=== PATIENT | female | born 1960 | race Hispanic/Latino ===

== ENCOUNTER 2018-09-20 12:25 | Observation (INO) | payer MEDICAID ==
[~2018-09-20] VITALS: Ht 157.5 cm; Wt 66.5 kg
[2018-09-20] MEDS: PANTOPRAZOLE 40MG INJ (PROTONIX) (C9113) IV SCH (09:00)
[2018-09-20] MEDS ORDERED: methylPREDNISolone INJ 125 MG/2 ML VIAL (J2930) IV ONE ×2 (12:45→13:45)
[2018-09-20] MEDS: IPRATROPIUM 0.5MG/ALBUTEROL 2.5MG INH SOL UD 3ML (DUONEB)(J7620) NEB PRN ×3 (12:59→13:24)
[2018-09-20 13:02] LABS: ABG BASE EXCESS -2.4 (-2.0-2.0); ABG HCO3 22.2 MEQ/L (22.0-26.0); ABG O2 SATURATION 98.9 % (95.0-99.0); ABG PARTIAL PRESSURE CO2 38.2 mmHg (35.0-45.0); ABG STANDARD HCO3 22.5 MEQ/L (22.0-26.0); ABG TOTAL CO2 23.4 MEQ/L (22.0-29.0); ABG pH (ARTERIAL) 7.383 UNITS (7.350-7.450)
[2018-09-20 13:18] LABS: BASO # 0.1 10^3/uL (0.0-0.2); EOS # 0.2 10^3/uL (0.0-0.50); HEMATOCRIT 41.4 % (36.0-47.0); HEMOGLOBIN 13.5 g/dl (12.0-15.5); LYMPH # 2.7 10^3/uL (1.5-4.5); LYMPH % 40.2 % (24.0-44.0); MEAN CORPUSCULAR HEMOGLOBIN 31.9 pg (27.0-33.0); MEAN CORPUSCULAR HGB CONC 32.6 g/dl (32.0-36.5); MEAN CORPUSCULAR VOLUME 97.9 fl (80.0-96.0); MONO # 0.5 10^3/uL (0.0-0.8); MONO % 7.7 % (0.0-5.0); NEUTROPHILS # 3.2 10^3/uL (1.8-7.7); NEUTROPHILS % 47.8 % (36.0-66.0); PLATELET COUNT, AUTOMATED 155 10^3/uL (150-450); RED BLOOD COUNT 4.23 10^6/uL (4.00-5.40); WHITE BLOOD COUNT 6.7 10^3/uL (4.0-10.0)
[2018-09-20] MEDS ORDERED: dexameTHASONE 20 MG/5 ML VIAL (J1100) IM ONE (13:30)
--- NOTE | 2018-09-20 13:54 | REP ---
Clinical: Cough and dyspnea . Comparison: None . Findings: The mediastinum and cardiac silhouette are stable and within normal limits for portable technique. The lung cagle demonstrate chronic-appearing interstitial changes without acute consolidation, effusion, or pneumothorax. Skeletal structures are intact. Impression: Chronic-appearing changes. No acute cardiopulmonary process appreciated. Electronically Signed by Artem Santos MD 09/20/2018 01:46 P
[2018-09-20 14:00] LABS: BLOOD UREA NITROGEN 5 MG/DL (7-18); CARBON DIOXIDE LEVEL 23 MEQ/L (21-32); CHLORIDE LEVEL 109 MEQ/L (98-107); CPK CREATINE PHOSPHOKINASE 291 U/L (26-192); CREATININE FOR GFR 0.56 MG/DL (0.55-1.30); GLOMERULAR FILTRATION RATE > 60.0 (>51); GLUCOSE, FASTING 87 MG/DL (70-100); MB/CK RELATIVE INDEX 0.72 (< OR =4); NT-PRO BNP 256 PG/ML (<125); POTASSIUM SERUM 5.1 MEQ/L (3.5-5.1); SODIUM LEVEL 139 MEQ/L (136-145); THYROID STIMULATING HORMONE 0.649 uIU/ML (0.358-3.740); TROPONIN I < 0.02 NG/ML (< 0.10)
[2018-09-20] MEDS: IPRATROPIUM 0.5MG/ALBUTEROL 2.5MG INH SOL UD 3ML (DUONEB)(J7620) NEB SCH ×4 (14:28→20:21)
[2018-09-20] MEDS ORDERED: ACETAMINOPHEN TAB 650MG DOSE (2X325MG) PO ONE (14:30)
[2018-09-20 15:30] LABS: LITHIUM LEVEL < 0.20 MEQ/L (0.60-1.20); VALPROIC ACID (DEPAKOTE) 8.8 UG/ML (50.0-100.0)
[2018-09-20] MEDS ORDERED: ALBUTEROL 90 MCG/ACT 8GM HFA INHALER INH PRN (15:45)
[2018-09-20] MEDS ORDERED: LITH300T2 PO (15:48)
[2018-09-20] MEDS ORDERED: ALB2.5NEB INH (15:48)
[2018-09-20] MEDS ORDERED: TRAZ-163 PO (15:48)
[2018-09-20] MEDS ORDERED: ZOFR4TAB16 PO (15:48)
[2018-09-20] MEDS ORDERED: DIVA500T9 PO (15:48)
[2018-09-20] MEDS ORDERED: FLUO1TAB3 PO (15:48)
[2018-09-20] MEDS ORDERED: PROAAER10 INH (15:48)
[2018-09-20] MEDS ORDERED: BUSP10TA PO (15:48)
[2018-09-20] MEDS ORDERED: ADV100INH INH (15:53)
[2018-09-20] MEDS ORDERED: FOSA70TA PO (15:53)
[2018-09-20] MEDS ORDERED: LORA0.5T11 PO (15:53)
[2018-09-20] MEDS ORDERED: PROZ20CA11 PO (15:53)
[2018-09-20] MEDS ORDERED: PREG50CA PO (15:53)
[2018-09-20] MEDS ORDERED: TRAM50TA2 PO (15:56)
[2018-09-20] MEDS ORDERED: AMBI10TA PO (15:56)
[2018-09-20] MEDS ORDERED: SERO50TA PO (15:56)
[2018-09-20 16:00] VITALS: BP 129/65
[2018-09-20] MEDS: NS 1,000 ML IV SCH (16:00)
--- NOTE | 2018-09-20 16:23 | HPEPDOC ---
[facility] Medical History & Physical Date of Admission Sep 20, 2018 Attending Physician: TAVIA VILLANUEVA MD History and Physical CHIEF COMPLAINT: Shortness of breath, without medication for the last month HISTORY OF PRESENT ILLNESS: Patient is a 58-year-old -[place] female with a past medical history of CHF, COPD, seizure ,emphysema, chronic pain, asthma, osteoporosis, neuropathy of the feet and shoulders, bipolar, anxiety, oxygen dependent at 2 L 24 hours a day. Patient presents with several days of shortness of breath, and difficulty breathing. According to patient she was originally living in [place], and she moved to [place] approximately a month ago to be with her daughter. When she discovered that her daughter was unable to take care of her. Patient moved up from [place] to [place] on August 04, leaving all of her medication and oxygen behind. She has been in [place] since August 04 without any medication. She admits to shortness of breath, cough, and chest pain chest pain. She has been using ibuprofen to manage her chronic pain. She presented to ED this afternoon because she felt like she could no longer tolerate her symptoms at home. In the ED, chest x-ray showed, chronic appearing changes, no acute cardiopulmonary process. She received a total of 5 nebulizer treatment as well as Solu-Medrol IV 125 mg, however patient continued to have shortness of breath and difficulty breathing. Hospitalist team was called for admission. PAST MEDICAL HISTORY: CHF. COPD Emphysema. Asthma. Osteoporosis. Neuropathy of the feet shoulder. Oxygen dependent. Bipolar Anxiety Seizure PAST SURGICAL HISTORY: , carpal tunnel, tonsils removed SOCIAL HISTORY: Lives with son, smokes a third for pack cigarette a day, denies alcohol. Denies illicit drugs FAMILY HISTORY: Noncontributory ALLERGIES: Please see below. Home Medication. (Patient Reports) Prednisone taper Albuterol 2 puffs Proventil 2 puffs Advair 50/100 Depakote 500 mg, twice daily Prozac 20 mg, twice daily Azusa 300 mg twice daily Albuterol nebulizer 2.5 every 4 hours as needed Alendronate every Tuesday Lyrica 50 mg 3 times a day Tramadol 50 mg as needed for pain Zofran 4 mg for nausea Seroquel at bedtime for anxiety Lorazepam 0.5 mg as needed for anxiety Ambien 20 mg bedtime ROS CONSTITUTIONAL: No fevers, denies chills, denies weight loss, denies lethargy HEENT: No rhinorrhea, no itchy eyes, no congesion, No tonsilor exudates CARDIOVASCULAR: No murmurs no palpitations and arrhythmias RESPIRATORY: Positive for cough, Positive for shortness of breath, and difficulty breathing GASTROINTESTINAL: No nausea, no vomiting, no difficulty swallowing, no pain with eating, no diarrhea HEMATOLOGICAL: No bleeding GENITOURINARY:No Issues HEMATOLOGIC/LYMPHATIC: No swelling PE GENERAL APPEARANCE: A thin appearing female, in moderate distress, she is currently on two litters on nasal canula SKIN: Warm, well perfused. ENT: Palate intact, ryder tympanic membrane no bulging, no erythema, Neck supple, no thyromegaly THORAX: Symmetrical. LUNGS: Wheezing audible without stethoscope, using accessory muscles to breath, noticeable abdominal breathing HEART: Normal S1, S2. No murmurs, no rubs, no gallops ABDOMEN: Soft. No masses. Bowel sounds are present. TRUNK/SPINE:Straight. EXTREMITIES: Moves all extremities equally. No gross deformities. PULSES: 2+ upper and lower extremity . LABORATORY DATA: See below. IMAGING: Chest xray: 09/20/18: Chronic-appearing changes. No acute cardiopulmonary pr ocess appreciated MICROBIOLOGY: Please see below. ASSESSMENT: A 58-year-old -[place] female with past medical history detailed above. Patient presents to the ED for shortness of breath, difficulty breathing due to been out of medication for the last month. Patient will be admitted and have her medication restarted. . PLAN: Shortness of breath, secondary to medication noncompliance, secondary to underlying COPD, secondary underlying asthma. --Patient received 5 nebulizer treatment in the ED, along with IV steroids, --IV Solu-Medrol 80 mg every 8 hours --Albuterol 4 puffs every 2 hours for shortness of breath, albuterol nebulizer every hour for shortness of breath. DuoNeb's every 6 hours for shortness of breath --Supplemental oxygen with O2 nasal cannula --Incentive spirometry --Echocardiogram to rule out cardiac cause of dyspnea Seizure --No report of seizure activity. Recent months. Current Depakote level is 8.8 --Seizure precautions Bipolar --Restart home meds --Azusa level is less than 0.20, this is subtherapeutic Neuropathy --Restart home med Anxiety --Will hold lorazepam, and Ambien, restart Seroquel at bedtime for sleep. Pain --Tramadol on board as needed, every 6 hours DVT --Lovenox Disposition, patient will need pulmonary support, as well as continue PCP in the area upon discharge. Vital Signs Vital Signs Date Time Temp Pulse Resp B/P (MAP) Pulse Ox O2 Delivery O2 Flow Rate FiO2 09/20/18 15:30 97.8 73 28 99/55 (70) 100 Nasal Cannula 2.0 Laboratory Data Labs 24H Laboratory Tests 2 09/20/18 12:51: Blood Gas Bicarbonate Standard 22.5, Arterial Blood pH 7.383, Arterial Blood Partial Pressure CO2 38.2, Arterial Blood Partial Pressure O2 139.0H, Arterial Blood Total CO2 23.4, Arterial Blood HCO3 22.2, Arterial Blood Base Excess - 2.4L, Arterial Blood Oxygen Saturation 98.9 09/20/18 13:01: Immature Granulocyte % (Auto) 0.3, White Blood Count 6.7, Red Blood Count 4.23, Hemoglobin 13.5, Hematocrit 41.4, Mean Corpuscular Volume 97.9H, Mean Corpuscular Hemoglobin 31.9, Mean Corpuscular Hemoglobin Concent 32.6, Red Cell Distribution Width 12.9, Platelet Count 155, Neutrophils (%) (Auto) 47.8, Lymphocytes (%) (Auto) 40.2, Monocytes (%) (Auto) 7.7H, Eosinophils (%) (Auto) 3.0, Basophils (%) (Auto) 1.0, Neutrophils # (Auto) 3.2, Lymphocytes # (Auto) 2.7, Monocytes # (Auto) 0.5, Eosinophils # (Auto) 0.2, Basophils # (Auto) 0.1, Nucleated Red Blood Cells % (auto) 0.0, Anion Gap 7L, Glomerular Filtration Rate > 60.0, Lactic Acid Level 1.8, Blood Urea Nitrogen 5L, Creatinine 0.56, Sodium Level 139, Potassium Level 5.1, Chloride Level 109H, Carbon Dioxide Level 23, Calcium Level 9.0, Total Creatine Kinase 291H, Creatine Kinase MB 2.0, Creatine Kinase MB Relative Index 0.72, Troponin I < 0.02, DF-Lwp-[id number]-Type Natriuretic Peptide 256H, Thyroid Stimulating Hormone (TSH) 0.649, Valproic Acid (Depakene) Level 8.8L, Azusa Level < 0.20L CBC/BMP Laboratory Tests 09/20/18 13:01 Red Blood Count 4.23, Mean Corpuscular Volume 97.9 H, Mean Corpuscular Hemoglobin 31.9, Mean Corpuscular Hemoglobin Concent 32.6, Red Cell Distribution Width 12.9, Neutrophils (%) (Auto) 47.8, Lymphocytes (%) (Auto) 40.2, Monocytes (%) (Auto) 7.7 H, Eosinophils (%) (Auto) 3.0, Basophils (%) (Auto) 1.0, Neutrophils # (Auto) 3.2, Lymphocytes # (Auto) 2.7, Monocytes # (Auto) 0.5, Eosinophils # (Auto) 0.2, Basophils # (Auto) 0.1, Calcium Level 9.0, Total Creatine Kinase 291 H Microbiology Microbiology 09/20/18 Blood Culture, Received Pending 09/20/18 Blood Culture, Received Pending Home Medications Scheduled Alendronate Sodium (Fosamax) 70 Mg Tab, 70 MG PO QWEEK TUESDAY Buspirone HCl (Buspirone HCl) 10 Mg Tab, 10 MG PO BID Divalproex Sodium (Divalproex Sodium ER) 500 Mg Tab, 500 MG PO BID Fluoxetine HCl (Prozac) 20 Mg Cap, 20 MG PO BID Azusa Carbonate (Azusa Carbonate) 300 Mg Tab, 300 MG PO BID Pregabalin (Lyrica) 50 Mg Cap, 50 MG PO TID Quetiapine Fumerate (Seroquel) 50 Mg Tab, 50 MG PO QHS Salmeterol/Fluticasone (Advair Diskus 100-50 Mcg/Dose) 28 Puff/Inhaler Aerp, 1 PUFF INH BID Trazodone HCl (Trazodone HCl) 100 Mg Tab, 100 MG PO QPM Scheduled PRN Albuterol Sulfate (Proair Hfa) 108 Mcg/Act Aer, 2 PUFF INH Q4H PRN for SHORTNESS OF BREATH Albuterol Sulfate (Albuterol Sulfate) 2.5 Mg/0.5 Ml Neb, 2.5 MG INH Q6H PRN for SHORTNESS OF BREATH Lorazepam (Lorazepam) 0.5 Mg Tab, 0.5 MG PO Q4H PRN for ANXIETY Ondansetron HCl (Zofran) 4 Mg Tab, 4 MG PO Q6H PRN for NAUSEA Tramadol HCl (Tramadol HCl) 50 Mg Tab, 50 MG PO Q6H PRN for PAIN Zolpidem Tartrate (Ambien) 10 Mg Tab, 20 MG PO QHS PRN for SLEEP Allergies Coded Allergies: Penicillins (Verified Allergy, Unknown, 09/20/18) GME ATTESTATION GME ATTESTATION My faculty preceptor for this patient encounter was physically present during the encounter and was fully available. All aspects of the patient interview, examination, medical decision making process, and medical care plan development were reviewed and approved by the faculty preceptor. The faculty preceptor is aware and concurs with the plan as stated in the body of this note and will attest to such by his/her cosignature. ANALI CHRISTIANSON DO Sep 20, 2018 16:23
[2018-09-20] MEDS ORDERED: ONDANSETRON 4 MG TAB (S0181) PO PRN (16:30)
[2018-09-20] MEDS: traMADol 50 MG TAB PO PRN (16:39)
[2018-09-20] MEDS: ALBUTEROL SULFATE 2.5 MG/0.5 ML INH NEB SOLN NEB PRN (17:20)
[2018-09-20] MEDS: QUEtiapine FUMARATE 12.5 MG HALF-TAB PO SCH (21:35)
[2018-09-20] MEDS: PREGABALIN 50 MG CAP (LYRICA) PO SCH (21:35)
[2018-09-20] MEDS: DIVALPROEX 500MG *ER* TAB PO SCH (21:35)
[2018-09-20] MEDS: methylPREDNISolone INJ 125 MG/2 ML VIAL (J2930) IV SCH (21:36)
[2018-09-20] MEDS: LITHIUM CARBONATE 300 MG CAP PO SCH (21:36)
[2018-09-20] MEDS: FLUoxetine 20 MG CAP PO SCH (21:36)
[2018-09-20] MEDS: zolPIDEM TARTRATE 10MG TAB PO SCH (21:36)
[2018-09-20] MEDS: NAPROXEN 250 MG TAB PO SCH (21:38)
[2018-09-20 22:00] VITALS: BP 107/51
[2018-09-21] MEDS: NS 1,000 ML IV SCH
[2018-09-21] MEDS: traMADol 50 MG TAB PO PRN ×3 (00:10→21:19)
[2018-09-21] MEDS: IPRATROPIUM 0.5MG/ALBUTEROL 2.5MG INH SOL UD 3ML (DUONEB)(J7620) NEB SCH ×4 (01:13→21:27)
[2018-09-21] MEDS: ALBUTEROL SULFATE 2.5 MG/0.5 ML INH NEB SOLN NEB PRN (04:36)
--- NOTE | 2018-09-21 04:46 | ECGEPIP ---
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
[2018-09-21 06:00] VITALS: BP 117/57
[2018-09-21 06:24] LABS: MEAN CORPUSCULAR HEMOGLOBIN 31.5 pg (27.0-33.0); MEAN CORPUSCULAR HGB CONC 32.6 g/dl (32.0-36.5); MEAN CORPUSCULAR VOLUME 96.7 fl (80.0-96.0); RED BLOOD COUNT 3.62 10^6/uL (4.00-5.40); WHITE BLOOD COUNT 12.2 10^3/uL (4.0-10.0)
[2018-09-21 06:36] LABS: HEMOGLOBIN 11.4 g/dl (12.0-15.5); PLATELET COUNT, AUTOMATED 274 10^3/uL (150-450)
[2018-09-21] MEDS: methylPREDNISolone INJ 125 MG/2 ML VIAL (J2930) IV SCH (06:41)
[2018-09-21 06:54] LABS: BLOOD UREA NITROGEN 5 MG/DL (7-18); CALCIUM LEVEL 9.2 MG/DL (8.5-10.1); CARBON DIOXIDE LEVEL 22 MEQ/L (21-32); CHLORIDE LEVEL 111 MEQ/L (98-107); CREATININE FOR GFR 0.59 MG/DL (0.55-1.30); GLOMERULAR FILTRATION RATE > 60.0 (>51); GLUCOSE, FASTING 139 MG/DL (70-100); POTASSIUM SERUM 4.3 MEQ/L (3.5-5.1); SODIUM LEVEL 141 MEQ/L (136-145)
[2018-09-21] MEDS: DIVALPROEX 500MG *ER* TAB PO SCH ×2 (08:09→21:19)
[2018-09-21] MEDS: LITHIUM CARBONATE 300 MG CAP PO SCH ×2 (08:09→21:19)
[2018-09-21] MEDS: PANTOPRAZOLE 40MG INJ (PROTONIX) (C9113) IV SCH (08:09)
[2018-09-21] MEDS: NAPROXEN 250 MG TAB PO SCH ×2 (08:09→21:19)
[2018-09-21] MEDS: PREGABALIN 50 MG CAP (LYRICA) PO SCH ×3 (08:09→21:18)
[2018-09-21] MEDS: FLUoxetine 20 MG CAP PO SCH ×2 (08:09→21:18)
[2018-09-21] MEDS: ENOXAPARIN 30 MG/0.3 ML SYR (J1650) SC SCH (08:10)
--- NOTE | 2018-09-21 11:59 | IPN ---
DATE: 09/21/2018 Judy is seen on [facility]. She is newly arrived in the [facility], was in [place], moved in with relatives in [place], then came to stay with her son who apparently is at [place]. She has been here for six weeks without any medications for her chronic obstructive pulmonary disease (COPD), congestive heart failure (CHF), bipolar disorder, chronic anxiety, seizure disorder, and history of neuropathy. Today she says she is breathing better, but having a lot of anxiety and wants her home anxiety medicines restarted. PHYSICAL EXAMINATION: Afebrile. Vital signs stable. Oxygen saturation 98% on 2 liters. General appearance: She is resting in bed, she looks very anxious. HEENT unremarkable. No jugular venous distention (JVD). Lungs expiratory wheezes all field. Heart regular rhythm. Abdomen soft, nontender. No peripheral edema. LABS: White count is 12.2 on steroids, hemoglobin 11.4, platelets 274. Sodium 141, potassium 4.3, BUN 5, creatinine 0.5, glucose 139. Valproic acid and lithium levels were undetectable as expected. IMPRESSION: 1. Exacerbation of COPD secondary to presumed bronchitis. I am going to reduce her steroid dose. She is very anxious and probably will do better on less steroid. I will reduce this to 40 mg IV daily of Solu-Medrol. Continue nebulized bronchodilators and supplemental oxygen. 2. Reports history of CHF. Echocardiogram has been ordered. It would be good to get a baseline on her as I get the feeling that she will require subsequent hospitalizations and it would be nice to quantify her ejection fraction. History of CHF noted so we will stop her IV fluids. She is currently on no diuretics. Her medications are directed towards systolic heart failure. Again, echocardiogram ordered. 3. Various psychiatric conditions. She is on her fluoxetine, lithium, Lyrica, Seroquel, Ultram, Ambien, and Depakote. Will restart her BuSpar 10 mg twice a day and Ativan 0.5 mg every 6 hours as needed. She is very insistent on restarting her anxiety medications. 4. Osteoporosis. She should restart alendronate 70 mg weekly after discharge.
[2018-09-21] MEDS: busPIRone 10 MG TAB PO SCH ×2 (13:12→21:18)
[2018-09-21] MEDS: QUEtiapine FUMARATE 12.5 MG HALF-TAB PO SCH (21:19)
[2018-09-21 22:00] VITALS: BP 117/55
[2018-09-21] MEDS: zolPIDEM TARTRATE 10MG TAB PO SCH (22:16)
[2018-09-21] MEDS: LORazepam 0.5 MG TAB PO PRN (23:54)
[2018-09-22] MEDS: IPRATROPIUM 0.5MG/ALBUTEROL 2.5MG INH SOL UD 3ML (DUONEB)(J7620) NEB SCH ×5 (02:13→23:26)
[2018-09-22 06:00] VITALS: BP 127/61
[2018-09-22 06:11] LABS: HEMATOCRIT 34.4 % (36.0-47.0); HEMOGLOBIN 11.2 g/dl (12.0-15.5); MEAN CORPUSCULAR HEMOGLOBIN 31.8 pg (27.0-33.0); MEAN CORPUSCULAR HGB CONC 32.6 g/dl (32.0-36.5); MEAN CORPUSCULAR VOLUME 97.7 fl (80.0-96.0); PLATELET COUNT, AUTOMATED 276 10^3/uL (150-450); RED BLOOD COUNT 3.52 10^6/uL (4.00-5.40); WHITE BLOOD COUNT 17.4 10^3/uL (4.0-10.0)
[2018-09-22 06:43] LABS: BLOOD UREA NITROGEN 9 MG/DL (7-18); CALCIUM LEVEL 8.9 MG/DL (8.5-10.1); CARBON DIOXIDE LEVEL 24 MEQ/L (21-32); CHLORIDE LEVEL 109 MEQ/L (98-107); CREATININE FOR GFR 0.68 MG/DL (0.55-1.30); GLOMERULAR FILTRATION RATE > 60.0 (>51); GLUCOSE, FASTING 94 MG/DL (70-100); SODIUM LEVEL 141 MEQ/L (136-145)
[2018-09-22] MEDS: LORazepam 0.5 MG TAB PO PRN ×2 (09:42→17:38)
[2018-09-22] MEDS: PREGABALIN 50 MG CAP (LYRICA) PO SCH ×3 (09:45→22:34)
[2018-09-22] MEDS: traMADol 50 MG TAB PO PRN ×2 (09:45→17:39)
[2018-09-22] MEDS: NAPROXEN 250 MG TAB PO SCH ×2 (09:46→22:34)
[2018-09-22] MEDS: busPIRone 10 MG TAB PO SCH ×2 (09:46→22:35)
[2018-09-22] MEDS: DIVALPROEX 500MG *ER* TAB PO SCH ×2 (09:47→22:35)
[2018-09-22] MEDS: FLUoxetine 20 MG CAP PO SCH ×2 (09:47→22:35)
[2018-09-22] MEDS: ENOXAPARIN 30 MG/0.3 ML SYR (J1650) SC SCH (09:48)
[2018-09-22] MEDS: LITHIUM CARBONATE 300 MG CAP PO SCH ×2 (09:48→22:35)
[2018-09-22] MEDS: PANTOPRAZOLE 40MG INJ (PROTONIX) (C9113) IV SCH (09:49)
[2018-09-22] MEDS: ALBUTEROL SULFATE 2.5 MG/0.5 ML INH NEB SOLN NEB PRN (10:51)
[2018-09-22] MEDS: methylPREDNISolone INJ 40 MG/1 ML VIAL (J2920) IV SCH ×2 (11:39→22:35)
[2018-09-22 14:00] VITALS: BP 137/64
--- NOTE | 2018-09-22 14:10 | IPN ---
DATE: 09/22/2018 Judy is doing better. She is still wheezy, but is improved. Her anxiety seems to be fairly stable at this point also. Respiratory has asked an increase in the frequency of her DuoNeb treatments, which might help. PHYSICAL EXAMINATION: Vital signs stable. She is alert, conversant. When I come in the room, she is calmly playing a computer game. When I ask how she is feeling, she tells me she feels very anxious, but does not seem to display this with observation. Lungs: Expiratory wheezes all cagle. Heart: Regular rate and rhythm. Abdomen: Soft. Nontender. No peripheral edema. LABS: White count 17.4 on steroids. Hemoglobin 11.2. Electrolytes unremarkable. IMPRESSION: 1. Exacerbation of asthma. PLAN: Continue with intravenous steroids, Solu-Medrol 40 mg every 12 hours. Nebulized bronchodilator. I will increase her DuoNeb to every 4 hours. No signs of infection so she is not on antibiotic. 2. Chronic anxiety. Continue her multiple drug regimen, including BuSpar, Prozac, lithium, Seroquel. 3. History of chronic pain syndrome, treated with Lyrica, naproxen and Ultram. 4. Seizure disorder. She is on Depakote with good control of her seizures. I expect her to be in the hospital through the weekend at this point.
[2018-09-22 22:00] VITALS: BP 118/58
[2018-09-22] MEDS: QUEtiapine FUMARATE 12.5 MG HALF-TAB PO SCH (22:34)
[2018-09-22] MEDS: zolPIDEM TARTRATE 10MG TAB PO SCH (22:34)
--- NOTE | 2018-09-22 22:45 | ECHO ---
DATE OF PROCEDURE: 09/21/2018 DATE OF : 1960 AGE: 58 REFERRING PROVIDER: Dr. Pritchard PATIENT LOCATION: Room 4222. REASON FOR THE ECHOCARDIOGRAM: Shortness of breath. 2D MEASUREMENTS: IVS: 1.0 cm LV: 3.3 cm LVPW: 1.0 cm LA: 3.3 cm Aorta: 2.8 cm IVC: 2.2 cm DOPPLER MEASUREMENTS: Peak velocity across the aortic valve: 2.0 m/s Peak velocity across the LVOT: 1.4 m/s Mitral E: 0.87, Mitral A: 0.72 with a ratio of 1.2. Maximum tricuspid valve velocity: 2.6 m/s 2D COMMENTS: 1. Normal left ventricular size, wall thickness, and normal global left ventricular systolic function. The estimated left ventricular systolic ejection fraction is 65-70%. 2. Normal left atrium. Normal right atrium and right ventricle. 3. The atrial septum appeared to be normal without evidence of defect or shunt. 4. Normal aortic root. 5. Trace pericardial effusion noted, no evidence of cardiac tamponade. 6. Mildly calcified aortic valve with minimally restricted leaflet motion. Normal mitral valve and tricuspid valve. The pulmonic valve and proximal pulmonary artery branches were not well visualized. 7. The inferior vena cava was mildly enlarged, central venous pressure might be elevated. DOPPLER: It detects trace mitral regurgitation and mild tricuspid regurgitation. The calculated pulmonary artery systolic pressure varies between 30-40 mmHg. Assessment of the left ventricular diastolic function appeared to be normal. IMPRESSION: 1. Normal global left ventricular systolic and diastolic function. 2. Aortic valve sclerosis with trivial to mild aortic stenosis but no aortic regurgitation. 3. Trace mitral regurgitation. 4. Mild tricuspid regurgitation with mild pulmonary hypertension. 5. Trace pericardial effusion noted, no evidence of cardiac tamponade. 6. The inferior vena cava was mildly enlarged, central venous pressure might be elevated.
[2018-09-23] MEDS: IPRATROPIUM 0.5MG/ALBUTEROL 2.5MG INH SOL UD 3ML (DUONEB)(J7620) NEB SCH ×5 (04:00→20:09)
[2018-09-23 06:00] VITALS: BP 124/60
[2018-09-23 06:11] LABS: HEMATOCRIT 35.3 % (36.0-47.0); HEMOGLOBIN 11.4 g/dl (12.0-15.5); MEAN CORPUSCULAR HEMOGLOBIN 32.1 pg (27.0-33.0); MEAN CORPUSCULAR HGB CONC 32.3 g/dl (32.0-36.5); MEAN CORPUSCULAR VOLUME 99.4 fl (80.0-96.0); PLATELET COUNT, AUTOMATED 299 10^3/uL (150-450); RED BLOOD COUNT 3.55 10^6/uL (4.00-5.40); WHITE BLOOD COUNT 11.9 10^3/uL (4.0-10.0)
[2018-09-23 06:35] LABS: BLOOD UREA NITROGEN 12 MG/DL (7-18); CALCIUM LEVEL 8.8 MG/DL (8.5-10.1); CARBON DIOXIDE LEVEL 28 MEQ/L (21-32); CHLORIDE LEVEL 106 MEQ/L (98-107); CREATININE FOR GFR 0.69 MG/DL (0.55-1.30); GLOMERULAR FILTRATION RATE > 60.0 (>51); GLUCOSE, FASTING 139 MG/DL (70-100); POTASSIUM SERUM 4.7 MEQ/L (3.5-5.1); SODIUM LEVEL 140 MEQ/L (136-145)
[2018-09-23] MEDS: NAPROXEN 250 MG TAB PO SCH ×2 (09:37→21:22)
[2018-09-23] MEDS: LITHIUM CARBONATE 300 MG CAP PO SCH ×2 (09:37→21:23)
[2018-09-23] MEDS: methylPREDNISolone INJ 40 MG/1 ML VIAL (J2920) IV SCH ×2 (09:38→21:22)
[2018-09-23] MEDS: busPIRone 10 MG TAB PO SCH ×2 (09:38→21:23)
[2018-09-23] MEDS: DIVALPROEX 500MG *ER* TAB PO SCH ×2 (09:38→21:23)
[2018-09-23] MEDS: FLUoxetine 20 MG CAP PO SCH ×2 (09:38→21:23)
[2018-09-23] MEDS: PREGABALIN 50 MG CAP (LYRICA) PO SCH ×3 (09:38→21:23)
[2018-09-23] MEDS: PANTOPRAZOLE 40MG TAB (PROTONIX) PO SCH (09:38)
[2018-09-23] MEDS: ENOXAPARIN 30 MG/0.3 ML SYR (J1650) SC SCH (09:39)
[2018-09-23] MEDS: traMADol 50 MG TAB PO PRN (09:47)
--- NOTE | 2018-09-23 13:52 | IPN ---
DATE: 09/23/2018 Judy is walking the halls. She is feeling better. She is still wheezy but is it is getting better on a daily basis. Anxiety and pain seem to better controlled as well. PHYSICAL EXAM: Vital signs are stable. LUNGS: Expiratory wheezes in all cagle but improved air movement. HEART: Regular rhythm. ABDOMEN: Soft, nontender. No peripheral edema. LABS: White count 11.9 on steroids, hemoglobin stable. Electrolytes are unremarkable. IMPRESSION: COPD exacerbation secondary to presumed viral infection. PLAN: 1. Continue her current regimen, utilize bronchodilator and intravenous steroid. I expect she will be in the hospital for a few more days, maybe discharge on Tuesday. 2. Chronic anxiety, stable on her psychotropic medicine. 3. Chronic pain syndrome. She is walking the halls without any difficulty. 4. Seizure disorder, stable on current dose of Depakote. Expected discharge date is 09/25/2018.
[2018-09-23 14:00] VITALS: BP 119/58
[2018-09-23] MEDS: QUEtiapine FUMARATE 12.5 MG HALF-TAB PO SCH (21:22)
[2018-09-23] MEDS: zolPIDEM TARTRATE 10MG TAB PO SCH (21:22)
[2018-09-23 22:00] VITALS: BP 121/58
[2018-09-24] MEDS: IPRATROPIUM 0.5MG/ALBUTEROL 2.5MG INH SOL UD 3ML (DUONEB)(J7620) NEB SCH ×7 (02:15→23:54)
[2018-09-24 05:55] LABS: BLOOD UREA NITROGEN 11 MG/DL (7-18); CALCIUM LEVEL 7.2 MG/DL (8.5-10.1); CARBON DIOXIDE LEVEL 24 MEQ/L (21-32); CHLORIDE LEVEL 107 MEQ/L (98-107); CREATININE FOR GFR 0.65 MG/DL (0.55-1.30); GLOMERULAR FILTRATION RATE > 60.0 (>51); GLUCOSE, FASTING 130 MG/DL (70-100); POTASSIUM SERUM 4.9 MEQ/L (3.5-5.1); SODIUM LEVEL 137 MEQ/L (136-145)
[2018-09-24 05:59] LABS: HEMATOCRIT 37.7 % (36.0-47.0); HEMOGLOBIN 11.6 g/dl (12.0-15.5); MEAN CORPUSCULAR HEMOGLOBIN 31.5 pg (27.0-33.0); MEAN CORPUSCULAR HGB CONC 30.8 g/dl (32.0-36.5); MEAN CORPUSCULAR VOLUME 102.4 fl (80.0-96.0); PLATELET COUNT, AUTOMATED 259 10^3/uL (150-450); RED BLOOD COUNT 3.68 10^6/uL (4.00-5.40); WHITE BLOOD COUNT 14.6 10^3/uL (4.0-10.0)
[2018-09-24 06:00] VITALS: BP 122/58
[2018-09-24] MEDS: DIVALPROEX 500MG *ER* TAB PO SCH ×2 (10:14→22:15)
[2018-09-24] MEDS: NAPROXEN 250 MG TAB PO SCH ×2 (10:14→22:14)
[2018-09-24] MEDS: FLUoxetine 20 MG CAP PO SCH ×2 (10:14→22:15)
[2018-09-24] MEDS: busPIRone 10 MG TAB PO SCH ×2 (10:14→22:15)
[2018-09-24] MEDS: PREGABALIN 50 MG CAP (LYRICA) PO SCH ×3 (10:15→21:00)
[2018-09-24] MEDS: LITHIUM CARBONATE 300 MG CAP PO SCH ×2 (10:15→22:16)
[2018-09-24] MEDS: methylPREDNISolone INJ 40 MG/1 ML VIAL (J2920) IV SCH (10:15)
[2018-09-24] MEDS: PANTOPRAZOLE 40MG TAB (PROTONIX) PO SCH (10:15)
[2018-09-24] MEDS: traMADol 50 MG TAB PO PRN ×2 (10:15→22:16)
[2018-09-24] MEDS: ENOXAPARIN 30 MG/0.3 ML SYR (J1650) SC SCH (10:16)
[2018-09-24 14:00] VITALS: BP 125/60
--- NOTE | 2018-09-24 16:41 | IPNPDOC ---
Date Seen The patient was seen on 09/24/18. Progress Note SUBJECTIVE: pt seen and examined at bedside, audibly wheezing, continues to complain of cough, oxygen titrated up as she becomes short of breath with exertion OBJECTIVE PHYSICAL EXAMINATION: VITAL SIGNS: Please see below. GENERAL: well nourished, no acute distress HEENT: normocephalic, atraumatic, EOMI CARDIOVASCULAR: regular, rate and rhythm, normal s1 and s2, no Murmurs, gallops or rubs RESPIRATORY: diffuse wheezing, no crackles ABDOMINAL: soft, non tender, non distended, + BS EXTREMITIES: no edema, no calf tenderness NEUROLOGICAL: alert and oriented X 3. no focal deficits noted PSYCHOLOGICAL: normal mood and affect LABORATORY DATA, IMAGING STUDIES, MICROBIOLOGY: Please see below. Echocardiogram: normal EF, mild pul HTN, normal diastolic function DVT prophylaxis ordered?: heparin subcutaneous ASSESSMENT AND PLAN: 58 yr old female with past medical hx of asthma/ COPD presents with shortness of breath, cough PROBLEMS: 1. Acute asthma/ COPD ex 2/2 URI: increase solumedrol 40 q12h, doxycycline 100mg PO BID ( avoiding azithromycin as pt has many QT prolonging drugs). Duoneb standing, advair , oxygen as needed 2. hx of CHF: echo: normal systolic and diastolic function, mild pul htn 3. Mood disorder NOS: continue buspar, prozac, ativan prn, lithium, seroquel DISPOSITION: pt needs home oxygen to be set up as she recently moved from [place]. need new PCP. will address issues once medically stable. Dispo: home VS, I&O, 24H, Fishbone Vital Signs/I&O Vital Signs Date Time Temp Pulse Resp B/P (MAP) Pulse Ox O2 Delivery O2 Flow Rate FiO2 09/24/18 14:00 99.0 104 22 125/60 (81) 96 Nasal Cannula 3.0 I&O- Last 24 Hours up to 6 AM 09/24/18 06:00 Intake Total 1648 ml Output Total 0 ml Balance 1648 ml Laboratory Data 24H LABS Laboratory Tests 2 09/24/18 05:29: Nucleated Red Blood Cells % (auto) 0.0, Anion Gap 6L, Glomerular Filtration Rate > 60.0, Blood Urea Nitrogen 11, Creatinine 0.65, Sodium Level 137, Potassium Level 4.9, Chloride Level 107, Carbon Dioxide Level 24, Calcium Level 7.2#L CBC/BMP Laboratory Tests 09/24/18 05:29 Red Blood Count 3.68 L, Mean Corpuscular Volume 102.4 H, Mean Corpuscular Hemoglobin 31.5, Mean Corpuscular Hemoglobin Concent 30.8 L, Red Cell Di stribution Width 13.0, Calcium Level 7.2 #L Microbiology Microbiology 09/20/18 Blood Culture - Preliminary, Resulted No Growth after 72 hours. All specime... 09/20/18 Blood Culture - Preliminary, Resulted No Growth after 72 hours. All specime... TUESDAY,ALPA TREVIÑO Sep 24, 2018 16:41
[2018-09-24] MEDS: ADVAIR HFA 115/21MCG INHALER INH SCH (20:06)
[2018-09-24] MEDS ORDERED: zolPIDEM TARTRATE 5 MG TAB PO SCH (21:00)
[2018-09-24] MEDS: methylPREDNISolone INJ 125 MG/2 ML VIAL (J2930) IV SCH (21:53)
[2018-09-24 22:00] VITALS: BP 129/58
[2018-09-24] MEDS: guaiFENesin ER 600 MG TAB PO SCH (22:15)
[2018-09-24] MEDS: ALBUTEROL SULFATE 2.5 MG/0.5 ML INH NEB SOLN NEB PRN (22:15)
[2018-09-24] MEDS: DOXYCYCLINE HYCLATE 100 MG TAB PO SCH (22:15)
[2018-09-24] MEDS: QUEtiapine FUMARATE 12.5 MG HALF-TAB PO SCH (22:16)
[2018-09-25 04:00] VITALS: BP 137/63
[2018-09-25] MEDS: IPRATROPIUM 0.5MG/ALBUTEROL 2.5MG INH SOL UD 3ML (DUONEB)(J7620) NEB SCH ×5 (05:28→15:08)
[2018-09-25 06:14] LABS: HEMATOCRIT 34.1 % (36.0-47.0); HEMOGLOBIN 10.7 g/dl (12.0-15.5); MEAN CORPUSCULAR HEMOGLOBIN 31.9 pg (27.0-33.0); MEAN CORPUSCULAR HGB CONC 31.4 g/dl (32.0-36.5); MEAN CORPUSCULAR VOLUME 101.8 fl (80.0-96.0); PLATELET COUNT, AUTOMATED 282 10^3/uL (150-450); RED BLOOD COUNT 3.35 10^6/uL (4.00-5.40); WHITE BLOOD COUNT 16.3 10^3/uL (4.0-10.0)
[2018-09-25 06:52] LABS: BLOOD UREA NITROGEN 16 MG/DL (7-18); CALCIUM LEVEL 8.4 MG/DL (8.5-10.1); CARBON DIOXIDE LEVEL 28 MEQ/L (21-32); CHLORIDE LEVEL 105 MEQ/L (98-107); CREATININE FOR GFR 0.66 MG/DL (0.55-1.30); GLOMERULAR FILTRATION RATE > 60.0 (>51); GLUCOSE, FASTING 116 MG/DL (70-100); SODIUM LEVEL 139 MEQ/L (136-145)
[2018-09-25] MEDS: ADVAIR HFA 115/21MCG INHALER INH SCH (07:55)
[2018-09-25 08:10] VITALS: BP 138/64
[2018-09-25] MEDS: LITHIUM CARBONATE 300 MG CAP PO SCH (08:45)
[2018-09-25] MEDS: NAPROXEN 250 MG TAB PO SCH (08:46)
[2018-09-25] MEDS: busPIRone 10 MG TAB PO SCH (08:47)
[2018-09-25] MEDS: PANTOPRAZOLE 40MG TAB (PROTONIX) PO SCH (08:47)
[2018-09-25] MEDS: DOXYCYCLINE HYCLATE 100 MG TAB PO SCH (08:47)
[2018-09-25] MEDS: FLUoxetine 20 MG CAP PO SCH (08:47)
[2018-09-25] MEDS: DIVALPROEX 500MG *ER* TAB PO SCH (08:47)
[2018-09-25] MEDS: PREGABALIN 50 MG CAP (LYRICA) PO SCH ×2 (08:47→15:29)
[2018-09-25] MEDS: ENOXAPARIN 30 MG/0.3 ML SYR (J1650) SC SCH (08:48)
[2018-09-25] MEDS ORDERED: predniSONE 20 MG TAB PO SCH (09:00)
[2018-09-25] MEDS: methylPREDNISolone INJ 125 MG/2 ML VIAL (J2930) IV SCH (09:03)
[2018-09-25] MEDS: traMADol 50 MG TAB PO PRN (09:04)
[2018-09-25] MEDS: guaiFENesin ER 600 MG TAB PO SCH (09:42)
[2018-09-25] MEDS ORDERED: TRAM50TA2 PO (13:18)
[2018-09-25] MEDS ORDERED: PROAAER10 INH (13:20)
[2018-09-25] MEDS ORDERED: BUSP10TA PO (13:21)
[2018-09-25] MEDS ORDERED: AZIT500T2 PO (13:22)
[2018-09-25] MEDS ORDERED: DEPA500T2 PO (13:22)
[2018-09-25] MEDS ORDERED: PROZ20CA11 PO (13:23)
[2018-09-25] MEDS ORDERED: OMEP10CASR PO (13:24)
[2018-09-25] MEDS ORDERED: LITH300C PO (13:24)
[2018-09-25] MEDS ORDERED: PRED10TA2 PO (13:26)
[2018-09-25] MEDS ORDERED: PREG50CA PO (13:27)
[2018-09-25] MEDS ORDERED: SERO1TAB3 PO (13:29)
[2018-09-25] MEDS ORDERED: TRAZ-163 PO (13:29)
--- NOTE | 2018-09-25 14:04 | DS.PDOC ---
Discharge Summary General Date of Admission Sep 20, 2018 at 15:18 Date of Discharge 09/25/18 Attending Physician: TUESDAY,ALPA TREVIÑO Discharge Summary ADMITTING DIAGNOSES: 1. shortness of breath, cough DISCHARGE DIAGNOSES: 1. Acute asthma/COPD ex 2/2 URI COMPLICATIONS/CHIEF COMPLAINT: Copd With Acute Exacerbation. HISTORY OF PRESENT ILLNESS: 58 year old w hx of asthma/COPD, mood disorder presents with cough and shortness of breath and wheezing. She recently moved here for [place] and ran out of her medications HOSPITAL COURSE: pt admitted, started on steroids, Duonebs. XR chest: no acute disease. Pt was on oxygen before admission. wheezing improved, shortness of breath improved. pt started on azithromycin. walking desats performed. Pt remains above 90% walking several flights of steps.saturation on RA at rest 96 - 98%. pt stable for d/c. medications provided DISCHARGE MEDICATIONS: Please see below. ALLERGIES: Please see below. PHYSICAL EXAMINATION ON DISCHARGE: VITAL SIGNS: Please see below. GENERAL: NAD, well nourished HEENT: normocephalic, atraumatic, EOMI NECK: supple, no JVP CARDIOVASCULAR EXAMINATION: RRR, normal s1 and s2, no MGR RESPIRATORY EXAMINATION: minimal wheezing, no crackles ABDOMINAL EXAMINATION: soft, non tender, non distended, + BS EXTREMITIES: no edema, no calf tenderness SKIN: no rashes or lesions noted NEUROLOGICAL EXAMINATION: PSYCHIATRIC EXAMINATION: LABORATORY DATA: Please see below. IMAGING: XR chest: no effusions or PNA PROGNOSIS: good ACTIVITY: [As tolerated]. DIET: regular DISCHARGE PLAN: continue steroids, antibiotics and inhalers as prescribed. counseled for smoking cessation DISPOSITION: . DISCHARGE INSTRUCTIONS: 1. appointment with primary care doctor 09/29/17 2. continue medications as directed ITEMS TO FOLLOWUP ON ON OUTPATIENT: 1. 1. appointment with primary care doctor 09/29/17 DISCHARGE CONDITION: [Stable]. TIME SPENT ON DISCHARGE: Greater than [45] minutes. Vital Signs/I&Os Vital Signs Date Time Temp Pulse Resp B/P (MAP) Pulse Ox O2 Delivery O2 Flow Rate FiO2 09/25/18 09:43 20 09/25/18 09:00 2.0 09/25/18 08:10 97.6 75 138/64 (88) 100 Nasal Cannula I&O- Last 24 Hours up to 6 AM 09/25/18 06:00 Intake Total 1110 ml Output Total 100 ml Balance 1010 ml Laboratory Data Labs 24H Laboratory Tests 2 09/25/18 06:00: Nucleated Red Blood Cells % (auto) 0.0, Anion Gap 6L, Glomerular Filtration Rate > 60.0, Blood Urea Nitrogen 16, Creatinine 0.66, Sodium Level 139, Potassium Level 5.0, Chloride Level 105, Carbon Dioxide Level 28, Calcium Level 8.4#L CBC/BMP Laboratory Tests 09/25/18 06:00 Red Blood Count 3.35 L, Mean Corpuscular Volume 101.8 H, Mean Corpuscular Hemoglobin 31.9, Mean Corpuscular Hemoglobin Concent 31.4 L, Red Cell Distribution Width 12.7, Calcium Level 8.4 #L Microbiology Microbiology 09/20/18 Blood Culture - Final, Complete NO GROWTH AFTER 5 DAYS 09/20/18 Blood Culture - Final, Complete NO GROWTH AFTER 5 DAYS Discharge Medications Scheduled Alendronate Sodium (Fosamax) 70 Mg Tab, 70 MG PO QWEEK, (Reported) TUESDAY Azithromycin (Azithromycin) 500 Mg Tab, 1 TAB PO DAILY Buspirone HCl (Buspirone HCl) 10 Mg Tab, 10 MG PO BID, (Reported) Buspirone HCl (Buspirone HCl) 10 Mg Tab, 10 MG PO BID Divalproex Sodium (Divalproex Sodium ER) 500 Mg Tab, 500 MG PO BID, (Reported) Divalproex Sodium (Depakote ER) 500 Mg Tab, 1 TAB PO BID Fluoxetine HCl (Prozac) 20 Mg Cap, 20 MG PO BID, (Reported) Fluoxetine HCl (Prozac) 20 Mg Cap, 20 MG PO DAILY Kemp Carbonate (Kemp Carbonate) 300 Mg Tab, 300 MG PO BID, (Reported) Kemp Carbonate (Kemp Carbonate) 300 Mg Cap, 300 MG PO BID Omeprazole (PriLOSEC) 10 Mg Capcr, 1 CAP PO DAILY Prednisone (Prednisone) 10 Mg Tab, 10 MG PO TAPER Take 4 tabs daily x 3 days, then 3 tabs daily x 3 days, then 2 tabs daily x 3 days, then 1 tab daily x 3 days and stop Pregabalin (Lyrica) 50 Mg Cap, 50 MG PO TID, (Reported) Pregabalin (Lyrica) 50 Mg Cap, 50 MG PO TID Quetiapine Fumerate (Seroquel) 50 Mg Tab, 50 MG PO QHS, (Reported) Quetiapine Fumerate (Seroquel) 25 Mg Tab, 0.5 TAB PO QPM Salmeterol/Fluticasone (Advair Diskus 100-50 Mcg/Dose) 28 Puff/Inhaler Aerp, 1 PUFF INH BID, (Reported) Trazodone HCl (Trazodone HCl) 100 Mg Tab, 100 MG PO QPM, (Reported) Trazodone HCl (Trazodone HCl) 100 Mg Tab, 100 MG PO QPM Scheduled PRN Albuterol Sulfate (Proair Hfa) 108 Mcg/Act Aer, 2 PUFF INH Q4H PRN for SHORTNESS OF BREATH, (Reported) Albuterol Sulfate (Albuterol Sulfate) 2.5 Mg/0.5 Ml Neb, 2.5 MG INH Q6H PRN for SHORTNESS OF BREATH, (Reported) Albuterol Sulfate (Proair Hfa) 108 Mcg/Act Aer, 2 PUFF INH Q4-6HP PRN for wheezing Tramadol HCl (Tramadol HCl) 50 Mg Tab, 50 MG PO Q6H PRN for PAIN, (Reported) Tramadol HCl (Tramadol HCl) 50 Mg Tab, 50 MG PO BID PRN for pain Allergies Coded Allergies: Penicillins (Verified Allergy, Unknown, 09/20/18) TUESDAYALPA MD Sep 25, 2018 14:04
== END 2018-09-25 17:10 | disposition home or self-care (01) ==
LOC: M ED 12:25 → M ED INP 15:18 → M MSPAV 16:31 → M PED 09-24 21:42
PROVIDERS: ADMIT Internal Medicine; ATTEND Hospitalist
DX: J44.1 Chronic obstructive pulmonary disease with (acute) exacerbation (principal); J06.9 Acute upper respiratory infection, unspecified; G89.29 Other chronic pain; Z79.51 Long term (current) use of inhaled steroids; Z79.52 Long term (current) use of systemic steroids; F39 Unspecified mood [affective] disorder; Z79.899 Other long term (current) drug therapy; Z88.0 Allergy status to penicillin; Z99.81 Dependence on supplemental oxygen; F41.9 Anxiety disorder, unspecified; R56.9 Unspecified convulsions; F17.210 Nicotine dependence, cigarettes, uncomplicated
CPT/HCPCS: 36415; 36600; 71045; 80048; 80164; 80178; 82550; 82553; 82803; 83605; 83880; 84443; 85025; 85027; 87040; 93005; 93041; 93306; 94640; 96361; 96372; 96374; 96375; 96376; 97116; 97161; 97530; 99285; C9113; J1650; J2920; J2930

== ENCOUNTER → 2018-10-23 | Outpatient (REF) | payer OTHER ==
[~2018-10-23] MED LIST: ADV100INH INH; ALB2.5NEB INH; AMBI10TA PO; AZIT500T2 PO; BUSP10TA PO; DEPA500T2 PO; DIVA500T9 PO; FLUO1TAB3 PO; FOSA70TA PO; LITH300C PO; LITH300T2 PO; LORA0.5T11 PO; OMEP10CASR PO; PRED10TA2 PO; PREG50CA PO; PROAAER10 INH; PROZ20CA11 PO; SERO1TAB3 PO; SERO50TA PO; TRAM50TA2 PO; TRAZ-163 PO; ZOFR4TAB16 PO
[2018-10-23 13:55] LABS: BASO % 0.1 % (0.0-1.0); EOS % 0.1 % (0.0-3.0); HEMATOCRIT 43.4 % (36.0-47.0); HEMOGLOBIN 13.7 g/dl (12.0-15.5); LYMPH % 22.9 % (24.0-44.0); MEAN CORPUSCULAR HEMOGLOBIN 32.1 pg (27.0-33.0); MEAN CORPUSCULAR HGB CONC 31.6 g/dl (32.0-36.5); MEAN CORPUSCULAR VOLUME 101.6 fl (80.0-96.0); MONO # 1.4 10^3/uL (0.0-0.8); MONO % 10.5 % (0.0-5.0); NEUTROPHILS # 8.7 10^3/uL (1.8-7.7); PLATELET COUNT, AUTOMATED 266 10^3/uL (150-450); RED BLOOD COUNT 4.27 10^6/uL (4.00-5.40); WHITE BLOOD COUNT 13.2 10^3/uL (4.0-10.0)
[2018-10-23 13:59] LABS: ALT/SGPT 19 U/L (12-78); BILIRUBIN,TOTAL 0.3 MG/DL (0.2-1.0); BLOOD UREA NITROGEN 9 MG/DL (7-18); C REACTIVE PROTEIN QUANTITATIV 0.63 MG/DL (0.00-0.30); CALCIUM LEVEL 9.6 MG/DL (8.5-10.1); CARBON DIOXIDE LEVEL 24 MEQ/L (21-32); CHLORIDE LEVEL 107 MEQ/L (98-107); CREATININE FOR GFR 0.61 MG/DL (0.55-1.30); GLOMERULAR FILTRATION RATE > 60.0 (>51); GLUCOSE, FASTING 97 MG/DL (70-100); POTASSIUM SERUM 3.9 MEQ/L (3.5-5.1); RHEUMATOID FACTOR QUANT < 10.0 IU/ML (<15.0); SODIUM LEVEL 140 MEQ/L (136-145); TOTAL PROTEIN 6.8 GM/DL (6.4-8.2)
[2018-10-23 15:04] LABS: ERYTHROCYTE SEDIMENTATION RATE 13 mm/hr (0-30)
== END ==
LOC: M LABDRAW1 12:57
PROVIDERS: ATTEND Physician Assistant Medical
DX: M25.562 Pain in left knee (principal); M17.0 Bilateral primary osteoarthritis of knee

== ENCOUNTER 2018-10-28 14:04 | Inpatient (IN) | payer OTHER ==
[~2018-10-28] VITALS: Ht 157.5 cm; Wt 64.0 kg
[2018-10-28] MEDS ORDERED: IPRATROPIUM 0.5MG/ALBUTEROL 2.5MG INH SOL UD 3ML (DUONEB)(J7620) NEB ONE (14:30)
[2018-10-28] MEDS ORDERED: ALBUTEROL SULFATE 2.5 MG/0.5 ML INH NEB SOLN INH ONE (14:30)
[2018-10-28] MEDS ORDERED: dexameTHASONE 20 MG/5 ML VIAL (J1100) IV ONE (14:30)
--- NOTE | 2018-10-28 14:50 | REP ---
Clinical: Cough and dyspnea. Comparison: 09/20/2018. Findings: Coarsened interstitial changes may reflect bronchitis with subtle right basilar atelectasis. No focal consolidation, effusion, or pneumothorax. Mediastinum and cardiac silhouette normal. Skeletal structures intact. Impression: Cannot exclude bronchitis with trace right basilar atelectasis. Electronically Signed by Artem Santos MD 10/28/2018 02:41 P
[2018-10-28 15:33] LABS: VENOUS O2 SATURATION 89.5 % (60.0-80.0); VENOUS PARTIAL PRESSURE CO2 42.3 mmHg (38.0-50.0); VENOUS PARTIAL PRESSURE O2 58.9 mmHg (30.0-50.0); VENOUS STANDARD HCO3 24.3 MEQ/L; VENOUS TOTAL CO2 26.3 MEQ/L (24.0-28.0)
[2018-10-28 15:40] LABS: BASO % 0.3 % (0.0-1.0); EOS # 0.1 10^3/uL (0.0-0.50); EOS % 0.9 % (0.0-3.0); HEMATOCRIT 37.4 % (36.0-47.0); HEMOGLOBIN 12.3 g/dl (12.0-15.5); LYMPH # 1.1 10^3/uL (1.5-4.5); LYMPH % 9.4 % (24.0-44.0); MEAN CORPUSCULAR HEMOGLOBIN 32.1 pg (27.0-33.0); MEAN CORPUSCULAR HGB CONC 32.9 g/dl (32.0-36.5); MEAN CORPUSCULAR VOLUME 97.7 fl (80.0-96.0); MONO # 0.8 10^3/uL (0.0-0.8); MONO % 6.6 % (0.0-5.0); NEUTROPHILS % 82.3 % (36.0-66.0); PLATELET COUNT, AUTOMATED 255 10^3/uL (150-450); RED BLOOD COUNT 3.83 10^6/uL (4.00-5.40); WHITE BLOOD COUNT 12.1 10^3/uL (4.0-10.0)
[2018-10-28 15:53] LABS: INR 0.9; PROTHROMBIN TIME 12.2 SECONDS (12.1-14.4)
[2018-10-28 15:55] LABS: D-DIMER QUANT 556.9 ng/ml (<500)
[2018-10-28 16:08] LABS: ALBUMIN 3.5 GM/DL (3.2-5.2); ALT/SGPT 16 U/L (12-78); BILIRUBIN,DIRECT < 0.1 MG/DL (0.0-0.2); BILIRUBIN,TOTAL 0.3 MG/DL (0.2-1.0); BLOOD UREA NITROGEN 10 MG/DL (7-18); CALCIUM LEVEL 8.5 MG/DL (8.5-10.1); CARBON DIOXIDE LEVEL 26 MEQ/L (21-32); CHLORIDE LEVEL 101 MEQ/L (98-107); CK-MB VALUE MASS < 1.0 NG/ML (<3.6); CPK CREATINE PHOSPHOKINASE 210 U/L (26-192); GLOMERULAR FILTRATION RATE > 60.0 (>51); GLUCOSE, FASTING 90 MG/DL (70-100); LITHIUM LEVEL < 0.20 MEQ/L (0.60-1.20); MB/CK RELATIVE INDEX 0.48 (< OR =4); NT-PRO BNP 123 PG/ML (<125); POTASSIUM SERUM 5.6 MEQ/L (3.5-5.1); SODIUM LEVEL 133 MEQ/L (136-145); TOTAL PROTEIN 6.4 GM/DL (6.4-8.2); TROPONIN I < 0.02 NG/ML (< 0.10); VALPROIC ACID (DEPAKOTE) 4.6 UG/ML (50.0-100.0)
[2018-10-28] MEDS ORDERED: ACETAMINOPHEN TAB 650MG DOSE (2X325MG) PO ONE (16:15)
[2018-10-28] MEDS ORDERED: OMEP10CASR PO (18:24)
[2018-10-28] MEDS ORDERED: PRED20TA PO (18:24)
[2018-10-28] MEDS ORDERED: APAP325T4 PO (18:24)
[2018-10-28] MEDS ORDERED: MUCI1TAB16 PO (18:24)
[2018-10-28] MEDS ORDERED: QUET1TAB7 PO (18:24)
[2018-10-28] MEDS: IPRATROPIUM 0.5MG/ALBUTEROL 2.5MG INH SOL UD 3ML (DUONEB)(J7620) NEB PRN (19:56)
[2018-10-28] MEDS ORDERED: ALPRAZolam 0.25 MG TAB PO ONE (20:00)
[2018-10-28] MEDS: FLUoxetine 20 MG CAP PO SCH (20:24)
[2018-10-28] MEDS: QUEtiapine FUMARATE 25 MG TAB PO SCH (20:25)
[2018-10-28] MEDS: DIVALPROEX 500MG *ER* TAB PO SCH (20:25)
[2018-10-28] MEDS: traMADol 50 MG TAB PO PRN (20:26)
[2018-10-28] MEDS: PREGABALIN 50 MG CAP (LYRICA) PO SCH (20:26)
[2018-10-28 20:42] VITALS: BP 116/58
[2018-10-28] MEDS: busPIRone 10 MG TAB PO SCH (20:57)
[2018-10-28] MEDS: LITHIUM CARBONATE 300 MG CAP PO SCH (20:57)
[2018-10-28] MEDS: methylPREDNISolone INJ 40 MG/1 ML VIAL (J2920) IV SCH (21:00)
--- NOTE | 2018-10-28 21:42 | HPE ---
DATE OF ADMISSION: 10/28/2018 58-year-old female with a past medical history of congestive heart failure (CHF), chronic obstructive pulmonary disease (COPD), oxygen dependent and requiring 2 liters nasal cannula, asthma, seizure disorder, who presents to the emergency room with shortness of breath for approximately 48 hours. She has cough but it is nonproductive. No subjective feeling of fever, aches or chills. When she came to the emergency room, she was given Solu-Medrol and DuoNeb. Respiratory panel came back positive for respiratory syncytial virus (RSV). The patient never was hypoxic and is saturating well at 2 liters nasal cannula, and chest x-ray was negative. She will be admitted for further management. PAST MEDICAL HISTORY: 1. Congestive heart failure (CHF). 2. Oxygen dependent chronic obstructive pulmonary disease (COPD) requiring 2 liters nasal cannula. 3. History of asthma. 4. Osteoporosis. 5. Bilateral knee osteoarthritis. 6. History of bipolar disorder. 7. Anxiety. 8. Seizure disorder. DRUG ALLERGIES: PENICILLIN. FAMILY HISTORY: Noncontributory. SOCIAL HISTORY: The patient still smokes one-third pack of cigarettes a day and has smoked for many years now. Denies alcohol or illicit drugs. MEDICATIONS: Medications she takes at home: - Tylenol 650 mg by mouth every 4 hours as needed - albuterol as needed - alendronate 70 mg by mouth weekly - buspirone 10 mg orally twice a day - Depakote 500 mg orally twice a day - fluoxetine 20 mg orally twice a day - guaifenesin as needed at 1200 mg dosage - lithium carbonate 200 mg orally twice a day - omeprazole 10 mg orally daily - prednisone 60 mg orally daily with taper - pregabalin 50 mg orally twice a day - Seroquel 25 mg orally twice a day - Advair 100/50 one puff inhaled twice a day - tramadol 50 mg orally every 6 hours as needed - trazodone 100 mg orally in the evening REVIEW OF SYSTEMS: Negative for all ten major systems except what is mentioned in the history of present illness. VITAL SIGNS: Blood pressure 114/57, heart rate is 80 and regular. Respiratory rate is 28, temperature 101.6 orally, oxygen saturation is 97% on 2 liters nasal cannula. Head is atraumatic, normocephalic. Neck is supple with no jugular venous distention (JVD). Lungs have bilateral late expiratory wheezes. S1, S2 audible. No murmurs appreciated. Abdomen is soft. Positive bowel sounds. No pedal edema. Skin is intact. Neurologic examination, the patient is awake, alert and oriented times three. LABORATORIES: WBC 12.1, hemoglobin 12.3, hematocrit 37.4, platelets 255,000. Sodium 133, potassium is 5.6, hemolyzed, chloride 101, CO2 of 26, BUN 10, creatinine 0.7, glucose is 90, troponin less than 0.02, TSH 0.460. Chest x-ray shows no consolidation but cannot rule out bronchitis. IMPRESSION: 1. Chronic obstructive pulmonary disease (COPD) exacerbation. 2. Respiratory syncytial virus (RSV). PLAN: The patient is to be admitted to the progressive care unit (PCU). We will continue the patient on IV Solu-Medrol 40 mg every 8 hours and DuoNeb every 4 hours as needed. Continue all preadmission medications. Likely the cause of the exacerbation is respiratory syncytial virus (RSV). We will continue following care on the medical/surgical floor.
[2018-10-28] MEDS ORDERED: DEXTROSE 50% 50 ML SYRINGE IV STA (23:56)
[2018-10-29] VITALS (7 sets, daily range): BP systolic 110–144; BP diastolic 60–70
[2018-10-29] MEDS ORDERED: HumaLOG INSULIN (NovoLOG) PER UNIT SC ONE
[2018-10-29] MEDS ORDERED: CALCIUM GLUCONATE 1,000 MG in D5W MINI-BAG PLUS 100 ML IV ONE ×2
[2018-10-29 00:44] LABS: BLOOD UREA NITROGEN 14 MG/DL (7-18); CALCIUM LEVEL 8.5 MG/DL (8.5-10.1); CARBON DIOXIDE LEVEL 24 MEQ/L (21-32); CHLORIDE LEVEL 104 MEQ/L (98-107); CREATININE FOR GFR 0.91 MG/DL (0.55-1.30); GLOMERULAR FILTRATION RATE > 60.0 (>51); GLUCOSE, FASTING 207 MG/DL (70-100); POTASSIUM SERUM 4.2 MEQ/L (3.5-5.1); SODIUM LEVEL 137 MEQ/L (136-145)
[2018-10-29] MEDS ORDERED: ALPRAZolam 0.25 MG TAB PO ONE (00:45)
[2018-10-29] MEDS: IPRATROPIUM 0.5MG/ALBUTEROL 2.5MG INH SOL UD 3ML (DUONEB)(J7620) NEB PRN ×5 (01:07→16:52)
[2018-10-29] MEDS: methylPREDNISolone INJ 40 MG/1 ML VIAL (J2920) IV SCH ×3 (05:24→20:40)
[2018-10-29] MEDS: traMADol 50 MG TAB PO PRN ×2 (05:26→16:27)
[2018-10-29 05:37] LABS: BASO % 0.1 % (0.0-1.0); HEMATOCRIT 37.5 % (36.0-47.0); HEMOGLOBIN 12.2 g/dl (12.0-15.5); LYMPH # 0.6 10^3/uL (1.5-4.5); LYMPH % 6.6 % (24.0-44.0); MEAN CORPUSCULAR HEMOGLOBIN 31.9 pg (27.0-33.0); MEAN CORPUSCULAR HGB CONC 32.5 g/dl (32.0-36.5); MEAN CORPUSCULAR VOLUME 98.2 fl (80.0-96.0); MONO # 0.4 10^3/uL (0.0-0.8); MONO % 4.6 % (0.0-5.0); NEUTROPHILS # 8.4 10^3/uL (1.8-7.7); PLATELET COUNT, AUTOMATED 237 10^3/uL (150-450); RED BLOOD COUNT 3.82 10^6/uL (4.00-5.40); WHITE BLOOD COUNT 9.5 10^3/uL (4.0-10.0)
[2018-10-29 05:54] LABS: BLOOD UREA NITROGEN 9 MG/DL (7-18); CALCIUM LEVEL 8.6 MG/DL (8.5-10.1); CARBON DIOXIDE LEVEL 24 MEQ/L (21-32); CHLORIDE LEVEL 108 MEQ/L (98-107); CREATININE FOR GFR 0.62 MG/DL (0.55-1.30); GLOMERULAR FILTRATION RATE > 60.0 (>51); GLUCOSE, FASTING 128 MG/DL (70-100); POTASSIUM SERUM 4.5 MEQ/L (3.5-5.1); SODIUM LEVEL 137 MEQ/L (136-145)
--- NOTE | 2018-10-29 07:24 | ECGEPIP ---
Stationary ECG Study [facility] - ED Test Date: 2018-10-28 Pat Name: SARAH MORALES Department: Room: - Gender: F Cvicu Nurse: : 1960 Requested By: NOBLE Gallegos Order Number: [id number] Reading MD: Mulu Barton Measurements Intervals [place] Rate: 111 P: 70 IA: 129 QRS: 71 QRSD: 68 T: 58 QT: 306 QTc: 417 Interpretive Statements SINUS TACHYCARDIA ABNORMAL RHYTHM ECG INCREASED RATE 09/20/18 Electronically Signed On 10-29-2018 7:23:57 EST by Mulu Barton
[2018-10-29] MEDS ORDERED: FLUBLOK(EGG FREE)(QUAD)INFLUENZA VACC 0.5ML SYRINGE (90682)18YRS&OLDER IM ONE (09:00)
[2018-10-29] MEDS: busPIRone 10 MG TAB PO SCH ×2 (09:32→20:39)
[2018-10-29] MEDS: PREGABALIN 50 MG CAP (LYRICA) PO SCH ×2 (09:32→20:39)
[2018-10-29] MEDS: OMEPRAZOLE 20 MG CAP PO SCH (09:33)
[2018-10-29] MEDS: traZODone 100 MG TAB PO SCH (09:33)
[2018-10-29] MEDS: DIVALPROEX 500MG *ER* TAB PO SCH ×2 (09:33→20:39)
[2018-10-29] MEDS: LITHIUM CARBONATE 300 MG CAP PO SCH ×2 (09:33→20:39)
[2018-10-29] MEDS: QUEtiapine FUMARATE 25 MG TAB PO SCH ×2 (09:33→20:39)
[2018-10-29] MEDS: FLUoxetine 20 MG CAP PO SCH ×2 (09:33→20:39)
[2018-10-29] MEDS: guaiFENesin ER 600 MG TAB PO PRN (16:27)
--- NOTE | 2018-10-29 20:34 | IPN ---
DATE: 10/29/2018 Lorelie is admitted with exacerbation of chronic obstructive pulmonary disease (COPD). She feels a little better than she did when she was admitted. Respiratory panel showed respiratory syncytial virus (RSV). No hemoptysis. No orthopnea. No lower extremity edema. PHYSICAL EXAMINATION: 126/60, pulse 100, respiratory rate 18, 97% oxygen saturation on 2 liters. She is audibly wheezing. No respiratory distress. No jugular venous distention (JVD). LUNGS: Expiratory wheezes in all cagle. HEART: Regular rate and rhythm. ABDOMEN: Soft, nontender. EXTREMITIES: Trace peripheral edema. LABORATORY DATA: White count 9.5, hemoglobin 12, platelets 237. Sodium 137, potassium 4.5, BUN 9, creatinine 0.9, glucose 128. BNP was normal. IMPRESSION: 1. Exacerbation of chronic obstructive pulmonary disease (COPD) secondary to respiratory syncytial virus (RSV). She is oxygen requiring at 2 liters at home. She is on IV steroids, nebulized bronchodilator. No indication for antibiotics at this point. 2. History of diastolic congestive heart failure (CHF). Seems compensated on examination. Not currently on any diuretics. 3. Bipolar disorder. Stable on her current regimen. Watch for exacerbation of this on the steroids. 4. Seizure disorder. Continue her anticonvulsants. She will be at increased risk of breakthrough seizure with the acute illness.
[2018-10-29] MEDS ORDERED: hydrOXYzine 50 MG TAB PO ONE (23:30)
--- NOTE | 2018-10-30 00:24 | ECGEPIP ---
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
[2018-10-30 04:00] VITALS: BP 112/56
[2018-10-30] MEDS: ACETAMINOPHEN TAB 650MG DOSE (2X325MG) PO PRN (04:04)
[2018-10-30 05:53] LABS: HEMATOCRIT 35.5 % (36.0-47.0); HEMOGLOBIN 11.5 g/dl (12.0-15.5); MEAN CORPUSCULAR HEMOGLOBIN 32.5 pg (27.0-33.0); MEAN CORPUSCULAR HGB CONC 32.4 g/dl (32.0-36.5); MEAN CORPUSCULAR VOLUME 100.3 fl (80.0-96.0); PLATELET COUNT, AUTOMATED 242 10^3/uL (150-450); RED BLOOD COUNT 3.54 10^6/uL (4.00-5.40)
[2018-10-30] MEDS: methylPREDNISolone INJ 40 MG/1 ML VIAL (J2920) IV SCH ×3 (06:00→21:08)
[2018-10-30 06:03] LABS: BLOOD UREA NITROGEN 8 MG/DL (7-18); CALCIUM LEVEL 8.3 MG/DL (8.5-10.1); CARBON DIOXIDE LEVEL 24 MEQ/L (21-32); CHLORIDE LEVEL 107 MEQ/L (98-107); CREATININE FOR GFR 0.64 MG/DL (0.55-1.30); GLOMERULAR FILTRATION RATE > 60.0 (>51); GLUCOSE, FASTING 131 MG/DL (70-100); POTASSIUM SERUM 4.4 MEQ/L (3.5-5.1); SODIUM LEVEL 138 MEQ/L (136-145)
[2018-10-30] MEDS: IPRATROPIUM 0.5MG/ALBUTEROL 2.5MG INH SOL UD 3ML (DUONEB)(J7620) NEB PRN ×4 (07:35→19:56)
[2018-10-30 08:00] VITALS: BP 115/58
[2018-10-30] MEDS: QUEtiapine FUMARATE 25 MG TAB PO SCH ×2 (08:31→21:08)
[2018-10-30] MEDS: OMEPRAZOLE 20 MG CAP PO SCH (08:31)
[2018-10-30] MEDS: FLUoxetine 20 MG CAP PO SCH ×2 (08:31→21:08)
[2018-10-30] MEDS: busPIRone 10 MG TAB PO SCH ×2 (08:31→21:08)
[2018-10-30] MEDS: traZODone 100 MG TAB PO SCH (08:31)
[2018-10-30] MEDS: PREGABALIN 50 MG CAP (LYRICA) PO SCH ×2 (08:32→21:08)
[2018-10-30] MEDS: LITHIUM CARBONATE 300 MG CAP PO SCH ×2 (08:32→21:09)
[2018-10-30] MEDS: DIVALPROEX 500MG *ER* TAB PO SCH ×2 (08:32→21:09)
--- NOTE | 2018-10-30 10:21 | IPN ---
DATE OF SERVICE: 10/30/2017 Lorelei is here for chronic obstructive pulmonary disease (COPD) exacerbation. She is less wheezy today. Resting more comfortably. Yesterday she had quite a bit of audible wheezing but does not seem to be exhibiting that today. PHYSICAL EXAMINATION: 115/58, pulse 94, respiratory rate 22, 99% oxygen saturation, 98.5 degrees. General appearance: Resting comfortably, doing adult coloring books. Lungs: Expiratory wheezes all cagle but better air movement than yesterday. Frequent cough when she tries to speak. Heart: Rhythm is not tachycardic. Abdomen: Soft, nontender, no masses. No peripheral edema. LABS: Sodium 138, potassium 4.4, BUN 8, creatinine 0.6, glucose 130, white count 19,000 on steroids, hemoglobin 11.5, platelets 241. IMPRESSION: 1. Exacerbation of chronic obstructive pulmonary disease (COPD) secondary to respiratory syncytial virus (RSV). Continue nebulized bronchodilator, IV steroids. No indication for antibiotics at this point as this seems to be viral in origin. 2. History of diastolic congestive heart failure (CHF). She is compensated. Not currently receiving diuretics. 3. Bipolar disorder. Stable on her current regimen. Risk of exacerbation while on steroids but not exhibiting this currently. 4. Seizure disorder. She is stable and having no recurrence of this. Dr. Liset Hernandez will assume her care tomorrow.
[2018-10-30 12:00] VITALS: BP 158/77
[2018-10-30] MEDS: traMADol 50 MG TAB PO PRN ×2 (12:22→19:57)
[2018-10-30] MEDS: guaiFENesin ER 600 MG TAB PO PRN (12:22)
[2018-10-30] MEDS: guaiFENesin SYRUP 200 MG/10 ML UDC PO PRN ×2 (14:04→19:55)
[2018-10-30] MEDS: hydrOXYzine 50 MG TAB PO PRN ×2 (14:54→21:09)
[2018-10-30 16:00] VITALS: BP 115/58
[2018-10-30 20:00] VITALS: BP 127/62
[2018-10-31] VITALS: BP 123/58
[2018-10-31] MEDS: guaiFENesin SYRUP 200 MG/10 ML UDC PO PRN ×2 (03:53→20:48)
[2018-10-31] MEDS: IPRATROPIUM 0.5MG/ALBUTEROL 2.5MG INH SOL UD 3ML (DUONEB)(J7620) NEB PRN ×6 (03:53→22:18)
[2018-10-31] MEDS: traMADol 50 MG TAB PO PRN ×2 (03:54→23:09)
[2018-10-31] MEDS: hydrOXYzine 50 MG TAB PO PRN ×3 (03:54→18:34)
[2018-10-31 04:00] VITALS: BP 153/67
[2018-10-31] MEDS: methylPREDNISolone INJ 40 MG/1 ML VIAL (J2920) IV SCH ×3 (05:18→21:45)
[2018-10-31 05:54] LABS: HEMOGLOBIN 11.7 g/dl (12.0-15.5); MEAN CORPUSCULAR HEMOGLOBIN 32.6 pg (27.0-33.0); MEAN CORPUSCULAR HGB CONC 31.6 g/dl (32.0-36.5); MEAN CORPUSCULAR VOLUME 103.1 fl (80.0-96.0); PLATELET COUNT, AUTOMATED 254 10^3/uL (150-450); RED BLOOD COUNT 3.59 10^6/uL (4.00-5.40); WHITE BLOOD COUNT 16.8 10^3/uL (4.0-10.0)
[2018-10-31 06:13] LABS: BLOOD UREA NITROGEN 10 MG/DL (7-18); CALCIUM LEVEL 8.7 MG/DL (8.5-10.1); CARBON DIOXIDE LEVEL 30 MEQ/L (21-32); CHLORIDE LEVEL 105 MEQ/L (98-107); CREATININE FOR GFR 0.58 MG/DL (0.55-1.30); GLOMERULAR FILTRATION RATE > 60.0 (>51); GLUCOSE, FASTING 132 MG/DL (70-100); POTASSIUM SERUM 4.5 MEQ/L (3.5-5.1); SODIUM LEVEL 140 MEQ/L (136-145)
[2018-10-31 08:00] VITALS: BP 120/63
[2018-10-31] MEDS: QUEtiapine FUMARATE 25 MG TAB PO SCH ×2 (08:17→20:16)
[2018-10-31] MEDS: DIVALPROEX 500MG *ER* TAB PO SCH ×2 (08:17→20:16)
[2018-10-31] MEDS: OMEPRAZOLE 20 MG CAP PO SCH (08:17)
[2018-10-31] MEDS: busPIRone 10 MG TAB PO SCH ×2 (08:17→20:14)
[2018-10-31] MEDS: LITHIUM CARBONATE 300 MG CAP PO SCH ×2 (08:17→20:17)
[2018-10-31] MEDS: FLUoxetine 20 MG CAP PO SCH ×2 (08:17→20:15)
[2018-10-31] MEDS: PREGABALIN 50 MG CAP (LYRICA) PO SCH ×2 (08:17→20:15)
[2018-10-31] MEDS: traZODone 100 MG TAB PO SCH (08:18)
[2018-10-31 12:00] VITALS: BP 135/61
[2018-10-31] MEDS: NICOTINE 14 MG/24 HR TRANSDERMAL TD SCH (12:27)
[2018-10-31] MEDS: IBUPROFEN 400 MG TAB PO SCH ×3 (13:31→21:45)
--- NOTE | 2018-10-31 14:25 | IPN ---
DATE: 10/31/2018 SUBJECTIVE: The patient tells me that she still has shortness of breath. She feels lightheaded and dizzy when standing and when ambulating, but otherwise she has no other specific complaints. She tells me that she still has some pain when she coughs. OBJECTIVE: VITAL SIGNS: Temperature 97.9, pulse 75, respiratory rate 20, blood pressure 120/63, oxygen saturation 96% on 2 liters. I did take her off and put her to room air and she maintained sats of greater than 93%. I did ambulate her around her room, approximately 10 feet and maintained sats greater than 93%. GENERAL: She is a very pleasant female who sits up in bed to greet me as I enter the room. She is speaking in complete sentences. Awake, alert and oriented times three without any accessory muscle use. HEENT: Cranial nerves II through XII grossly intact. She has moist mucous membranes. No elevation of central venous pressure (CVP). CARDIOVASCULAR EXAM: S1 and S2 regular. RESPIRATORY EXAM: She has some transmitted upper airway sounds. There is diffuse end expiratory wheezes. ABDOMINAL EXAM: Benign. EXTREMITIES: No clubbing, cyanosis, or edema. LABORATORY STUDIES: WBC 6.8 down from 19.0, hemoglobin 11.7, platelet count 254. Chemistry panel - sodium 140, potassium 4.5, chloride 105, bicarb 30, BUN 10, creatinine 0.5. Microbiology: Blood cultures continue to be negative. Sputum culture is pending. Respiratory PCR panel is positive for respiratory syncytial virus. ASSESSMENT/PLAN: This is a 58-year-old female with likely decompensated chronic obstructive pulmonary disease (COPD) secondary to respiratory syncytial virus. 1. Respiratory syncytial virus. Continue with supportive measures. She is being provided with Robitussin, Solu-Medrol, DuoNebs, Tylenol. In addition to this, I will provide her with ibuprofen for costochondritis which she appears to be having related to her cough. She does appear to be improving. She does not require oxygen at the present time on exam. I will have her work with physical therapy and have her ambulating oxygen saturation evaluated. If she continues to improve, I suspect she will be discharged home as early as tomorrow. She tells me she has a baseline oxygen requirement of 2 liters continuously and occasionally turns it up to 3. I am not able to demonstrate this today. She recently moved from [place], which is why she does not have any of her medications and she has recently established with Zuleika Jones. 2. History of diastolic congestive heart failure. She appears well compensated today. She is not receiving any diuretics. He blood pressure is adequately controlled. 3. Bipolar disorder. She is continued on Atarax, trazodone, buspirone, lithium. 4. Seizure disorder. She is continued on Lyrica, Seroquel. 5. Deep vein thrombosis (DVT) prophylaxis. Early ambulation. DISPOSITION: Pending physical therapy evaluation and oxygen requirements. I will downgrade her to medical/surgical floor and suspect she may be able to be discharged home as early as tomorrow.
[2018-10-31 16:00] VITALS: BP 146/61
[2018-10-31] MEDS: guaiFENesin ER 600 MG TAB PO PRN (20:14)
[2018-10-31] MEDS: ACETAMINOPHEN TAB 650MG DOSE (2X325MG) PO PRN (20:16)
[2018-10-31 23:00] VITALS: O2SAT 97
[2018-10-31] MEDS: MAGIC MOUTHWASH SUSPENSION BTL SS PRN (23:06)
[2018-10-31] MEDS: BENZONATATE 100 MG CAP PO SCH (23:08)
--- NOTE | 2018-10-31 23:20 | IPNPDOC ---
Text Note Date of Service The patient was seen on 10/31/18. NOTE I was called urgently by the nursing staff and respiratory therapy to evaluate for hemoptysis. S: Patient states that she has been having coughing fits, and has spit up some bright red blood as a result. She is having sternal chest pain that is worse after coughing, denies her pain feeling like burning in her throat. Denies sputum production, fevers, chills, nausea or vomiting. She states that she feels very dry. O: VS HR 117, 97% on 4L O2 General: Mild distress, position of comfort is alternating between sitting up and laying back on the bed HEENT: Otoscopic examination of the nostrils shows dried blood, posterior pharynx is free of exudate or erythema, no blood in the posterior pharynx, mucous membranes are slightly dry Heart: Tachycardic, regular rhythm, no murmurs/gallops/rubs Lungs: Diffuse rhonchi in all lung cagle. No wheezes or rales STAT Portable CXR: Airway is straight, bony structures are intact, cardiac silhouette not enlarged, diaphragms are clear, no pleural effusions of consolidations are noted in the lungs. STAT EKG: compared to 10/29/18, no abnormal waveforms. Sinus tachycardia at 104 bpm, normal axis, good R wave progression. A: 58 year old female hospitalized for COPD exacerbation, having one episode of hemoptysis after a substantial coughing fit. P: 1. Hemoptysis: Most likely related to dry mucous membranes and nasopharyngeal irritation. EKG showed no abnormalities, CXR showed no acute disease. I have given her magic mouthwash for the dryness and pain in her mouth. 2. Cough: related to COPD as well as dry mucous membranes. I have given her tessalon perles and added pulmicort, as she should probably be on an inhaled steroid. VS,Fishbone, I+O VS, Fishbone, I+O Laboratory Tests 10/31/18 05:31 Red Blood Count 3.59 L, Mean Corpuscular Volume 103.1 H, Mean Corpuscular Hemoglobin 32.6, Mean Corpuscular Hemoglobin Concent 31.6 L, Red Cell Distribution Width 13.7, Calcium Level 8.7 Vital Signs Date Time Temp Pulse Resp B/P (MAP) Pulse Ox O2 Delivery O2 Flow Rate FiO2 2/5/19 20:00 2.0 10/31/18 16:00 99.2 104 19 146/61 (89) 97 10/28/18 19:50 Nasal Cannula I&O- Last 24 Hours up to 6 AM 10/31/18 06:00 Intake Total 1050 ml Output Total 1150 ml Balance -100 ml GME ATTESTATION GME ATTESTATION My faculty preceptor for this patient encounter was physically present during the encounter and was fully available. All aspects of the patient interview, examination, medical decision making process, and medical care plan development were reviewed and approved by the faculty preceptor. The faculty preceptor is aware and concurs with the plan as stated in the body of this note and will attest to such by his/her cosignature. ATTENDING NOTE Attestation: I have supervised the medical apparatus model maker and discussed patients evaluation and medical management. I agree with the outlined management plan as documented in the residents note. ALEJANDRO KEE DO Oct 31, 2018 23:20 COOKIE VILLARREAL MD Nov 01, 2018 06:40
[2018-11-01] VITALS (17 sets, daily range): BP systolic 121–152; BP diastolic 61–78; O2SAT 96–99
--- NOTE | 2018-11-01 00:16 | REP ---
Clinical: Shortness of breath . Comparison: 10/28/2018 . Findings: The mediastinum and cardiac silhouette are stable and within normal limits for portable technique. The lung cagle are clear without acute consolidation, effusion, or pneumothorax. Improved aeration noted in comparison to prior examination with resolution of the previously suggested right basilar atelectasis. Skeletal structures are intact. Impression: No acute cardiopulmonary process appreciated. Electronically Signed by Artem Santos MD 11/01/2018 12:07 A
[2018-11-01] MEDS: hydrOXYzine 50 MG TAB PO PRN ×3 (02:31→20:33)
[2018-11-01] MEDS: IPRATROPIUM 0.5MG/ALBUTEROL 2.5MG INH SOL UD 3ML (DUONEB)(J7620) NEB PRN ×5 (02:31→17:43)
[2018-11-01] MEDS: methylPREDNISolone INJ 40 MG/1 ML VIAL (J2920) IV SCH ×3 (05:51→20:25)
[2018-11-01] MEDS: IBUPROFEN 400 MG TAB PO SCH ×2 (05:52→13:41)
[2018-11-01 06:08] LABS: HEMATOCRIT 36.4 % (36.0-47.0); HEMOGLOBIN 11.6 g/dl (12.0-15.5); MEAN CORPUSCULAR HEMOGLOBIN 32.1 pg (27.0-33.0); MEAN CORPUSCULAR HGB CONC 31.9 g/dl (32.0-36.5); MEAN CORPUSCULAR VOLUME 100.8 fl (80.0-96.0); PLATELET COUNT, AUTOMATED 273 10^3/uL (150-450); RED BLOOD COUNT 3.61 10^6/uL (4.00-5.40); WHITE BLOOD COUNT 23.5 10^3/uL (4.0-10.0)
[2018-11-01 06:31] LABS: BLOOD UREA NITROGEN 12 MG/DL (7-18); CALCIUM LEVEL 8.8 MG/DL (8.5-10.1); CARBON DIOXIDE LEVEL 29 MEQ/L (21-32); CHLORIDE LEVEL 104 MEQ/L (98-107); CREATININE FOR GFR 0.65 MG/DL (0.55-1.30); GLOMERULAR FILTRATION RATE > 60.0 (>51); GLUCOSE, FASTING 126 MG/DL (70-100); POTASSIUM SERUM 4.1 MEQ/L (3.5-5.1); SODIUM LEVEL 139 MEQ/L (136-145)
[2018-11-01] MEDS: BUDESONIDE 0.5 MG/2 ML INHALATION SUSPENSION INH SCH ×2 (07:44→19:30)
[2018-11-01] MEDS: QUEtiapine FUMARATE 25 MG TAB PO SCH ×2 (08:12→20:26)
[2018-11-01] MEDS: PREGABALIN 50 MG CAP (LYRICA) PO SCH ×2 (08:12→20:26)
[2018-11-01] MEDS: FLUoxetine 20 MG CAP PO SCH ×2 (08:12→20:25)
[2018-11-01] MEDS: DIVALPROEX 500MG *ER* TAB PO SCH ×2 (08:12→20:25)
[2018-11-01] MEDS: BENZONATATE 100 MG CAP PO SCH ×3 (08:13→20:26)
[2018-11-01] MEDS: NICOTINE 14 MG/24 HR TRANSDERMAL TD SCH (08:13)
[2018-11-01] MEDS: busPIRone 10 MG TAB PO SCH ×2 (08:13→20:26)
[2018-11-01] MEDS: LITHIUM CARBONATE 300 MG CAP PO SCH ×2 (08:13→20:25)
[2018-11-01] MEDS: OMEPRAZOLE 20 MG CAP PO SCH (08:13)
[2018-11-01] MEDS: traZODone 100 MG TAB PO SCH (08:13)
--- NOTE | 2018-11-01 08:43 | ECGEPIP ---
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
[2018-11-01] MEDS: SENOKOT S TAB PO SCH ×2 (09:00→20:26)
[2018-11-01] MEDS: cefTRIAXone SOD 1 GM in D5W MINI-BAG PLUS 50 ML IV SCH (09:17)
[2018-11-01] MEDS: traMADol 50 MG TAB PO PRN ×2 (13:41→20:35)
[2018-11-02] MEDS: guaiFENesin SYRUP 200 MG/10 ML UDC PO PRN (00:08)
[2018-11-02] MEDS: IPRATROPIUM 0.5MG/ALBUTEROL 2.5MG INH SOL UD 3ML (DUONEB)(J7620) NEB PRN ×5 (00:13→19:57)
[2018-11-02] MEDS: methylPREDNISolone INJ 40 MG/1 ML VIAL (J2920) IV SCH ×3 (05:22→21:14)
[2018-11-02 06:00] VITALS: BP 151/68
[2018-11-02] MEDS: traMADol 50 MG TAB PO PRN ×3 (06:01→23:47)
[2018-11-02 06:36] LABS: HEMOGLOBIN 11.6 g/dl (12.0-15.5); MEAN CORPUSCULAR HGB CONC 31.4 g/dl (32.0-36.5); MEAN CORPUSCULAR VOLUME 101.9 fl (80.0-96.0); PLATELET COUNT, AUTOMATED 208 10^3/uL (150-450); RED BLOOD COUNT 3.63 10^6/uL (4.00-5.40); WHITE BLOOD COUNT 26.1 10^3/uL (4.0-10.0)
[2018-11-02 07:04] LABS: BLOOD UREA NITROGEN 10 MG/DL (7-18); CALCIUM LEVEL 8.4 MG/DL (8.5-10.1); CARBON DIOXIDE LEVEL 29 MEQ/L (21-32); CHLORIDE LEVEL 105 MEQ/L (98-107); CREATININE FOR GFR 0.57 MG/DL (0.55-1.30); GLOMERULAR FILTRATION RATE > 60.0 (>51); GLUCOSE, FASTING 112 MG/DL (70-100); POTASSIUM SERUM 4.6 MEQ/L (3.5-5.1); SODIUM LEVEL 140 MEQ/L (136-145)
[2018-11-02] MEDS: BUDESONIDE 0.5 MG/2 ML INHALATION SUSPENSION INH SCH ×2 (07:53→19:57)
[2018-11-02 09:38] LABS: BASO % 0.3 % (0.0-1.0); NEUTROPHILS % 85.7 % (36.0-66.0)
[2018-11-02 09:39] LABS: BASO # 0.1 10^3/uL (0.0-0.2); LYMPH # 2.3 10^3/uL (1.5-4.5); NEUTROPHILS # 21.8 10^3/uL (1.8-7.7)
[2018-11-02] MEDS: cefTRIAXone SOD 1 GM in D5W MINI-BAG PLUS 50 ML IV SCH (09:48)
[2018-11-02] MEDS: PREGABALIN 50 MG CAP (LYRICA) PO SCH ×2 (09:48→20:05)
[2018-11-02] MEDS: traZODone 100 MG TAB PO SCH (09:49)
[2018-11-02] MEDS: FLUoxetine 20 MG CAP PO SCH ×2 (09:49→20:05)
[2018-11-02] MEDS: BENZONATATE 100 MG CAP PO SCH ×3 (09:49→20:05)
[2018-11-02] MEDS: busPIRone 10 MG TAB PO SCH ×2 (09:49→20:05)
[2018-11-02] MEDS: SENOKOT S TAB PO SCH ×2 (09:49→20:05)
[2018-11-02] MEDS: QUEtiapine FUMARATE 25 MG TAB PO SCH ×2 (09:49→20:05)
[2018-11-02] MEDS: DIVALPROEX 500MG *ER* TAB PO SCH ×2 (09:49→20:05)
[2018-11-02] MEDS: OMEPRAZOLE 20 MG CAP PO SCH (09:49)
[2018-11-02] MEDS: LITHIUM CARBONATE 300 MG CAP PO SCH ×2 (09:49→20:05)
[2018-11-02] MEDS: hydrOXYzine 50 MG TAB PO PRN (09:50)
[2018-11-02] MEDS: NICOTINE 14 MG/24 HR TRANSDERMAL TD SCH (09:50)
--- NOTE | 2018-11-02 12:49 | PFTRPT ---
Site: [facility], [address] [place], [address] ID: [id number] Name: SARAH MORALES Visit Date: 11/02/2018 Second ID: [id number] Referring Doctor: January Hebert MD Reviewing Doctor: Maximilian Walker MD Decator Operator: Stephany GOLDMAN RRT Age: 58 : 1960 Sex: Female Race: Height: 62.00 Inches Weight: 141.00 Lbs BSA: 1.65 Order IDs: [id number] Requested Test(s): <RESP-PFT.PFTINPT> Diagnosis: SOB test appear to be valid, although the ATS standard for "end of test" was not met. Review Status: Not Reviewed Pre-Bronch Post-Bronch Pred Actual %Pred Actual %Chng SPIROMETRY FVC (L) 3.05 1.35 44 FEV1 (L) 2.42 1.08 44 FEV1/FVC (%) 79 80 101 FEF 25% (L/sec) 4.84 3.88 80 FEF 50% (L/sec) 3.71 1.27 34 FEF 75% (L/sec) 1.27 0.37 29 FEF 25-75% (L/sec) 2.49 0.96 38 FEF Max (L/sec) 5.93 4.59 77 FIVC (L) 1.40 FIF 50% (L/sec) 3.40 2.22 65 FIF Max (L/sec) 2.55 Expiratory Time (sec) 6.84 Back Extrap Vol (L) 0.07 Time To FEFmax (sec) 0.083
[2018-11-02 14:00] VITALS: BP 121/59
[2018-11-02 22:00] VITALS: BP 131/63
[2018-11-02] MEDS: guaiFENesin ER 600 MG TAB PO PRN (23:46)
[2018-11-03] MEDS: IPRATROPIUM 0.5MG/ALBUTEROL 2.5MG INH SOL UD 3ML (DUONEB)(J7620) NEB PRN ×3 (02:50→19:41)
[2018-11-03] MEDS: methylPREDNISolone INJ 40 MG/1 ML VIAL (J2920) IV SCH ×3 (05:15→20:27)
[2018-11-03 06:00] VITALS: BP 141/70
[2018-11-03 06:51] LABS: HEMOGLOBIN 11.7 g/dl (12.0-15.5); MEAN CORPUSCULAR HEMOGLOBIN 32.2 pg (27.0-33.0); MEAN CORPUSCULAR HGB CONC 31.6 g/dl (32.0-36.5); MEAN CORPUSCULAR VOLUME 101.9 fl (80.0-96.0); PLATELET COUNT, AUTOMATED 241 10^3/uL (150-450); RED BLOOD COUNT 3.63 10^6/uL (4.00-5.40); WHITE BLOOD COUNT 23.8 10^3/uL (4.0-10.0)
--- NOTE | 2018-11-03 06:54 | IPN ---
DATE: 11/02/2018 SUBJECTIVE: The patient came in with shortness of breath. She tells me that she does have significant anxiety associated, but she denies fevers, chills, chest pain, or shortness of breath. OBJECTIVE: VITAL SIGNS: Temperature 97.6, pulse 89, respiratory rate 22, blood pressure (BP) 151/68, oxygen saturation 96% on 3 liters. GENERAL: She is a female, speaking in complete sentences but frequently gets short of breath and becomes wheezy when I enter the room but is resting comfortably using a phone and does not appear to be dyspneic at all, not using any accessory muscle use when I stand at the doorway and observe her. HEENT: Cranial nerves II-XII are grossly intact. She has moist mucous membranes. No elevation in central venous pressure (CVP). CARDIOVASCULAR EXAM: S1, S2, regular. RESPIRATORY EXAM: She has significantly transmitted upper airway sounds, and it is difficult to assess if there is any lower expiratory wheeze. ABDOMINAL EXAM: Benign. EXTREMITIES: No clubbing, cyanosis, or edema. LABORATORY STUDIES: WBC 26.1, hemoglobin 11.6, platelet count 208. Chemistry panel: Sodium 140, potassium 4.6, chloride 105, bicarbonate 29, BUN 10, creatinine 0.5. No new microbiology. ASSESSMENT AND PLAN: This is a 58-year-old female with shortness of breath. PROBLEMS: 1. Shortness of breath. The patient denies any significant improvement in her symptoms. She tells me it normally takes her several weeks to improve. She has a history of tobacco for 20 years, but it is very intermittent. She is an active smoker. Cessation counseling provided. I suspect that her symptoms have worsened secondary to her active respiratory syncytial virus (RSV) infection. She is Currently being treated with Robitussin, prednisone. Her progress is slow but It appears to be somewhat improved daily. She is also on Pulmicort, Tessalon Perles, DuoNebs, as well as Mucinex. The patient's sputum did return positive, and she was started on antibiotics yesterday. We will continue to monitor her progress closely as well as her leukocytosis, which is quite elevated. It may be reactive; however, it is still climbing. We will monitor this closely. 2. Significant anxiety. She is on Seroquel, lithium, Prozac, BuSpar, as well as trazodone and Atarax. I am concerned that given her significant anxiety, there may be an element of laryngeal spam. I will check pulmonary function tests (PFTs). 3. History of diastolic congestive heart failure reported. She is not on any diuretics. She appears to be well compensated with blood pressure adequately controlled. 4. Seizure disorder. She is continued on Lyrica and Depakote. 5. Deep venous thrombosis (DVT) prophylaxis. Early ambulation. DISPOSITION: Pending improvement in her respiratory status. Will have her ambulate without any oxygen and see how she is able to perform. [facility]ITAL[facility]
[2018-11-03 07:17] LABS: BLOOD UREA NITROGEN 13 MG/DL (7-18); CALCIUM LEVEL 8.3 MG/DL (8.5-10.1); CARBON DIOXIDE LEVEL 31 MEQ/L (21-32); CHLORIDE LEVEL 103 MEQ/L (98-107); CREATININE FOR GFR 0.56 MG/DL (0.55-1.30); GLOMERULAR FILTRATION RATE > 60.0 (>51); GLUCOSE, FASTING 104 MG/DL (70-100); POTASSIUM SERUM 4.4 MEQ/L (3.5-5.1); SODIUM LEVEL 139 MEQ/L (136-145)
[2018-11-03] MEDS: BUDESONIDE 0.5 MG/2 ML INHALATION SUSPENSION INH SCH ×2 (07:22→19:41)
[2018-11-03] MEDS: QUEtiapine FUMARATE 25 MG TAB PO SCH ×2 (08:26→20:26)
[2018-11-03] MEDS: FLUoxetine 20 MG CAP PO SCH ×2 (08:27→20:26)
[2018-11-03] MEDS: LITHIUM CARBONATE 300 MG CAP PO SCH ×2 (08:27→20:26)
[2018-11-03] MEDS: BENZONATATE 100 MG CAP PO SCH ×3 (08:27→20:25)
[2018-11-03] MEDS: OMEPRAZOLE 20 MG CAP PO SCH (08:27)
[2018-11-03] MEDS: DIVALPROEX 500MG *ER* TAB PO SCH ×2 (08:27→20:26)
[2018-11-03] MEDS: SENOKOT S TAB PO SCH ×2 (08:27→20:26)
[2018-11-03] MEDS: PREGABALIN 50 MG CAP (LYRICA) PO SCH ×2 (08:27→20:26)
[2018-11-03] MEDS: traZODone 100 MG TAB PO SCH (08:27)
[2018-11-03] MEDS: busPIRone 10 MG TAB PO SCH ×2 (08:27→20:27)
[2018-11-03] MEDS: NICOTINE 14 MG/24 HR TRANSDERMAL TD SCH (08:28)
[2018-11-03] MEDS: traMADol 50 MG TAB PO PRN ×3 (08:38→22:06)
[2018-11-03] MEDS: hydrOXYzine 50 MG TAB PO PRN ×2 (08:38→20:26)
[2018-11-03] MEDS ORDERED: ISOVUE-370 76% 100ML VIAL (Q9967) As Ordered ONE (11:14)
--- NOTE | 2018-11-03 12:55 | CR ---
DATE OF CONSULTATION: 11/03/2018 Patient is a 58-year-old female with past medical history of asthma, chronic obstructive pulmonary disease (COPD), chronically on 2 liters of oxygen, and emphysema with a 48 hour history of shortness of breath. She recently moved to [place] on August 03 from [place] to live with her son. She states she has an extensive history of asthma exacerbations with multiple intubations, her most recent being in May or June for about a week. The exacerbations typically occur 2-3 times a year. She states many things exacerbate her asthma including dusts, cleaning solutions, hot weather. Of note, she lives in her sons basement. She presented to the emergency department with shortness of breath for two days and a nonproductive cough. She had recently been taking care of a sick granddaughter who had respiratory syncytial virus (RSV). She was subsequently found to also have RSV and a sputum culture that revealed enterobacter. She states during that 48 hours she was using inhalers everyday and with her nebulizers and they were no helping. Typically she only needs the nebulizers once a week. She was using multiple times a day without any improvement. She is a chronic steroid user with frequent tapers throughout the year. PAST MEDICAL HISTORY: Congestive heart failure (CHF). Oxygen dependent COPD. Asthma. Osteoporosis. Emphysema. Type 2 diabetes. Fibromyalgia. Carpal tunnel syndrome. Diabetic neuropathy. Bipolar disorder. Patient claims she may have osteonecrosis of bilateral knees. ALLERGIES: 1. PENICILLIN. PAST SURGICAL HISTORY: Carpal tunnel in 2016. section times three. FAMILY HISTORY: Her mother does have a history of asthma and COPD. SOCIAL HISTORY: She is a smoker on and off for 20 years, smokes one pack every 2-3 days. Denies any drug use including marijuana, heroin, cocaine, PCP. Denies any alcohol use. 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 She previously was taking care of her 17-year-old daughter in [place] and then the daughter moved to college, so her son invited her to stay with them in the basement. There is a dog in the house that is hypoallergenic. She has never owned any birds. MEDICATIONS: - Rocephin - Senokot - Pulmicort - tramadol - magic mouthwash - Tessalon Perles - nicotine patch - hydroxyzine hydrochloride - Robitussin - omeprazole - trazodone - Solu-Medrol - buspirone - Depakote - Prozac - lithium - pregabalin - Seroquel - DuoNeb - Tylenol - Mucinex REVIEW OF SYSTEMS: Review of systems is positive for chest and abdominal pain with coughing. Review of systems is negative except as stated above in the HPI. PHYSICAL EXAMINATION: Temperature 97.7, pulse 70, respiratory rate 22, blood pressure 141/70. She is off nasal cannula currently, breathing comfortably. GENERAL: Walking by the room, the patient is resting comfortably on her left side, breathing without any difficulty. On entering the room and sitting up, the patient goes into frequent coughing exacerbations and exhibits audible wheezing. HEENT: Head is normocephalic, atraumatic. Mucous membranes are moist. EOMI. Sclera is nonicteric. NECK: Shows no obvious signs of jugular venous distention (JVD). CARDIOVASCULAR: Regular rate and rhythm, normal S1 and S2. No murmurs appreciated on auscultation. LUNGS: Bilateral inspiratory and expiratory wheezing with accompanying rhonchi. There is a component of transmitted upper airway sounds, however there are also audible wheezes in the lower airways as well. ABDOMEN: Soft, nontender, mild distention. Positive bowel sounds. EXTREMITIES: Bilateral knee braces are in place with thromboembolic deterrent stockings (TEDS). No lower extremity edema on palpation. SKIN: Intact, warm and dry. NEUROLOGIC EXAM: No focal deficits. Patient is awake, alert and oriented. LABORATORY DATA: White blood cell count of 23.8, hemoglobin of 11.7, hematocrit of 37, platelets of 241. D-Dimer of 556. Sodium of 139, potassium 4.4, chloride of 103, carbon dioxide of 31, BUN of 13, creatinine of 0.56, glucose of 104, calcium 8.3. Depakote and lithium levels are 4.6 and less than 0.2 respectively. Microbiology: Gram stain shows enterobacter aerogenes and yeastlike organisms. Respiratory virus panel is positive for RSV. The enterobacter species is sensitive to all organisms except cefazolin. IMAGING: Chest x-ray on 11/01/2018 demonstrates no acute cardiopulmonary process. There are possible areas of increased interstitial markings. ASSESSMENT/PLAN: This is a 58-year-old female with an extensive past medical history of asthma requiring intubation, COPD and emphysema admitted for RSV bronchiolitis, asthma exacerbation and enterobacter infection. We are being consulted to help with management as she is not improving. The patient states she typically takes up to 2-3 weeks to improve when she does have an actual exacerbation. Our recommendation is to continue with nebulizer treatments and taper her steroids as tolerated. She will likely only need one week of antibiotics for her enterobacter infection. We are ordering a CTA to rule out a pulmonary embolism (PE) given her positive D-Dimer, although this is low on our differential. For her severe coughing fits, can consider Hycodan as needed and also consider checking a BNP for possible fluid overload. Other possible difficulties contributing to this problem are vocal cord dysfunction. Currently her spirometry does not suggest any evidence of this, but a possible ENT evaluation outpatient may be necessary if this fails to improve. Finally, she will likely need a pulmonary follow-up outpatient for uncontrolled severe persistent asthma and possible treatment with anti-IgE and IL5 therapy assistant terminal manager. My faculty preceptor for this patient encounter was physically present during the encounter and was fully available. All aspects of the patient interview, examination, medical decision making process, and medical care plan development were reviewed and approved by the faculty preceptor. The faculty preceptor is aware and concurs with the plan as stated in the body of this note and will attest to such by his/her co-signature. I, Mady Santillan, have conducted an independent examination and history of the patient and agree with the above plan as discussed during rounds. CORDELIA
[2018-11-03] MEDS ORDERED: LIDOCAINE 1% MDV 20ML VIAL As Ordered ONE (13:52)
[2018-11-03 14:00] VITALS: BP 137/61
--- NOTE | 2018-11-03 15:40 | IPN ---
DATE: 11/03/2018 SUBJECTIVE: The patient tells me that she feels she is not improving over several days. OBJECTIVE: VITAL SIGNS: Temperature 97.9, pulse 70, respiratory rate 22, blood pressure 141/70, oxygen saturation 98% on two liters. GENERAL: She is a pleasant, female sitting up in bed ambulating around her room. She does not appear to be in acute distress. As soon as I enter the room, she begins huffing and puffing quite labored. HEENT: Cranial nerves II through XII are grossly intact CARDIOVASCULAR EXAM: S1, S2, regular. RESPIRATORY EXAM: Diffuse end expiratory wheeze throughout. Transmitted upper airway sounds. ABDOMINAL EXAM: Benign. EXTREMITIES: No clubbing, cyanosis, or edema. LABORATORY STUDIES: WBC 23.8, hemoglobin 11.7, platelet count 241. Chemistry panel: Sodium 139, potassium 4.4, chloride 103, bicarbonate 31, BUN 13, creatinine 0.5. No new microbiology or imaging. ASSESSMENT AND PLAN: This is a 58-year-old female with shortness of breath. 1. Shortness of breath. I feel this probably is likely multifactorial in nature. She likely has some underlying emphysema, asthma, and an active respiratory syncytial virus (RSV) infection, however I would expect her to have some improvement at this time given she has been on steroids, Robitussin, Pulmicort, nebulizers. At this time, I will add an Acapella. I have already added antibiotics for possible superimposed pneumonia. I did check pulmonary function tests with concern for vocal cord dysfunction. It does not appear to be suggestive of this. Given her failure to improve, I will consult pulmonary to see if there is anything else that we could be doing. 2. Significant anxiety. She is continued on Seroquel, [place], Prozac, BuSpar, as well as trazodone and Atarax. I do feel that there is an element of anxiety related to this, however her pulmonary function tests are suggestive of some significant underlying obstructive disease. 3. History of diastolic congestive heart failure reported. She is not on a diuretic. She appears to be well compensated at this time. Her blood pressure is adequately controlled. 4. Seizure disorder. She is continued on Lyrica and Depakote. 5. Deep venous thrombosis (DVT) prophylaxis. Early ambulation. DISPOSITION: Pending improvement and pulmonary evaluation. [facility]
[2018-11-03] MEDS ORDERED: SODIUM CHLORIDE 0.9% INJ 10 ML SYR IV PRN (15:45)
--- NOTE | 2018-11-03 15:58 | REP ---
CT ANGIO CHEST: 11/03/2018. Comparison: AP portable chest 10/31/2018. Clinical history: Dyspnea, evaluate for pulmonary embolism or other. Technique: Bolus of 75 ml Isovue 370, scanning through the chest with coronal and sagittal MIP and standard reformats reviewed. Findings: There are bilateral scattered hazy ground-glass opacities in the lung cagle in a nonspecific pattern. Some are peripheral, some central and others intermediate in depth from the stefan. There is no dense consolidation with air bronchogram, parenchymal lung mass, pleural based mass, pulmonary nodule or apical scarring. No pneumothorax or pneumomediastinum. Heart is not enlarged. There is no pericardial thickening or effusion. The aorta is without aneurysm. The main, right and left pulmonary arteries are without filling defects in the mediastinum. The lobar, segmental and subsegmental pulmonary arteries are without filling defects. There is some minimal cylindrical bronchiectatic change. There is no pathologic sized mediastinal or hilar adenopathy. The axillary and supraclavicular regions are unremarkable. Tracheal airway is intact. Bone windows show the sternum, manubrium, medial clavicles, visualized portions of humeral head, scapulae, ribs and spine all intact without fracture, acute compression deformity or destructive bone lesion. The upper abdomen shows the liver in part with slightly prominent left hepatic lobe, but no gross hepatomegaly. Visualized portion intact. There are some calcified gallstones in the dependent gallbladder. The gallbladder is not abnormally distended. Remnants of a recent meal in the stomach. Colon and small bowel loops in the upper abdomen are unremarkable. There is a splenule inferior to the posterior aspect of the spleen. A couple of other small ones anterior to the inferior spleen. Adrenal glands and upper poles kidneys intact. Impression: 1. No CT evidence of pulmonary thromboembolism. 2. Bilateral patchy and scattered ground-glass opacities peripheral, perihilar and centrally in the lung zones in a nonspecific pattern. No effusion, dense consolidation with air bronchograms or other acute finding. This may be interstitial infiltrates as this is not a typical pattern for edema. 3. No pathologic sized mediastinal or hilar adenopathy. There were a few small calcified gallstones in the dependent gallbladder and the left lobe of the liver is mildly prominent. No other significant finding in upper abdomen. Electronically Signed by Satinder Amaya MD 11/03/2018 05:54 P
[2018-11-03] MEDS: cefTRIAXone SOD 1 GM in D5W MINI-BAG PLUS 50 ML IV SCH (16:02)
[2018-11-03] MEDS: SODIUM CHLORIDE 0.9% INJ 10 ML SYR IV SCH (17:06)
--- NOTE | 2018-11-03 17:59 | REP ---
Procedure: Mid line insertion with Site-Rite The procedure was performed under the direct supervision of Dr. Valentine. The risks and benefits of the procedure were explained to the patient and informed consent was obtained. The right basilic vein was localized using ultrasound guidance. The skin was prepped and draped in a sterile fashion. 2% lidocaine was used as a local anesthetic. Using ultrasound guidance the basilic vein was cannulated and a 0.018 guidewire was inserted. The needle was removed and a 4.5 Maltese dilator and peel-away sheath was inserted over the guide wire. A 4.5 Maltese single lumen catheter was cut to length of 14 cm. The dilator was removed and the catheter was inserted over the guide wire. The peel-away sheath was removed and the catheter was flushed with heparinized saline as per Hospital protocol. The catheter was affixed to the skin and a sterile dressing was applied. The patient tolerated the procedure well and there were no immediate complications. Reviewed by MORENA Watts 11/03/2018 03:54 P Electronically Signed by Isaias Valentine MD 11/03/2018 05:49 P
[2018-11-03] MEDS: guaiFENesin SYRUP 200 MG/10 ML UDC PO PRN (20:25)
[2018-11-03 22:00] VITALS: BP 143/70
--- NOTE | 2018-11-03 23:47 | BSSPIR ---
DATE OF PROCEDURE: 11/02/2018 ORDERED BY: Dr. Hebert. Excellent technical quality. Forced vital capacity reduced. FEV1 in proportion. Obstructive index is, therefore, normal. Expiratory limb of the flow volume loop does suggest predominantly an obstructive impairment. IMPRESSION: Suspect obstructive impairment with air trapping. Please correlate clinically.
[2018-11-04] MEDS: IPRATROPIUM 0.5MG/ALBUTEROL 2.5MG INH SOL UD 3ML (DUONEB)(J7620) NEB PRN ×2 (00:24→19:30)
[2018-11-04] MEDS: SODIUM CHLORIDE 0.9% INJ 10 ML SYR IV SCH ×2 (05:39→16:33)
[2018-11-04] MEDS: methylPREDNISolone INJ 40 MG/1 ML VIAL (J2920) IV SCH ×3 (05:39→20:59)
[2018-11-04] MEDS: traMADol 50 MG TAB PO PRN ×2 (05:40→21:00)
[2018-11-04 06:00] VITALS: BP 116/60
[2018-11-04 06:30] LABS: HEMATOCRIT 39.6 % (36.0-47.0); HEMOGLOBIN 12.1 g/dl (12.0-15.5); MEAN CORPUSCULAR HEMOGLOBIN 31.4 pg (27.0-33.0); MEAN CORPUSCULAR HGB CONC 30.6 g/dl (32.0-36.5); MEAN CORPUSCULAR VOLUME 102.9 fl (80.0-96.0); PLATELET COUNT, AUTOMATED 288 10^3/uL (150-450); RED BLOOD COUNT 3.85 10^6/uL (4.00-5.40); WHITE BLOOD COUNT 19.6 10^3/uL (4.0-10.0)
[2018-11-04 06:52] LABS: BLOOD UREA NITROGEN 14 MG/DL (7-18); CALCIUM LEVEL 8.4 MG/DL (8.5-10.1); CARBON DIOXIDE LEVEL 31 MEQ/L (21-32); CHLORIDE LEVEL 101 MEQ/L (98-107); CREATININE FOR GFR 0.66 MG/DL (0.55-1.30); GLOMERULAR FILTRATION RATE > 60.0 (>51); GLUCOSE, FASTING 117 MG/DL (70-100); POTASSIUM SERUM 4.5 MEQ/L (3.5-5.1); SODIUM LEVEL 139 MEQ/L (136-145)
[2018-11-04] MEDS: BUDESONIDE 0.5 MG/2 ML INHALATION SUSPENSION INH SCH ×2 (07:22→19:30)
[2018-11-04] MEDS: NICOTINE 14 MG/24 HR TRANSDERMAL TD SCH (09:27)
[2018-11-04] MEDS: PREGABALIN 50 MG CAP (LYRICA) PO SCH ×2 (09:28→21:00)
[2018-11-04] MEDS: FLUoxetine 20 MG CAP PO SCH ×2 (09:28→20:59)
[2018-11-04] MEDS: SENOKOT S TAB PO SCH ×2 (09:28→20:59)
[2018-11-04] MEDS: DIVALPROEX 500MG *ER* TAB PO SCH ×2 (09:28→20:59)
[2018-11-04] MEDS: busPIRone 10 MG TAB PO SCH ×2 (09:28→20:59)
[2018-11-04] MEDS: BENZONATATE 100 MG CAP PO SCH ×3 (09:28→21:00)
[2018-11-04] MEDS: OMEPRAZOLE 20 MG CAP PO SCH (09:28)
[2018-11-04] MEDS: LITHIUM CARBONATE 300 MG CAP PO SCH ×2 (09:28→21:00)
[2018-11-04] MEDS: QUEtiapine FUMARATE 25 MG TAB PO SCH ×2 (09:29→21:00)
[2018-11-04] MEDS: traZODone 100 MG TAB PO SCH (09:29)
[2018-11-04] MEDS ORDERED: AZITHROMYCIN INJ 500 MG, VIAL MATE ADAPTER 1 EACH in D5W 250 ML IV SCH (12:00)
--- NOTE | 2018-11-04 12:24 | IPNPDOC ---
Text Note Date of Service The patient was seen on 11/04/18. NOTE Subjective: Patient seen and examined at bedside. No acute overnight events reported. Patient states she is still feeling short of breath. No other medical complaints. Objective: General: NAD, sitting comfortably in bed, #tattoos HEENT: NC/AT, EOMI, edentulous Lungs: coarse breath sounds throughout Heart: +S1S2, RRR Abd: soft, NT, +BS Ext: no edema A/P: This is a 58-year-old female with shortness of breath. #SOB - likely multifactorial - underlying emphysema, asthma, active RSV infection - SCx +yeast, enterobacter - likely complicated with anxiety - azithromycin has been added, likely d/c ceftriaxone given typical resistance by entero species - consider levaquin - continue IV steroid therapy - respiratory treatments, IS/acapella - follow as per pulmonary - assistance appreciated - PFT's previously obtained - negative for vocal cord dysfunction # anxiety - continue Seroquel, [place], Prozac, BuSpar, trazodone and Atarax - lithium levels sub-therapeutic on admission #CHFpEF - appears to be compensated #Seizure disorder - continue Lyrica and Depakote. - valproic acid levels sub-therapeutic on admission #DVT prophylaxis - encourage ambulation/mechanical prophylaxis VS,Fishbone, I+O VS, Fishbone, I+O Laboratory Tests 11/04/18 05:39 Red Blood Count 3.85 L, Mean Corpuscular Volume 102.9 H, Mean Corpuscular Hem oglobin 31.4, Mean Corpuscular Hemoglobin Concent 30.6 L, Red Cell Distribution Width 13.2, Calcium Level 8.4 L Vital Signs Date Time Temp Pulse Resp B/P (MAP) Pulse Ox O2 Delivery O2 Flow Rate FiO2 11/04/18 06:10 18 11/04/18 06:00 97.9 68 116/60 (78) 95 11/03/18 21:00 2.0 11/03/18 02:40 Nasal Cannula I&O- Last 24 Hours up to 6 AM 11/04/18 06:00 Intake Total 950 ml Output Total 1150 ml Balance -200 ml JUAN RAMON LO MD Nov 04, 2018 12:24
[2018-11-04 14:00] VITALS: BP 107/59
[2018-11-04] MEDS: hydrOXYzine 50 MG TAB PO PRN ×2 (15:37→21:00)
[2018-11-04] MEDS: cefTRIAXone SOD 1 GM in D5W MINI-BAG PLUS 50 ML IV SCH (15:37)
--- NOTE | 2018-11-04 15:51 | IPN ---
DATE: 11/04/2018 Patient was seen and examined this morning. She was initially resting comfortably in the bed, was not noted to be coughing. Upon questioning and examination, patient started having some increasing coughing with some coarse wheezing noted. She states that her breathing and cough has not improved and she continues to have significant pain in her abdomen and chest with coughing. Patient was afebrile overnight. PHYSICAL EXAMINATION: Temperature afebrile, pulse 68, respirations 18, blood pressure 116/60, oxygen saturation 95% on room air. GENERAL: Patient is sitting in bed, does not appear to be in acute distress, is able to speak in complete sentences. Does have periodic episodes of coughing with audible wheezing. HEENT: Normocephalic, atraumatic. Mucous membranes are moist. Sclerae is nonicteric. NECK: There is no palpable adenopathy or jugular venous distention (JVD). CARDIOVASCULAR: Regular rate and rhythm, normal S1, S2, no clear murmurs appreciated. LUNGS: Patient has coarse inspiratory and expiratory wheezing with rhonchi bilaterally. There is some component of upper airway breath sounds, however there are also some coarse rhonchorous breath sounds with some associated coarse wheezing. ABDOMEN: Soft, nontender, mildly distended. EXTREMITIES: Patient has bilateral knee braces in place and thromboembolism deterrents (TEDs). There is no lower extremity edema noted. LABORATORY DATA: WBC 19.6, hemoglobin 12.1, platelets 288. Chemistry: Sodium 139, potassium 4.5, chloride 101, bicarbonate 31, BUN 14, creatinine 0.66, glucose 117. IMAGING: CT angiogram showed no evidence of pulmonary embolus (PE). There were some patchy ground glass opacities scattered in the lungs. There was no dense consolidation or air bronchograms. There was no significant mediastinal or hilar adenopathy. There were some calcified gallstones noted in the gallbladder. There is no pleural effusion. ASSESSMENT AND PLAN: Patient is a 58-year-old female with a history of asthma, possible chronic obstructive pulmonary disease (COPD) as per the patient, significant psychiatric history, who presented with worsening shortness of breath and cough with associated wheezing. Patient was admitted for an asthma exacerbation likely in the setting of respiratory syncytial virus (RSV) as well as a possible Enterobacter pneumonia given her positive sputum. Patient continues to have significant coughing fits with coarse rhonchi and wheezing. Patient states that it does usually take her a few weeks before she has improvements with her exacerbations. She did have a spirometry done which showed some nonspecific airflow limitation with a normal FEV1 and FVC ratio but a reduced FVC and FEV1 suggestive of possible obstructive lung disease with some hyperinflation and air trapping. There is no evidence of any flattening of the loop on inspiration. However, given her history of multiple intubations as well as with her psychiatric history, patient may definitely have a component of vocal cord dysfunction contributing to some of her symptoms. She would need workup as an outpatient with ear, nose, and throat (ENT) for more evaluation. CT chest showed no evidence of PE but scattered GGO bilaterally. Given the findings on CT, this could be secondary to her respiratory syncytial virus (RSV) bronchiolitis versus regular bacterial pneumonia. Would also check for atypical organisms such as Mycoplasma, Legionella, and chlamydia which would requite a longer course of antibiotics. She is on ceftriaxone for antibiotics, but would also add azithromycin for atypical coverage given the CT findings. - Would continue with nebulizers and with her steroids. Would wean her to PO steroids as soon as possible but suspect she will likely need a prolonged tapering course of PO steroids given her severe asthma history and hx of recurrent exacerbations and prolonged steroid use. Patient would need outpatient followup for her uncontrolled severe persistent asthma and evaluation for treatment for anti-IgE and anti-IL5 therapy. Continue with cough suppressants with tessalo pearlesand guaifenesin. Can consider Hycodan as needed for severe cough DVT ppx FULL CODE Please do not hesitate to call if any further questions or concerns MTDD
[2018-11-04] MEDS: guaiFENesin SYRUP 200 MG/10 ML UDC PO PRN (20:59)
[2018-11-04 22:00] VITALS: BP 105/56
[2018-11-05] MEDS: SODIUM CHLORIDE 0.9% INJ 10 ML SYR IV SCH ×2 (05:04→18:11)
[2018-11-05] MEDS: methylPREDNISolone INJ 40 MG/1 ML VIAL (J2920) IV SCH (05:05)
[2018-11-05 05:43] LABS: HEMATOCRIT 39.2 % (36.0-47.0); HEMOGLOBIN 12.4 g/dl (12.0-15.5); MEAN CORPUSCULAR HEMOGLOBIN 32.3 pg (27.0-33.0); MEAN CORPUSCULAR HGB CONC 31.6 g/dl (32.0-36.5); MEAN CORPUSCULAR VOLUME 102.1 fl (80.0-96.0); PLATELET COUNT, AUTOMATED 284 10^3/uL (150-450); RED BLOOD COUNT 3.84 10^6/uL (4.00-5.40); WHITE BLOOD COUNT 20.5 10^3/uL (4.0-10.0)
[2018-11-05 06:00] VITALS: BP 130/60
[2018-11-05 06:11] LABS: BLOOD UREA NITROGEN 13 MG/DL (7-18); CALCIUM LEVEL 8.2 MG/DL (8.5-10.1); CARBON DIOXIDE LEVEL 30 MEQ/L (21-32); CHLORIDE LEVEL 102 MEQ/L (98-107); CREATININE FOR GFR 0.62 MG/DL (0.55-1.30); GLOMERULAR FILTRATION RATE > 60.0 (>51); GLUCOSE, FASTING 131 MG/DL (70-100); POTASSIUM SERUM 4.5 MEQ/L (3.5-5.1); SODIUM LEVEL 137 MEQ/L (136-145)
[2018-11-05] MEDS: BUDESONIDE 0.5 MG/2 ML INHALATION SUSPENSION INH SCH ×2 (07:12→20:10)
[2018-11-05] MEDS: QUEtiapine FUMARATE 25 MG TAB PO SCH ×2 (09:00→21:25)
[2018-11-05] MEDS: PREGABALIN 50 MG CAP (LYRICA) PO SCH ×2 (09:01→21:25)
[2018-11-05] MEDS: busPIRone 10 MG TAB PO SCH ×2 (09:01→21:24)
[2018-11-05] MEDS: LITHIUM CARBONATE 300 MG CAP PO SCH ×2 (09:01→21:25)
[2018-11-05] MEDS: SENOKOT S TAB PO SCH ×2 (09:01→21:25)
[2018-11-05] MEDS: OMEPRAZOLE 20 MG CAP PO SCH (09:01)
[2018-11-05] MEDS: DIVALPROEX 500MG *ER* TAB PO SCH ×2 (09:01→21:25)
[2018-11-05] MEDS: FLUoxetine 20 MG CAP PO SCH ×2 (09:01→21:25)
[2018-11-05] MEDS: traZODone 100 MG TAB PO SCH (09:01)
[2018-11-05] MEDS: NICOTINE 14 MG/24 HR TRANSDERMAL TD SCH (09:02)
[2018-11-05] MEDS: BENZONATATE 100 MG CAP PO SCH ×3 (09:02→21:24)
--- NOTE | 2018-11-05 10:34 | IPNPDOC ---
Text Note Date of Service The patient was seen on 11/05/18. NOTE Subjective: Patient seen and examined at bedside. No acute overnight events reported. Patient states she is still feeling short of breath. No other medical complaints. Objective: General: NAD, sitting comfortably in bed, #tattoos HEENT: NC/AT, EOMI, edentulous Lungs: coarse breath sounds throughout Heart: +S1S2, RRR Abd: soft, NT, +BS Ext: no edema A/P: This is a 58-year-old female with shortness of breath. #SOB - likely multifactorial - underlying emphysema, asthma, active RSV infection - SCx +yeast, enterobacter - azithromycin has been added, likely d/c ceftriaxone given typical resistance by entero species - consider levaquin - continue IV steroid therapy - titrate today/tomorrow - respiratory treatments, IS/acapella - follow as per pulmonary - assistance appreciated - PFT's previously obtained - negative for vocal cord dysfunction # anxiety - further complicating factor for shortness of breath - continue Seroquel, [place], Prozac, BuSpar, trazodone and Atarax - lithium levels sub-therapeutic on admission #HFpEF - appears to be compensated #Seizure disorder - continue Lyrica and Depakote. - valproic acid levels sub-therapeutic on admission #DVT prophylaxis - encourage ambulation/mechanical prophylaxis VS,Fishbone, I+O VS, Fishbone, I+O Laboratory Tests 11/05/18 05:22 Red Blood Count 3.84 L, Mean Corpuscular Volume 102.1 H, Mean Corpuscular Hemoglobin 32.3, Mean Corpuscular Hemoglobin Concent 31.6 L, Red Cell Distribution Width 13.3, Calcium Level 8.2 L Vital Signs Date Time Temp Pulse Resp B/P (MAP) Pulse Ox O2 Delivery O2 Flow Rate FiO2 11/05/18 06:00 97.3 64 17 130/60 (83) 98 11/03/18 21:00 2.0 11/03/18 02:40 Nasal Cannula I&O- Last 24 Hours up to 6 AM 11/05/18 06:00 Intake Total 1940 ml Output Total 600 ml Balance 1340 ml JUAN RAMON LO MD Nov 05, 2018 10:34
[2018-11-05] MEDS ORDERED: LevoFLOXacin IV 750 MG in APPROPRIATE DILUENT 1 EA IV SCH (12:00)
[2018-11-05 14:00] VITALS: BP 133/73
[2018-11-05] MEDS: traMADol 50 MG TAB PO PRN ×2 (15:15→21:26)
[2018-11-05] MEDS: IPRATROPIUM 0.5MG/ALBUTEROL 2.5MG INH SOL UD 3ML (DUONEB)(J7620) NEB PRN (20:10)
[2018-11-05] MEDS: hydrOXYzine 50 MG TAB PO PRN (21:25)
[2018-11-05] MEDS: guaiFENesin SYRUP 200 MG/10 ML UDC PO PRN (21:25)
[2018-11-05 22:00] VITALS: BP 133/59
[2018-11-06] MEDS: SODIUM CHLORIDE 0.9% INJ 10 ML SYR IV SCH ×2 (04:17→18:00)
[2018-11-06] MEDS: hydrOXYzine 50 MG TAB PO PRN ×2 (04:17→20:20)
[2018-11-06 06:00] VITALS: BP 95/55
[2018-11-06 06:13] LABS: HEMATOCRIT 42.5 % (36.0-47.0); HEMOGLOBIN 13.1 g/dl (12.0-15.5); MEAN CORPUSCULAR HGB CONC 30.8 g/dl (32.0-36.5); MEAN CORPUSCULAR VOLUME 103.7 fl (80.0-96.0); PLATELET COUNT, AUTOMATED 288 10^3/uL (150-450); WHITE BLOOD COUNT 20.4 10^3/uL (4.0-10.0)
[2018-11-06 06:36] LABS: ALBUMIN 2.9 GM/DL (3.2-5.2); ALT/SGPT 16 U/L (12-78); BILIRUBIN,TOTAL 0.3 MG/DL (0.2-1.0); BLOOD UREA NITROGEN 15 MG/DL (7-18); CALCIUM LEVEL 8.5 MG/DL (8.5-10.1); CARBON DIOXIDE LEVEL 35 MEQ/L (21-32); CHLORIDE LEVEL 100 MEQ/L (98-107); CREATININE FOR GFR 0.79 MG/DL (0.55-1.30); GLOMERULAR FILTRATION RATE > 60.0 (>51); GLUCOSE, FASTING 90 MG/DL (70-100); POTASSIUM SERUM 4.5 MEQ/L (3.5-5.1); SODIUM LEVEL 136 MEQ/L (136-145)
[2018-11-06] MEDS: BUDESONIDE 0.5 MG/2 ML INHALATION SUSPENSION INH SCH ×2 (07:32→20:03)
[2018-11-06] MEDS: IPRATROPIUM 0.5MG/ALBUTEROL 2.5MG INH SOL UD 3ML (DUONEB)(J7620) NEB PRN ×2 (07:32→15:23)
[2018-11-06] MEDS: traZODone 100 MG TAB PO SCH (08:39)
[2018-11-06] MEDS: MULTIVITAMINS/MINERALS THERAP 1 TAB PO SCH (08:40)
[2018-11-06] MEDS: SENOKOT S TAB PO SCH ×2 (08:40→20:20)
[2018-11-06] MEDS: PREGABALIN 50 MG CAP (LYRICA) PO SCH ×2 (08:40→20:20)
[2018-11-06] MEDS: FLUoxetine 20 MG CAP PO SCH ×2 (08:40→20:20)
[2018-11-06] MEDS: QUEtiapine FUMARATE 25 MG TAB PO SCH ×2 (08:40→20:20)
[2018-11-06] MEDS: OMEPRAZOLE 20 MG CAP PO SCH (08:40)
[2018-11-06] MEDS: LITHIUM CARBONATE 300 MG CAP PO SCH ×2 (08:40→20:20)
[2018-11-06] MEDS: busPIRone 10 MG TAB PO SCH ×2 (08:40→20:20)
[2018-11-06] MEDS: BENZONATATE 100 MG CAP PO SCH ×3 (08:40→20:20)
[2018-11-06] MEDS: DIVALPROEX 500MG *ER* TAB PO SCH ×2 (08:40→20:20)
[2018-11-06] MEDS: NICOTINE 14 MG/24 HR TRANSDERMAL TD SCH (08:41)
--- NOTE | 2018-11-06 10:53 | IPNPDOC ---
Text Note Date of Service The patient was seen on 11/06/18. NOTE Subjective: Patient seen and examined at bedside. No acute overnight events reported. Patient continue to feel short of breath. Complains of left sided abdominal pain. No clear modifying factors, no radiation. Objective: General: NAD, lying comfortably in bed, #tattoos HEENT: NC/AT, EOMI, edentulous Lungs: coarse breath sounds throughout Heart: +S1S2, RRR Abd: soft, NT, +BS Ext: no edema A/P: This is a 58-year-old female with shortness of breath. #SOB - likely multifactorial - underlying emphysema, asthma, active RSV infection - SCx +yeast, enterobacter - transition to PO levaquin - continue IV steroid therapy - titrate - respiratory treatments, IS/acapella - follow as per pulmonary - assistance appreciated - PFT's previously obtained - negative for vocal cord dysfunction #abd pain - possibly musculoskeletal secondary to coughing - CT A/P pending # anxiety - further complicating factor for shortness of breath - continue Seroquel, [place], Prozac, BuSpar, trazodone and Atarax - lithium levels sub-therapeutic on admission #HFpEF - appears to be compensated #Seizure disorder - continue Lyrica and Depakote. - valproic acid levels sub-therapeutic on admission #DVT prophylaxis - encourage ambulation/mechanical prophylaxis VS,Fishbone, I+O VS, Fishbone, I+O Laboratory Tests 11/06/18 05:20 Red Blood Count 4.10, Mean Corpuscular Volume 103.7 H, Mean Corpuscular Hemoglobin 32.0, Mean Corpuscular Hemoglobin Concent 30.8 L, Red Cell Distribution Width 13.2, Calcium Level 8.5, Aspartate Amino Transf (AST/SGOT) 11, Alanine Aminotransferase (ALT/SGPT) 16, Alkaline Phosphatase 61, Total Bilirubin 0.3, Total Protein 6.0 L, Albumin 2.9 L Vital Signs Date Time Temp Pulse Resp B/P (MAP) Pulse Ox O2 Delivery O2 Flow Rate FiO2 11/06/18 06:00 97.5 77 19 95/55 (68) 93 11/03/18 21:00 2.0 11/03/18 02:40 Nasal Cannula I&O- Last 24 Hours up to 6 AM 11/06/18 06:00 Intake Total 1620 ml Output Total 300 ml Balance 1320 ml JUAN RAMON LO MD Nov 06, 2018 10:53
[2018-11-06] MEDS: LevoFLOXacin 750 MG TABLET PO SCH (11:56)
[2018-11-06] MEDS: predniSONE 20 MG TAB PO SCH ×2 (13:41→20:21)
--- NOTE | 2018-11-06 13:41 | REP ---
CT of the abdomen and pelvis without IV and oral contrast for general abdominal pain: There are no comparisons. The visualized lung cagle are unremarkable. The hepatic parenchyma is homogeneous and otherwise unremarkable. There are two small gallbladder calculi measuring up to 5 mm in diameter. The gallbladder is otherwise are well. There is no biliary duct dilatation. The pancreas and spleen are normal size and otherwise unremarkable. The adrenals are unremarkable. The unenhanced kidneys are unremarkable. The abdominal aorta is unremarkable except for occasional calcified atheroma. There is no retroperitoneal adenopathy. No mesenteric adenopathy. There is no bowel distension or obstruction. There is no diverticulosis or diverticulitis. Pelvis: The appendix is unremarkable. The uterus, adnexa and bladder are unremarkable. There is no pelvic adenopathy or ascites. There is a 7 mm focal dense lesion in the supra-acetabular area of the left iliac wing likely a bone island, however, a blastic metastasis cannot be entirely discounted. In the absence of prior studies to document stability. There is mild osteoarthritis of the hips, slightly more advanced on the right. Impression: Essentially negative CT study of the abdomen and pelvis except for: 1. Focal blastic lesion in the left iliac wing as described, bone island versus blastic metastasis, as described. 2. Bilateral mild hip osteoarthritis, slightly more advanced on the right. Electronically Signed by Tera Chu MD 11/06/2018 01:33 P
[2018-11-06] MEDS: traMADol 50 MG TAB PO PRN ×2 (13:56→20:21)
[2018-11-06 14:00] VITALS: BP 98/54
[2018-11-06] MEDS: guaiFENesin SYRUP 200 MG/10 ML UDC PO PRN (20:20)
[2018-11-06 22:00] VITALS: BP 112/63
[2018-11-07] MEDS: LevoFLOXacin 750 MG TABLET PO SCH (05:08)
[2018-11-07] MEDS: traMADol 50 MG TAB PO PRN ×3 (05:09→20:50)
[2018-11-07] MEDS: IPRATROPIUM 0.5MG/ALBUTEROL 2.5MG INH SOL UD 3ML (DUONEB)(J7620) NEB PRN ×2 (05:29→19:50)
[2018-11-07 06:00] VITALS: BP 117/65
[2018-11-07] MEDS: BUDESONIDE 0.5 MG/2 ML INHALATION SUSPENSION INH SCH ×2 (07:43→19:50)
[2018-11-07] MEDS: SODIUM CHLORIDE 0.9% INJ 10 ML SYR IV SCH ×2 (08:11→16:41)
[2018-11-07] MEDS: guaiFENesin SYRUP 200 MG/10 ML UDC PO PRN ×2 (08:11→20:48)
[2018-11-07] MEDS: LITHIUM CARBONATE 300 MG CAP PO SCH ×2 (08:12→20:49)
[2018-11-07] MEDS: MULTIVITAMINS/MINERALS THERAP 1 TAB PO SCH (08:12)
[2018-11-07] MEDS: NICOTINE 14 MG/24 HR TRANSDERMAL TD SCH (08:12)
[2018-11-07] MEDS: guaiFENesin ER 600 MG TAB PO PRN (08:12)
[2018-11-07] MEDS: SENOKOT S TAB PO SCH ×2 (08:13→20:50)
[2018-11-07] MEDS: predniSONE 20 MG TAB PO SCH (08:14)
[2018-11-07] MEDS: BENZONATATE 100 MG CAP PO SCH ×3 (08:14→20:49)
[2018-11-07] MEDS: PREGABALIN 50 MG CAP (LYRICA) PO SCH ×2 (08:14→20:49)
[2018-11-07] MEDS: busPIRone 10 MG TAB PO SCH ×2 (08:14→20:49)
[2018-11-07] MEDS: QUEtiapine FUMARATE 25 MG TAB PO SCH ×2 (08:15→20:49)
[2018-11-07] MEDS: FLUoxetine 20 MG CAP PO SCH ×2 (08:15→20:49)
[2018-11-07] MEDS: traZODone 100 MG TAB PO SCH (08:15)
[2018-11-07] MEDS: hydrOXYzine 50 MG TAB PO PRN ×3 (08:15→22:06)
[2018-11-07] MEDS: OMEPRAZOLE 20 MG CAP PO SCH (08:15)
[2018-11-07] MEDS: DIVALPROEX 500MG *ER* TAB PO SCH ×2 (08:15→20:49)
[2018-11-07] MEDS: MAGIC MOUTHWASH SUSPENSION BTL SS PRN (12:24)
[2018-11-07 14:00] VITALS: BP 102/59
--- NOTE | 2018-11-07 20:12 | IPN ---
DATE: 11/07/2018 SUBJECTIVE: The patient is seen and examined in the room today. During the morning encounter, the patient continued to demonstrate intermittent cough when I was in the room. Denies any fevers, but the patient thinks that she had chills at night. OBJECTIVE: VITAL SIGNS: Temperature 97.7, pulse 73, respirations 20, blood pressure 117/65, 100% on room air. GENERAL: No sign of acute distress. Alert and awake. HEENT: Normocephalic, atraumatic. Extraocular motors are grossly intact. CARDIOVASCULAR: Positive S1, S2. Regular rate. LUNGS: Coarse lung sounds. Decreased breath sounds. ABDOMEN: Soft, nontender, nondistended. EXTREMITIES: No edema. LABORATORY DATA: Most recent demonstrates WBC 20.4, hemoglobin 13.1, hematocrit 42.5, platelet count is 288. Sodium is 136, potassium 4.5, chloride 100, carbon dioxide 35, BUN 15, creatinine 0.76, GFR greater than 60, fasting glucose is 90, calcium is 8.5, total bilirubin 0.3, AST 11, ALT 16, alkaline phosphatase 61, total protein 6. ASSESSMENT AND PLAN: 1. Acute on chronic respiratory distress, multifactorial. Currently, the patient has had respiratory syncytial virus (RSV) infection. Sputum culture is also positive for Enterobacter and on Levaquin. The patient also has asthma/emphysematous disease and on steroid taper. Continue Acapella. 2. Anxiety. On buspirone and Prozac and hydralazine. Continue Seroquel and lithium. 3. Heart failure with preserved ejection fraction. No sign of fluid overload at this moment. 4. Seizure disorder. On Depakote. 5. Nicotine usage. Nicotine patch. 6. Deep vein thrombosis (DVT) prophylaxis. On SCDs.
[2018-11-07 22:00] VITALS: BP 131/73
[2018-11-07] MEDS ORDERED: IPRATROPIUM 0.5MG/ALBUTEROL 2.5MG INH SOL UD 3ML (DUONEB)(J7620) NEB ONE (22:00)
[2018-11-08] MEDS: LevoFLOXacin 750 MG TABLET PO SCH (05:06)
[2018-11-08] MEDS: hydrOXYzine 50 MG TAB PO PRN (05:06)
[2018-11-08] MEDS: guaiFENesin SYRUP 200 MG/10 ML UDC PO PRN (05:06)
[2018-11-08 06:00] VITALS: BP 122/64
[2018-11-08] MEDS: BUDESONIDE 0.5 MG/2 ML INHALATION SUSPENSION INH SCH (06:00)
[2018-11-08] MEDS: IPRATROPIUM 0.5MG/ALBUTEROL 2.5MG INH SOL UD 3ML (DUONEB)(J7620) NEB PRN (06:00)
[2018-11-08] MEDS: SODIUM CHLORIDE 0.9% INJ 10 ML SYR IV SCH (06:47)
[2018-11-08] MEDS: QUEtiapine FUMARATE 25 MG TAB PO SCH (08:14)
[2018-11-08] MEDS: MULTIVITAMINS/MINERALS THERAP 1 TAB PO SCH (08:14)
[2018-11-08] MEDS: NICOTINE 14 MG/24 HR TRANSDERMAL TD SCH (08:14)
[2018-11-08] MEDS: SENOKOT S TAB PO SCH (08:14)
[2018-11-08] MEDS: busPIRone 10 MG TAB PO SCH (08:15)
[2018-11-08] MEDS: OMEPRAZOLE 20 MG CAP PO SCH (08:15)
[2018-11-08] MEDS: LITHIUM CARBONATE 300 MG CAP PO SCH (08:15)
[2018-11-08] MEDS: traZODone 100 MG TAB PO SCH (08:15)
[2018-11-08] MEDS: DIVALPROEX 500MG *ER* TAB PO SCH (08:15)
[2018-11-08] MEDS: BENZONATATE 100 MG CAP PO SCH (08:15)
[2018-11-08] MEDS: FLUoxetine 20 MG CAP PO SCH (08:15)
[2018-11-08] MEDS: PREGABALIN 50 MG CAP (LYRICA) PO SCH (08:15)
[2018-11-08] MEDS: predniSONE 20 MG TAB PO SCH (08:15)
[2018-11-08] MEDS ORDERED: BENZ-18 PO (10:23)
[2018-11-08] MEDS ORDERED: PRED10TA2 PO (10:23)
[2018-11-08] MEDS ORDERED: LEVA750T7 PO (10:24)
[2018-11-09] MEDS ORDERED: TESS100C PO (14:06)
[2018-11-11 00:07] LABS: CHLAMYDIA PNEUMONIAE IgM <1:10 (Neg:<1:10)
--- NOTE | 2018-11-13 20:50 | DSES ---
DATE OF ADMISSION: 10/28/2018 DATE OF DISCHARGE: 11/08/2018 CONSULTANTS: Pulmonology. PROCEDURES: None. DISCHARGE DIAGNOSES: 1. Acute on chronic respiratory distress. 2. RSV infection. 3. Bacterial lung infection. 4. Emphysematous lung diseases. 5. Anxiety. 6. Heart failure with a preserved EF. 7. Seizures. 8. Nicotine usage. 9. Pulmonary hypertension. 10. History of CVA. 11. Macrocytic anemia. HOSPITALIZATION COURSE: Patient is a 58-year-old female who presented to [facility] on 10/28/2018 with a complaint of worsening cough. Patient is admitted under hospitalist service initially for COPD exacerbation secondary to RSV infection. IV steroid, started on the breathing treatment's. Later the sputum culture came back positive. Continue on the antibiotics. Lateral due to very slow improvement her pulmonary status pulmonology was consulted. Later the patients steroid was being adjusted based on the patient's clinical picture. Patient started to notice improvement of her respiratory status. On 11/08/2018 patient respiratory status is approaching her baseline. Patient determined stable for discharge with the recommendation to follow with her primary care provider in one week. VITAL SIGNS ON DAY OF DISCHARGE: Temperature 96.9, pulse 67, respirations 20, blood pressure 132/64, pulse ox 98% on room air. LABORATORY DATA: WBC 20.4, hemoglobin 13.1, hematocrit 42.5, platelet count 288, sodium 136, potassium 4.5, chloride 100, carbon dioxide 35, BUN 15, creatinine 0.79, GFR greater than 60, fasting glucose 90, calcium 8.5, total bilirubin 0.3, AST 11, ALT 16, alkaline phos 61, total protein 6, albumin 2.9. MICROBIOLOGY: Blood culture from 10/28/2018 is negative after 5 days on two sets. Respiratory panel from 10/28/2018 is positive for RSV. Sputum culture from 10/29/2018 is positive for enterobacter. IMAGING STUDIES: Chest x-ray on 10/28/2018 showed bronchitis with trace right basilar atelectasis. Chest x-ray on 10/31/2018 demonstrated no acute cardiopulmonary process. CT angiogram of the chest on 11/03/[address] evidence of pulmonary thromboembolism. Bilateral patchy and scattered ground-glass opacity peripherally. Perihilar and centrally in the lung zones in nonspecific patterns. No effusion. Dense consolidation with air bronchogram or other acute findings. No pathological size mediastinal or hilar adenopathy. CT abdomen and pelvis without contrast shows essentially negative CT study of the abdomen and pelvis except for focal lesion in the left iliac wing bone island versus metastasis. Bilateral mild hip osteoarthritis. DISCHARGE MEDICATIONS: Tylenol 650 mg by mouth every 4 hours as needed, ProAir 2 puff inhalation every 4 hours as needed for shortness of breath, Fosamax 70 mg by mouth weekly, Buspirone 10 mg by mouth twice a day, divalproex 500 mg by mouth twice a day, Prozac 20 mg by mouth twice a day, Mucinex 1200 mg by mouth daily as needed for cough, Prilosec 10 mg by mouth daily, Lyrica 15 mg by mouth twice a day. Advair discus 1 puff inhalation twice a day. DISCHARGE INSTRUCTION: Discontinue line, discharge home. Activity as tolerated. Diet as tolerated. Patient should followup with primary care provider in one week. Patient stay on the 1.8 liter daily fluid restriction. Patient should followup with her primary care provider with the possible bone lesion noted on the CT of the abdomen and pelvis. DISCHARGE TIME: Greater than 30 minutes. DISCHARGE CONDITION: Fair.
[2018-11-14 11:06] LABS: MYCOPLASMA PNEUMONIAE IgG <100 U/mL (0-99); MYCOPLASMA PNEUMONIAE IgM <770 U/mL (0-769)
== END 2018-11-08 12:29 | disposition home or self-care (01) | DRG 144 ==
LOC: M ED 14:04 → M ED INP 18:42 → M PCU 20:09 → M MS5PR 11-01 14:07 → M MSPAV 11-01 14:20
PROVIDERS: ADMIT Internal Medicine; ATTEND Internal Medicine
PROC: 05HB33Z Insertion of Infusion Device into Right Basilic Vein, Percutaneous Approach (ICD-10-PCS; principal; 2018-11-03)
DX: J20.5 Acute bronchitis due to respiratory syncytial virus (principal); I50.32 Chronic diastolic (congestive) heart failure; I27.20 Pulmonary hypertension, unspecified; J44.0 Chronic obstructive pulmonary disease with (acute) lower respiratory infection; J45.51 Severe persistent asthma with (acute) exacerbation; Z99.81 Dependence on supplemental oxygen; J44.1 Chronic obstructive pulmonary disease with (acute) exacerbation; B97.4 Respiratory syncytial virus as the cause of diseases classified elsewhere; M81.0 Age-related osteoporosis without current pathological fracture; M94.0 Chondrocostal junction syndrome [Tietze]; M17.0 Bilateral primary osteoarthritis of knee; F31.9 Bipolar disorder, unspecified; D53.9 Nutritional anemia, unspecified; F41.9 Anxiety disorder, unspecified; G40.909 Epilepsy, unspecified, not intractable, without status epilepticus; Z79.52 Long term (current) use of systemic steroids; Z79.891 Long term (current) use of opiate analgesic; Z79.899 Other long term (current) drug therapy; F17.200 Nicotine dependence, unspecified, uncomplicated; Z88.0 Allergy status to penicillin; Z86.73 Personal history of transient ischemic attack (TIA), and cerebral infarction without residual deficits

== ENCOUNTER 2018-11-09 12:11 | Observation (INO) | payer MEDICAID, OTHER ==
[~2018-11-09] VITALS: Ht 157.5 cm; Wt 64.0 kg
[~2018-11-09 12:11] MED LIST changes: +APAP325T4 PO; +BENZ-18 PO; +LEVA750T7 PO; +MUCI1TAB16 PO; +PRED20TA PO; +QUET1TAB7 PO
[2018-11-09] MEDS ORDERED: IPRATROPIUM 0.5MG/ALBUTEROL 2.5MG INH SOL UD 3ML (DUONEB)(J7620) NEB ONE (12:30)
[2018-11-09] MEDS ORDERED: MAG SULF 1GM/100ML (MAG RUN) 1 GM in APPROPRIATE DILUENT 1 EA IV ONE (12:30)
[2018-11-09] MEDS ORDERED: ALBUTEROL SULFATE 2.5 MG/0.5 ML INH NEB SOLN INH ONE (12:30)
[2018-11-09 12:41] LABS: ABG BASE EXCESS 1.8 (-2.0-2.0); ABG HCO3 25.8 MEQ/L (22.0-26.0); ABG PARTIAL PRESSURE CO2 38.2 mmHg (35.0-45.0); ABG PARTIAL PRESSURE O2 73.8 mmHg (75.0-100.0); ABG TOTAL CO2 26.9 MEQ/L (22.0-29.0); ABG pH (ARTERIAL) 7.447 UNITS (7.350-7.450)
--- NOTE | 2018-11-09 13:05 | REP ---
Portable chest, 12:47 p.m., single AP view, patient sitting: Comparison is 10/31/2018. The lung cagle are clear. The cardiac size is normal. The stefan, mediastinum, and skeletal structures are unremarkable. Impression: Negative portable chest. There is no interval change. Electronically Signed by Tera Chu MD 11/09/2018 12:56 P
[2018-11-09 13:37] LABS: BASO # 0.2 10^3/uL (0.0-0.2); BASO % 0.6 % (0.0-1.0); EOS # 0.1 10^3/uL (0.0-0.50); EOS % 0.2 % (0.0-3.0); HEMATOCRIT 39.3 % (36.0-47.0); HEMOGLOBIN 12.4 g/dl (12.0-15.5); LYMPH # 4.5 10^3/uL (1.5-4.5); LYMPH % 14.6 % (24.0-44.0); MEAN CORPUSCULAR HEMOGLOBIN 32.1 pg (27.0-33.0); MEAN CORPUSCULAR HGB CONC 31.6 g/dl (32.0-36.5); MEAN CORPUSCULAR VOLUME 101.8 fl (80.0-96.0); MONO # 1.6 10^3/uL (0.0-0.8); MONO % 5.2 % (0.0-5.0); NEUTROPHILS # 23.1 10^3/uL (1.8-7.7); NEUTROPHILS % 75.4 % (36.0-66.0); PLATELET COUNT, AUTOMATED 206 10^3/uL (150-450); RED BLOOD COUNT 3.86 10^6/uL (4.00-5.40)
[2018-11-09 13:44] LABS: WHITE BLOOD COUNT 30.7 10^3/uL (4.0-10.0)
[2018-11-09 13:48] LABS: INR 0.91; PROTHROMBIN TIME 12.3 SECONDS (12.1-14.4)
[2018-11-09 13:51] LABS: D-DIMER QUANT 503.99 ng/ml (<500)
[2018-11-09] MEDS ORDERED: TESS100C PO (14:06)
[2018-11-09 14:19] LABS: ALBUMIN 3.1 GM/DL (3.2-5.2); ALT/SGPT 15 U/L (12-78); BILIRUBIN,DIRECT < 0.1 MG/DL (0.0-0.2); BILIRUBIN,TOTAL 0.3 MG/DL (0.2-1.0); BLOOD UREA NITROGEN 17 MG/DL (7-18); CALCIUM LEVEL 8.4 MG/DL (8.5-10.1); CARBON DIOXIDE LEVEL 25 MEQ/L (21-32); CHLORIDE LEVEL 106 MEQ/L (98-107); CK-MB VALUE MASS < 1.0 NG/ML (<3.6); CPK CREATINE PHOSPHOKINASE 36 U/L (26-192); CREATININE FOR GFR 0.59 MG/DL (0.55-1.30); GLOMERULAR FILTRATION RATE > 60.0 (>51); GLUCOSE, FASTING 88 MG/DL (70-100); MB/CK RELATIVE INDEX 2.78 (< OR =4); NT-PRO BNP 316 PG/ML (<125); POTASSIUM SERUM 3.7 MEQ/L (3.5-5.1); SODIUM LEVEL 139 MEQ/L (136-145); THYROXINE (T4) 8.3 UG/DL (4.5-12.0); TOTAL PROTEIN 5.9 GM/DL (6.4-8.2); TROPONIN I < 0.02 NG/ML (< 0.10)
[2018-11-09] MEDS ORDERED: NS 500 ML IV ONE (14:30)
[2018-11-09] MEDS ORDERED: ACETAMINOPHEN TAB 650MG DOSE (2X325MG) PO PRN (15:30)
[2018-11-09] MEDS ORDERED: guaiFENesin ER 600 MG TAB PO PRN (15:30)
[2018-11-09] MEDS ORDERED: BENZONATATE 100 MG CAP PO PRN (15:30)
--- NOTE | 2018-11-09 15:35 | REP ---
CT Head without contrast HISTORY: Syncope COMPARISON: None There is no intraparenchymal hemorrhage, acute infarct, mass or midline shift. The ventricular system and cortical sulci are dilated consistent with minimal volume loss. There is no extra cerebral collection. There is no fracture. The visualized sinuses are clear. IMPRESSION: Minimal volume loss. Electronically Signed by Aamir Kern MD 11/09/2018 03:26 P
--- NOTE | 2018-11-09 17:39 | HPE ---
DATE OF ADMISSION: 11/09/2018 58-year-old female with past medical history of congestive heart failure, oxygen dependency chronic obstructive pulmonary disease (COPD) requiring 2 liters nasal cannula, history of asthma, osteoporosis, seizure disorder, presents to the emergency room after having a syncopal event at [facility] this morning. Her son was there to witness it and caught her when she collapsed. Apparently, she syncopized for approximately 30 seconds and then suddenly responded. She come to the emergency room (ER) for evaluation. In the ER, there was nothing eventful on telemonitor. Her vital signs were stable. 12-lead EKG showed no acute ST-T abnormalities. She has never had a syncopal event in the past. Will be admitted for further management. PMH: congestive heart failure, oxygen dependent COPD, asthma, osteoporosis, bilateral knee osteoarthritis, history of bipolar disorder, anxiety, seizure disorder. ALLERGIES: She has drug allergies to PENICILLIN. FAMILY HISTORY: Noncontributory. SOCIAL HISTORY: Patient still smokes about a third-pack a day for many years now. Denies alcohol or illicit drugs. MEDICATIONS: She takes at home are as follows: - Tylenol 650 mg orally every 4 hours as needed - albuterol as needed - alendronate 70 mg orally weekly - benzonatate 100 mg orally three times a day as needed - buspirone 10 mg orally twice a day - Depakote 500 mg orally twice a day - fluoxetine 20 mg orally twice a day - guaifenesin 1200 mg orally daily as needed - lithium carbonate 300 mg orally twice a day - omeprazole 10 mg orally daily - pregabalin 50 mg orally twice a day - quetiapine 25 mg orally twice a day - Advair 100/50 one puff inhaled twice a day - tramadol 50 mg orally every 6 hours as needed Review of systems is negative for all ten major systems except what has been mentioned in the history of present illness (HPI). Vital signs: Blood pressure 100/59, heart rate is 60, regular, respiratory rate 20, temperature 98.1, oxygen saturation is 98% on room air. Head is atraumatic, normocephalic. Neck is supple, no jugular venous distention (JVD). Lungs are clear to auscultation. S1, S2 audible, no murmurs appreciated. Abdomen is soft, positive bowel sounds. No pedal edema. Skin intact. Neurologic examination: Patient is awake, alert, oriented times three. LABORATORY DATA: WBC 30.7, hemoglobin 12.4, hematocrit 39.3, platelets are 206,000, sodium 139, potassium 3.7, chloride 106, CO2 25, BUN 17, creatinine 0.59, glucose 88, TSH is 2.78. ABG pH is 7.447, pCO2 is 38.2. CT head was negative for bleed or mass effect. Chest x-ray was negative for consolidation. IMPRESSION: 1. Syncope with collapse. 2. Leukocytosis. PLAN: Patient is to be admitted to progressive care unit (PCU). Will get a second troponin to rule out acute coronary syndrome and then have an echocardiogram in the morning. She already has an appointment to see her employment agency manager on 11/24/2018. If all is stable, she can be discharged and followup at the employment agency manager appointment. As far as the leukocytosis is concerned, I am not quite sure where this stems from. She has always had chronic leukocytosis as far back as 09/21/2018. She has no respiratory symptoms, no dysuria, she has no diarrhea. I will still get a urinalysis just to be complete, but this chronic leukocytosis should be an outpatient workup with hematology. In the meantime, we will continue her preadmission medications and continue her care in the progressive care unit (PCU). CORDELIA
[2018-11-09 21:53] VITALS: BP 146/74
[2018-11-09] MEDS: ADVAIR HFA 45/21MCG INHALER INH SCH (22:06)
[2018-11-09] MEDS: busPIRone 10 MG TAB PO SCH (22:20)
[2018-11-09] MEDS: LITHIUM CARBONATE 300 MG CAP PO SCH (22:21)
[2018-11-09] MEDS: traZODone 100 MG TAB PO SCH (22:21)
[2018-11-09] MEDS: FLUoxetine 20 MG CAP PO SCH (22:21)
[2018-11-09] MEDS: QUEtiapine FUMARATE 25 MG TAB PO SCH (22:22)
[2018-11-09] MEDS: DIVALPROEX 500MG *ER* TAB PO SCH (22:22)
[2018-11-09] MEDS: PREGABALIN 50 MG CAP (LYRICA) PO SCH (22:22)
[2018-11-09 23:59] VITALS: BP 104/60
--- NOTE | 2018-11-10 00:47 | ECGEPIP ---
Stationary ECG Study [facility] - ED Test Date: 2018-11-09 Pat Name: SARAH MORALES Department: Room: [place] [address] Gender: F [employer] Board Poster: LISANDRO : 1960 Requested By: NOBLE Gallegos Order Number: [id number] Reading MD: Milton Steinberg Measurements Intervals [place] Rate: 64 P: 63 WI: 133 QRS: 50 QRSD: 85 T: 48 QT: 395 QTc: 409 Interpretive Statements SINUS RHYTHM LEFT ATRIAL ENLARGEMENT BENIGN EARLY REPOLARIZATION RATE CHANGE COMPARED TO 10/31/18 Electronically Signed On 11-10-2018 0:47:36 EST by Milton Steinberg
[2018-11-10 04:00] VITALS: BP 91/54
[2018-11-10] MEDS: traMADol 50 MG TAB PO PRN ×2 (04:02→09:50)
[2018-11-10] MEDS: ALBUTEROL SULFATE 2.5 MG/0.5 ML INH NEB SOLN INH PRN ×2 (04:09→07:44)
[2018-11-10 04:30] VITALS: BP 98/60
[2018-11-10 04:58] LABS: HEMATOCRIT 36.7 % (36.0-47.0); HEMOGLOBIN 11.6 g/dl (12.0-15.5); MEAN CORPUSCULAR HEMOGLOBIN 32.2 pg (27.0-33.0); MEAN CORPUSCULAR HGB CONC 31.6 g/dl (32.0-36.5); MEAN CORPUSCULAR VOLUME 101.9 fl (80.0-96.0); PLATELET COUNT, AUTOMATED 203 10^3/uL (150-450); WHITE BLOOD COUNT 22.3 10^3/uL (4.0-10.0)
[2018-11-10 05:16] LABS: LYMPHOCYTES 32 % (16-52); MONOCYTES 5 % (0-8); NEUTROPHILS 63 % (35-75)
[2018-11-10 05:17] LABS: PLATELET ESTIMATE NORMAL (NORMAL)
[2018-11-10 05:21] LABS: BLOOD UREA NITROGEN 12 MG/DL (7-18); CALCIUM LEVEL 7.6 MG/DL (8.5-10.1); CARBON DIOXIDE LEVEL 26 MEQ/L (21-32); CHLORIDE LEVEL 108 MEQ/L (98-107); CREATININE FOR GFR 0.62 MG/DL (0.55-1.30); GLOMERULAR FILTRATION RATE > 60.0 (>51); GLUCOSE, FASTING 84 MG/DL (70-100); POTASSIUM SERUM 4.3 MEQ/L (3.5-5.1); SODIUM LEVEL 140 MEQ/L (136-145)
[2018-11-10] MEDS: ADVAIR HFA 45/21MCG INHALER INH SCH ×2 (07:44→20:29)
[2018-11-10 08:00] VITALS: BP 87/54
[2018-11-10] MEDS: ASPIRIN 81 MG ENTERIC TAB PO SCH (09:46)
[2018-11-10] MEDS: FLUoxetine 20 MG CAP PO SCH ×2 (09:46→20:01)
[2018-11-10] MEDS: busPIRone 10 MG TAB PO SCH ×2 (09:46→20:00)
[2018-11-10] MEDS: QUEtiapine FUMARATE 25 MG TAB PO SCH ×2 (09:46→20:00)
[2018-11-10] MEDS: predniSONE 20 MG TAB PO SCH (09:46)
[2018-11-10] MEDS: OMEPRAZOLE 20 MG CAP PO SCH (09:46)
[2018-11-10] MEDS: DIVALPROEX 500MG *ER* TAB PO SCH ×2 (09:47→20:01)
[2018-11-10] MEDS: PREGABALIN 50 MG CAP (LYRICA) PO SCH ×2 (09:47→20:01)
[2018-11-10] MEDS: LITHIUM CARBONATE 300 MG CAP PO SCH ×2 (09:47→20:01)
[2018-11-10 12:00] VITALS: BP 107/56
[2018-11-10] MEDS ORDERED: SLF 3 ML SYR IV PRN (14:00)
[2018-11-10] MEDS: HEPARIN SOD (PORCINE) 5000 UNITS/ML VIAL SQ SCH ×2 (14:00→22:00)
[2018-11-10] MEDS: SLF 3 ML SYR IV SCH ×2 (14:00→22:00)
--- NOTE | 2018-11-10 14:32 | IPNPDOC ---
Text Note Date of Service The patient was seen on 11/10/18. NOTE Subjective: Patient's 58-year-old female with a PMHx of Recent history of RSV bronchitis, Hx of CVA (2009), Asthma / COPD on 2L O2, Pulmonary HTN, Seizure disorder, Anxiety / Bipolar disorder, GERD, who presented to the ER after she experienced a syncopal event at [facility]. She was recently discharged from the hospital after staying from 10/28 to 11/08 for RSV Bronchitis. Patient had followed up as outpatient at [facility] and was advised that she would need prednisone and Tessalon Perles for her cough. However, during her visit for prescription pickup she had collapsed, EMS was called and she was brought to the emergency room. Patient was admitted to the hospital service for further evaluation and treatment. Patient was seen and examined at the bedside. Currently patient is experiencing some shortness of breath associated with wheezing. She notes that she has a persistent cough without any sputum production. Patient is experiencing nausea w ithout vomiting. Report some abdominal pain which she attributes to excessive coughing. She denies any constipation or diarrhea. Denies any discomfort with urination. Denies any lower extremity edema. Objective: Vitals (See below) General: Lying in bed, no acute distress, comfortable, AAOx3 HEENT: NC, AT CVS: RRR, +S1S2 Lungs: Fair air entry b/l, mild wheezing on expiration bilaterally, no rhonchi / rales Abdomen: Soft, ND, tenderness diffusely, + Bowel sounds at all four quadrants Extremities: - Edema, - Calf tenderness Assessment and plan: Syncope - possibly 2/2 orthostatic hypotension, possibly 2/2 hypoxia, less likely 2/2 cardiac etiology, less likely 2/2 neurologic etiology - Patient had noted that she expenses of dizziness prior to her collapse - There are no witnessed seizure-like activities, did not lose control of her bowel or bladder, did not have any tendinitis - Orthostatic vital signs in the emergency room were negative - This morning patient was complaining of dizziness and was found to have a SBP of 80s - Troponin x2 negative - EKG 11/09: No evidence of ischemia, ST segment changes or T-wave inversions were noted - ECHO 08/2018: Preserved EF, no diastolic disfunction, mild , no AR, trace MR, mild TR, mild pulmonary HTN, trace pericardial effusion, no Tamponade - Will check [place] level - c/w IV fluid hydration SOB - possibly 2/2 actue Asthma / COPD exacerbation - Patient notes that she uses 2L NC oxygen intermittently when she is ambulating - Currently patient's oxygenation is an 98% on room air - Evidence of wheezing bilaterally - c/w inhaled therapy as ordered s/p RSV infection on prior admission - Will continue with cough suppressants Leukocytosis - possibly 2/2 reactive etiology; less likely 2/2 infectious etiology - ROS negative for any new infections - Peripheral smear 11/10: Leukocytosis with shift to left, suggestive of a reactive/inflammatory process. No blasts are noted. - UA pending; Blood cultures 11/09: Pending - CXR 11/09: Negative portable chest. There is no interval change. - Will hold off on antibiotics at this point Macrocytic anemia - No evidence of bleeding - Hg appears to be at baseline Hx of CVA (2009) - Will restart ASA 81 Pulmonary HTN - ECHO 08/2018: Preserved EF, no diastolic disfunction, mild , no AR, trace MR, mild TR, mild pulmonary HTN, trace pericardial effusion, no Tamponade Seizure disorder - c/w Divalproex Anxiety / Bipolar disorder - Will check [place] level - c/w [place], Trazadone, Quetiapine, Lyrica, Fluoxetine, Buspirone Poor IV access - Will get PICC line GERD - c/w Omeprazole DVT prophylaxis - c/w Heparin VS,Fishbone, I+O VS, Fishbone, I+O Laboratory Tests 11/10/18 04:24 Red Blood Count 3.60 L, Mean Corpuscular Volume 101.9 H, Mean Corpuscular Hemoglobin 32.2, Mean Corpuscular Hemoglobin Concent 31.6 L, Red Cell Distribution Width 13.6, Lymphocytes # (Auto) , Calcium Level 7.6 L Vital Signs Date Time Temp Pulse Resp B/P (MAP) Pulse Ox O2 Delivery O2 Flow Rate FiO2 11/10/18 12:00 97.7 77 18 107/56 (73) 98 11/09/18 21:18 Room Air I&O- Last 24 Hours up to 6 AM 11/10/18 06:00 Intake Total 440 ml Output Total 0 ml Balance 440 ml ARNOLD MULLIGAN MD Nov 10, 2018 14:32
[2018-11-10] MEDS ORDERED: LIDOCAINE 1% MDV 20ML VIAL As Ordered ONE (15:51)
[2018-11-10 16:00] VITALS: BP 104/57
[2018-11-10] MEDS ORDERED: SODIUM CHLORIDE 0.9% INJ 10 ML SYR IV PRN (17:15)
--- NOTE | 2018-11-10 17:20 | REP ---
Procedure: Mid line insertion with Site-Rite The procedure was performed under the direct supervision of Dr. Shah. The risks and benefits of the procedure were explained to the patient and informed consent was obtained. The right basilic vein was localized using ultrasound guidance. The skin was prepped and draped in a sterile fashion. 1% lidocaine was used as a local anesthetic. Using ultrasound guidance the basilic vein was cannulated and a 0.018 guidewire was inserted. The needle was removed and a 4.5 Maltese dilator and peel-away sheath was inserted over the guide wire. A 4.5 Maltese single lumen catheter was cut to length of 16.5 cm. The dilator was removed and the catheter was inserted over the guide wire. The peel-away sheath was removed and the catheter was flushed with heparinized saline as per Hospital protocol. The catheter was affixed to the skin and a sterile dressing was applied. The patient tolerated the procedure well and there were no immediate complications. Reviewed by MORENA Watts 11/10/2018 04:56 P Electronically Signed by Tera Shah MD 11/10/2018 05:11 P
[2018-11-10] MEDS: SODIUM CHLORIDE 0.9% INJ 10 ML SYR IV SCH (17:27)
[2018-11-10 20:00] VITALS: BP 115/58
[2018-11-10] MEDS: traZODone 100 MG TAB PO SCH (20:00)
[2018-11-10] MEDS: NICOTINE 7 MG/24 HR TRANSDERMAL TD SCH (21:00)
[2018-11-11] VITALS: BP 106/57
[2018-11-11] MEDS: traMADol 50 MG TAB PO PRN ×3 (02:32→18:43)
[2018-11-11 04:00] VITALS: BP_SYST 112; BP_SYST 88; BP_DIAS 53; BP_DIAS 65
[2018-11-11] MEDS: SODIUM CHLORIDE 0.9% INJ 10 ML SYR IV SCH ×2 (05:34→15:18)
[2018-11-11] MEDS: SLF 3 ML SYR IV SCH ×3 (05:35→21:11)
[2018-11-11] MEDS: HEPARIN SOD (PORCINE) 5000 UNITS/ML VIAL SQ SCH ×3 (05:36→21:10)
[2018-11-11 05:54] LABS: HEMATOCRIT 33.1 % (36.0-47.0); HEMOGLOBIN 10.6 g/dl (12.0-15.5); MEAN CORPUSCULAR HEMOGLOBIN 32.7 pg (27.0-33.0); MEAN CORPUSCULAR VOLUME 102.2 fl (80.0-96.0); PLATELET COUNT, AUTOMATED 205 10^3/uL (150-450); RED BLOOD COUNT 3.24 10^6/uL (4.00-5.40)
[2018-11-11 06:13] LABS: ALBUMIN 2.6 GM/DL (3.2-5.2); ALT/SGPT 15 U/L (12-78); BILIRUBIN,TOTAL 0.2 MG/DL (0.2-1.0); BLOOD UREA NITROGEN 11 MG/DL (7-18); CALCIUM LEVEL 7.5 MG/DL (8.5-10.1); CARBON DIOXIDE LEVEL 30 MEQ/L (21-32); CHLORIDE LEVEL 108 MEQ/L (98-107); CREATININE FOR GFR 0.56 MG/DL (0.55-1.30); GLOMERULAR FILTRATION RATE > 60.0 (>51); GLUCOSE, FASTING 92 MG/DL (70-100); MAGNESIUM LEVEL 2.5 MG/DL (1.8-2.4); POTASSIUM SERUM 4.2 MEQ/L (3.5-5.1); SODIUM LEVEL 142 MEQ/L (136-145); TOTAL PROTEIN 4.9 GM/DL (6.4-8.2)
[2018-11-11 06:23] LABS: ATYPICAL LYMPH 3 % (0-5); LYMPHOCYTES 36 % (16-52); MONOCYTES 5 % (0-8); NEUTROPHILS 56 % (35-75)
[2018-11-11 06:25] LABS: PLATELET ESTIMATE NORMAL (NORMAL)
[2018-11-11 06:47] LABS: LITHIUM LEVEL 0.33 MEQ/L (0.60-1.20)
[2018-11-11] MEDS: ADVAIR HFA 45/21MCG INHALER INH SCH ×2 (07:35→20:15)
[2018-11-11 08:00] VITALS: BP 107/63
[2018-11-11] MEDS: OMEPRAZOLE 20 MG CAP PO SCH (08:20)
[2018-11-11] MEDS: PREGABALIN 50 MG CAP (LYRICA) PO SCH ×2 (08:20→20:08)
[2018-11-11] MEDS: DIVALPROEX 500MG *ER* TAB PO SCH ×2 (08:20→20:10)
[2018-11-11] MEDS: NICOTINE 7 MG/24 HR TRANSDERMAL TD SCH (08:20)
[2018-11-11] MEDS: predniSONE 20 MG TAB PO SCH (08:20)
[2018-11-11] MEDS: FLUoxetine 20 MG CAP PO SCH ×2 (08:20→20:08)
[2018-11-11] MEDS: QUEtiapine FUMARATE 25 MG TAB PO SCH ×2 (08:20→20:09)
[2018-11-11] MEDS: LITHIUM CARBONATE 300 MG CAP PO SCH ×3 (08:21→20:09)
[2018-11-11] MEDS: busPIRone 10 MG TAB PO SCH ×2 (08:21→20:08)
[2018-11-11] MEDS: ASPIRIN 81 MG ENTERIC TAB PO SCH (08:21)
[2018-11-11] MEDS ORDERED: MAGIC MOUTHWASH SUSPENSION BTL SS PRN (08:30)
--- NOTE | 2018-11-11 11:10 | REP ---
MRI BRAIN WITHOUT CONTRAST: 11/11/2018. CLINICAL HISTORY: Syncope yesterday, slurred speech. COMPARISON: CT brain without contrast, 11/09/2018. TECHNIQUE: Sagittal T1 FLAIR with axial T1, T2, FLAIR, diffusion-weighted images and ADC mapping sequences provided. FINDINGS: Lateral ventricles are midline, symmetric, and without dilatation or displacement. Third and fourth ventricles grossly unremarkable. Some minimal sulcal prominence but age appropriate. There are subcortical and periventricular hyperintense white matter foci in T2 and FLAIR images. Perineural spaces of [place] seen in the bilateral basal ganglia. These are not considered pathologic. Basal ganglia symmetric with the caudate nuclei, putamen, and globus pallidus unremarkable. Signal artifacts seen in the bilateral thalami from vascular pulsations. There is no intra- or extra-axial fluid collection, hemorrhage, or mass. No mass effect. I see no vascular territory infarct or extra-axial fluid collection. The brainstem and cerebellum are grossly intact. Basal cisterns are intact. Seventh/eighth cranial nerve complexes are normal. There is some bilateral mucosal thickening in some of the mastoids which is mild and represents some chronic mastoid disease. Bilateral ethmoid sinus mucosal thickening posteriorly. An air-fluid level is seen in the right maxillary sinus representing acute sinusitis. There is mucosal thickening in the left maxillary sinus, minimally in the sphenoid air cells. Frontal sinuses are clear. The corpus callosum, optic chiasm, and pituitary are normal. There is no cerebellar tonsillar ectopia. There is ample subarachnoid space at the craniocervical junction. Diffusion-weighted images and the ADC mapping sequences show no evidence of acute ischemia. Gradient-echo images show no evidence of hemorrhage. IMPRESSION: 1. Chronic small vessel white matter ischemic changes in the periventricular, deep subcortical white matter tracts bilaterally. No acute infarct, intracranial hemorrhage, mass, or mass effect. 2. Minimal cortical atrophy, age appropriate and proportionate to the ventricular size. 3. Brainstem, cerebellum, and basal ganglia without any acute finding. 4. Corpus callosum, optic chiasm, pituitary unremarkable. No cerebellar tonsillar ectopia. 5. Diffusion-weighted images and ADC mapping sequences show no evidence of acute ischemia or restricted water diffusion. Gradient-echo images show no hemorrhage. Electronically Signed by Satinder Amaya MD 11/11/2018 07:39 P
--- NOTE | 2018-11-11 11:33 | IPNPDOC ---
Text Note Date of Service The patient was seen on 11/11/18. NOTE Subjective: Patient's 58-year-old female with a PMHx of Recent history of RSV bronchitis, Hx of CVA (2009), Asthma / COPD on 2L O2, Pulmonary HTN, Seizure disorder, Anxiety / Bipolar disorder, GERD, who presented to the ER after she experienced a syncopal event at [facility]. She was recently discharged from the hospital after staying from 10/28 to 11/08 for RSV Bronchitis. Patient had followed up as outpatient at [facility] and was advised that she would need prednisone and Tessalon Perles for her cough. However, during her visit for prescription pickup she had collapsed, EMS was called and she was brought to the emergency room. Patient was admitted to the hospital service for further evaluation and treatment. Patient was seen and examined at the bedside. Patient notes that her breathing is doing better. She still notes some dizziness and slurring of her speech. Denies any nausea, vomiting, diarrhea, constipation, or discomfort with urination. Patient notes that she expenses some abdominal pain which she attributes to coughing. Objective: Vitals (See below) General: Lying in bed, no acute distress, comfortable, AAOx3 HEENT: NC, AT CVS: RRR, +S1S2 Lungs: Fair air entry b/l, there is mild wheezing upon auscultation, no evidence of rhonchi, rales Abdomen: Soft, ND, mild tenderness is appreciated diffusely Extremities: No evidence of lower extremity edema, - Calf tenderness Assessment and plan: Syncope - possibly 2/2 polypharmacy, possibly 2/2 orthostatic hypotension, possibly 2/2 neurologic etiology, possibly 2/2 hypoxia, less likely 2/2 cardiac etiology - Patient had noted that she expenses of dizziness prior to her collapse - There are no witnessed seizure-like activities, did not lose control of her bowel or bladder, did not have any tendinitis - Orthostatic vital signs in the emergency room were negative - This morning patient was complaining of dizziness and was found to have a SBP of 80s - Troponin x2 negative - EKG 11/09: No evidence of ischemia, ST segment changes or T-wave inversions were noted - ECHO 08/2018: Preserved EF, no diastolic disfunction, mild , no AR, trace MR, mild TR, mild pulmonary HTN, trace pericardial effusion, no Tamponade - Will reduce Trazodone dose - EEG pending - c/w IV fluid hydration SOB - possibly 2/2 acute Asthma / COPD exacerbation - Patient notes that she uses 2L NC oxygen intermittently when she is ambulating - Currently patient's oxygenation is well on room air - Improvement of wheezing bilaterally - c/w inhaled therapy as ordered - c/w Prednisone; will taper dose s/p RSV infection on prior admission - c/w cough suppressants Leukocytosis - possibly 2/2 reactive etiology; less likely 2/2 infectious etiology - ROS negative for any new infections - Peripheral smear 11/10: Leukocytosis with shift to left, suggestive of a reactive/inflammatory process. No blasts are noted. - UA pending; Blood cultures 11/09: Pending - CXR 11/09: Negative portable chest. There is no interval change. - Will hold off on antibiotics at this point Macrocytic anemia - No evidence of bleeding - Hg appears to be at baseline Hx of CVA (2009) - c/w ASA 81 Pulmonary HTN - ECHO 08/2018: Preserved EF, no diastolic disfunction, mild , no AR, trace MR, mild TR, mild pulmonary HTN, trace pericardial effusion, no Tamponade Seizure disorder - c/w Divalproex Anxiety / Bipolar disorder / Insomnia - [place] level low; will adjust dose - Will reduce dose of Trazodone - Repeat [place] level tomorrow AM - c/w [place], Trazodone, Quetiapine, Lyrica, Fluoxetine, Buspirone Poor IV access - s/p PICC line GERD - c/w Omeprazole DVT prophylaxis - c/w Heparin VS,Fishbone, I+O VS, Fishbone, I+O Laboratory Tests 11/11/18 05:33 Red Blood Count 3.24 L, Mean Corpuscular Volume 102.2 H, Mean Corpuscular Hemoglobin 32.7, Mean Corpuscular Hemoglobin Concent 32.0, Red Cell Distribution Width 13.5, Lymphocytes # (Auto) , Calcium Level 7.5 L, Aspartate Amino Transf (AST/SGOT) 6 L, Alanine Aminotransferase (ALT/SGPT) 15, Alkaline Phosphatase 49, Total Bilirubin 0.2, Total Protein 4.9 L, Albumin 2.6 L Vital Signs Date Time Temp Pulse Resp B/P (MAP) Pulse Ox O2 Delivery O2 Flow Rate FiO2 11/11/18 08:00 99.6 65 18 107/63 (78) 98 11/09/18 21:18 Room Air I&O- Last 24 Hours up to 6 AM 11/11/18 06:00 Intake Total 1680 ml Output Total 800 ml Balance 880 ml ARNOLD MULLIGAN MD Nov 11, 2018 11:33
[2018-11-11 12:00] VITALS: BP 106/56
[2018-11-11 16:00] VITALS: BP 114/61
[2018-11-11 20:00] VITALS: BP 123/61
[2018-11-11] MEDS: traZODone 50 MG TAB PO SCH (20:09)
[2018-11-12] VITALS (7 sets, daily range): BP systolic 104–126; BP diastolic 51–65
[2018-11-12] MEDS ORDERED: hydrOXYzine 25 MG TAB PO ONE ×2 (00:45→22:30)
[2018-11-12] MEDS: HEPARIN SOD (PORCINE) 5000 UNITS/ML VIAL SQ SCH ×3 (05:01→21:29)
[2018-11-12] MEDS: SODIUM CHLORIDE 0.9% INJ 10 ML SYR IV SCH ×2 (05:01→18:15)
[2018-11-12 05:19] LABS: HEMATOCRIT 33.3 % (36.0-47.0); HEMOGLOBIN 10.4 g/dl (12.0-15.5); MEAN CORPUSCULAR HEMOGLOBIN 32.6 pg (27.0-33.0); MEAN CORPUSCULAR HGB CONC 31.2 g/dl (32.0-36.5); MEAN CORPUSCULAR VOLUME 104.4 fl (80.0-96.0); PLATELET COUNT, AUTOMATED 210 10^3/uL (150-450); RED BLOOD COUNT 3.19 10^6/uL (4.00-5.40)
[2018-11-12 05:25] LABS: WHITE BLOOD COUNT 20.5 10^3/uL (4.0-10.0)
[2018-11-12 05:46] LABS: LYMPHOCYTES 29 % (16-52); MONOCYTES 6 % (0-8); MYELOCYTES 1 % (0-0); NEUTROPHILS 64 % (35-75)
[2018-11-12 05:48] LABS: ALBUMIN 2.6 GM/DL (3.2-5.2); ALT/SGPT 14 U/L (12-78); BILIRUBIN,TOTAL 0.2 MG/DL (0.2-1.0); BLOOD UREA NITROGEN 10 MG/DL (7-18); CALCIUM LEVEL 7.7 MG/DL (8.5-10.1); CARBON DIOXIDE LEVEL 31 MEQ/L (21-32); CHLORIDE LEVEL 105 MEQ/L (98-107); GLOMERULAR FILTRATION RATE > 60.0 (>51); GLUCOSE, FASTING 97 MG/DL (70-100); MAGNESIUM LEVEL 2.4 MG/DL (1.8-2.4); POTASSIUM SERUM 3.8 MEQ/L (3.5-5.1); SODIUM LEVEL 140 MEQ/L (136-145); TOTAL PROTEIN 4.9 GM/DL (6.4-8.2)
[2018-11-12 05:52] LABS: TOXIC VACUOLATION 1+
[2018-11-12 05:55] LABS: PLATELET ESTIMATE NORMAL (NORMAL)
[2018-11-12] MEDS: ADVAIR HFA 45/21MCG INHALER INH SCH ×2 (07:21→20:30)
[2018-11-12] MEDS: PREGABALIN 50 MG CAP (LYRICA) PO SCH ×2 (08:57→21:27)
[2018-11-12] MEDS: busPIRone 10 MG TAB PO SCH ×2 (08:57→21:27)
[2018-11-12] MEDS: FLUoxetine 20 MG CAP PO SCH ×2 (08:57→21:26)
[2018-11-12] MEDS: ASPIRIN 81 MG ENTERIC TAB PO SCH (08:57)
[2018-11-12] MEDS: predniSONE 20 MG TAB PO SCH (08:57)
[2018-11-12] MEDS: NICOTINE 7 MG/24 HR TRANSDERMAL TD SCH (08:58)
[2018-11-12] MEDS: DIVALPROEX 500MG *ER* TAB PO SCH ×2 (08:58→21:26)
[2018-11-12] MEDS: QUEtiapine FUMARATE 25 MG TAB PO SCH ×2 (08:58→21:26)
[2018-11-12] MEDS: LITHIUM CARBONATE 300 MG CAP PO SCH ×3 (08:58→21:27)
[2018-11-12] MEDS: OMEPRAZOLE 20 MG CAP PO SCH (09:00)
--- NOTE | 2018-11-12 13:07 | IPNPDOC ---
Text Note Date of Service The patient was seen on 11/12/18. NOTE Subjective: Patient's 58-year-old female with a PMHx of Recent history of RSV bronchitis, Hx of CVA (2009), Asthma / COPD on 2L O2, Pulmonary HTN, Seizure disorder, Anxiety / Bipolar disorder, GERD, who presented to the ER after she experienced a syncopal event at [facility]. She was recently discharged from the hospital after staying from 10/28 to 11/08 for RSV Bronchitis. Patient had followed up as outpatient at [facility] and was advised that she would need prednisone and Tessalon Perles for her cough. However, during her visit for prescription pickup she had collapsed, EMS was called and she was brought to the emergency room. Patient was admitted to the hospital service for further evaluation and treatment. Patient was seen and examined at the bedside. . She was seen ambulating around her bedroom and cleaning the furniture with disinfectant. Denies chest pain or palpitations. Does report some shortness of breath, however, is saturating well on room air. She reports abdominal pain with coughing. Denies any nausea, vomiting, abdominal pain, constipation, or discomfort with urination. Patient has reported a mild headache. Objective: Vitals (See below) General: Lying in bed, no acute distress, comfortable, AAOx3 HEENT: NC, AT CVS: RRR, +S1S2 Lungs: Fair air entry b/l, there is mild wheezing upon auscultation, no evidence of rhonchi, rales Abdomen: Soft, ND, mild tenderness is appreciated diffusely Extremities: No evidence of lower extremity edema, - Calf tenderness Assessment and plan: Syncope - possibly 2/2 polypharmacy, possibly 2/2 orthostatic hypotension, possibly 2/2 neurologic etiology, possibly 2/2 hypoxia, less likely 2/2 cardiac etiology - Patient had noted that she expenses of dizziness prior to her collapse - There are no witnessed seizure-like activities, did not lose control of her bowel or bladder, did not have any tendinitis - Orthostatic vital signs in the emergency room were negative - This morning patient was complaining of dizziness and was found to have a SBP of 80s - Troponin x2 negative - EKG 11/09: No evidence of ischemia, ST segment changes or T-wave inversions were noted - ECHO 08/2018: Preserved EF, no diastolic disfunction, mild , no AR, trace MR, mild TR, mild pulmonary HTN, trace pericardial effusion, no Tamponade - Reduced dose of Trazodone and Seroquel - EEG pending for Tuesday - s/p IV fluid hydration SOB - possibly 2/2 acute Asthma / COPD exacerbation - Patient notes that she uses 2L NC oxygen intermittently when she is ambulating - Currently patient's oxygenation is well on room air - Improvement of wheezing bilaterally - c/w inhaled therapy as ordered - c/w Prednisone; will taper dose s/p RSV infection on prior admission - c/w cough suppressants Leukocytosis - possibly 2/2 reactive etiology; less likely 2/2 infectious etiology - ROS negative for any new infections - Peripheral smear 11/10: Leukocytosis with shift to left, suggestive of a reactive/inflammatory process. No blasts are noted. - UA remains pending; Blood cultures 11/09: Negative at 48 hours - CXR 11/09: Negative portable chest. There is no interval change. - Will hold off on antibiotics at this point Macrocytic anemia - No evidence of bleeding - Hg appears to be at baseline Hx of CVA (2009) - c/w ASA 81 Pulmonary HTN - ECHO 08/2018: Preserved EF, no diastolic disfunction, mild , no AR, trace MR, mild TR, mild pulmonary HTN, trace pericardial effusion, no Tamponade Seizure disorder - c/w Divalproex Anxiety / Bipolar disorder / Insomnia - [place] level remains low; will continue with adjusted dose - Reduced dose of Trazodone and Seroquel - Again follow up repeat [place] level tomorrow AM - c/w [place], Trazodone, Quetiapine, Lyrica, Fluoxetine, Buspirone - Patient has an outpatient follow-up appointment with Psychiatry to establish care; prior psychiatrist is in [place] Poor IV access - s/p PICC line GERD - c/w Omeprazole DVT prophylaxis - c/w Heparin Disposition: - Awaiting EEG - Awaiting PT clearance VS,Edita, I+O VS, Edita, I+O Laboratory Tests 11/12/18 05:02 Red Blood Count 3.19 L, Mean Corpuscular Volume 104.4 H, Mean Corpuscular Hemoglobin 32.6, Mean Corpuscular Hemoglobin Concent 31.2 L, Red Cell Distribution Width 13.7, Lymphocytes # (Auto) , Calcium Level 7.7 L, Aspartate Amino Transf (AST/SGOT) 8, Alanine Aminotransferase (ALT/SGPT) 14, Alkaline Phosphatase 46, Total Bilirubin 0.2, Total Protein 4.9 L, Albumin 2.6 L Vital Signs Date Time Temp Pulse Resp B/P (MAP) Pulse Ox O2 Delivery O2 Flow Rate FiO2 11/12/18 12:00 98.4 78 22 112/65 (81) 97 11/09/18 21:18 Room Air I&O- Last 24 Hours up to 6 AM 11/12/18 06:00 Intake Total 1080 ml Output Total 200 ml Balance 880 ml ARNOLD MULLIGAN MD Nov 12, 2018 13:07
[2018-11-12] MEDS: traMADol 50 MG TAB PO PRN ×2 (15:34→22:59)
[2018-11-12] MEDS: traZODone 50 MG TAB PO SCH (21:27)
[2018-11-13] VITALS: BP 105/56
[2018-11-13 04:00] VITALS: BP 126/70
[2018-11-13] MEDS: ALBUTEROL SULFATE 2.5 MG/0.5 ML INH NEB SOLN INH PRN (04:13)
[2018-11-13] MEDS: HEPARIN SOD (PORCINE) 5000 UNITS/ML VIAL SQ SCH ×2 (05:33→14:00)
[2018-11-13] MEDS: SODIUM CHLORIDE 0.9% INJ 10 ML SYR IV SCH (05:34)
[2018-11-13 05:53] LABS: HEMATOCRIT 33.1 % (36.0-47.0); HEMOGLOBIN 10.5 g/dl (12.0-15.5); MEAN CORPUSCULAR HEMOGLOBIN 32.7 pg (27.0-33.0); MEAN CORPUSCULAR HGB CONC 31.7 g/dl (32.0-36.5); MEAN CORPUSCULAR VOLUME 103.1 fl (80.0-96.0); PLATELET COUNT, AUTOMATED 239 10^3/uL (150-450); RED BLOOD COUNT 3.21 10^6/uL (4.00-5.40)
[2018-11-13 06:29] LABS: WHITE BLOOD COUNT 20.6 10^3/uL (4.0-10.0)
[2018-11-13 06:31] LABS: ALBUMIN 2.7 GM/DL (3.2-5.2); ALT/SGPT 15 U/L (12-78); BILIRUBIN,TOTAL 0.3 MG/DL (0.2-1.0); BLOOD UREA NITROGEN 9 MG/DL (7-18); CALCIUM LEVEL 8.5 MG/DL (8.5-10.1); CARBON DIOXIDE LEVEL 33 MEQ/L (21-32); CHLORIDE LEVEL 103 MEQ/L (98-107); CREATININE FOR GFR 0.67 MG/DL (0.55-1.30); GLOMERULAR FILTRATION RATE > 60.0 (>51); GLUCOSE, FASTING 98 MG/DL (70-100); LITHIUM LEVEL 0.51 MEQ/L (0.60-1.20); MAGNESIUM LEVEL 2.4 MG/DL (1.8-2.4); POTASSIUM SERUM 4.1 MEQ/L (3.5-5.1); SODIUM LEVEL 140 MEQ/L (136-145); TOTAL PROTEIN 5.1 GM/DL (6.4-8.2)
[2018-11-13 06:32] LABS: ATYPICAL LYMPH 2 % (0-5); BASOPHILS 1 % (0-4); EOSINOPHILS 1 % (0-5); LYMPHOCYTES 23 % (16-52); MONOCYTES 3 % (0-8); NEUTROPHILS 68 % (35-75)
[2018-11-13 06:33] LABS: ANISOCYTOSIS 1+; PLATELET ESTIMATE NORMAL (NORMAL)
[2018-11-13] MEDS: ADVAIR HFA 45/21MCG INHALER INH SCH (07:43)
[2018-11-13 08:00] VITALS: BP 98/59
[2018-11-13] MEDS: FLUoxetine 20 MG CAP PO SCH (08:52)
[2018-11-13] MEDS: ASPIRIN 81 MG ENTERIC TAB PO SCH (08:53)
[2018-11-13] MEDS: OMEPRAZOLE 20 MG CAP PO SCH (08:53)
[2018-11-13] MEDS: busPIRone 10 MG TAB PO SCH (08:53)
[2018-11-13] MEDS: DIVALPROEX 500MG *ER* TAB PO SCH (08:53)
[2018-11-13] MEDS: LITHIUM CARBONATE 300 MG CAP PO SCH (08:54)
[2018-11-13] MEDS: PREGABALIN 50 MG CAP (LYRICA) PO SCH (08:54)
[2018-11-13] MEDS: QUEtiapine FUMARATE 25 MG TAB PO SCH (08:57)
[2018-11-13] MEDS: NICOTINE 7 MG/24 HR TRANSDERMAL TD SCH (08:58)
[2018-11-13] MEDS ORDERED: predniSONE 10 MG TAB PO SCH (09:00)
[2018-11-13] MEDS ORDERED: QUET1TAB7 PO (10:52)
[2018-11-13] MEDS ORDERED: LITH300T2 PO (10:52)
[2018-11-13] MEDS ORDERED: TRAZ-160 PO (10:52)
[2018-11-13] MEDS ORDERED: PRED10TA2 PO (10:52)
--- NOTE | 2018-11-13 15:26 | DS.PDOC ---
Discharge Summary General Date of Admission Nov 09, 2018 at 15:17 Date of Discharge 11/13/2018 Discharge Summary PROCEDURES PERFORMED DURING STAY: [None]. ADMITTING DIAGNOSES / DISCHARGE DIAGNOSES: Syncope - possibly 2/2 polypharmacy, possibly 2/2 orthostatic hypotension, possibly 2/2 neurologic etiology, possibly 2/2 hypoxia, less likely 2/2 cardiac etiology SOB - possibly 2/2 acute Asthma / COPD exacerbation s/p RSV infection on prior admission Leukocytosis - possibly 2/2 reactive etiology; less likely 2/2 infectious etiology Macrocytic anemia Hx of CVA (2009) Pulmonary HTN Seizure disorder Anxiety / Bipolar disorder / Insomnia Poor IV access GERD DVT prophylaxis COMPLICATIONS/CHIEF COMPLAINT: Collapse HISTORY OF PRESENT ILLNESS: Patient's 58-year-old female with a PMHx of Recent history of RSV bronchitis, Hx of CVA (2009), Asthma / COPD on 2L O2, Pulmonary HTN, Seizure disorder, Anxiety / Bipolar disorder, GERD, who presented to the ER after she experienced a syncopal event at [facility]. She was recently discharged from the hospital after staying from 10/28 to 11/08 for RSV Bronchitis. Patient had followed up as outpatient at [facility] and was advised that she would need prednisone and Tessalon Perles for her cough. However, during her visit for prescription pickup she had collapsed, EMS was called and she was brought to the emergency room. Patient was admitted to the hospital service for further evaluation and treatment. HOSPITAL COURSE: Syncope - possibly 2/2 polypharmacy, possibly 2/2 orthostatic hypotension, possibly 2/2 neurologic etiology, possibly 2/2 hypoxia, less likely 2/2 cardiac etiology - Patient had noted that she expenses of dizziness prior to her collapse - There are no witnessed seizure-like activities, did not lose control of her bowel or bladder, did not have any tendinitis - Orthostatic vital signs in the emergency room were negative - This morning patient was complaining of dizziness and was found to have a SBP of 80s - Troponin x2 negative - EKG 11/09: No evidence of ischemia, ST segment changes or T-wave inversions were noted - ECHO 08/2018: Preserved EF, no diastolic disfunction, mild , no AR, trace MR, mild TR, mild pulmonary HTN, trace pericardial effusion, no Tamponade - Reduced dose of Trazodone and Seroquel - adjusted mediations on discharge - EEG complete; will have outpatient f/u with PCP - s/p IV fluid hydration SOB - possibly 2/2 acute Asthma / COPD exacerbation - Patient notes that she uses 2L NC oxygen intermittently when she is ambulating - Currently patient's oxygenation is well on room air - Improvement of wheezing bilaterally - c/w inhaled therapy as ordered - c/w Prednisone; will taper dose s/p RSV infection on prior admission - c/w cough suppressants Leukocytosis - possibly 2/2 reactive etiology; less likely 2/2 infectious etiology - ROS negative for any new infections - Peripheral smear 11/10: Leukocytosis with shift to left, suggestive of a reactive/inflammatory process. No blasts are noted. - UA remains pending; Blood cultures 11/09: Negative at 48 hours - CXR 11/09: Negative portable chest. There is no interval change. - Will hold off on antibiotics at this point Macrocytic anemia - No evidence of bleeding - Hg appears to be at baseline Hx of CVA (2009) - c/w ASA 81 Pulmonary HTN - ECHO 08/2018: Preserved EF, no diastolic disfunction, mild , no AR, trace MR, mild TR, mild pulmonary HTN, trace pericardial effusion, no Tamponade Seizure disorder - c/w Divalproex Anxiety / Bipolar disorder / Insomnia - [place] level continue to remain low on new dose of medications; provided outpatient script for repeat [place] level - Reduced dose of Trazodone and Seroquel - c/w [place], Trazodone, Quetiapine, Lyrica, Fluoxetine, Buspirone - Patient has an outpatient follow-up appointment with Psychiatry to establish care; prior psychiatrist is in [place] Poor IV access - s/p PICC line GERD - c/w Omeprazole DVT prophylaxis - c/w Heparin DISCHARGE MEDICATIONS: Please see below. ALLERGIES: Please see below. PHYSICAL EXAMINATION ON DISCHARGE: Vitals (See below) General: Lying in bed, no acute distress, comfortable, AAOx3 HEENT: NC, AT CVS: RRR, +S1S2 Lungs: Fair air entry b/l, no auscultated evidence of rhonchi, wheezing, rales Abdomen: Soft, ND, no significant abdominal distension Extremities: No evidence of LE edema bilaterally , - Calf tenderness LABORATORY DATA: Please see below. ACTIVITY: [As tolerated]. DISCHARGE PLAN: Home with services Please follow up with Dr. Joan Ramirez, Psychiatry and Cardiology within 7 days Remain complaint with treatment plan and medications Return to the ER if you experience any problems DISPOSITION: Home Health Service. DISCHARGE CONDITION: [Stable]. TIME SPENT ON DISCHARGE: Greater than [35] minutes. Vital Signs/I&Os Vital Signs Date Time Temp Pulse Resp B/P (MAP) Pulse Ox O2 Delivery O2 Flow Rate FiO2 11/13/18 08:00 100.0 85 18 98/59 (72) 99 11/09/18 21:18 Room Air I&O- Last 24 Hours up to 6 AM 11/13/18 06:00 Intake Total 540 ml Output Total 400 ml Balance 140 ml Laboratory Data Labs 24H Laboratory Tests 2 11/13/18 05:40: White Blood Count 20.6H, Red Blood Count 3.21L, Hemoglobin 10.5L, Hematocrit 33.1L, Mean Corpuscular Volume 103.1H, Mean Corpuscular Hemoglobin 32.7, Mean Corpuscular Hemoglobin Concent 31.7L, Red Cell Distribution Width 13.7, Platelet Count 239, Lymphocytes # (Auto) , Nucleated Red Blood Cells % (auto) 0.1H, N eutrophils 68, Band Neutrophils 2, Lymphocytes (Manual) 23, Monocytes (Manual) 3, Eosinophils (Manual) 1, Basophils (Manual) 1, Atypical Lymphocytes 2, Platelet Estimate NORMAL, Anisocytosis 1+, Anion Gap 4L, Glomerular Filtration Rate > 60.0, Blood Urea Nitrogen 9, Creatinine 0.67, Sodium Level 140, Potassium Level 4.1, Chloride Level 103, Carbon Dioxide Level 33H, Calcium Level 8.5, Aspartate Amino Transf (AST/SGOT) 8, Alanine Aminotransferase (ALT/SGPT) 15, Alkaline Phosphatase 46, Total Bilirubin 0.3, Total Protein 5.1L, Albumin 2.7L, Magnesium Level 2.4, Albumin/Globulin Ratio 1.13, [place] Level 0.51L CBC/BMP Laboratory Tests 11/13/18 05:40 Red Blood Count 3.21 L, Mean Corpuscular Volume 103.1 H, Mean Corpuscular Hemoglobin 32.7, Mean Corpuscular Hemoglobin Concent 31.7 L, Red Cell Distribution Width 13.7, Lymphocytes # (Auto) , Calcium Level 8.5, Aspartate Am mike Transf (AST/SGOT) 8, Alanine Aminotransferase (ALT/SGPT) 15, Alkaline Phosphatase 46, Total Bilirubin 0.3, Total Protein 5.1 L, Albumin 2.7 L Microbiology Microbiology 11/09/18 Blood Culture - Preliminary, Resulted No Growth after 72 hours. All specime... Discharge Medications Scheduled Alendronate Sodium (Fosamax) 70 Mg Tab, 70 MG PO QWEEK, (Reported) TUESDAY Buspirone HCl (Buspirone HCl) 10 Mg Tab, 10 MG PO BID, (Reported) Divalproex Sodium (Divalproex Sodium ER) 500 Mg Tab, 500 MG PO BID, (Reported) Fluoxetine HCl (Prozac) 20 Mg Cap, 20 MG PO BID, (Reported) [place] Carbonate ([place] Carbonate) 300 Mg Tab, 300 MG PO TID Omeprazole (PriLOSEC) 10 Mg Capcr, 10 MG PO DAILY, (Reported) Prednisone (Prednisone) 10 Mg Tab, 10 MG PO TAPER Take 4 tabs daily x 3 days, then 3 tabs daily x 3 days, then 2 tabs daily x 3 days, then 1 tab daily x 3 days and stop Pregabalin (Lyrica) 50 Mg Cap, 50 MG PO BID, (Reported) Quetiapine Fumerate (Quetiapine Fumarate) 25 Mg Tab, 12.5 MG PO BID Salmeterol/Fluticasone (Advair Diskus 100-50 Mcg/Dose) 28 Puff/Inhaler Aerp, 1 PUFF INH BID, (Reported) Trazodone HCl (Trazodone HCl) 50 Mg Tab, 1 TAB PO QPM Scheduled PRN Acetaminophen (Apap) 325 Mg Tab, 650 MG PO Q4H PRN for PAIN, (Reported) Albuterol Sulfate (Proair Hfa) 108 Mcg/Act Aer, 2 PUFF INH Q4H PRN for SHORTNESS OF BREATH, (Reported) Albuterol Sulfate (Albuterol Sulfate) 2.5 Mg/0.5 Ml Neb, 2.5 MG INH Q6H PRN for SHORTNESS OF BREATH, (Reported) Benzonatate (Tessalon Perles) 100 Mg Cap, 100 MG PO TID PRN for COUGH, (Reported) Guaifenesin (Mucinex Maximum Strength) 1,200 Mg Tab, 1,200 MG PO DAILY PRN for COUGH, (Reported) Allergies Coded Allergies: Penicillins (Verified Allergy, Intermediate, HIVES, 11/01/18) ARNOLD MULLIGAN MD Nov 13, 2018 15:25
--- NOTE | 2018-11-14 11:58 | EEG ---
DATE OF EE11/13/2018 REFERRING PHYSICIAN: Dr. Nury De León EEG NUMBER: [id number] DIAGNOSIS: Syncope and collapse. HISTORY: Patient is a 58-year-old woman who was admitted at [facility] due to a passing out spell. The patient has a history of COPD requiring 2 liters oxygen, history of seizures, osteoporosis, etc. This EEG was done to rule out epileptic potential. She is currently taking BuSpar, Depakote, Prozac, Lyrica, Prilosec, aspirin, lithium, trazodone, quetiapine, etc. TECHNICAL DESCRIPTION: This digital EEG was recorded by 21 scalp, ear and two EKG electrodes and was reviewed in bipolar and referential montages following reformatting in 10-20 international electrode placement system. INTERPRETATION: The patient was noted to be in awake and drowsy states during this EEG. Resting awake background rhythm consisted of well-formed posterior dominant rhythm with anterior/posterior gradient comprising of 8 Hz alpha activity measuring 15-40 microvolts in amplitude, which was symmetric and reactive to eye opening. Anteriorly low voltage and mixed frequency activity was noted. Attenuation of posterior dominant rhythm was seen during transition into drowsiness. Stage 1 and 2 sleep were reviewed and were symmetric bilaterally. Hyperventilation could not be performed. Photic stimulation remained unremarkable. EKG revealed normal sinus rhythm. No focal, lateralizing or epileptiform abnormalities were seen. No relevant clinical activity was noted. CONCLUSION: This EEG in awake, drowsy states, stage 1 and 2 sleep is within normal limits.
[2018-11-16] MEDS ORDERED: predniSONE 20 MG TAB PO SCH (09:00)
[2018-11-19] MEDS ORDERED: predniSONE 10 MG TAB PO SCH (09:00)
== END 2018-11-13 14:17 | disposition home health service (06) ==
LOC: M ED 12:11 → M ED INP 15:17 → M PCU 21:43
PROVIDERS: ADMIT Internal Medicine; ATTEND Internal Medicine
DX: R55 Syncope and collapse (principal); R06.02 Shortness of breath; D72.829 Elevated white blood cell count, unspecified; G40.909 Epilepsy, unspecified, not intractable, without status epilepticus; D64.9 Anemia, unspecified; Z86.73 Personal history of transient ischemic attack (TIA), and cerebral infarction without residual deficits; I27.20 Pulmonary hypertension, unspecified; F31.9 Bipolar disorder, unspecified; G47.00 Insomnia, unspecified; F41.9 Anxiety disorder, unspecified; K21.9 Gastro-esophageal reflux disease without esophagitis; Z99.81 Dependence on supplemental oxygen; Z88.0 Allergy status to penicillin
CPT/HCPCS: 36415; 36600; 70450; 70551; 71045; 76937; 80048; 80053; 80076; 80178; 82550; 82553; 82803; 83605; 83735; 83880; 84436; 84443; 85025; 85379; 85610; 87040; 93005; 93041; 94640; 95819; 96360; 97161; 97530; 99285; J3475

== ENCOUNTER → 2018-11-21 | Outpatient (REF) | payer OTHER, MEDICAID ==
[~2018-11-21] MED LIST changes: +TESS100C PO; +TRAZ-160 PO
== END ==
LOC: M SHH 15:25 → M LAB REF 15:25
PROVIDERS: ATTEND Internal Medicine
DX: Z51.81 Encounter for therapeutic drug level monitoring (principal)

== ENCOUNTER 2018-12-07 16:41 | Emergency (ER) | payer OTHER, MEDICAID ==
[~2018-12-07] VITALS: Ht 157.5 cm; Wt 66.0 kg
[2018-12-07 19:07] LABS: HEMATOCRIT 40.6 % (36.0-47.0); HEMOGLOBIN 12.9 g/dl (12.0-15.5); MEAN CORPUSCULAR HEMOGLOBIN 32.2 pg (27.0-33.0); MEAN CORPUSCULAR HGB CONC 31.8 g/dl (32.0-36.5); MEAN CORPUSCULAR VOLUME 101.2 fl (80.0-96.0); PLATELET COUNT, AUTOMATED 376 10^3/uL (150-450); RED BLOOD COUNT 4.01 10^6/uL (4.00-5.40)
[2018-12-07 19:28] LABS: BLOOD UREA NITROGEN 10 MG/DL (7-18); C REACTIVE PROTEIN QUANTITATIV < 0.30 MG/DL (0.00-0.30); CARBON DIOXIDE LEVEL 26 MEQ/L (21-32); CHLORIDE LEVEL 107 MEQ/L (98-107); CREATININE FOR GFR 0.67 MG/DL (0.55-1.30); GLOMERULAR FILTRATION RATE > 60.0 (>51); GLUCOSE, FASTING 81 MG/DL (70-100); POTASSIUM SERUM 4.2 MEQ/L (3.5-5.1); SODIUM LEVEL 140 MEQ/L (136-145)
[2018-12-07 20:25] LABS: ERYTHROCYTE SEDIMENTATION RATE 21 mm/hr (0-30)
[2018-12-07] MEDS ORDERED: PERCOCET 5MG/325MG TAB PO ONE (21:00)
[2018-12-07 21:03] VITALS: BP 150/69
[2018-12-07] MEDS ORDERED: OXYCODONE/APAP 5MG/325MG(BULK FOR ED) 1 TABLET PO ONE (21:30)
--- NOTE | 2018-12-08 02:15 | REP ---
Clinical: Right knee pain and swelling. Technique: AP, lateral, bilateral oblique and sunrise views of the right knee. Findings: Early advanced osteoarthritic degenerative changes noted. Findings include cortical irregularity and subchondral heterogeneity involving the distal femur and proximal tibia along with joint space narrowing and early marginal spurring. No acute fracture dislocation. No obvious effusion. The patella and patellofemoral joint space appear relatively normal. Impression: Early advanced osteoarthritic degenerative changes primarily involving the tibiofemoral joint space. Electronically Signed by Artem Santos MD 12/08/2018 02:07 A
== END 2018-12-07 21:58 | disposition home or self-care (01) ==
LOC: M ED 16:41
DX: M25.561 Pain in right knee (principal); M25.461 Effusion, right knee; M79.7 Fibromyalgia; M17.11 Unilateral primary osteoarthritis, right knee; Z88.8 Allergy status to other drugs, medicaments and biological substances; Z88.0 Allergy status to penicillin

== ENCOUNTER 2018-12-21 18:12 | Emergency (ER) | payer MEDICAID, OTHER ==
[~2018-12-21] VITALS: Ht 157.5 cm; Wt 65.5 kg
[2018-12-21] MEDS ORDERED: diphenhydrAMINE INJ 50MG/ML VIAL (J1200) IV ONE (19:45)
[2018-12-21] MEDS ORDERED: ONDANSETRON 4MG/2ML VIAL (J2405) IV ONE (19:45)
[2018-12-21] MEDS ORDERED: NS 1,000 ML IV ONE (19:45)
[2018-12-21] MEDS ORDERED: DICYCLOMINE INJ 20MG/2ML (J0500) IM ONE (19:45)
[2018-12-21 20:18] LABS: BASO # 0.1 10^3/uL (0.0-0.2); BASO % 0.9 % (0.0-1.0); EOS # 0.1 10^3/uL (0.0-0.50); EOS % 1.1 % (0.0-3.0); HEMATOCRIT 39.6 % (36.0-47.0); LYMPH # 4.1 10^3/uL (1.5-4.5); LYMPH % 31.6 % (24.0-44.0); MEAN CORPUSCULAR HEMOGLOBIN 32.2 pg (27.0-33.0); MEAN CORPUSCULAR HGB CONC 32.8 g/dl (32.0-36.5); MONO # 1.3 10^3/uL (0.0-0.8); MONO % 9.7 % (0.0-5.0); NEUTROPHILS # 7.3 10^3/uL (1.8-7.7); NEUTROPHILS % 56.4 % (36.0-66.0); PLATELET COUNT, AUTOMATED 356 10^3/uL (150-450); RED BLOOD COUNT 4.04 10^6/uL (4.00-5.40); WHITE BLOOD COUNT 12.9 10^3/uL (4.0-10.0)
[2018-12-21] MEDS: GASTROGRAFIN SOLUTION 30ML PO SCH ×2 (20:39→20:45)
[2018-12-21 20:43] LABS: ALT/SGPT 21 U/L (12-78); AMYLASE 40 U/L (25-115); BILIRUBIN,TOTAL 0.3 MG/DL (0.2-1.0); BLOOD UREA NITROGEN 9 MG/DL (7-18); C REACTIVE PROTEIN QUANTITATIV < 0.30 MG/DL (0.00-0.30); CARBON DIOXIDE LEVEL 25 MEQ/L (21-32); CHLORIDE LEVEL 107 MEQ/L (98-107); GLOMERULAR FILTRATION RATE > 60.0 (>51); GLUCOSE, FASTING 107 MG/DL (70-100); LIPASE 157 U/L (73-393); POTASSIUM SERUM 4.6 MEQ/L (3.5-5.1); SODIUM LEVEL 138 MEQ/L (136-145)
[2018-12-21] MEDS ORDERED: ISOVUE-370 76% 125ML VIAL (Q9967 PER ML) As Ordered ONE (21:37)
--- NOTE | 2018-12-21 22:10 | REP ---
Clinical: Left lower quadrant pain with nausea and vomiting. Technique: Axial contrast enhanced images from the lung bases to the pubic symphysis using oral (per protocol) and 100 ml Isovue 370 intravenous contrast material with coronal and sagittal re-formations. Findings: Lung bases are clear. Visualized heart and pericardium normal. Liver, spleen, pancreas, bilateral adrenal glands and kidneys are normal. Cholelithiasis noted without acute cholecystitis. The enteric system is without obstruction or acute inflammatory process. Normal terminal ileum and appendix identified in the right lower quadrant. Pelvis demonstrates normal bladder and age-appropriate uterus/adnexa. No ascites. No free air. No adenopathy. Abdominal aorta without aneurysm or dissection. Musculoskeletal structures demonstrate stable bone island in the left iliac bone and moderate arthritic changes to the right hip. Impression: 1. No acute abdominopelvic pathology appreciated. 2. Cholelithiasis. Electronically Signed by Artem Santos MD 12/21/2018 10:01 P
[2018-12-21] MEDS ORDERED: DICY20TA11 PO (22:33)
[2018-12-21] MEDS ORDERED: TIGA300C2 PO (22:33)
[2018-12-21] MEDS ORDERED: OXYC1TAB23 PO (22:33)
[2018-12-21] MEDS ORDERED: OXYCODONE/APAP 5MG/325MG(BULK FOR ED) 1 TABLET PO ONE (22:45)
[2018-12-21 22:49] VITALS: BP 150/72
== END 2018-12-21 22:50 | disposition home or self-care (01) ==
LOC: M ED 18:12
DX: B34.9 Viral infection, unspecified (principal); K80.20 Calculus of gallbladder without cholecystitis without obstruction; I11.0 Hypertensive heart disease with heart failure; J44.9 Chronic obstructive pulmonary disease, unspecified; J45.909 Unspecified asthma, uncomplicated; E11.9 Type 2 diabetes mellitus without complications; G62.9 Polyneuropathy, unspecified; K21.9 Gastro-esophageal reflux disease without esophagitis; F31.9 Bipolar disorder, unspecified; F41.9 Anxiety disorder, unspecified; F34.9 Persistent mood [affective] disorder, unspecified; F17.200 Nicotine dependence, unspecified, uncomplicated; Z88.0 Allergy status to penicillin; Z88.8 Allergy status to other drugs, medicaments and biological substances; Z86.73 Personal history of transient ischemic attack (TIA), and cerebral infarction without residual deficits; Z79.899 Other long term (current) drug therapy
CPT/HCPCS: 74177; 80053; 81001; 82150; 83690; 85025; 86140; 96372; 96374; 96375; 99284; J0500; J1200; J2405; Q9963; Q9967

== ENCOUNTER → 2019-02-08 | Outpatient (REF) | payer OTHER, MEDICAID ==
[~2019-02-08] MED LIST changes: +DICY20TA11 PO; +OXYC1TAB23 PO; +TIGA300C2 PO
[2019-02-08 11:42] LABS: BASO # 0.1 10^3/uL (0.0-0.2); BASO % 1.3 % (0.0-1.0); EOS # 0.2 10^3/uL (0.0-0.50); EOS % 2.5 % (0.0-3.0); HEMATOCRIT 43.8 % (36.0-47.0); HEMOGLOBIN 13.9 g/dl (12.0-15.5); LYMPH # 2.5 10^3/uL (1.5-4.5); LYMPH % 36.3 % (24.0-44.0); MEAN CORPUSCULAR HEMOGLOBIN 31.2 pg (27.0-33.0); MEAN CORPUSCULAR HGB CONC 31.7 g/dl (32.0-36.5); MEAN CORPUSCULAR VOLUME 98.2 fl (80.0-96.0); MONO # 0.8 10^3/uL (0.0-0.8); MONO % 11.1 % (0.0-5.0); NEUTROPHILS # 3.3 10^3/uL (1.8-7.7); NEUTROPHILS % 48.5 % (36.0-66.0); PLATELET COUNT, AUTOMATED 293 10^3/uL (150-450); RED BLOOD COUNT 4.46 10^6/uL (4.00-5.40); WHITE BLOOD COUNT 6.8 10^3/uL (4.0-10.0)
[2019-02-08 11:55] LABS: INR 0.98; PROTHROMBIN TIME 13.1 SECONDS (12.1-14.4)
[2019-02-08 12:12] LABS: ERYTHROCYTE SEDIMENTATION RATE 9 mm/hr (0-30); HEMOGLOBIN A1c 5.6 %
[2019-02-08 12:18] LABS: ALBUMIN 4.1 GM/DL (3.2-5.2); ALT/SGPT 12 U/L (12-78); BILIRUBIN,TOTAL 0.4 MG/DL (0.2-1.0); BLOOD UREA NITROGEN 9 MG/DL (7-18); CARBON DIOXIDE LEVEL 26 MEQ/L (21-32); CHLORIDE LEVEL 108 MEQ/L (98-107); CREATININE FOR GFR 0.68 MG/DL (0.55-1.30); FREE T4 1.09 NG/DL (0.76-1.46); GLOMERULAR FILTRATION RATE > 60.0 (>51); GLUCOSE, FASTING 77 MG/DL (70-100); LITHIUM LEVEL 0.28 MEQ/L (0.60-1.20); POTASSIUM SERUM 4.4 MEQ/L (3.5-5.1); SODIUM LEVEL 140 MEQ/L (136-145); TOTAL PROTEIN 6.9 GM/DL (6.4-8.2); VALPROIC ACID (DEPAKOTE) 6.4 UG/ML (50.0-100.0)
== END ==
LOC: M SFHCLERA 09:54
PROVIDERS: ATTEND Family Medicine
DX: Z01.818 Encounter for other preprocedural examination (principal); F31.9 Bipolar disorder, unspecified

== ENCOUNTER → 2019-02-08 | Outpatient (CLI) | payer OTHER ==
--- NOTE | 2019-02-09 15:43 | REP ---
Clinical: Preoperative assessment . Comparison: 11/09/2018 . Technique: PA and lateral. Findings: The mediastinum and cardiac silhouette are normal. The lung cagle are clear and without acute consolidation, effusion, or pneumothorax. The skeletal structures are intact and normal. Impression: 1. No acute cardiopulmonary process. Electronically Signed by Artem Santos MD 02/09/2019 03:35 P
== END ==
LOC: M LRY 10:31
PROVIDERS: ATTEND Family Medicine
DX: Z01.818 Encounter for other preprocedural examination (principal)

== ENCOUNTER 2019-02-28 06:32 | Inpatient (IN) | payer OTHER ==
--- NOTE | 2019-02-27 14:56 | HPE ---
DATE OF ANTICIPATED ADMISSION: 02/28/2019 ATTENDING PHYSICIAN: Dr. Leo Mckee CHIEF COMPLAINT: Left knee pain and stiffness. HISTORY: This is a pleasant, 58-year-old female patient with progressively worsening left knee pain and stiffness. She has failed to improve with conservative management to include injections. She has pain with weightbearing activities and has elected for surgery for her continued symptoms. She has consented for a left total knee arthroplasty by Dr. Mckee. ALLERGIES: PENICILLIN. CURRENT MEDICATIONS: - albuterol - buspirone 10 mg one by mouth twice a day - fluoxetine 20 mg one by mouth daily - lithium carbonate 300 mg one by mouth twice a day - Prilosec 10 mg one by mouth daily - benzonatate 100 mg one by mouth as needed up to three times daily - omeprazole 10 mg one by mouth daily - quetiapine fumarate 25 mg one by mouth daily - pregabalin 50 mg one by mouth three times a day - hydroxyzine 25 mg one by mouth as needed every 8 hours - trazodone 50 mg one by mouth as needed at bedtime - Advair - divalproex sodium 500 mg one by mouth daily PAST MEDICAL HISTORY: 1. Congestive heart failure. 2. Osteoporosis. 3. Emphysema. 4. Chronic obstructive pulmonary disease (COPD). 5. Asthma. 6. Type 2 diabetes. 7. Fibromyalgia. 8. Carpal tunnel. 9. Diabetic neuropathy. 10. Bipolar. SURGICAL HISTORY: 1. Carpal tunnel in 2016. 2. (C) section times three. 3. Tonsillectomy, unknown. SOCIAL HISTORY: Patient is a current smoker and does not use alcohol. FAMILY HISTORY: Noncontributory. REVIEW OF SYSTEMS: Patient denies fever, chills, chest pain, shortness breath loss, nausea, vomiting, diarrhea, feve, chills. PHYSICAL EXAMINATION: She is a normocephalic, atraumatic adult female patient who ambulates in the clinic today with a slight limp favoring the left side. Examination of the left knee revealed skin that is intact with no erythema, edema or ecchymosis. She had tenderness to palpation about the knee with intact range of motion but pain throughout. She is stable to varus/valgus stress. Neck is supple with no lymphadenopathy or jugular venous distention (JVD). Lungs are clear to auscultation bilaterally. Heart: S1 and S2 auscultated. Abdomen is soft and nontender. Chest x-ray with no acute cardiopulmonary processess. EKG with regular rate and rhythm. No significant change from prior EKG. LABS: White count 6.8, red count 4.46, hemoglobin 13.9, hematocrit 43.8. BUN 9, creatinine 0.68. ESR 9. PT 13.1, INR 0.98. Preoperative medical optimization by Dr. Werner was reviewed today on chart. IMPRESSION: Left knee symptomatic osteoarthritis. PLAN: Consented for a left total knee arthroplasty by Dr. Mckee.
[~2019-02-28] VITALS: Ht 157.5 cm; Wt 61.2 kg
[~2019-02-28 06:32] MED LIST changes: +ADV250INH INH; +ALBUTEROL SULFATE 2.5 MG/0.5 ML INH NEB SOLN INH ONE; +AMBI5TAB PO; +CLINDAMYCIN 900 MG in APPROPRIATE DILUENT 1 EA IV ONE; +LR 1,000 ML IV SCH; -TRAZ-160 PO; +TRAZ-252 PO
[2019-02-28] MEDS ORDERED: TRANEXAMIC ACID 100 MG/ML 10ML VIAL As Ordered ONE (07:09)
[2019-02-28] MEDS ORDERED: EPINEPHrine INJ 1 MG/ML 1ML AMP As Ordered ONE (07:09)
[2019-02-28] MEDS ORDERED: BUPIVACAINE LIPOSOME/PF 1.3% 20ML VIAL (13.3MG/ML)(EXPAREL)(C9290 PER1MG) As Ordered ONE (07:10)
[2019-02-28] MEDS ORDERED: BUPIVACAINE HCL 0.25% 10 ML VIAL As Ordered ONE (08:24)
[2019-02-28] MEDS ORDERED: fentaNYL 100 MCG/2 ML INJECTION (J3010) As Ordered ONE (08:24)
[2019-02-28] MEDS ORDERED: MIDAZOLAM INJ 2 MG/2 ML VIAL (J2250) As Ordered ONE ×2 (08:24→08:32)
[2019-02-28] MEDS ORDERED: BUPIVACAINE HCL 0.25% 30 ML VIAL As Ordered ONE (08:24)
[2019-02-28] MEDS ORDERED: PROPOFOL 500 MG/50 ML VIAL As Ordered ONE (08:32)
[2019-02-28] MEDS ORDERED: BUPIVACAINE HCL 0.5% 30 ML VIAL As Ordered ONE (08:35)
[2019-02-28] MEDS ORDERED: fentaNYL 100 MCG/2 ML INJECTION (J3010) IV ONE (09:15)
[2019-02-28] MEDS ORDERED: MIDAZOLAM INJ 2 MG/2 ML VIAL (J2250) IV ONE (09:15)
[2019-02-28] MEDS ORDERED: CLINDAMYCIN INJ 900MG/6ML VIAL As Ordered ONE (09:23)
--- NOTE | 2019-02-28 09:38 | IPN ---
DATE: 02/28/2019 The patient seen and examined. She wished to go a head with a left total knee arthroplasty. Preop clearance was obtained. She understands the nature of the procedure, the risks of bleeding, infection, damage to nerves, vessels, persistent pain, wear, loosening, blood clots, medical problems, among others. She is anticipating needing a rehab stay so I communicated that to our nurse practitioner to try to get that expedited.
[2019-02-28] MEDS ORDERED: PHENYLephrine HCL 500 MCG/5 ML (100MCG/ML) SYRINGE (J2370) As Ordered ONE (11:09)
[2019-02-28] MEDS ORDERED: ONDANSETRON 4MG/2ML VIAL (J2405) As Ordered ONE (11:09)
[2019-02-28] MEDS ORDERED: dexameTHASONE 4 MG/ML 1ML VIAL (J1100) As Ordered ONE (11:10)
[2019-02-28] MEDS ORDERED: METOCLOPRAMIDE INJ 10MG/2ML VIAL (J2765) As Ordered ONE (11:53)
[2019-02-28] MEDS ORDERED: PROMETHAZINE INJ 25 MG/ML VIAL (J2550) As Ordered ONE (12:05)
[2019-02-28] MEDS ORDERED: METOCLOPRAMIDE INJ 10MG/2ML VIAL (J2765) IV PRN (12:15)
[2019-02-28] MEDS ORDERED: ACETAMINOPHEN TAB 650MG DOSE (2X325MG) PO PRN (12:15)
[2019-02-28] MEDS ORDERED: ONDANSETRON 4MG/2ML VIAL (J2405) IV PRN (12:15)
[2019-02-28] MEDS ORDERED: LR 1,000 ML IV SCH (12:15)
[2019-02-28] MEDS ORDERED: FLEET ENEMA PR PRN (12:15)
[2019-02-28] MEDS ORDERED: PROMETHAZINE INJ 25 MG/ML VIAL (J2550) IV PRN (12:15)
[2019-02-28] MEDS: LR 1,000 ML IV SCH (12:15)
[2019-02-28] MEDS ORDERED: MORPHINE 4 MG/ML 1ML VIAL/SYRINGE (J2270) IV PRN (12:15)
[2019-02-28] MEDS ORDERED: oxyCODONE 5MG TAB PO PRN (12:15)
[2019-02-28] MEDS ORDERED: fentaNYL 100 MCG/2 ML INJECTION (J3010) IV PRN (12:15)
--- NOTE | 2019-02-28 12:26 | RO ---
DATE OF PROCEDURE: 02/28/2019 PREOPERATIVE DIAGNOSIS: Left knee osteoarthritis. POSTOPERATIVE DIAGNOSIS: Left knee osteoarthritis. PROCEDURE: Left total knee arthroplasty using Attune rotating platform posterior stabilized size 5 femur, size 4 tibial tray and a size 6 polyethylene with a 32 patellar button. SURGEON: Leo Mckee MD HEPATOLOGY PHYSICIAN: PAULA Patel ANESTHESIA: Spinal. ESTIMATED BLOOD LOSS (EBL): Less than 50. COMPLICATIONS: None. INDICATIONS: This is a 58-year-old woman who has had some persistent (dictation cut off). She wished to go ahead with a knee replacement. She had severe arthritis and some significant valgus. DESCRIPTION OF PROCEDURE: The patient was taken to operating room and placed in supine position after spinal anesthesia was induced. The left lower extremity was prepped and draped in usual sterile fashion. Time-out was performed. I then inflated the tourniquet, created a longitudinal incision over the anterior aspect of the knee. Sharp dissection was carried down through subcutaneous tissue. Controlled hemostasis with a cautery. I then performed a medial parapatellar arthrotomy. Everted the patella. Flexed the knee up. Used a canal initiating reamer on the femoral side followed by the intramedullary guide set at 9 mm cut and 7 degrees of valgus. This matched her condyles fairly well. We pinned this in place proximally and the distal femoral cut was made while I protected soft tissues. I then sized the femur to be a 5. The pin holes were placed at the end of the femur. The cutting block was secured and the remaining four cuts were made protecting soft tissues. We then prepared the tibia. The tibial alignment guide was placed in appropriate amount of valgus and posterior slope and pinned in place at about 6 mm off the low side, which was the lateral side, and I placed the pin holes in the lower part of the block just in case we needed take more. The proximal tibia cut was made protecting soft tissues. We checked the alignment. I then used a ammonia box operator to remove soft tissue from either side of the knee and osteophytes posteriorly. We then prepared the box cut protecting the tibial surface and placing the size 5 box cutting guide. The remaining three cuts were made. I prepared the tibia with the tibial tray, which sized to be a [address], drilled, broached and trial components were then inserted. We had also used the spacer block and determined between a 6 and a 7 for our thickness. Once trial components were placed, we decide on the 6 polyethylene. Then, we freehand cut the patella removing about 6 mm of bone. It was fairly thin sized to be a 32. Drill holes were placed in the femur and the patella. The patella tracked very nicely. The contract assistant prepared the bone cement in the modern technique. I removed the components and irrigated copiously, injected the Exparel in the deep tissues and the wound was copiously irrigated. The bony surfaces were dried. We cemented in the tibial and femoral components, removing excess bone cement. The polyethylene was placed. The knee was brought out in extension. We cemented on the patella, held it in place with the clamp. Removed excess bone cement. Irrigated again copiously. Placed the tranexamic acid (TXA) in the deep tissues and then began closing the deep layer. Once the cement hardened, removed the patellar clamp and repaired the deep layer with running Stratafix suture with a watertight closure. We irrigated, closed the subcu with #2-0 Vicryl and the skin with shirlene. Sterile dressing was applied. Tourniquet was deflated. She was taken to recovery room in stable condition. There were known complications. The plan will be routine postop. The contract assistant was instrumental in holding retractors and assisting in making one of the distal femoral cuts and assisting in mixing the bone cement and wound closure.
--- NOTE | 2019-02-28 12:56 | REP ---
LEFT KNEE, TWO VIEWS: Two views of the left knee performed. Total knee prosthesis appears to be in good position and well aligned. Osseous structures are intact. Metallic skin shirlene are seen anteriorly. Electronically Signed by Tera Shah MD 03/01/2019 09:02 A
[2019-02-28] MEDS ORDERED: DEXTROSE 50% 50 ML SYRINGE IV PRN (13:00)
[2019-02-28] MEDS ORDERED: GLUCOSE 4 GM CHEW TABLET PO PRN (13:00)
[2019-02-28] MEDS ORDERED: GLUCAGON FOR INJ 1 MG VIAL (J1610) SC PRN (13:00)
[2019-02-28] MEDS ORDERED: IPRATROPIUM 0.5MG/ALBUTEROL 2.5MG INH SOL UD 3ML (DUONEB)(J7620) NEB PRN (13:00)
--- NOTE | 2019-02-28 13:28 | CR.PDOC ---
General Date of Consultation: Feb 28, 2019 Consultation REASON FOR CONSULTATION/CHIEF COMPLAINT: Presented to [facility] for an elective procedure with orthopedic surgery HISTORY OF PRESENT ILLNESS: Patient is a 58-year-old female with a PMHx of Possible TIA, Emphysema / Asthma / COPD, Possible VLADISLAV, NIDDM2, Bipolar / Depression / Fibromyalgia, Neuropathy, Carpal tunnel syndrome, Osteoporosis, who presented to [facility] for an elective orthopedic procedure. Patient had received medical clearance from her primary care provider, Dr. Acuna. Patient had chest x-ray, blood work and EKG completed. Patient was also evaluated by cardiology Dr. Umanzor because of a reported history of congestive heart failure. Echocardiogram completed on 12/01, did not indicate any significant congestive heart failure. Nuclear tress test completed was with low cardiac risk. Patient has failed to improve with medical management alone for her left pain and was subsequently scheduled for an elective orthopedic procedure. Hospitalist service with consultation for medical management. Patient was seen postoperatively and she denied shortness of breath, chest pain, palpitations, cough, abdominal pain, vomiting, constipation, diarrhea, or urinary discomfort. Denied any recent fevers as an outpatient. Patient does report some neck discomfort and nausea. . Currently, patient reports feeling slightly cold. Denies any significant change in her weight or appetite. ALLERGIES: Please see below. HOME MEDICATIONS: Please see below. PAST MEDICAL HISTORY: Possible TIA, Emphysema / Asthma / COPD, Possible VLADISLAV, NIDDM2, Bipolar / Depression / Fibromyalgia, Neuropathy, Carpal tunnel syndrome, Osteoporosis PAST SURGICAL HISTORY: Left carpal tunnel release surgery in 2016 section 3 Tonsillectomy FAMILY HISTORY: - Mother and father with history of emphysema SOCIAL HISTORY: - Denies the use of alcohol or illicit drugs; patient is an active smoker of 30 years at less than 0.5 PPD - Denies recent travel or sick contacts - Lives with son in [place] - Occupation; currently unemployed REVIEW OF SYSTEMS: 10 point review of systems complete, all negative otherwise stated in HPI PHYSICAL EXAMINATION: - Vitals: BP 101/59, HR 64, RR 16, Sat 95%NC2L, Temp 96.9F - General: Lying in bed, No acute distress, Speaking in full sentences, AAOx3 - HEENT: NC, AT, PERRLA, EOMI - CVS: RRR, +S1S2, - Murmurs / rubs / gallops - Lungs: Fair air entry bilaterally, Clear to auscultation, No wheezing / rales / rhonchi - Abdomen: Soft, Non-distended, Non-tender - Extremities: No lower extremity edema, No calf tenderness, Left knee in dressing - Neuro: No focal motor or sensory deficit - Skin: No visible rashes LABORATORY DATA: Please see below. ASSESSMENT/PLAN: Left knee pain likely 2/2 osteoarthritis s/p elective total left knee arthroplasty (POD#0) - Presented to [facility] for an elective total left knee arthroplasty with orthopedic surgery - Has received medical clearance as an outpatient with Dr. Acuna and Dr. Umanzor - Pain control and regulation physical therapy at the direction of orthopedic surgery Possible TIA - Currently not on ASA Emphysema / Asthma / COPD - No evidence of exacerbation - c/w inhaled therapy as ordered Possible VLADISLAV - Will c/w VLADISLAV protocol NIDDM2 - Will start ISS Bipolar / Depression / Fibromyalgia - c/w Buspirone, Fluoxetine, [place], Quetiapine Neuropathy - c/w Lyrica Carpal tunnel syndrome - No active problems at this time Osteoporosis - Will continue with bisphosphonate on discharge DVT prophylaxis - Anticoagulation as per orthopedic surgery Vital Signs/I&O Vital Signs Date Time Temp Pulse Resp B/P (MAP) Pulse Ox O2 Delivery O2 Flow Rate FiO2 02/28/19 12:55 68 14 102/56 (71) 95 02/28/19 12:45 97.3 02/28/19 09:35 2 Laboratory Data CBC/BMP Laboratory Tests 02/28/19 06:53 Allergies Coded Allergies: ibuprofen (Verified Allergy, Severe, SOB hives DYSPNEA, 02/28/19) Penicillins (Verified Allergy, Intermediate, hives, 02/28/19) Home Medications Scheduled Alendronate Sodium (Fosamax) 70 Mg Tab, 70 MG PO QWEEK, (Reported) TUESDAY Buspirone HCl (Buspirone HCl) 10 Mg Tab, 10 MG PO BID, (Reported) Divalproex Sodium (Divalproex Sodium ER) 500 Mg Tab, 500 MG PO BID, (Reported) Fluoxetine HCl (Prozac) 20 Mg Cap, 20 MG PO TID, (Reported) [place] Carbonate ([place] Carbonate) 300 Mg Tab, 300 MG PO TID, #90 Pregabalin (Lyrica) 50 Mg Cap, 50 MG PO BID, (Reported) Quetiapine Fumarate (Quetiapine Fumarate) 25 Mg Tab, 12.5 MG PO BID, #30 Salmeterol/Fluticasone (Advair 250-50 Diskus) 1 Each Blst.w.dev, 1 PUFF INH BID, (Reported) Zolpidem Tartrate (Ambien) 5 Mg Tablet, 5 MG PO QPM, (Reported) Scheduled PRN Acetaminophen (Acetaminophen) 325 Mg Tab, 650 MG PO Q4H PRN for PAIN, (Reported) Albuterol Sulfate (Proair Hfa) 108 Mcg/Act Aer, 2 PUFF INH Q4H PRN for SHORTNESS OF BREATH, (Reported) Tramadol HCl (Tramadol HCl) 50 Mg Tablet, 50 MG PO TIDP PRN for PAIN, (Reported) Trimethobenzamide HCl (Tigan) 300 Mg Capsule, 300 MG PO QIDP PRN for NAUSEA, (Reported) ARNOLD MULLIGAN MD Feb 28, 2019 13:28
[2019-02-28 14:31] VITALS: BP 124/59
[2019-02-28] MEDS: LORazepam 2 MG/ML VIAL (J2060) IV PRN ×2 (14:39→23:17)
[2019-02-28] MEDS: FLUoxetine 20 MG CAP PO SCH ×2 (16:03→21:11)
[2019-02-28] MEDS: NORCO, ANEXSIA 5/325MG TABLET (HYDROcodone/ACETAMINOPHEN) PO PRN ×2 (16:04→23:53)
[2019-02-28] MEDS: LITHIUM CARBONATE 300 MG CAP PO SCH ×2 (16:04→21:10)
[2019-02-28] MEDS: CLINDAMYCIN 900 MG in APPROPRIATE DILUENT 1 EA IV SCH (17:30)
[2019-02-28] MEDS: HumaLOG INSULIN (NovoLOG) PER UNIT SC SCH ×2 (17:30→21:00)
[2019-02-28] MEDS: MORPHINE 4 MG/ML 1ML VIAL/SYRINGE (J2270) IV PRN ×3 (18:39→23:16)
[2019-02-28] MEDS: ADVAIR HFA 230/21MCG INHALER INH SCH (19:44)
[2019-02-28] MEDS: DIVALPROEX 500MG *ER* TAB PO SCH (21:10)
[2019-02-28] MEDS: busPIRone 10 MG TAB PO SCH (21:10)
[2019-02-28] MEDS: PREGABALIN 50 MG CAP (LYRICA) PO SCH (21:10)
[2019-02-28] MEDS: QUEtiapine FUMARATE 25 MG TAB PO SCH (21:10)
[2019-02-28 22:00] VITALS: BP 121/68
[2019-03-01] MEDS: LR 1,000 ML IV SCH (01:09)
[2019-03-01 02:00] VITALS: BP 120/68
[2019-03-01] MEDS: CLINDAMYCIN 900 MG in APPROPRIATE DILUENT 1 EA IV SCH (02:12)
[2019-03-01] MEDS: MORPHINE 4 MG/ML 1ML VIAL/SYRINGE (J2270) IV PRN ×2 (02:59→05:36)
[2019-03-01] MEDS: LORazepam 2 MG/ML VIAL (J2060) IV PRN ×2 (05:48→17:57)
[2019-03-01 06:00] VITALS: BP 131/73
[2019-03-01] MEDS ORDERED: ONDANSETRON 4 MG TAB (S0181) PO PRN (06:00)
[2019-03-01 06:20] LABS: HEMATOCRIT 32.6 % (36.0-47.0); HEMOGLOBIN 10.3 g/dl (12.0-15.5); MEAN CORPUSCULAR HEMOGLOBIN 30.9 pg (27.0-33.0); MEAN CORPUSCULAR HGB CONC 31.6 g/dl (32.0-36.5); MEAN CORPUSCULAR VOLUME 97.9 fl (80.0-96.0); PLATELET COUNT, AUTOMATED 258 10^3/uL (150-450); RED BLOOD COUNT 3.33 10^6/uL (4.00-5.40); WHITE BLOOD COUNT 11.2 10^3/uL (4.0-10.0)
[2019-03-01] MEDS: ADVAIR HFA 230/21MCG INHALER INH SCH ×2 (07:15→20:26)
[2019-03-01 07:56] LABS: ALBUMIN 3.1 GM/DL (3.2-5.2); ALT/SGPT 17 U/L (12-78); BILIRUBIN,TOTAL 0.3 MG/DL (0.2-1.0); BLOOD UREA NITROGEN 11 MG/DL (7-18); CALCIUM LEVEL 8.6 MG/DL (8.5-10.1); CARBON DIOXIDE LEVEL 24 MEQ/L (21-32); CHLORIDE LEVEL 112 MEQ/L (98-107); GLOMERULAR FILTRATION RATE > 60.0 (>51); GLUCOSE, FASTING 103 MG/DL (70-100); MAGNESIUM LEVEL 2.5 MG/DL (1.8-2.4); POTASSIUM SERUM 4.4 MEQ/L (3.5-5.1); SODIUM LEVEL 143 MEQ/L (136-145); TOTAL PROTEIN 5.8 GM/DL (6.4-8.2)
[2019-03-01] MEDS ORDERED: RIVAROXABAN 10 MG TAB (XARELTO) PO SCH (08:00)
[2019-03-01] MEDS: MIRALAX *UNIT DOSE* 17GM PACKET PO SCH (08:00)
[2019-03-01] MEDS: MOM 30ML SUSPENSION UDC PO SCH (08:00)
[2019-03-01] MEDS: busPIRone 10 MG TAB PO SCH ×2 (08:01→21:37)
[2019-03-01] MEDS: QUEtiapine FUMARATE 25 MG TAB PO SCH (08:01)
[2019-03-01] MEDS: NORCO, ANEXSIA 5/325MG TABLET (HYDROcodone/ACETAMINOPHEN) PO PRN (08:01)
[2019-03-01] MEDS: FLUoxetine 20 MG CAP PO SCH ×3 (08:01→21:38)
[2019-03-01] MEDS: HumaLOG INSULIN (NovoLOG) PER UNIT SC SCH ×5 (08:02→21:00)
[2019-03-01] MEDS: SENOKOT S TAB PO SCH ×2 (08:02→21:38)
[2019-03-01] MEDS: LITHIUM CARBONATE 300 MG CAP PO SCH ×3 (08:02→21:38)
[2019-03-01] MEDS: PREGABALIN 50 MG CAP (LYRICA) PO SCH ×2 (08:02→21:37)
[2019-03-01] MEDS: DIVALPROEX 500MG *ER* TAB PO SCH ×2 (08:02→21:37)
--- NOTE | 2019-03-01 10:52 | IPNPDOC ---
Text Note Date of Service The patient was seen on 03/01/19. NOTE Subjective: Patient is a 58-year-old female with a PMHx of Possible TIA, Emphysema / Asthma / COPD, Possible VLADISLAV, NIDDM2, Bipolar / Depression / Fibromyalgia, Neuropathy, Carpal tunnel syndrome, Osteoporosis, who presented to [facility] for an elective orthopedic procedure. Patient had received medical clearance from her primary care provider, Dr. Acuna. Patient had chest x-ray, blood work and EKG completed. Patient was also evaluated by cardiology Dr. Umanzor because of a reported history of congestive heart failure. Echocardiogram completed on 12/01, did not indicate any significant congestive heart failure. Nuclear tress test completed was with low cardiac risk. Patient has failed to improve with medical management alone for her left pain and was subsequently scheduled for an elective orthopedic procedure. Patient was seen and examined at the bedside. Patient reports that her left knee still. She denies any chest pain, shortness breath, palpitations, nausea, vomiting, abdominal pain, or urinary discomfort. Objective: Vitals (See below) General: Lying in bed, no acute distress, comfortable, AAOx3 HEENT: NC, AT CVS: RRR, +S1S2 Lungs: Fair air entry b/l, no evidence of wheezing / rhonchi / rales Abdomen: Soft, ND, NT Extremities: - Edema, - Calf tenderness, L knee in dressing Assessment and plan: Left knee pain likely 2/2 osteoarthritis s/p elective total left knee a rthroplasty (POD#1) - Presented to [facility] for an elective total left knee arthropl asty with orthopedic surgery - Has received medical clearance as an outpatient with Dr. Acuna and Dr. Umanzor - Pain control and regulation physical therapy at the direction of orthopedic surgery - Patient will be working with physical therapy today; she has refused to go home and would like to go to rehabilitation Possible TIA - Currently not on ASA Emphysema / Asthma / COPD - No evidence of exacerbation - c/w inhaled therapy as ordered Possible VLADISLAV - Will c/w VLADISLAV protocol NIDDM2 - c/w ISS Bipolar / Depression / Fibromyalgia - c/w Buspirone, Fluoxetine, [place], Quetiapine Neuropathy - c/w Lyrica Carpal tunnel syndrome - No active problems at this time Osteoporosis - Will continue with bisphosphonate on discharge DVT prophylaxis - Anticoagulation as per orthopedic surgery Disposition: - Anticipate discharge within 24-48 hours pending physical therapy recommendations VS,Fishbone, I+O VS, Fishbone, I+O Laboratory Tests 03/01/19 00:00 Calcium Level 8.6, Aspartate Amino Transf (AST/SGOT) 11, Alanine Aminotransferase (ALT/SGPT) 17, Alkaline Phosphatase 56, Total Bilirubin 0.3, Total Protein 5.8 L, Albumin 3.1 L 03/01/19 05:28 Red Blood Count 3.33 L, Mean Corpuscular Volume 97.9 H, Mean Corpuscular Hemoglobin 30.9, Mean Corpuscular Hemoglobin Concent 31.6 L, Red Cell Distri bution Width 13.5 Vital Signs Date Time Temp Pulse Resp B/P (MAP) Pulse Ox O2 Delivery O2 Flow Rate FiO2 03/01/19 08:01 16 03/01/19 06:00 98.0 83 131/73 (92) 95 02/28/19 09:35 2 I&O- Last 24 Hours up to 6 AM 03/01/19 06:00 Intake Total 2170 ml Output Total 1800 ml Balance 370 ml ARNOLD MULLIGAN MD Mar 01, 2019 10:52
[2019-03-01] MEDS: PERCOCET 5MG/325MG TAB PO PRN ×2 (13:14→21:38)
[2019-03-01 14:00] VITALS: BP 107/65
[2019-03-01] MEDS: RIVAROXABAN 10 MG TAB (XARELTO) PO SCH (17:04)
[2019-03-01] MEDS: QUEtiapine FUMARATE 12.5 MG HALF-TAB PO SCH (21:37)
[2019-03-01 22:00] VITALS: BP 119/61
[2019-03-02] MEDS: PERCOCET 5MG/325MG TAB PO PRN ×5 (02:26→22:25)
[2019-03-02 06:00] VITALS: BP 109/53
[2019-03-02] MEDS: ADVAIR HFA 230/21MCG INHALER INH SCH ×2 (06:28→18:20)
[2019-03-02] MEDS ORDERED: XARE10TA PO (06:39)
[2019-03-02] MEDS ORDERED: PERC5TAB12 PO (06:39)
[2019-03-02 06:42] LABS: HEMATOCRIT 33.5 % (36.0-47.0); HEMOGLOBIN 10.4 g/dl (12.0-15.5); MEAN CORPUSCULAR HEMOGLOBIN 31.2 pg (27.0-33.0); MEAN CORPUSCULAR VOLUME 100.6 fl (80.0-96.0); PLATELET COUNT, AUTOMATED 230 10^3/uL (150-450); RED BLOOD COUNT 3.33 10^6/uL (4.00-5.40); WHITE BLOOD COUNT 12.2 10^3/uL (4.0-10.0)
[2019-03-02] MEDS: HumaLOG INSULIN (NovoLOG) PER UNIT SC SCH ×4 (08:07→20:19)
[2019-03-02] MEDS: PREGABALIN 50 MG CAP (LYRICA) PO SCH ×2 (08:07→20:34)
[2019-03-02] MEDS: busPIRone 10 MG TAB PO SCH ×2 (08:08→20:33)
[2019-03-02] MEDS: LITHIUM CARBONATE 300 MG CAP PO SCH ×3 (08:08→20:34)
[2019-03-02] MEDS: QUEtiapine FUMARATE 12.5 MG HALF-TAB PO SCH ×2 (08:08→20:33)
[2019-03-02] MEDS: SENOKOT S TAB PO SCH ×2 (08:09→20:34)
[2019-03-02] MEDS: MIRALAX *UNIT DOSE* 17GM PACKET PO SCH (08:09)
[2019-03-02] MEDS: MOM 30ML SUSPENSION UDC PO SCH (08:09)
[2019-03-02] MEDS: FLUoxetine 20 MG CAP PO SCH ×3 (08:09→20:33)
[2019-03-02] MEDS: DIVALPROEX 500MG *ER* TAB PO SCH ×2 (11:04→20:34)
--- NOTE | 2019-03-02 11:32 | IPNPDOC ---
Text Note Date of Service The patient was seen on 03/02/19. NOTE Subjective: Patient is a 58-year-old female with a PMHx of Possible TIA, Emphysema / Asthma / COPD, Possible VLADISLAV, NIDDM2, Bipolar / Depression / Fibromyalgia, Neuropathy, Carpal tunnel syndrome, Osteoporosis, who presented to [facility] for an elective orthopedic procedure. Patient had received medical clearance from her primary care provider, Dr. Acuna. Patient had chest x-ray, blood work and EKG completed. Patient was also evaluated by cardiology Dr. Umanzor because of a reported history of congestive heart failure. Echocardiogram completed on 12/01, did not indicate any significant congestive heart failure. Nuclear tress test completed was with low cardiac risk. Patient has failed to improve with medical management alone for her left pain and was subsequently scheduled for an elective orthopedic procedure. Patient was seen and examined at the bedside. Patient reports that she still having left leg pain. She has been progressing with physical therapy has reported bowel movements. Denies chest pain, palpitations or shortness of olinda th. Objective: Vitals (See below) General: Lying in bed, no acute distress, comfortable, AAOx3 HEENT: NC, AT CVS: RRR, +S1S2 Lungs: There is fair air entry bilaterally, without auscultated evidence of rhonchi, rales or wheezing Abdomen: Is soft without distention or tenderness Extremities: - Edema, - Calf tenderness, left knee with bandaging in place Assessment and plan: Left knee pain likely 2/2 osteoarthritis s/p elective total left knee arthroplasty (POD#2) - Presented to [facility] for an elective total left knee arthr oplasty with orthopedic surgery - Has received medical clearance as an outpatient with Dr. Acuna and Dr. Umanzor - Pain control and regulation physical therapy at the direction of orthopedic surgery - Patient has been progressing with physical therapy, anticipate discharge today as per orthopedic surgery Possible TIA - Currently not on ASA Emphysema / Asthma / COPD - No evidence of exacerbation - c/w inhaled therapy as ordered Possible VLADISLAV - Will c/w VLADISLAV protocol NIDDM2 - c/w ISS Bipolar / Depression / Fibromyalgia - c/w Buspirone, Fluoxetine, [place], Quetiapine Neuropathy - c/w Lyrica Carpal tunnel syndrome - No active problems at this time Osteoporosis - Will continue with bisphosphonate on discharge DVT prophylaxis - Anticoagulation as per orthopedic surgery Disposition: - Anticipate discharge today VS,Fishbone, I+O VS, Fishbone, I+O Laboratory Tests 03/02/19 05:33 Red Blood Count 3.33 L, Mean Corpuscular Volume 100.6 H, Mean Corpuscular Hemoglobin 31.2, Mean Corpuscular Hemoglobin Concent 31.0 L, Red Cell Distribution Width 13.7 Vital Signs Date Time Temp Pulse Resp B/P (MAP) Pulse Ox O2 Delivery O2 Flow Rate FiO2 03/02/19 11:04 10 03/02/19 06:00 97.1 105 109/53 (71) 94 02/28/19 09:35 2 I&O- Last 24 Hours up to 6 AM 03/02/19 06:00 Intake Total 1080 ml Output Total 300 ml Balance 780 ml ARNOLD MULLIGAN MD Mar 02, 2019 11:31
[2019-03-02] MEDS ORDERED: NALOXONE INJ 0.4 MG/1 ML VIAL (J2310) IV STA (13:30)
[2019-03-02] MEDS ORDERED: NALOXONE INJ 0.4 MG/1 ML VIAL (J2310) IM STA (13:53)
[2019-03-02 14:00] VITALS: BP 115/57
[2019-03-02] MEDS: RIVAROXABAN 10 MG TAB (XARELTO) PO SCH (17:23)
[2019-03-02 19:59] VITALS: BP 149/123
[2019-03-02 21:00] VITALS: BP 120/60
[2019-03-03] MEDS: PERCOCET 5MG/325MG TAB PO PRN ×2 (04:23→13:54)
[2019-03-03 06:00] VITALS: BP 134/86
[2019-03-03] MEDS: ADVAIR HFA 230/21MCG INHALER INH SCH (08:14)
[2019-03-03] MEDS: HumaLOG INSULIN (NovoLOG) PER UNIT SC SCH ×2 (08:50→17:23)
[2019-03-03] MEDS: QUEtiapine FUMARATE 12.5 MG HALF-TAB PO SCH (08:50)
[2019-03-03] MEDS: busPIRone 10 MG TAB PO SCH (08:51)
[2019-03-03] MEDS: PREGABALIN 50 MG CAP (LYRICA) PO SCH (08:51)
[2019-03-03] MEDS: FLUoxetine 20 MG CAP PO SCH ×2 (08:51→17:43)
[2019-03-03] MEDS: DIVALPROEX 500MG *ER* TAB PO SCH (08:52)
[2019-03-03] MEDS: SENOKOT S TAB PO SCH (08:52)
[2019-03-03] MEDS: MOM 30ML SUSPENSION UDC PO SCH (08:52)
[2019-03-03] MEDS: LITHIUM CARBONATE 300 MG CAP PO SCH ×2 (08:52→17:43)
[2019-03-03] MEDS: MIRALAX *UNIT DOSE* 17GM PACKET PO SCH (08:52)
[2019-03-03 09:11] LABS: BASO # 0.1 10^3/uL (0.0-0.2); BASO % 0.8 % (0.0-1.0); EOS # 0.2 10^3/uL (0.0-0.50); EOS % 1.5 % (0.0-3.0); HEMATOCRIT 32.3 % (36.0-47.0); HEMOGLOBIN 10.1 g/dl (12.0-15.5); LYMPH # 2.5 10^3/uL (1.5-4.5); LYMPH % 22.7 % (24.0-44.0); MEAN CORPUSCULAR HEMOGLOBIN 32.1 pg (27.0-33.0); MEAN CORPUSCULAR HGB CONC 31.3 g/dl (32.0-36.5); MEAN CORPUSCULAR VOLUME 102.5 fl (80.0-96.0); MONO # 1.3 10^3/uL (0.0-0.8); MONO % 11.8 % (0.0-5.0); NEUTROPHILS % 62.8 % (36.0-66.0); PLATELET COUNT, AUTOMATED 243 10^3/uL (150-450); RED BLOOD COUNT 3.15 10^6/uL (4.00-5.40); WHITE BLOOD COUNT 11.2 10^3/uL (4.0-10.0)
[2019-03-03 09:27] LABS: BLOOD UREA NITROGEN 8 MG/DL (7-18); CALCIUM LEVEL 8.7 MG/DL (8.5-10.1); CARBON DIOXIDE LEVEL 22 MEQ/L (21-32); CHLORIDE LEVEL 110 MEQ/L (98-107); CREATININE FOR GFR 0.61 MG/DL (0.55-1.30); GLOMERULAR FILTRATION RATE > 60.0 (>51); GLUCOSE, FASTING 92 MG/DL (70-100); MAGNESIUM LEVEL 2.3 MG/DL (1.8-2.4); POTASSIUM SERUM 4.3 MEQ/L (3.5-5.1); SODIUM LEVEL 137 MEQ/L (136-145)
[2019-03-03 10:28] VITALS: BP 138/79
--- NOTE | 2019-03-03 13:13 | IPNPDOC ---
Text Note Date of Service The patient was seen on 03/03/19. NOTE Subjective: Patient is a 58-year-old female with a PMHx of Possible TIA, Emphysema / Asthma / COPD, Possible VLADISLAV, NIDDM2, Bipolar / Depression / Fibromyalgia, Neuropathy, Carpal tunnel syndrome, Osteoporosis, who presented to [facility] for an elective orthopedic procedure. Patient had received medical clearance from her primary care provider, Dr. Acuna. Patient had chest x-ray, blood work and EKG completed. Patient was also evaluated by cardiology Dr. Umanzor because of a reported history of congestive heart failure. Echocardiogram completed on 12/01, did not indicate any significant congestive heart failure. Nuclear tress test completed was with low cardiac risk. Patient has failed to improve with medical management alone for her left pain and was subsequently scheduled for an elective orthopedic procedure. Patient was seen and examined at the bedside. Patient is still reporting pain in her left knee. She has been working with physical therapy and has been cleared for discharge. Patient reports regular bowel movements. Denies any discomfort with urination. Denies chest pain, shortness of breath or palpitations Objective: Vitals (See below) General: Lying in bed, no acute distress, comfortable, AAOx3 HEENT: NC, AT CVS: RRR, +S1S2 Lungs: Auscultation is without rhonchi, rales or wheezing, and appears to be fair bilaterally Abdomen: Remains soft without distention or tenderness Extremities: No evidence of lower extremity edema, - Calf tenderness, left knee with bandaging in place Assessment and plan: Left knee pain likely 2/2 osteoarthritis s/p elective total left knee arthroplasty (POD#2) - Presented to [facility] for an elective total left knee art hroplasty with orthopedic surgery - Has received medical clearance as an outpatient with Dr. Acuna and Dr. Umanzor - Pain control and regulation physical therapy at the direction of orthopedic surgery - Patient has cleared physical therapy for discharge home - Will ensure patient has outpatient follow up with orthopedic surgery Possible TIA - Currently not on ASA Emphysema / Asthma / COPD - No evidence of exacerbation - c/w inhaled therapy as ordered Possible VLADISLAV - Will c/w VLADISLAV protocol NIDDM2 - c/w ISS Bipolar / Depression / Fibromyalgia - c/w Buspirone, Fluoxetine, [place], Quetiapine Neuropathy - c/w Lyrica Carpal tunnel syndrome - No active problems at this time Osteoporosis - Will continue with bisphosphonate on discharge DVT prophylaxis - Anticoagulation as per orthopedic surgery Disposition: - Patient will be leaving today with her son Edita DUNCAN, I+O Edita DUNCAN, I+O Laboratory Tests 03/03/19 08:49 Red Blood Count 3.15 L, Mean Corpuscular Volume 102.5 H, Mean Corpuscular Hemoglobin 32.1, Mean Corpuscular Hemoglobin Concent 31.3 L, Red Cell Distribution Width 13.7, Neutrophils (%) (Auto) 62.8, Lymphocytes (%) (Auto) 22.7 L, Monocytes (%) (Auto) 11.8 H, Eosinophils (%) (Auto) 1.5, Basophils (%) (Auto) 0.8, Neutrophils # (Auto) 7.0, Lymphocytes # (Auto) 2.5, Monocytes # (Auto) 1.3 H, Eosinophils # (Auto) 0.2, Basophils # (Auto) 0.1, Calcium Level 8.7 Vital Signs Date Time Temp Pulse Resp B/P (MAP) Pulse Ox O2 Delivery O2 Flow Rate FiO2 03/03/19 10:28 98.8 85 19 138/79 (98) 97 02/28/19 09:35 2 I&O- Last 24 Hours up to 6 AM 03/03/19 06:00 Intake Total 1500 ml Output Total 0 ml Balance 1500 ml ARNOLD MULLIGAN MD Mar 03, 2019 13:13
[2019-03-03 15:28] VITALS: BP 123/65
[2019-03-03] MEDS: RIVAROXABAN 10 MG TAB (XARELTO) PO SCH (17:43)
== END 2019-03-03 18:53 | disposition home health service (06) | DRG 302 ==
LOC: M OR 06:32 → M MS5PR 14:15
PROVIDERS: ADMIT Orthopaedic Surgery; ATTEND Orthopaedic Surgery
PROC: 0SRD0J9 Replacement of Left Knee Joint with Synthetic Substitute, Cemented, Open Approach (ICD-10-PCS; principal; 2019-02-28 09:25)
DX: M17.12 Unilateral primary osteoarthritis, left knee (principal); E11.40 Type 2 diabetes mellitus with diabetic neuropathy, unspecified; I50.9 Heart failure, unspecified; M81.0 Age-related osteoporosis without current pathological fracture; J44.9 Chronic obstructive pulmonary disease, unspecified; M79.7 Fibromyalgia; F31.9 Bipolar disorder, unspecified; F17.210 Nicotine dependence, cigarettes, uncomplicated; R26.89 Other abnormalities of gait and mobility; G47.33 Obstructive sleep apnea (adult) (pediatric); Z79.899 Other long term (current) drug therapy; Z88.0 Allergy status to penicillin; Z88.6 Allergy status to analgesic agent

== ENCOUNTER 2019-03-20 13:41 | Emergency (ER) | payer MEDICAID, OTHER ==
[~2019-03-20] VITALS: Ht 157.5 cm; Wt 60.2 kg
[~2019-03-20 13:41] MED LIST changes: -ALBUTEROL SULFATE 2.5 MG/0.5 ML INH NEB SOLN INH ONE; -CLINDAMYCIN 900 MG in APPROPRIATE DILUENT 1 EA IV ONE; -LR 1,000 ML IV SCH; +PERC5TAB12 PO; +XARE10TA PO
[2019-03-20] MEDS ORDERED: NS 1,200 ML IV ONE (14:15)
[2019-03-20] MEDS ORDERED: ALBUTEROL SULFATE 2.5 MG/0.5 ML INH NEB SOLN INH ONE (14:15)
[2019-03-20] MEDS ORDERED: IPRATROPIUM 0.5MG/ALBUTEROL 2.5MG INH SOL UD 3ML (DUONEB)(J7620) NEB ONE (14:15)
[2019-03-20] MEDS ORDERED: methylPREDNISolone INJ 125 MG/2 ML VIAL (J2930) IV ONE (14:15)
[2019-03-20] MEDS ORDERED: FAMOTIDINE INJ 20MG/2ML VIAL (S0028) IVP ONE (14:15)
--- NOTE | 2019-03-20 14:43 | REP ---
Clinical: Cough and dyspnea . Comparison: 02/08/2019 . Findings: The mediastinum and cardiac silhouette are stable and within normal limits for portable technique. The lung cagle are clear without acute consolidation, effusion, or pneumothorax. Skeletal structures are intact. Impression: No acute cardiopulmonary process appreciated. Electronically Signed by Artem Santos MD 03/20/2019 02:34 P
[2019-03-20 14:57] LABS: BLOOD UREA NITROGEN 7 MG/DL (7-18); C REACTIVE PROTEIN QUANTITATIV 1.04 MG/DL (0.00-0.30); CARBON DIOXIDE LEVEL 28 MEQ/L (21-32); CHLORIDE LEVEL 106 MEQ/L (98-107); CREATININE FOR GFR 0.64 MG/DL (0.55-1.30); GLOMERULAR FILTRATION RATE > 60.0 (>51); GLUCOSE, FASTING 88 MG/DL (70-100); POTASSIUM SERUM 4.8 MEQ/L (3.5-5.1); SODIUM LEVEL 139 MEQ/L (136-145)
[2019-03-20] MEDS ORDERED: traMADol 50 MG TAB PO ONE (15:15)
[2019-03-20] MEDS ORDERED: PERCOCET 5MG/325MG TAB PO ONE (15:45)
[2019-03-20 15:51] LABS: BASO # 0.1 10^3/uL (0.0-0.2); BASO % 0.6 % (0.0-1.0); EOS # 0.2 10^3/uL (0.0-0.50); HEMATOCRIT 40.7 % (36.0-47.0); HEMOGLOBIN 12.7 g/dl (12.0-15.5); LYMPH # 2.6 10^3/uL (1.5-4.5); MEAN CORPUSCULAR HEMOGLOBIN 31.5 pg (27.0-33.0); MEAN CORPUSCULAR HGB CONC 31.2 g/dl (32.0-36.5); MONO # 0.8 10^3/uL (0.0-0.8); MONO % 5.7 % (0.0-5.0); NEUTROPHILS # 10.9 10^3/uL (1.8-7.7); NEUTROPHILS % 74.3 % (36.0-66.0); PLATELET COUNT, AUTOMATED 412 10^3/uL (150-450); RED BLOOD COUNT 4.03 10^6/uL (4.00-5.40); WHITE BLOOD COUNT 14.6 10^3/uL (4.0-10.0)
[2019-03-20] MEDS ORDERED: MORPHINE 2 MG/ML 1ML SYRINGE (J2270) IV ONE (16:00)
[2019-03-20] MEDS ORDERED: PRED20TA PO (16:21)
[2019-03-20] MEDS ORDERED: EPIP0.3I2 IM (16:25)
[2019-03-20] MEDS ORDERED: BENA25CA4 PO (16:25)
[2019-03-20 16:26] VITALS: BP 162/70
[2019-03-23] MEDS ORDERED: ALL10TAB28 PO (11:17)
[2019-03-23] MEDS ORDERED: DIPH25CA PO (11:18)
== END 2019-03-20 16:53 | disposition home or self-care (01) ==
LOC: EDBD 13:41 → M ED 13:41
DX: R21 Rash and other nonspecific skin eruption (principal); L29.9 Pruritus, unspecified; R22.0 Localized swelling, mass and lump, head; T78.49XA Other allergy, initial encounter; X58.XXXA Exposure to other specified factors, initial encounter; Y92.89 Other specified places as the place of occurrence of the external cause; E11.9 Type 2 diabetes mellitus without complications; I50.9 Heart failure, unspecified; J44.9 Chronic obstructive pulmonary disease, unspecified; J45.909 Unspecified asthma, uncomplicated; F31.9 Bipolar disorder, unspecified; M19.90 Unspecified osteoarthritis, unspecified site; M79.7 Fibromyalgia; Z79.899 Other long term (current) drug therapy; Z79.01 Long term (current) use of anticoagulants; Z88.0 Allergy status to penicillin; Z88.8 Allergy status to other drugs, medicaments and biological substances; F17.210 Nicotine dependence, cigarettes, uncomplicated
CPT/HCPCS: 36415; 71045; 80048; 85025; 86140; 93041; 94640; 94760; 96374; 96375; 99285; J2930

== ENCOUNTER 2019-03-23 09:04 | Emergency (ER) | payer OTHER ==
[~2019-03-23] VITALS: Ht 157.5 cm; Wt 60.6 kg
[~2019-03-23 09:04] MED LIST changes: -AZIT500T2 PO; +AZIT500T5 PO; +BENA25CA4 PO; +EPIP0.3I2 IM; -LORA0.5T11 PO; +LORA0.5T5 PO; -TRAZ-163 PO; +TRAZ-257 PO
[2019-03-23] MEDS ORDERED: diphenhydrAMINE INJ 50MG/ML VIAL (J1200) IV ONE (09:30)
[2019-03-23] MEDS ORDERED: FAMOTIDINE INJ 20MG/2ML VIAL (S0028) IVP ONE (09:45)
[2019-03-23] MEDS ORDERED: LEVALBUTEROL 1.25 MG/0.5 ML CONCENTRATE NEB NEB ONE (09:45)
[2019-03-23 10:15] LABS: ALBUMIN 3.6 GM/DL (3.2-5.2); ALT/SGPT 17 U/L (12-78); BILIRUBIN,DIRECT < 0.1 MG/DL (0.0-0.2); BILIRUBIN,TOTAL 0.3 MG/DL (0.2-1.0); BLOOD UREA NITROGEN 7 MG/DL (7-18); CALCIUM LEVEL 9.1 MG/DL (8.5-10.1); CARBON DIOXIDE LEVEL 27 MEQ/L (21-32); CHLORIDE LEVEL 109 MEQ/L (98-107); CREATININE FOR GFR 0.62 MG/DL (0.55-1.30); GLOMERULAR FILTRATION RATE > 60.0 (>51); GLUCOSE, FASTING 84 MG/DL (70-100); POTASSIUM SERUM 4.1 MEQ/L (3.5-5.1); SODIUM LEVEL 140 MEQ/L (136-145); TOTAL PROTEIN 6.4 GM/DL (6.4-8.2)
[2019-03-23] MEDS ORDERED: PERCOCET 5MG/325MG TAB PO ONE (10:15)
--- NOTE | 2019-03-23 10:56 | REP ---
Clinical: chest pain. Comparison: 02/08/2019. Technique: PA and lateral. Findings: The mediastinum and cardiac silhouette are normal. The lung cagle are clear and without acute consolidation, effusion, or pneumothorax. The skeletal structures are intact and normal. Impression: 1. No acute cardiopulmonary process. Electronically Signed by Artem Santos MD 03/23/2019 10:48 A
[2019-03-23] MEDS ORDERED: PRED10TA2 PO (11:15)
[2019-03-23] MEDS ORDERED: ALL10TAB29 PO (11:17)
[2019-03-23] MEDS ORDERED: DIPH25CA32 PO (11:18)
[2019-03-23] MEDS ORDERED: EPIP0.3I2 IM (11:19)
[2019-03-23 11:30] VITALS: BP 150/83
[2019-03-23] MEDS ORDERED: methylPREDNISolone INJ 125 MG/2 ML VIAL (J2930) IV ONE (11:30)
== END 2019-03-23 11:36 | disposition home or self-care (01) ==
LOC: M ED 09:04
DX: R22.0 Localized swelling, mass and lump, head (principal); L29.9 Pruritus, unspecified; T78.40XA Allergy, unspecified, initial encounter; X58.XXXA Exposure to other specified factors, initial encounter; Y92.89 Other specified places as the place of occurrence of the external cause; I50.9 Heart failure, unspecified; J44.9 Chronic obstructive pulmonary disease, unspecified; M54.9 Dorsalgia, unspecified; G57.93 Unspecified mononeuropathy of bilateral lower limbs; F41.9 Anxiety disorder, unspecified; F32.9 Major depressive disorder, single episode, unspecified; F17.200 Nicotine dependence, unspecified, uncomplicated; Z88.0 Allergy status to penicillin; Z88.6 Allergy status to analgesic agent; Z79.899 Other long term (current) drug therapy; Z79.01 Long term (current) use of anticoagulants; Z79.52 Long term (current) use of systemic steroids
CPT/HCPCS: 71046; 80048; 80076; 86140; 93041; 94760; 96374; 96375; 99285; J1200; J2930

== ENCOUNTER → 2019-04-03 | Outpatient (REF) | payer OTHER, MEDICAID ==
[~2019-04-03] MED LIST changes: +ALL10TAB28 PO; +AZIT500T2 PO; -AZIT500T5 PO; +DIPH25CA PO; +LORA0.5T11 PO; -LORA0.5T5 PO; +TRAZ-163 PO; -TRAZ-257 PO
[2019-04-03 19:23] LABS: ALBUMIN 3.8 GM/DL (3.2-5.2); ALT/SGPT 14 U/L (12-78); BILIRUBIN,TOTAL 0.4 MG/DL (0.2-1.0); BLOOD UREA NITROGEN 8 MG/DL (7-18); CALCIUM LEVEL 9.4 MG/DL (8.5-10.1); CARBON DIOXIDE LEVEL 27 MEQ/L (21-32); CHLORIDE LEVEL 108 MEQ/L (98-107); CREATININE FOR GFR 0.65 MG/DL (0.55-1.30); FREE THYROXINE INDEX 2.9 % (1.3-4.8); GLOMERULAR FILTRATION RATE > 60.0 (>51); GLUCOSE, FASTING 101 MG/DL (70-100); LITHIUM LEVEL < 0.20 MEQ/L (0.60-1.20); POTASSIUM SERUM 4.5 MEQ/L (3.5-5.1); SODIUM LEVEL 141 MEQ/L (136-145); T UPTAKE 28 % (30-39); THYROID STIMULATING HORMONE 0.431 uIU/ML (0.358-3.740); THYROXINE (T4) 10.5 UG/DL (4.5-12.0); TOTAL PROTEIN 6.8 GM/DL (6.4-8.2)
== END ==
LOC: M LABDRAW1 17:14
PROVIDERS: ATTEND Psychiatry & Neurology Psychiatry
DX: E07.9 Disorder of thyroid, unspecified (principal)

== ENCOUNTER → 2019-04-12 | Outpatient (CLI) | payer OTHER, MEDICAID ==
[2019-04-12 17:56] LABS: BASO # 0.1 10^3/uL (0.0-0.2); BASO % 1.2 % (0.0-1.0); EOS # 0.4 10^3/uL (0.0-0.50); EOS % 3.9 % (0.0-3.0); HEMATOCRIT 45.3 % (36.0-47.0); HEMOGLOBIN 13.8 g/dl (12.0-15.5); LYMPH # 3.4 10^3/uL (1.5-4.5); LYMPH % 32.8 % (24.0-44.0); MEAN CORPUSCULAR HEMOGLOBIN 30.7 pg (27.0-33.0); MEAN CORPUSCULAR HGB CONC 30.5 g/dl (32.0-36.5); MEAN CORPUSCULAR VOLUME 100.7 fl (80.0-96.0); MONO % 9.6 % (0.0-5.0); NEUTROPHILS # 5.5 10^3/uL (1.8-7.7); NEUTROPHILS % 52.3 % (36.0-66.0); PLATELET COUNT, AUTOMATED 376 10^3/uL (150-450); WHITE BLOOD COUNT 10.4 10^3/uL (4.0-10.0)
[2019-04-17 08:11] LABS: C1 ESTER INHIB. NON FUNCTIONAL 41 mg/dL (21-39); D001-IgE D pteronyssinus <0.10 kU/L (Class 0); E001-IgE Cat Epith/Dander < 0.10 kU/L (Class 0); E005-IgE Dog Dander < 0.10 kU/L (Class 0); G002-IgE Bermuda Grass < 0.10 kU/L (Class 0); G008-IgE Kentucky Bluegrass < 0.10 kU/L (Class 0); M001-IgE Penicillium chrysogen < 0.10 kU/L (Class 0); M002 IgE Cladosporium herbaru < 0.10 kU/L (Class 0); M003 IgE Aspergillus fumigatu < 0.10 kU/L (Class 0); M006-IgE Alternaria alternata < 0.10 kU/L (Class 0); T001-IgE Maple/Box Elder < 0.10 kU/L (Class 0); T003-IgE Common Silver Birch < 0.10 kU/L (Class 0); T006-IgE Cedar, Mountain < 0.10 kU/L (Class 0); T007-IgE Oak, White < 0.10 kU/L (Class 0); T008-IgE Elm, American < 0.10 kU/L (Class 0); T015-IgE Ash, White < 0.10 kU/L (Class 0); T041-IgE Hickory, White < 0.10 kU/L (Class 0); T070-IgE White Mulberry < 0.10 kU/L (Class 0); TRYPTASE 4.7 ug/L (2.2-13.2); W001-IgE Ragweed, Short < 0.10 kU/L (Class 0); W009-IgE Plantain, English < 0.10 kU/L (Class 0); W014-IgE Pigweed, Rough < 0.10 kU/L (Class 0); W018-IgE Sheep Sorrel < 0.10 kU/L (Class 0)
== END ==
LOC: M SMT 10:29
PROVIDERS: ATTEND Internal Medicine Pulmonary Disease
DX: J45.40 Moderate persistent asthma, uncomplicated (principal); J44.9 Chronic obstructive pulmonary disease, unspecified

== ENCOUNTER → 2019-04-23 | Outpatient (CLI) | payer OTHER ==
--- NOTE | 2019-04-24 13:38 | DEXA ---
AP SPINE L1 - L4 0.965 -1.9 -0.8 LT FEMUR TOTAL 0.629 -3.0 -2.2 LT NECK 0.722 -2.3 -1.1 RT FEMUR TOTAL 0.677 -2.6 -1.8 RT NECK 0.719 -2.3 -1.2 TOTAL BODY TOTAL OTHER COMMENTS: There is low bone density of the spine. There is osteoporosis of the hips. FOLLOW-UP: Recommendation for the next bone density exam: 2 years. CORDELIA
== END ==
LOC: M WHC 09:36
PROVIDERS: ATTEND Nurse Practitioner Family
DX: Z13.820 Encounter for screening for osteoporosis (principal)

== ENCOUNTER → 2019-05-02 | Outpatient (REF) | payer OTHER ==
[2019-05-02 12:52] LABS: BASO # 0.1 10^3/uL (0.0-0.2); BASO % 0.8 % (0.0-1.0); EOS # 0.4 10^3/uL (0.0-0.50); EOS % 2.7 % (0.0-3.0); HEMOGLOBIN 12.8 g/dl (12.0-15.5); LYMPH # 3.6 10^3/uL (1.5-4.5); LYMPH % 24.4 % (24.0-44.0); MEAN CORPUSCULAR HEMOGLOBIN 30.9 pg (27.0-33.0); MEAN CORPUSCULAR HGB CONC 31.2 g/dl (32.0-36.5); MONO # 1.2 10^3/uL (0.0-0.8); MONO % 7.9 % (0.0-5.0); NEUTROPHILS # 9.3 10^3/uL (1.8-7.7); NEUTROPHILS % 63.8 % (36.0-66.0); PLATELET COUNT, AUTOMATED 280 10^3/uL (150-450); RED BLOOD COUNT 4.14 10^6/uL (4.00-5.40); WHITE BLOOD COUNT 14.6 10^3/uL (4.0-10.0)
[2019-05-02 14:31] LABS: ERYTHROCYTE SEDIMENTATION RATE 12 mm/hr (0-30)
== END ==
LOC: M LABDRAW1 12:05
PROVIDERS: ATTEND Physician Assistant Medical
DX: Z96.652 Presence of left artificial knee joint (principal)

== ENCOUNTER 2019-06-04 17:35 | Inpatient (IN) | payer OTHER, SELFPAY ==
[~2019-06-04] VITALS: Ht 157.5 cm; Wt 60.5 kg
[~2019-06-04 17:35] MED LIST changes: -ALL10TAB28 PO; +ALL10TAB29 PO; -AZIT500T2 PO; +AZIT500T5 PO; -DIPH25CA PO; +DIPH25CA32 PO; -LORA0.5T11 PO; +LORA0.5T5 PO; -TRAZ-163 PO; +TRAZ-257 PO
[2019-06-04 18:16] LABS: BASO # 0.1 10^3/uL (0.0-0.2); BASO % 1.7 % (0.0-1.0); EOS # 0.5 10^3/uL (0.0-0.5); EOS % 5.6 % (0.0-3.0); HEMATOCRIT 42.6 % (36.0-47.0); HEMOGLOBIN 14.1 g/dl (12.0-15.5); LYMPH # 1.8 10^3/uL (1.5-5.0); LYMPH % 21.8 % (24.0-44.0); MEAN CORPUSCULAR HEMOGLOBIN 32.2 pg (27.0-33.0); MEAN CORPUSCULAR HGB CONC 33.1 g/dl (32.0-36.5); MEAN CORPUSCULAR VOLUME 97.3 fl (80.0-96.0); MONO # 0.9 10^3/uL (0.0-0.8); MONO % 10.3 % (0.0-5.0); NEUTROPHILS % 60.1 % (36.0-66.0); PLATELET COUNT, AUTOMATED 366 10^3/uL (150-450); RED BLOOD COUNT 4.38 10^6/uL (4.00-5.40); WHITE BLOOD COUNT 8.3 10^3/uL (4.0-10.0)
[2019-06-04 18:46] LABS: BLOOD UREA NITROGEN 6 MG/DL (7-18); CALCIUM LEVEL 9.6 MG/DL (8.5-10.1); CARBON DIOXIDE LEVEL 24 MEQ/L (21-32); CHLORIDE LEVEL 110 MEQ/L (98-107); CREATININE FOR GFR 0.59 MG/DL (0.55-1.30); GLOMERULAR FILTRATION RATE > 60.0 (>51); GLUCOSE, FASTING 94 MG/DL (70-100); POTASSIUM SERUM 5.4 MEQ/L (3.5-5.1); SODIUM LEVEL 141 MEQ/L (136-145)
--- NOTE | 2019-06-04 18:47 | REP ---
Chest x-ray: Two views. History: Dyspnea and cough. Comparison chest x-ray: March 23, 2019. Findings: EKG monitoring electrodes overlie the chest. The lungs are symmetrically aerated and free of infiltrate. Heart is not enlarged. Patient is rotated slightly to the left for the frontal exposure. The pleural angles are sharp. No significant bony abnormality. Impression: No active disease. Electronically Signed by Isaias Valentine MD 06/04/2019 06:39 P
[2019-06-04] MEDS ORDERED: dexameTHASONE 20 MG/5 ML VIAL (J1100) IV ONE (20:00)
[2019-06-04] MEDS ORDERED: ACETAMINOPHEN SUSP DYE FREE 160 MG/5 ML UDC PO ONE (20:15)
[2019-06-04] MEDS ORDERED: ACETAMINOPHEN 325 MG TAB PO ONE (20:30)
[2019-06-04] MEDS: IPRATROPIUM 0.5MG/ALBUTEROL 2.5MG INH SOL UD 3ML (DUONEB)(J7620) NEB SCH ×3 (20:45→21:01)
[2019-06-04] MEDS ORDERED: IPRATROPIUM 0.5MG/ALBUTEROL 2.5MG INH SOL UD 3ML (DUONEB)(J7620) NEB ONE (22:30)
[2019-06-04] MEDS ORDERED: FUROSEMIDE 100 MG/10 ML VIAL (J1940) IV ONE (22:30)
[2019-06-04] MEDS ORDERED: NEXI10GR PO (23:04)
[2019-06-04] MEDS ORDERED: ACET1TAB16 PO (23:04)
[2019-06-04] MEDS ORDERED: OXYC1TAB23 PO (23:04)
[2019-06-04] MEDS ORDERED: INCR1INH INH (23:04)
[2019-06-04] MEDS ORDERED: EPIN0.3I11 IM (23:04)
[2019-06-04] MEDS ORDERED: DIPH25CA32 PO (23:04)
[2019-06-04] MEDS ORDERED: LITH300C PO ×2 (23:04)
[2019-06-04 23:08] LABS: NT-PRO BNP 155 PG/ML (<125)
[2019-06-04 23:15] LABS: ABG BASE EXCESS -2.9 (-2.0-2.0); ABG HCO3 20.6 MEQ/L (22.0-26.0); ABG O2 SATURATION 97.3 % (95.0-99.0); ABG PARTIAL PRESSURE CO2 31.9 mmHg (35.0-45.0); ABG PARTIAL PRESSURE O2 91.1 mmHg (75.0-100.0); ABG STANDARD HCO3 22.1 MEQ/L (22.0-26.0); ABG TOTAL CO2 21.5 MEQ/L (22.0-29.0); ABG pH (ARTERIAL) 7.427 UNITS (7.350-7.450)
[2019-06-04] MEDS ORDERED: GLUCOSE 4 GM CHEW TABLET PO PRN (23:45)
[2019-06-04] MEDS ORDERED: ALBUTEROL SULFATE 2.5 MG/0.5 ML INH NEB SOLN NEB PRN (23:45)
[2019-06-04] MEDS ORDERED: DEXTROSE 50% 50 ML SYRINGE IV PRN (23:45)
[2019-06-04] MEDS ORDERED: GLUCAGON FOR INJ 1 MG VIAL (J1610) SC PRN (23:45)
--- NOTE | 2019-06-04 23:47 | HPEPDOC ---
[facility] Medical History & Physical Date of Admission Jun 04, 2019 Date of Service: Jun 04, 2019 Primary Care Physician: CHINO LEYVA Attending Physician: LESA ESPINOZA MD History and Physical TIME OF SERVICE: 11:57 PM CHIEF COMPLAINT: Shortness of breath HISTORY OF PRESENT ILLNESS: This is a 58-year-old female who came to the hospital because of complaints of 3 day duration, shortness of breath associated with cough productive of green- yellow sputum, body aches, subjective fever and chills, runny nose, and headache. Of note, her granddaughter has an upper respiratory tract infection has been spending a lot of time with her. At her baseline she has bilateral lower extremity edema due to knee OA but denies having acute onset of unilateral edema. She continues to smoke. She reports being admitted to [facility] 2-3 times for a COPD exacerbation this calendar year; and admits to being intubated multiple times. Per discussion with the ED provider she continues to be short of breath despite receiving neb treatments and Decadron. REVIEW OF SYSTEMS: 12 point review of systems negative except as listed in HPI PAST MEDICAL/ SURGICAL HISTORY: COPD secondary to tobacco abuse Zpk-guwceby-evxuqrcta diabetes mellitus/complicated by peripheral neuropathy Osteoporosis Bipolar disorder Fibro-myalgia Carpal tunnel syndrome Status post carpal tunnel surgery, Status post 3 Status post tonsillectomy SOCIAL HISTORY: Smoker FAMILY HISTORY: Coronary artery disease. Diabetes Cancer ALLERGIES: Please see below. HOME MEDICATIONS: Please see below. PHYSICAL EXAMINATION: VITAL SIGNS: Please see below. GENERAL APPEARANCE: Well-nourished, well-developed, not in apparent distress HEENT: Normocephalic, atraumatic, mucous members moist and pink, lips acyanotic CARDIOVASCULAR: Regular rate and rhythm. No murmurs, rubs or gallops. No pitting edema on the lower extremities LUNGS: Patient is able to speak full sentences without stopping, she is using. Sensory muscles to breathe. There are coarse expiratory wheezes bilaterally. She is coughing occasionally during the exam ABDOMEN: Soft and nontender on palpation MUSCULOSKELETAL: There is a postsurgical scar at the left knee. The right knee is swollen NEUROLOGICAL:Cranial nerves 2-12 intact. Speech is not dysarthric PSYCHIATRIC: Alert and oriented to person, place and time, able to understand and follow commands LABORATORY DATA: See below. IMAGING: Chest x-rays negative for any acute process MICROBIOLOGY: Please see below. ASSESSMENT: Ms. Stewart is a 58-year-old female with past medical history of COPD secondary to tobacco abuse, guu-pvcjacg-lvwitimvm diabetes mellitus, and bipolar disorder who will be admitted for management of acute COPD, likely due to a viral infection. PLAN: 1. Acute COPD Likely 2/2 viral infection vs bronchitis due to changing weather ABG and chest x-ray reviewed His knee is unlikely due to CHF because the BNP is 155, and recent echo showed a normal EF. Likely that this is triggered by PE. Because she denies having unilateral lower extremity edema She reports being intubated several times in the past and has multiple hospitalizations this calendar year for COPD She is at high risk for readmission because she's been hospitalist multiple times for COPD Plan: admit to PCU / supplemental O2 / pulse oximetry / aspiration precautions /f/u sputum cx / Dunebs Q6H, Albuterol Q4HP, Prednisone + PPI / Tessalon Pearls / COPD diet /she should get her flu shot as soon as it is available/ refer to [facility] for repeat PFTs and Pulmonary Rehab when ready for d/c 2 Hyperkalemia. Likely 2/2 hemolysis Plan: Follow up repeat potassium 3 .Type 2 diabetes computed by neuropathy Plan: diabetic diet / f/u accuchecks & A1C / hypoglycemia protocol / sliding scale insulin / hold oral anti-glycemics 4. Bipolar disorder Plan: Continue home meds 5. Tobacco abuse. Plan: Nicotine patch/smoking cessation education DVT prophylaxis with Lovenox. Disposition pending clinical course LATE ENTRY 157AM Hypokalemia repeat K 2.8 Plan: replete K and f/u mag Vital Signs Vital Signs Date Time Temp Pulse Resp B/P (MAP) Pulse Ox O2 Delivery O2 Flow Rate FiO2 06/04/19 23:11 113/56 (75) 06/04/19 23:00 100 98 06/04/19 18:14 20 Room Air 06/04/19 17:36 97.6 Laboratory Data Labs 24H Laboratory Tests 2 06/04/19 18:08: Blood Gas Bicarbonate Standard 22.1, Arterial Blood pH 7.427, Arterial Blood Partial Pressure CO2 31.9L, Arterial Blood Partial Pressure O2 91.1, Arterial Blood Total CO2 21.5L, Arterial Blood HCO3 20.6L, Arterial Blood Base Excess - 2.9L, Arterial Blood Oxygen Saturation 97.3 06/04/19 18:09: Immature Granulocyte % (Auto) 0.5, White Blood Count 8.3, Red Blood Count 4.38, Hemoglobin 14.1, Hematocrit 42.6, Mean Corpuscular Volume 97.3H, Mean Corpuscular Hemoglobin 32.2, Mean Corpuscular Hemoglobin Concent 33.1, Red Cell Distribution Width 13.7, Platelet Count 366, Neutrophils (%) (Auto) 60.1, Lymphocytes (%) (Auto) 21.8L, Monocytes (%) (Auto) 10.3H, Eosinophils (%) (Auto) 5.6H, Basophils (%) (Auto) 1.7H, Neutrophils # (Auto) 5.0, Lymphocytes # (Auto) 1.8, Monocytes # (Auto) 0.9H, Eosinophils # (Auto) 0.5, Basophils # (Auto) 0.1, Nucleated Red Blood Cells % (auto) 0.0, Anion Gap 7L, Glomerular Filtration Rate > 60.0, Blood Urea Nitrogen 6L, Creatinine 0.59, Sodium Level 141, Potassium Level 5.4H, Chloride Level 110H, Carbon Dioxide Level 24, Calcium Level 9.6, IG-Jfj-A-Type Natriuretic Peptide 155H CBC/BMP Laboratory Tests 06/04/19 18:09 Red Blood Count 4.38, Mean Corpuscular Volume 97.3 H, Mean Corpuscular Hemoglobin 32.2, Mean Corpuscular Hemoglobin Concent 33.1, Red Cell Distribution Width 13.7, Neutrophils (%) (Auto) 60.1, Lymphocytes (%) (Auto) 21.8 L, Monocytes (%) (Auto) 10.3 H, Eosinophils (%) (Auto) 5.6 H, Basophils (%) (Auto) 1.7 H, Neutrophils # (Auto) 5.0, Lymphocytes # (Auto) 1.8, Monocytes # (Auto) 0.9 H, Eosinophils # (Auto) 0.5, Basophils # (Auto) 0.1, Calcium Level 9.6 Home Medications Scheduled Alendronate Sodium (Fosamax) 70 Mg Tab, 70 MG PO QWEEK TUESDAY Esomeprazole Magnesium (Nexium) 10 Mg Suspdr.pkt, 10 MG PO DAILY [place] Carbonate ([place] Carbonate) 300 Mg Capsule, 300 MG PO DAILY [place] Carbonate ([place] Carbonate) 300 Mg Capsule, 600 MG PO QHS Umeclidinium [place] (Incruse Ellipta) 62.5 Mcg Blst.w.dev, 1 PUFF INH DAILY Scheduled PRN Acetaminophen (Acetaminophen) 325 Mg Tab, 650 MG PO Q4H PRN for PAIN Acetaminophen with Codeine (Acetaminophen-Cod #3 Tablet) 1 Each Tablet, 1 TAB PO Q6H PRN for PAIN Albuterol Sulfate (Proair Hfa) 108 Mcg/Act Aer, 2 PUFF INH Q4H PRN for SHORTNESS OF BREATH Diphenhydramine HCl (Diphenhydramine HCl) 25 Mg Capsule, 25 MG PO Q6H PRN for I TCHING Epinephrine (Epinephrine) 0.3 Mg/0.3 Ml Auto.injct, 1 SYRINGE IM ONCE PRN for ALLERGIC REACTION Oxycodone HCl/Acetaminophen (Oxycodone-Acetaminophen 5-325) 1 Each Tablet, 1 TAB PO Q4H PRN for PAIN Zolpidem Tartrate (Ambien) 5 Mg Tablet, 5 MG PO QHS PRN for SLEEP Allergies Coded Allergies: ibuprofen (Verified Allergy, Severe, SOB hives DYSPNEA, 02/28/19) Penicillins (Verified Allergy, Intermediate, hives, 02/28/19) A-FIB/CHADSVASC A-FIB History Current/History of A-Fib/PAF?: No Current PO Anticoag Therapy: No LESA ESPINOZA MD Jun 04, 2019 23:47
[2019-06-05] MEDS: BENZONATATE 100 MG CAP PO PRN ×4 (00:33→23:30)
[2019-06-05 00:40] VITALS: BP 130/58
[2019-06-05] MEDS: HumaLOG INSULIN (NovoLOG) PER UNIT SC SCH ×5 (01:13→21:00)
[2019-06-05] MEDS ORDERED: SLF 3 ML SYR IV PRN (01:15)
[2019-06-05] MEDS ORDERED: ACETAMINOPH W/CODEINE #3 TAB UD PO PRN (01:15)
[2019-06-05 01:53] LABS: POTASSIUM SERUM 2.8 MEQ/L (3.5-5.1)
[2019-06-05] MEDS ORDERED: POTASSIUM CHL PWD 20 MEQ PACKET PO ONE (02:00)
[2019-06-05] MEDS: IPRATROPIUM 0.5MG/ALBUTEROL 2.5MG INH SOL UD 3ML (DUONEB)(J7620) NEB SCH ×5 (02:00→20:02)
[2019-06-05] MEDS: LITHIUM CARBONATE 300 MG CAP PO SCH ×3 (02:00→21:34)
[2019-06-05] MEDS: PERCOCET 5MG/325MG TAB PO PRN ×5 (02:02→23:30)
[2019-06-05 02:10] LABS: MAGNESIUM LEVEL 1.9 MG/DL (1.8-2.4)
[2019-06-05] MEDS ORDERED: MIRALAX *UNIT DOSE* 17GM PACKET PO PRN (02:45)
[2019-06-05] MEDS ORDERED: PILL CUTTER 1 EACH XX PRN (03:30)
[2019-06-05 04:00] VITALS: BP 137/69
[2019-06-05] MEDS: guaiFENesin 200 MG TAB PO SCH (05:07)
[2019-06-05 05:54] LABS: HEMOGLOBIN 13.3 g/dl (12.0-15.5); MEAN CORPUSCULAR HEMOGLOBIN 31.7 pg (27.0-33.0); MEAN CORPUSCULAR HGB CONC 32.4 g/dl (32.0-36.5); MEAN CORPUSCULAR VOLUME 97.9 fl (80.0-96.0); PLATELET COUNT, AUTOMATED 369 10^3/uL (150-450); RED BLOOD COUNT 4.19 10^6/uL (4.00-5.40); WHITE BLOOD COUNT 6.5 10^3/uL (4.0-10.0)
[2019-06-05 06:17] LABS: HEMOGLOBIN A1c 5.5 %
[2019-06-05 06:19] LABS: BLOOD UREA NITROGEN 9 MG/DL (7-18); CALCIUM LEVEL 9.5 MG/DL (8.5-10.1); CARBON DIOXIDE LEVEL 23 MEQ/L (21-32); CHLORIDE LEVEL 107 MEQ/L (98-107); GLOMERULAR FILTRATION RATE > 60.0 (>51); GLUCOSE, FASTING 165 MG/DL (70-100); POTASSIUM SERUM 4.6 MEQ/L (3.5-5.1); SODIUM LEVEL 138 MEQ/L (136-145)
[2019-06-05] MEDS: SLF 3 ML SYR IV SCH ×3 (06:37→21:34)
--- NOTE | 2019-06-05 07:19 | ECGEPIP ---
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
[2019-06-05 08:00] VITALS: BP 160/66
[2019-06-05] MEDS: NICOTINE 14 MG/24 HR TRANSDERMAL TD SCH (08:07)
[2019-06-05] MEDS: ENOXAPARIN 40 MG/0.4 ML SYRINGE (J1650) SC SCH (08:08)
[2019-06-05] MEDS: ACETAMINOPH W/CODEINE #3 TAB UD PO PRN (08:08)
[2019-06-05] MEDS: PANTOPRAZOLE 40MG TAB (PROTONIX) PO SCH (08:10)
[2019-06-05] MEDS ORDERED: ALBUTEROL SULFATE 2.5 MG/0.5 ML INH NEB SOLN NEB PRN (09:00)
[2019-06-05] MEDS ORDERED: predniSONE 20 MG TAB PO SCH (09:00)
[2019-06-05] MEDS: guaiFENesin/CODEINE SYRUP 5 ML UDC PO PRN ×4 (09:11→21:35)
--- NOTE | 2019-06-05 10:33 | IPNPDOC ---
Subjective Date Seen The patient was seen on 06/05/19. Subjective Chief Complaint/HPI Patient complaining of increasing shortness of breath, wheezing, persistent cough, not able to sleep or lie down General: Denies: ROS Unobtainable, Chills, Night Sweats, Fatigue, Malaise, Normal Appetite, Other Symptoms Constitutional: Reports: Weakness, Fatigue Eyes: Denies: Pain, Vision change, Conjunctivae inflammation, Eyelid inflammation, Redness, Other ENT: Denies: Head Aches, Ear Pain, Dysphagia, Sinus Congestion, Post Nasal Drip, Sore Throat, Epistaxis, Other Symptoms Skin: Denies: Rash, Lesions, Jaundice, Bruising, Itching, Dry, Breakdown, Nail Changes, Other Pulmonary: Reports: Dyspnea, Cough, Pleuritic Chest Pain Cardiovascular: Denies: Chest Pain, Palpitations, Orthopnea, Paroxysmal Noc. Dyspnea, Edema, Lt Headedness, Other Symptoms Gastrointestinal: Denies: Nausea, Vomiting, Abdominal Pain, Diarrhea, Constipation, Melena, Hematochezia, Other Symptoms Genitourinary: Denies: Dysuria, Frequency, Incontinence, Hematuria, Retention, Other Symptoms Hematologic: Denies: Bruising, Bleeding Excessively, Petecchia, Purpura, Enlarged Lymph Nodes, Other Hematologic Musculoskeletal: Denies: Neck Pain, Back Pain, Shoulder Pain, Arm Pain, Hand Pain, Leg Pain, Foot Pain, Joint Pain, Muscle Pain, Spasms, Other Symptoms Neurological: Denies: Weakness, Numbness, Incoordination, Change in speech, Confusion, Seizures, Other Symptoms Objective Physical Examination General Exam: Positive: Alert, Cooperative Eye Exam: Positive: PERRLA, Conjunctiva & lids normal Chest Exam: Positive: Wheezing (Jacquelyn to expiratory wheezing) Heart Exam: Positive: Rate Normal, Normal S1, Normal S2 Abdomen Exam: Positive: Normal bowel sounds, Soft, Tenderness Extremity Exam: Positive: Normal pulses Neuro Exam: Positive: Normal Gait, Normal Speech Assessment /Plan Problems (1) COPD with acute exacerbation Status: Acute Problem Text: Change by mouth prednisone to IV Solu-Medrol 60 mg IV every 6 hours Changed due to unable to every 4 hours as this as a scheduled and every 2 hours when necessary Added Robitussin with codeine when necessary for cough , Tylenol when necessary for pleuritic pain Continue aggressive pulmonary treatment as per orders Patient's pulse ox still remains 97% on room air Plan/VTE VTE Prophylaxis Ordered?: Yes VS, I&O, 24H, Fishbone Vital Signs/I&O Vital Signs Date Time Temp Pulse Resp B/P (MAP) Pulse Ox O2 Delivery O2 Flow Rate FiO2 06/05/19 08:38 16 06/05/19 08:00 98.0 100 160/66 (97) 96 06/05/19 00:27 Room Air I&O- Last 24 Hours up to 6 AM 06/05/19 06:00 Intake Total 360 ml Output Total 400 ml Balance -40 ml Laboratory Data 24H LABS Laboratory Tests 2 06/04/19 18:08: Blood Gas Bicarbonate Standard 22.1, Arterial Blood pH 7.427, Arterial Blood Partial Pressure CO2 31.9L, Arterial Blood Partial Pressure O2 91.1, Arterial Blood Total CO2 21.5L, Arterial Blood HCO3 20.6L, Arterial Blood Base Excess - 2.9L, Arterial Blood Oxygen Saturation 97.3 06/04/19 18:09: Immature Granulocyte % (Auto) 0.5, White Blood Count 8.3, Red Blood Count 4.38, Hemoglobin 14.1, Hematocrit 42.6, Mean Corpuscular Volume 97.3H, Mean Corpuscular Hemoglobin 32.2, Mean Corpuscular Hemoglobin Concent 33.1, Red Cell Distribution Width 13.7, Platelet Count 366, Neutrophils (%) (Auto) 60.1, Lymphocytes (%) (Auto) 21.8L, Monocytes (%) (Auto) 10.3H, Eosinophils (%) (Auto) 5.6H, Basophils (%) (Auto) 1.7H, Neutrophils # (Auto) 5.0, Lymphocytes # (Auto) 1.8, Monocytes # (Auto) 0.9H, Eosinophils # (Auto) 0.5, Basophils # (Auto) 0.1, Nucleated Red Blood Cells % (auto) 0.0, Anion Gap 7L, Glomerular Filtration Rate > 60.0, Blood Urea Nitrogen 6L, Creatinine 0.59, Sodium Level 141, Potassium Level 5.4H, Chloride Level 110H, Carbon Dioxide Level 24, Calcium Level 9.6, LL-Tka-G-Type Natriuretic Peptide 155H 06/05/19 00:58: Bedside Glucose (Misc Panel) 329H 06/05/19 01:14: Magnesium Level 1.9 06/05/19 05:36: Nucleated Red Blood Cells % (auto) 0.0, Anion Gap 8, Glomerular Filtration Rate > 60.0, Estimated Mean Plasma Glucose 111H, Hemoglobin A1c 5.5, Blood Urea Nitrogen 9, Creatinine 0.80, Sodium Level 138, Potassium Level 4.6#, Chloride Level 107, Carbon Dioxide Level 23, Calcium Level 9.5 CBC/BMP Laboratory Tests 06/04/19 18:09 Red Blood Count 4.38, Mean Corpuscular Volume 97.3 H, Mean Corpuscular Hemoglobin 32.2, Mean Corpuscular Hemoglobin Concent 33.1, Red Cell Distribution Width 13.7, Neutrophils (%) (Auto) 60.1, Lymphocytes (%) (Auto) 21.8 L, Monocytes (%) (Auto) 10.3 H, Eosinophils (%) (Auto) 5.6 H, Basophils (%) (Auto) 1.7 H, Neutrophils # (Auto) 5.0, Lymphocytes # (Auto) 1.8, Monocytes # (Auto) 0.9 H, Eosinophils # (Auto) 0.5, Basophils # (Auto) 0.1, Calcium Level 9.6 06/05/19 01:14 06/05/19 05:36 Red Blood Count 4.19, Mean Corpuscular Volume 97.9 H, Mean Corpuscular Hemoglobin 31.7, Mean Corpuscular Hemoglobin Concent 32.4, Red Cell Distribution Width 13.7, Calcium Level 9.5 SANTY MCKEE MD Jun 05, 2019 10:33
[2019-06-05 12:00] VITALS: BP 137/60
[2019-06-05] MEDS: methylPREDNISolone INJ 125 MG/2 ML VIAL (J2930) IV SCH ×2 (14:05→21:34)
[2019-06-05 16:00] VITALS: BP 119/59
[2019-06-05 20:00] VITALS: BP 134/63
[2019-06-05] MEDS: POLYVINYL ALCOHOL OPHTH SOLN 15 ML(LIQUITEARS) OU SCH (21:34)
[2019-06-05] MEDS: zolPIDEM TARTRATE 5 MG TAB PO PRN (23:29)
[2019-06-06] VITALS: BP 152/68
[2019-06-06] MEDS: IPRATROPIUM 0.5MG/ALBUTEROL 2.5MG INH SOL UD 3ML (DUONEB)(J7620) NEB SCH ×3 (00:06→07:16)
[2019-06-06] MEDS ORDERED: RAMELTEON 8 MG TAB (ROZEREM) PO ONE (01:45)
[2019-06-06] MEDS: methylPREDNISolone INJ 125 MG/2 ML VIAL (J2930) IV SCH ×4 (03:50→20:44)
[2019-06-06] MEDS: SLF 3 ML SYR IV SCH ×3 (03:55→20:45)
[2019-06-06] MEDS: PERCOCET 5MG/325MG TAB PO PRN ×2 (03:55→15:05)
[2019-06-06 04:00] VITALS: BP 122/56
[2019-06-06 08:00] VITALS: BP 140/58
[2019-06-06] MEDS: LEVALBUTEROL 1.25 MG/0.5 ML CONCENTRATE NEB NEB SCH ×2 (08:00→09:00)
[2019-06-06] MEDS: HumaLOG INSULIN (NovoLOG) PER UNIT SC SCH ×4 (08:41→20:47)
[2019-06-06] MEDS: NICOTINE 14 MG/24 HR TRANSDERMAL TD SCH (08:42)
[2019-06-06] MEDS: ENOXAPARIN 40 MG/0.4 ML SYRINGE (J1650) SC SCH (08:42)
[2019-06-06] MEDS: LITHIUM CARBONATE 300 MG CAP PO SCH ×2 (08:42→20:46)
[2019-06-06] MEDS: PANTOPRAZOLE 40MG TAB (PROTONIX) PO SCH (08:42)
[2019-06-06] MEDS: POLYVINYL ALCOHOL OPHTH SOLN 15 ML(LIQUITEARS) OU SCH ×3 (08:43→20:46)
[2019-06-06] MEDS ORDERED: guaiFENesin/CODEINE SYRUP 5 ML UDC PO ONE (09:00)
[2019-06-06] MEDS: guaiFENesin 200 MG TAB PO SCH (09:00)
[2019-06-06] MEDS ORDERED: ACETAMINOPHEN TAB 650MG DOSE (2X325MG) PO PRN (09:45)
[2019-06-06] MEDS ORDERED: ACETAMINOPHEN 500 MG TAB PO ONE (10:00)
[2019-06-06] MEDS: LEVALBUTEROL 1.25 MG/0.5 ML CONCENTRATE NEB INH SCH ×4 (11:04→23:49)
[2019-06-06 12:00] VITALS: BP 125/58
--- NOTE | 2019-06-06 12:24 | IPN ---
DATE OF SERVICE: 06/06/2019 SUBJECTIVE: The patient complains of headache which is diffuse. No photophobia, fever or chills overnight. She continues to have shortness of breath, palpitations and expiratory wheezing present. Some improvement, responding to nebulizers, but complains of some tremors and palpitations on albuterol. Temperature 98.1, pulse 114, sinus rhythm, respiratory rate 22, systolic blood [id number] and 97% on room air. Generally awake, alert and oriented times three, answering questions appropriately. No use of accessory muscles. No nasal flaring. The patient is having tripod positioning sitting at the bedside of 90 degrees elevation. Lungsare diminished with prolonged expirations and bilateral wheezing. Abdomen issoft, nontender, nondistended. Positive bowel sounds. Heart: S1 and S2, sinustachycardia. Extremities with no cyanosis, clubbing or any pitting edema. Hospital Medications: - Xopenex- Tylenol- Artificial Tear- Solu-Medrol- Lovenox- Protonix- Singer- nicotine- Robitussin- Tylenol #3- Humalog insulin- MiraLAX- Percocet- Ambien- Teschris Warner Laboratory Data: White count 6.5, hemoglobin 13, hematocrit 41, platelet count 369. Sodium 138, potassium 4.6, chloride 107, bicarbonate 23, BUN 9, creatinine 0.8, glucose 165, A1c 5.5. Microbiology: Human Rhinovirus 06/05/2019. Chest x-ray 06/04/2019 with no active disease. ASSESSMENT AND PLAN: This is a 58-year-old female with history of chronic obstructive pulmonary disease (COPD) who follows with a driver license reviewing officer as outpatient who presents with increasing shortness of breath and found to have the following acute issues. 1. Acute exacerbation of COPD secondary to human rhinovirus. The patient still is clinically decompensated and still requires intravenous Solu-Medrol 60 mg every 6 hours. Nebulizer treatments will be changed to Xopenex due to palpitations and sinus tachycardia. Robitussin with codeine as needed. Pulmonary toilet. Will monitor clinically. 2. Headache. As needed Tylenol. 3. Bipolar disorder. Continue on lithium. 4. Fibromyalgia. Continue on current pain medications, but monitor for hypercapnia, altered mental status. 5. Non insulin type 2 diabetes. Currently on sliding scale. Titrate according to sliding scale for better glycemic control. MTDD
[2019-06-06] MEDS: LEVALBUTEROL 1.25 MG/0.5 ML CONCENTRATE NEB INH PRN (17:11)
[2019-06-06 20:30] VITALS: BP 112/58
[2019-06-06] MEDS: guaiFENesin/CODEINE SYRUP 5 ML UDC PO PRN (21:10)
[2019-06-06 22:58] VITALS: BP 111/54
[2019-06-07] MEDS: zolPIDEM TARTRATE 5 MG TAB PO PRN (00:02)
[2019-06-07] MEDS: ACETAMINOPH W/CODEINE #3 TAB UD PO PRN (00:03)
[2019-06-07 02:00] VITALS: BP 115/64
[2019-06-07] MEDS ORDERED: LORazepam 2 MG/ML VIAL (J2060) IV ONE (02:00)
[2019-06-07] MEDS: methylPREDNISolone INJ 125 MG/2 ML VIAL (J2930) IV SCH ×4 (02:06→20:55)
[2019-06-07] MEDS: LEVALBUTEROL 1.25 MG/0.5 ML CONCENTRATE NEB INH SCH ×4 (02:26→15:13)
[2019-06-07 06:00] VITALS: BP 118/67
[2019-06-07] MEDS: SLF 3 ML SYR IV SCH ×3 (06:04→21:03)
[2019-06-07] MEDS: LEVALBUTEROL 1.25 MG/0.5 ML CONCENTRATE NEB INH PRN (06:35)
[2019-06-07] MEDS: ENOXAPARIN 40 MG/0.4 ML SYRINGE (J1650) SC SCH (08:46)
[2019-06-07] MEDS: LITHIUM CARBONATE 300 MG CAP PO SCH ×2 (08:47→20:55)
[2019-06-07] MEDS: PANTOPRAZOLE 40MG TAB (PROTONIX) PO SCH (08:47)
[2019-06-07] MEDS: guaiFENesin 200 MG TAB PO SCH (08:47)
[2019-06-07] MEDS: HumaLOG INSULIN (NovoLOG) PER UNIT SC SCH ×4 (08:48→20:59)
[2019-06-07] MEDS: POLYVINYL ALCOHOL OPHTH SOLN 15 ML(LIQUITEARS) OU SCH ×3 (09:00→20:59)
[2019-06-07 09:36] LABS: BLOOD UREA NITROGEN 14 MG/DL (7-18); CALCIUM LEVEL 9.5 MG/DL (8.5-10.1); CARBON DIOXIDE LEVEL 24 MEQ/L (21-32); CHLORIDE LEVEL 107 MEQ/L (98-107); CREATININE FOR GFR 0.73 MG/DL (0.55-1.30); GLOMERULAR FILTRATION RATE > 60.0 (>51); GLUCOSE, FASTING 121 MG/DL (70-100); POTASSIUM SERUM 4.1 MEQ/L (3.5-5.1); SODIUM LEVEL 140 MEQ/L (136-145)
[2019-06-07] MEDS: NICOTINE 14 MG/24 HR TRANSDERMAL TD SCH (12:39)
[2019-06-07 14:00] VITALS: BP 136/61
--- NOTE | 2019-06-07 16:58 | IPNPDOC ---
Text Note Date of Service The patient was seen on 06/07/19. NOTE Subjective: Reporting rib pain from incessant coughing Otherwise no palpitations, productive sputum, subjective fevers, chills, somnolence ROS: 12 point review of system was reviewed and was notable for relatively dry cough, chest wall pain, wheezing, post nasal drip, with all other elements being normal. Objective: Vitals: Please see below GENERAL APPEARANCE: Well-nourished, well-developed, speaking in short sentences with pauses of coughing spells HEENT: Normocephalic, atraumatic, MMM CARDIOVASCULAR: Regular rate and rhythm. No murmurs, rubs or gallops. No pitting edema on the lower extremities LUNGS: Patient is able to speak short sentences, on room air, not labored but with frequent prolonged coughing spells, diffuse expiratory wheezing bilaterally without crackles. ABDOMEN: Soft and nontender on palpation MUSCULOSKELETAL: There is a postsurgical scar at the left knee. The right knee is swollen, and reportedly at baseline per patient NEUROLOGICAL:Cranial nerves 2-12 intact. Normal gait PSYCHIATRIC: Alert and oriented to person, place and time, able to understand and follow commands LABORATORY DATA: See below. IMAGING: Reviewed, no new imaging in the last 24h MICROBIOLOGY: Please see below. 58-year-old woman with a history of COPD who follows with a lens maker as outpatient who presented with increasing shortness of breath and was found have a rhinovirus URI. 1. Acute exacerbation of COPD secondary to human rhinovirus. While she has no hypoxemia, she continues to have diffuse wheezing with a persistent cough and will treat. -day 3 of solumedrol 60 every 6 hours. -continue Xopenex nebs. -Robitussin with codeine as needed. -Pulmonary toilet. 2. Bipolar disorder. Continue on lithium. 3. Fibromyalgia. Continue on current pain medications, with close monitoring for hypercapnia, altered mental status. 4. Non insulin type 2 diabetes. Sliding scale insulin DVT prophylaxis: lovenox Diet: Regular Dispo: pending clinical improvement VS,Fishbone, I+O VS, Fishbone, I+O Laboratory Tests 06/07/19 08:46 Calcium Level 9.5 Vital Signs Date Time Temp Pulse Resp B/P (MAP) Pulse Ox O2 Delivery O2 Flow Rate FiO2 06/07/19 14:00 97.5 78 17 136/61 (86) 98 06/05/19 00:27 Room Air I&O- Last 24 Hours up to 6 AM 06/07/19 06:00 Intake Total 240 ml Output Total 500 ml Balance -260 ml HONG STEVEN MD Jun 07, 2019 16:58
[2019-06-07] MEDS: hydrOXYzine 50 MG TAB PO PRN (17:19)
[2019-06-07 20:00] VITALS: BP 114/57
[2019-06-08] VITALS: BP 113/61
[2019-06-08] MEDS: hydrOXYzine 50 MG TAB PO PRN (00:48)
[2019-06-08] MEDS: methylPREDNISolone INJ 125 MG/2 ML VIAL (J2930) IV SCH (03:49)
[2019-06-08] MEDS: SLF 3 ML SYR IV SCH (03:50)
[2019-06-08] MEDS: PERCOCET 5MG/325MG TAB PO PRN ×2 (03:53→08:30)
[2019-06-08 06:00] VITALS: BP 143/69
[2019-06-08] MEDS: LEVALBUTEROL 1.25 MG/0.5 ML CONCENTRATE NEB INH SCH ×2 (07:18→11:44)
[2019-06-08 07:34] LABS: HEMATOCRIT 36.7 % (36.0-47.0); HEMOGLOBIN 11.5 g/dl (12.0-15.5); MEAN CORPUSCULAR HEMOGLOBIN 30.8 pg (27.0-33.0); MEAN CORPUSCULAR HGB CONC 31.3 g/dl (32.0-36.5); MEAN CORPUSCULAR VOLUME 98.4 fl (80.0-96.0); PLATELET COUNT, AUTOMATED 320 10^3/uL (150-450); RED BLOOD COUNT 3.73 10^6/uL (4.00-5.40)
[2019-06-08 07:57] LABS: BLOOD UREA NITROGEN 14 MG/DL (7-18); CALCIUM LEVEL 8.6 MG/DL (8.5-10.1); CARBON DIOXIDE LEVEL 26 MEQ/L (21-32); CHLORIDE LEVEL 109 MEQ/L (98-107); CREATININE FOR GFR 0.64 MG/DL (0.55-1.30); GLOMERULAR FILTRATION RATE > 60.0 (>51); GLUCOSE, FASTING 120 MG/DL (70-100); POTASSIUM SERUM 4.5 MEQ/L (3.5-5.1); SODIUM LEVEL 139 MEQ/L (136-145)
[2019-06-08] MEDS: PANTOPRAZOLE 40MG TAB (PROTONIX) PO SCH (08:23)
[2019-06-08] MEDS: LITHIUM CARBONATE 300 MG CAP PO SCH (08:23)
[2019-06-08] MEDS: guaiFENesin 200 MG TAB PO SCH (08:24)
[2019-06-08] MEDS: NICOTINE 14 MG/24 HR TRANSDERMAL TD SCH (08:24)
[2019-06-08] MEDS: HumaLOG INSULIN (NovoLOG) PER UNIT SC SCH ×2 (08:24→12:00)
[2019-06-08] MEDS: ENOXAPARIN 40 MG/0.4 ML SYRINGE (J1650) SC SCH (08:25)
[2019-06-08] MEDS: POLYVINYL ALCOHOL OPHTH SOLN 15 ML(LIQUITEARS) OU SCH (08:25)
[2019-06-08] MEDS ORDERED: predniSONE 20 MG TAB PO SCH (09:00)
[2019-06-08] MEDS ORDERED: PRED20TA PO (11:23)
[2019-06-08] MEDS ORDERED: GUAI20TA PO (11:23)
[2019-06-08] MEDS ORDERED: BENZ-18 PO (11:23)
--- NOTE | 2019-06-08 13:14 | DS.PDOC ---
Discharge Summary General Date of Admission Jun 04, 2019 at 23:37 Date of Discharge 06/08/2019 Attending Physician: HONG STEVEN MD Discharge Summary PROCEDURES PERFORMED DURING STAY: [None]. ADMITTING DIAGNOSES: 1. COPD exacerbation DISCHARGE DIAGNOSES: 1. Acute rhinovirus upper respiratory illness 2. Acute COPD exacerbation 3. Diabetes mellitus 4. Bipolar disorder 5. Fibromyalgia COMPLICATIONS/CHIEF COMPLAINT: Copd W/Acute Exacerbation. HISTORY OF PRESENT ILLNESS: 58-year-old woman with COPD with frequent admissions for exacerbations sometimes requiring intubation, current smoker who presented to the ED with shortness of breath associated with cough productive of green- yellow sputum, body aches, subjective fever and chills, runny nose, and headache, of 3 days duration. Of note, her granddaughter has an upper respiratory tract infection and has been spending a lot of time with her. HOSPITAL COURSE: In the ED she received decadron and nebs without much improvement thus the decision to admit her. She was admitted to the floor in mild distress without hypoxemia. She was diffusely wheeze with an incessant cough. Respiratory virus panel showed a rhinovirus infection and she was supported with Tessalon Pearls, tylenol with codeine, guaifenesin, while on Xenopex nebs and solumedrol 60Q6h. She had improved greatly by 06/07 afternoon and was transitioned to prednisone 40 mg. She is now being discharged home on a short course of prednisone 40mg for a COPD exacerbation with supporting cough suppressants. The rest of her course was as below. 1. Acute exacerbation of COPD secondary to rhinovirus. -Had 3 days of solumedrol 60 every 6 hours and transitioned to 40mg prednisone daily for a 7 day course. -treated with Xopenex nebs. -Robitussin with codeine as needed. -Pulmonary toilet. 2. Bipolar disorder. Continue home lithium. 3. Fibromyalgia. Continue home pain medications, with close monitoring for hypercapnia, altered mental status. 4. Non insulin type 2 diabetes. Held oral medication and placed on sliding scale insulin DISCHARGE MEDICATIONS: Please see below. ALLERGIES: Please see below. PHYSICAL EXAMINATION ON DISCHARGE: VITAL SIGNS: Please see below. GENERAL APPEARANCE: Well-nourished, well-developed, speaking in full sentences HEENT: Normocephalic, atraumatic, MMM CARDIOVASCULAR: Regular rate and rhythm. No murmurs, rubs or gallops. No pitting edema on the lower extremities LUNGS: Patient is able to speak in full sentences today without much coughing, and remains on room air, mild scattered wheezing, no crackles, no accessory muscle use. ABDOMEN: Soft and nontender on palpation MUSCULOSKELETAL: There is a postsurgical scar at the left knee. The right knee is swollen, and reportedly at baseline per patient NEUROLOGICAL:Cranial nerves 2-12 intact. Normal gait PSYCHIATRIC: Alert and oriented to person, place and time, able to understand and follow commands LABORATORY DATA: See below. IMAGIN06/04/2019 chest xray: Grossly normal chest xray with no acute pulmonary process MICROBIOLOGY: Please see below. Rhinovirus positive PROGNOSIS: Good ACTIVITY: As tolerated DIET: Consistent carbohydrate DISCHARGE PLAN: Home to follow up with PCP and skin therapist DISPOSITION: Home DISCHARGE INSTRUCTIONS: 1. Please make an appointment to see your PCP within a week of hospital discharge. ITEMS TO FOLLOWUP ON ON OUTPATIENT: 1. COPD exacerbation resolution DISCHARGE CONDITION: Good TIME SPENT ON DISCHARGE: Greater than 30 minutes. Vital Signs/I&Os Vital Signs Date Time Temp Pulse Resp B/P (MAP) Pulse Ox O2 Delivery O2 Flow Rate FiO2 06/08/19 09:00 20 06/08/19 06:00 96.4 53 143/69 (93) 95 06/05/19 00:27 Room Air I&O- Last 24 Hours up to 6 AM 06/08/19 06:00 Intake Total 1440 ml Balance 1440 ml Laboratory Data Labs 24H Laboratory Tests 2 06/07/19 17:13: Bedside Glucose (Misc Panel) 114H 06/07/19 19:51: Bedside Glucose (Misc Panel) 156H 06/08/19 07:10: Nucleated Red Blood Cells % (auto) 0.0, Anion Gap 4L, Glomerular Filtration Rate > 60.0, Blood Urea Nitrogen 14, Creatinine 0.64, Sodium Level 139, Potassium Level 4.5, Chloride Level 109H, Carbon Dioxide Level 26, Calcium Level 8.6 06/08/19 11:28: Bedside Glucose (Misc Panel) 96 CBC/BMP Laboratory Tests 06/08/19 07:10 Red Blood Count 3.73 L, Mean Corpuscular Volume 98.4 H, Mean Corpuscular He moglobin 30.8, Mean Corpuscular Hemoglobin Concent 31.3 L, Red Cell Distribution Width 14.1, Calcium Level 8.6 FSBS Laboratory Tests Test 06/07/19 17:13 06/07/19 19:51 06/08/19 11:28 Range/Units Bedside Glucose (Misc Panel) 114 156 96 70-105 MG/DL Microbiology Microbiology 06/05/19 Respiratory Virus Panel (PCR) ([facility]) - Final, Complete Human Rhinovirus/Enterovirus Discharge Medications Scheduled Alendronate Sodium (Fosamax) 70 Mg Tab, 70 MG PO QWEEK, (Reported) TUESDAY Esomeprazole Magnesium (Nexium) 10 Mg Suspdr.pkt, 10 MG PO DAILY, (Reported) Guaifenesin (Guaifenesin) 200 Mg Tablet, 100 MG PO DAILY [place] Carbonate ([place] Carbonate) 300 Mg Capsule, 300 MG PO DAILY, (Reported) [place] Carbonate ([place] Carbonate) 300 Mg Capsule, 600 MG PO QHS, (Reported) Prednisone (Prednisone) 20 Mg Tablet, 40 MG PO DAILY Umeclidinium [place] (Incruse Ellipta) 62.5 Mcg Blst.w.dev, 1 PUFF INH DAILY, (Reported) Scheduled PRN Acetaminophen (Acetaminophen) 325 Mg Tab, 650 MG PO Q4H PRN for PAIN, (Reported) Acetaminophen with Codeine (Acetaminophen-Cod #3 Tablet) 1 Each Tablet, 1 TAB PO Q6H PRN for PAIN, (Reported) Albuterol Sulfate (Proair Hfa) 108 Mcg/Act Aer, 2 PUFF INH Q4H PRN for SHORTNESS OF BREATH, (Reported) Benzonatate (Benzonatate) 100 Mg Capsule, 200 MG PO Q6HP PRN for cough Diphenhydramine HCl (Diphenhydramine HCl) 25 Mg Capsule, 25 MG PO Q6H PRN for ITCHING, (Reported) Epinephrine (Epinephrine) 0.3 Mg/0.3 Ml Auto.injct, 1 SYRINGE IM ONCE PRN for ALLERGIC REACTION, (Reported) Oxycodone HCl/Acetaminophen (Oxycodone-Acetaminophen 5-325) 1 Each Tablet, 1 TAB PO Q4H PRN for PAIN, (Reported) Zolpidem Tartrate (Ambien) 5 Mg Tablet, 5 MG PO QHS PRN for SLEEP, (Reported) Allergies Coded Allergies: ibuprofen (Verified Allergy, Severe, SOB hives DYSPNEA, 6/5/19) Penicillins (Verified Allergy, Intermediate, hives, 02/28/19) HONG STEVEN MD Jun 08, 2019 13:14
== END 2019-06-08 14:25 | disposition home or self-care (01) | DRG 140 ==
LOC: M ED 17:35 → M ED INP 23:37 → M PCU 06-05 00:38 → M MS4PR 06-06 22:40
PROVIDERS: ADMIT Internal Medicine; ATTEND Internal Medicine
DX: J44.1 Chronic obstructive pulmonary disease with (acute) exacerbation (principal); E11.51 Type 2 diabetes mellitus with diabetic peripheral angiopathy without gangrene; E87.5 Hyperkalemia; M79.7 Fibromyalgia; F31.9 Bipolar disorder, unspecified; F17.200 Nicotine dependence, unspecified, uncomplicated; B97.89 Other viral agents as the cause of diseases classified elsewhere; Z79.899 Other long term (current) drug therapy; Z88.0 Allergy status to penicillin; Z88.6 Allergy status to analgesic agent

== ENCOUNTER → 2019-06-25 | Outpatient (REF) | payer OTHER ==
[~2019-06-25] MED LIST changes: +ACET1TAB16 PO; +EPIN0.3I11 IM; +GUAI20TA PO; +INCR1INH INH; +NEXI10GR PO
[2019-06-25 12:10] LABS: BASO # 0.1 10^3/uL (0.0-0.2); BASO % 0.6 % (0.0-1.0); EOS # 0.2 10^3/uL (0.0-0.5); EOS % 1.8 % (0.0-3.0); HEMATOCRIT 39.1 % (36.0-47.0); HEMOGLOBIN 12.6 g/dl (12.0-15.5); LYMPH # 3.7 10^3/uL (1.5-5.0); LYMPH % 32.1 % (24.0-44.0); MEAN CORPUSCULAR HEMOGLOBIN 32.6 pg (27.0-33.0); MEAN CORPUSCULAR HGB CONC 32.2 g/dl (32.0-36.5); NEUTROPHILS # 6.5 10^3/uL (1.5-8.5); NEUTROPHILS % 56.2 % (36.0-66.0); PLATELET COUNT, AUTOMATED 283 10^3/uL (150-450); RED BLOOD COUNT 3.87 10^6/uL (4.00-5.40); WHITE BLOOD COUNT 11.6 10^3/uL (4.0-10.0)
[2019-06-25 12:33] LABS: ALBUMIN 3.8 GM/DL (3.2-5.2); ALT/SGPT 16 U/L (12-78); BILIRUBIN,TOTAL 0.2 MG/DL (0.2-1.0); BLOOD UREA NITROGEN 7 MG/DL (7-18); C REACTIVE PROTEIN QUANTITATIV < 0.30 MG/DL (0.00-0.30); CALCIUM LEVEL 9.7 MG/DL (8.5-10.1); CARBON DIOXIDE LEVEL 26 MEQ/L (21-32); CHLORIDE LEVEL 107 MEQ/L (98-107); CREATININE FOR GFR 0.56 MG/DL (0.55-1.30); GLOMERULAR FILTRATION RATE > 60.0 (>51); GLUCOSE, FASTING 76 MG/DL (70-100); SODIUM LEVEL 140 MEQ/L (136-145); TOTAL PROTEIN 6.9 GM/DL (6.4-8.2)
[2019-06-25 12:54] LABS: ERYTHROCYTE SEDIMENTATION RATE 17 mm/hr (0-30)
== END ==
LOC: M LABDRAW1 11:38
PROVIDERS: ATTEND Physician Assistant Medical
DX: Z96.652 Presence of left artificial knee joint (principal)

== ENCOUNTER 2019-11-26 11:31 | Inpatient (IN) | payer OTHER ==
[~2019-11-26] VITALS: Ht 157.5 cm; Wt 66.6 kg
[2019-11-26] MEDS ORDERED: methylPREDNISolone INJ 125 MG/2 ML VIAL (J2930) IV ONE (12:15)
[2019-11-26 12:19] LABS: BASO # 0.1 10^3/uL (0.0-0.2); BASO % 1.3 % (0.0-1.0); EOS # 0.4 10^3/uL (0.0-0.5); EOS % 4.3 % (0.0-3.0); HEMATOCRIT 39.5 % (36.0-47.0); HEMOGLOBIN 12.9 g/dl (12.0-15.5); LYMPH # 3.5 10^3/uL (1.5-5.0); LYMPH % 36.3 % (24.0-44.0); MEAN CORPUSCULAR HEMOGLOBIN 32.6 pg (27.0-33.0); MEAN CORPUSCULAR HGB CONC 32.7 g/dl (32.0-36.5); MEAN CORPUSCULAR VOLUME 99.7 fl (80.0-96.0); MONO % 9.9 % (0.0-5.0); NEUTROPHILS # 4.7 10^3/uL (1.5-8.5); PLATELET COUNT, AUTOMATED 273 10^3/uL (150-450); RED BLOOD COUNT 3.96 10^6/uL (4.00-5.40); WHITE BLOOD COUNT 9.7 10^3/uL (4.0-10.0)
[2019-11-26] MEDS: IPRATROPIUM 0.5MG/ALBUTEROL 2.5MG INH SOL UD 3ML (DUONEB)(J7620) NEB SCH ×3 (12:44→14:04)
[2019-11-26 12:48] LABS: VENOUS BASE EXCESS -3.6 (-2.0-2.0); VENOUS O2 SATURATION 84.8 % (60.0-80.0); VENOUS PARTIAL PRESSURE O2 47.6 mmHg (30.0-50.0); VENOUS PH 7.414 UNITS (7.330-7.430); VENOUS STANDARD HCO3 21.2 MEQ/L
[2019-11-26 12:50] LABS: INR 0.94; PROTHROMBIN TIME 12.2 SECONDS (11.8-14.0)
[2019-11-26 12:51] LABS: PARTIAL THROMBOPLASTIN TIME 26.2 SECONDS (25.0-38.4)
[2019-11-26 12:52] LABS: INFLUENZA A AMPLIFICATION NEGATIVE (NEGATIVE); INFLUENZA B AMPLIFICATION NEGATIVE (NEGATIVE)
[2019-11-26 12:53] LABS: D-DIMER QUANT 1404.42 ng/ml (<500)
[2019-11-26 12:54] LABS: ALT/SGPT 23 U/L (12-78); BILIRUBIN,DIRECT < 0.1 MG/DL (0.0-0.2); BILIRUBIN,TOTAL 0.3 MG/DL (0.2-1.0); BLOOD UREA NITROGEN 13 MG/DL (7-18); CALCIUM LEVEL 9.1 MG/DL (8.5-10.1); CARBON DIOXIDE LEVEL 25 MEQ/L (21-32); CHLORIDE LEVEL 108 MEQ/L (98-107); CK-MB VALUE MASS 1.6 NG/ML (<3.6); CPK CREATINE PHOSPHOKINASE 159 U/L (26-192); CREATININE FOR GFR 0.69 MG/DL (0.55-1.30); GLOMERULAR FILTRATION RATE > 60.0 (>51); GLUCOSE, FASTING 76 MG/DL (70-100); LIPASE 157 U/L (73-393); MB/CK RELATIVE INDEX 1.01 (< OR =4); POTASSIUM SERUM 4.3 MEQ/L (3.5-5.1); SODIUM LEVEL 139 MEQ/L (136-145); TOTAL PROTEIN 7.2 GM/DL (6.4-8.2); TROPONIN I < 0.02 NG/ML (< 0.10)
[2019-11-26] MEDS ORDERED: ISOVUE-370 76% 100ML VIAL (Q9967) As Ordered ONE (13:18)
[2019-11-26 13:20] LABS: LITHIUM LEVEL < 0.20 MEQ/L (0.60-1.20)
--- NOTE | 2019-11-26 13:43 | REP ---
Bilateral lower extremity Duplex Doppler venous ultrasound: Real time compression and duplex Doppler interrogation of the bilateral lower extremity deep venous system is performed. Bilaterally, the common femoral, superficial femoral and popliteal veins are fully compressible with transducer pressure and demonstrate normal spontaneous and phasic flow, without evidence of deep venous thrombosis. Impression: No evidence of deep venous thrombosis of the bilateral lower extremity femoral popliteal venous system. Electronically Signed by Tera Shah MD 11/26/2019 01:34 P
--- NOTE | 2019-11-26 14:33 | REP ---
CT pulmonary angiogram: With IV contrast. History: Chest pain and shortness of breath. Comparison studies: Comparison CT study November 03, 2018. Contrast dose: 75 mL of Isovue [address] technique: Helical scanning is acquired and overlapping 1.5 mm and contiguous 3 mm axial images are reformatted. In addition, maximum intensity projection and multiplanar re-formation images are generated in sagittal and coronal imaging projections. CT pulmonary angiographic findings: There is good opacification of the pulmonary arterial tree. There is no CT evidence of pulmonary embolus. No evidence of aortic aneurysm or dissection. Vascular calcifications again noted. There are calcified small gallstones in the gallbladder. An accessory splenule is seen in the left upper quadrant. There is no evidence of pleural effusion or upper abdominal ascites. A very small sliding-type hiatal hernia is noted. No hilar or mediastinal mass or adenopathy is observed. There are a few normal-sized mediastinal lymph nodes unchanged. No adrenal lesion is seen. On lung window settings, there is no evidence of pulmonary mass or significant nodule. There are however scattered areas of ground-glass opacity again noted in the lung cagle similar although less extensively than on the prior CT study of November 03, 2018. These may be inflammatory changes. No bony destructive lesion is seen. Impression: There is no CT evidence of pulmonary embolus. Scattered ground-glass opacities again seen in the perihilar distribution of the upper and lower lobes, less prominent than on the prior CT study of November 03, 2018, question inflammatory or infectious changes. Small sliding-type hiatal hernia. Cholelithiasis. Otherwise negative. Electronically Signed by Isaias Valentine MD 11/26/2019 08:05 P
[2019-11-26 15:32] VITALS: O2SAT 94
[2019-11-26] MEDS ORDERED: ALBUTEROL SULFATE 2.5 MG/0.5 ML INH NEB SOLN NEB ONE (15:45)
[2019-11-26] MEDS ORDERED: ESOM20CA25 PO (16:29)
[2019-11-26] MEDS ORDERED: PRED20TA PO (16:29)
[2019-11-26] MEDS ORDERED: TUMS500C PO (16:29)
[2019-11-26] MEDS ORDERED: TESS100C PO (16:29)
[2019-11-26] MEDS ORDERED: KETOROLAC 30 MG/ML VIAL (J1885) IV PRN (17:00)
[2019-11-26] MEDS ORDERED: CALCIUM CARBONATE 500 MG CHEW U/D PO PRN (17:00)
[2019-11-26] MEDS ORDERED: GLUCAGON FOR INJ 1 MG VIAL (J1610) SC PRN (17:00)
[2019-11-26] MEDS ORDERED: DEXTROSE 50% 50 ML SYRINGE IV PRN (17:00)
[2019-11-26] MEDS ORDERED: MOM 30ML SUSPENSION UDC PO PRN (17:00)
[2019-11-26] MEDS ORDERED: GLUCOSE 4 GM CHEW TABLET PO PRN (17:00)
[2019-11-26] MEDS ORDERED: MAALOX 30 ML SUSP *UDC PO PRN (17:00)
[2019-11-26] MEDS ORDERED: ONDANSETRON 4MG/2ML VIAL (J2405) IV PRN (17:00)
[2019-11-26] MEDS ORDERED: KETOROLAC 30 MG/ML VIAL (J1885) IV ONE (18:00)
[2019-11-26] MEDS: HumaLOG INSULIN (NovoLOG) PER UNIT SC SCH ×2 (18:17→19:58)
[2019-11-26] MEDS: ENOXAPARIN 40 MG/0.4 ML SYRINGE (J1650) SC SCH (18:22)
[2019-11-26] MEDS: methylPREDNISolone INJ 40 MG/1 ML VIAL (J2920) IV SCH ×2 (18:22→23:34)
[2019-11-26 19:03] VITALS: BP 143/62
[2019-11-26 20:00] VITALS: BP 132/61
[2019-11-26] MEDS: BUDESONIDE 0.5 MG/2 ML INHALATION SUSPENSION INH SCH (20:14)
[2019-11-26] MEDS: FORMOTEROL FUMARATE 20 MCG/2 ML INHALATION SOLUTION (PERFOROMIST) INH SCH (20:14)
--- NOTE | 2019-11-26 20:17 | HPEPDOC ---
General Date of Admission 11/26/19 Chief Complaint The patient is a 59-year-old female admitted with a reason for visit of Diff Breathing. History of Present Illness 59 year old female smoker with PMH of COPD, not on home oxygen presented with worsening SOB for 2 weeks along with runny nose, cough and congestion for 2 days. She also complained of chest pain off and on inthe central and to the left pleuritic in nature about 7/10 in intensity so had a CT angio of the chest done in the ED which was negative for any PE. Did show scattered ground glass opacities which were less than seen in previous CT. US of both the legs were negative for DVT. she also has 3 tender nodules on the foot. 2 on the planter aspect of the left foot and 1 on the medial side. this is causing her difficulty in walking. These seem to be related to the nerves or tendeon o fthe foot She received 3 neb treatments in the ED still remained very tight and sob so was admitted to the hospital for COPD exacerbation. Home Medications Scheduled Alendronate Sodium (Fosamax) 70 Mg Tab, 70 MG PO QWEEK, (Reported) TUESDAY [place] Carbonate ([place] Carbonate) 300 Mg Capsule, 300 MG PO DAILY, (Reported) [place] Carbonate ([place] Carbonate) 300 Mg Capsule, 600 MG PO QHS, (Reported) Prednisone (Prednisone) 20 Mg Tablet, 60 MG PO QHS, (Reported) PATIENT STARTED HERSELF ON TAPER DOSE FROM LEFT OVER PREDNISONE Umeclidinium [place] (Incruse Ellipta) 62.5 Mcg Blst.w.dev, 1 PUFF INH QHS, (Reported) Scheduled PRN Acetaminophen (Acetaminophen) 325 Mg Tab, 650 MG PO Q4H PRN for PAIN, (Reported) Albuterol Sulfate (Proair Hfa) 108 Mcg/Act Aer, 2 PUFF INH Q4H PRN for SHORTNESS OF BREATH, (Reported) Benzonatate (Tessalon [place]le) 100 Mg Capsule, 100 MG PO TID PRN for COUGH, (Reported) Calcium Carbonate (Tums) 200 Mg Tab.chew, 500 MG PO Q4H PRN for HEARTBURN, (Reported) Diphenhydramine HCl (Diphenhydramine HCl) 25 Mg Capsule, 25 MG PO Q6H PRN for ITCHING, (Reported) Epinephrine (Epinephrine) 0.3 Mg/0.3 Ml Auto.injct, 1 SYRINGE IM ONCE PRN for ALLERGIC REACTION, (Reported) Esomeprazole Magnesium (Esomeprazole Magnesium Dr) 20 Mg Capsule.dr, 20 MG PO DAILY PRN for HEARTBURN, (Reported) Zolpidem Tartrate (Ambien) 5 Mg Tablet, 5 MG PO QHS PRN for SLEEP, (Reported) Allergies Coded Allergies: ibuprofen (Verified Allergy, Severe, SOB hives DYSPNEA, 02/28/19) Penicillins (Verified Allergy, Intermediate, hives, 02/28/19) Past Medical History Medical History Emphysema / COPD, mild pulmonary hypertension Bipolar / Depression steroid related Hyperglycemia Fibromyalgia, Neuropathy, Osteoporosis, Carpal tunnel syndrome Status post carpal tunnel surgery, Status post 3 Status post tonsillectomy Left Total knee arthroplasty h/o hyperlipidemia not on any meds. Family History Coronary artery disease. Diabetes Cancer Social History * Smoker: current smoker Alcohol: Denies Drugs: denies A-FIB/CHADSVASC A-FIB History Current/History of A-Fib/PAF?: No Review of Systems Constitutional: Reports: Fever, Weakness, Fatigue Eyes: Denies: Pain, Vision change ENT: Reports: Sinus Congestion Skin: Reports: Lesions (on the left foot nodules); Denies: Rash, Breakdown Pulmonary: Reports: Dyspnea, Cough, Pleuritic Chest Pain Cardiovascular: Reports: Chest Pain; Denies: Orthopnea, Paroxysmal Noc. Dyspnea, Edema, Lt Headedness Gastrointestinal: Denies: Nausea, Vomiting, Abdominal Pain, Diarrhea Genitourinary: Denies: Dysuria, Frequency, Incontinence, Retention Hematologic: Denies: Bruising, Bleeding Excessively Musculoskeletal: Reports: Back Pain, Shoulder Pain, Foot Pain (left) Neurological: Denies: Weakness, Numbness, Change in speech, Confusion Physical Examination General Exam: Positive: Alert, Cooperative, No Acute Distress Eye Exam: Positive: PERRLA, Conjunctiva & lids normal, EOMI; Negative: Sclera icteric ENT Exam: Positive: Atraumatic, Mucous membr. moist/pink, Pharynx Normal Neck Exam: Positive: Supple; Negative: JVD, thyromegaly Chest Exam: Positive: Rhonchi, Wheezing Heart Exam: Positive: Rate Normal, Regular Rhythm, Normal S1, Normal S2; Negative: Murmurs, Rubs Abdomen Exam: Positive: Normal bowel sounds, Soft; Negative: Tenderness, Hepatospenomegaly Extremity Exam: Positive: Normal pulses; Negative: Clubbing, Cyanosis, Edema Skin Exam: Positive: Other skin issue (nodules on planter aspect of left foot probably neuromas or related to tendons) Neuro Exam: Positive: Normal Speech, Strength at 5/5 X4 ext, Normal Tone, Sensation Intact Vital Signs Vital Signs Date Time Temp Pulse Resp B/P (MAP) Pulse Ox O2 Delivery O2 Flow Rate FiO2 11/26/19 15:32 94 Room Air 11/26/19 15:28 99 20 11/26/19 13:16 127/61 (83) 11/26/19 11:33 97.9 Laboratory Data Labs 24H Laboratory Tests 2 11/26/19 11:57: Immature Granulocyte % (Auto) 0.2, Neutrophils (%) (Auto) 48.0, Lymphocytes (%) (Auto) 36.3, Monocytes (%) (Auto) 9.9H, Eosinophils (%) (Auto) 4.3H, Basophils (%) (Auto) 1.3H, Neutrophils # (Auto) 4.7, Lymphocytes # (Auto) 3.5, Monocytes # (Auto) 1.0H, Eosinophils # (Auto) 0.4, Basophils # (Auto) 0.1, Nucleated Red Blood Cells % (auto) 0.0, Anion Gap 6L, Glomerular Filtration Rate > 60.0, Calcium Level 9.1, Total Bilirubin 0.3, Direct Bilirubin < 0.1, Aspartate Amino Transf (AST/SGOT) 19, Alanine Aminotransferase (ALT/SGPT) 23, Alkaline Phosphatase 81, Total Creatine Kinase 159, Creatine Kinase MB 1.6, Creatine Kinase MB Relative Index 1.01, Troponin I < 0.02, Total Protein 7.2, Albumin 4.0, Albumin/Globulin Ratio 1.25, Lipase 157, [place] Level < 0.20L 11/26/19 12:09: Prothrombin Time 12.2, Prothromb Time International Ratio 0.94, Activated Partial Thromboplast Time 26.2, D-Dimer, Quantitative 1404.42H 11/26/19 12:16: Influenza Type A (RT-PCR) NEGATIVE, Influenza Type B (RT-PCR) NEGATIVE 11/26/19 12:28: Blood Gas Bicarbonate Standard 21.2, Venous Blood pH 7.414, Venous Blood Partial Pressure CO2 32.0L, Venous Blood Partial Pressure O2 47.6, Venous Blood Total Carbon Dioxide 21.0L, Venous Blood HCO3 20.0L, Venous Blood Oxygen Saturation 84.8H, Venous Blood Base Excess -3.6L CBC/BMP Laboratory Tests 11/26/19 11:57 Assessment/Plan 59 year old female smoker with PMH of COPD, not on home oxygen presented with worsening SOB for 2 week along with runny nose, couch and congestion for 2 days. She also complained of chest pain pleuritic in nature so had a CT angio of the chest done in the ED which was negative for any PE. Did show scattered ground glass opacities which were less than seen in previous CT. US of both the legs were negative for DVT. Pateint had been prescribed a course of antibiotics and steroids by PMD last week she took 2 days of those without any improvement. She recieved 3 neb treatments in the ED still remained very tight and sob so was admitted to the hospital for COPD exacerbation. Copd exacerbation will give nebs and steroids, azithromycin. no hypoxia at present, no hypercarbia in VVG. Chest pain musculoskeletal will give tylenol and taradol. Bipolar continue home med [place] Hyperglycemia with steroids will palce on Lispro Ac and HS Fibromyalgia with neuropathy tylenol and tramadol GERD PPI Tobacco dependence Discussed smoking cessation and offered nicotine patches says will ask for it if she needs it. ?Neuromas on the left foot outpatient referral to surgery. Plan / VTE VTE Prophylaxis Ordered?: Yes LISA GLASS MD Nov 26, 2019 15:55
[2019-11-26] MEDS: AZITHROMYCIN 250 MG TAB PO SCH (20:20)
[2019-11-26] MEDS: DOCUSATE SODIUM 100 MG CAP PO SCH (20:20)
[2019-11-26] MEDS: PANTOPRAZOLE 40MG TAB (PROTONIX) PO SCH (20:20)
[2019-11-26] MEDS: ACETAMINOPHEN 500 MG TAB PO PRN (20:21)
[2019-11-26] MEDS: LITHIUM CARBONATE 300 MG CAP PO SCH (20:21)
--- NOTE | 2019-11-26 20:52 | ECGEPIP ---
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
[2019-11-26] MEDS: traMADol 50 MG TAB PO PRN (23:37)
[2019-11-27] MEDS: methylPREDNISolone INJ 40 MG/1 ML VIAL (J2920) IV SCH ×4 (05:35→23:26)
[2019-11-27 05:47] VITALS: BP 147/70
[2019-11-27] MEDS: ALBUTEROL SULFATE 2.5 MG/0.5 ML INH NEB SOLN NEB PRN ×2 (06:56→14:32)
[2019-11-27] MEDS: traMADol 50 MG TAB PO PRN ×2 (07:10→19:20)
[2019-11-27] MEDS: ACETAMINOPHEN 500 MG TAB PO PRN ×2 (07:10→23:27)
[2019-11-27] MEDS: HumaLOG INSULIN (NovoLOG) PER UNIT SC SCH ×4 (07:30→20:40)
[2019-11-27] MEDS: LITHIUM CARBONATE 300 MG CAP PO SCH ×2 (08:23→20:46)
[2019-11-27] MEDS: DOCUSATE SODIUM 100 MG CAP PO SCH ×2 (08:23→20:46)
[2019-11-27] MEDS: PANTOPRAZOLE 40MG TAB (PROTONIX) PO SCH ×2 (08:23→20:46)
[2019-11-27] MEDS: ENOXAPARIN 40 MG/0.4 ML SYRINGE (J1650) SC SCH (08:24)
[2019-11-27] MEDS ORDERED: NICOTINE 21MG/24HR 1 EA TRANSDERMAL TD PRN (09:00)
--- NOTE | 2019-11-27 10:41 | IPNPDOC ---
Subjective Date Seen The patient was seen on 11/27/19. Subjective Chief Complaint/HPI continues to have SOB and Chest pain with coughing or deep breaths. As per nurses she was upset and scream in the morning.asking for her meds when they were brought to her she did not want them. As per nurses her behaviour is very labile. No fever or chills. no nausea or vomiting or diarreha. Does no have much appetite today. Objective Physical Examination General Exam: Positive: Alert, Cooperative, No Acute Distress Eye Exam: Positive: PERRLA, Conjunctiva & lids normal, EOMI; Negative: Sclera icteric ENT Exam: Positive: Atraumatic, Mucous membr. moist/pink, Pharynx Normal Neck Exam: Positive: Supple; Negative: JVD, thyromegaly Chest Exam: Positive: Rhonchi, Wheezing Heart Exam: Positive: Rate Normal, Regular Rhythm, Normal S1, Normal S2; Negative: Murmurs, Rubs Abdomen Exam: Positive: Normal bowel sounds, Soft; Negative: Tenderness, Hepatospenomegaly Extremity Exam: Positive: Normal pulses; Negative: Clubbing, Cyanosis, Edema Skin Exam: Positive: Other skin issue (nodules on planter aspect of left foot probably neuromas or related to tendons) Neuro Exam: Positive: Normal Speech, Strength at 5/5 X4 ext, Normal Tone, Sensation Intact Assessment /Plan Assessment 59 year old female smoker with PMH of COPD, not on home oxygen presented with worsening SOB for 2 week along with runny nose, couch and congestion for 2 days. She also complained of chest pain pleuritic in nature so had a CT angio of the chest done in the ED which was negative for any PE. Did show scattered ground glass opacities which were less than seen in previous CT. US of both the legs were negative for DVT. Pateint had been prescribed a course of antibiotics and steroids by PMD last week she took 2 days of those without any improvement. She recieved 3 neb treatments in the ED still remained very tight and sob so was admitted to the hospital for COPD exacerbation. Copd exacerbation nebs and steroids, azithromycin. no hypoxia at present, no hypercarbia in VVG. Chest pain musculoskeletal will give tylenol and taradol. Bipolar continue home med [place] Hyperglycemia with steroids will palce on Lispro Ac and HS Fibromyalgia with neuropathy tylenol and tramadol GERD PPI Tobacco dependence Discussed smoking cessation and offered nicotine patches says will ask for it if she needs it. ?Neuromas on the left foot outpatient referral to surgery. Plan/VTE VTE Prophylaxis Ordered?: Yes VS, I&O, 24H, [place] Vital Signs/I&O Vital Signs Date Time Temp Pulse Resp B/P (MAP) Pulse Ox O2 Delivery O2 Flow Rate FiO2 11/27/19 08:20 20 11/27/19 05:47 97.4 81 147/70 (95) 99 Room Air I&O- Last 24 Hours up to 6 AM 11/27/19 05:59 Intake Total 700 ml Output Total 0 ml Balance 700 ml Laboratory Data 24H LABS Laboratory Tests 2 11/26/19 11:57: Immature Granulocyte % (Auto) 0.2, Neutrophils (%) (Auto) 48.0, Lymphocytes (%) (Auto) 36.3, Monocytes (%) (Auto) 9.9H, Eosinophils (%) (Auto) 4.3H, Basophils (%) (Auto) 1.3H, Neutrophils # (Auto) 4.7, Lymphocytes # (Auto) 3.5, Monocytes # (Auto) 1.0H, Eosinophils # (Auto) 0.4, Basophils # (Auto) 0.1, Nucleated Red Blood Cells % (auto) 0.0, Anion Gap 6L, Glomerular Filtration Rate > 60.0, Calcium Level 9.1, Total Bilirubin 0.3, Direct Bilirubin < 0.1, Aspartate Amino Transf (AST/SGOT) 19, Alanine Aminotransferase (ALT/SGPT) 23, Alkaline Phosphatase 81, Total Creatine Kinase 159, Creatine Kinase MB 1.6, Creatine Kinase MB Relative Index 1.01, Troponin I < 0.02, Total Protein 7.2, Albumin 4.0, Albumin/Globulin Ratio 1.25, Lipase 157, [place] Level < 0.20L 11/26/19 12:09: Prothrombin Time 12.2, Prothromb Time International Ratio 0.94, Activated Partial Thromboplast Time 26.2, D-Dimer, Quantitative 1404.42H 11/26/19 12:16: Influenza Type A (RT-PCR) NEGATIVE, Influenza Type B (RT-PCR) NEGATIVE 11/26/19 12:28: Blood Gas Bicarbonate Standard 21.2, Venous Blood pH 7.414, Venous Blood Partial Pressure CO2 32.0L, Venous Blood Partial Pressure O2 47.6, Venous Blood Total Carbon Dioxide 21.0L, Venous Blood HCO3 20.0L, Venous Blood Oxygen Saturation 84.8H, Venous Blood Base Excess -3.6L 11/26/19 17:20: Bedside Glucose (Misc Panel) 252H 11/26/19 19:57: Bedside Glucose (Misc Panel) 205H CBC/BMP Laboratory Tests 11/26/19 11:57 Microbiology Microbiology 11/26/19 Respiratory Virus Panel (PCR) ([facility]) - Final, Complete LISA GLASS MD Nov 27, 2019 10:41
[2019-11-27] MEDS: TIOTROPIUM INHALER/CAPSULE (SPIRIVA) INH SCH (11:09)
[2019-11-27] MEDS: FORMOTEROL FUMARATE 20 MCG/2 ML INHALATION SOLUTION (PERFOROMIST) INH SCH ×2 (11:09→20:04)
[2019-11-27] MEDS: BUDESONIDE 0.5 MG/2 ML INHALATION SUSPENSION INH SCH ×2 (11:09→20:04)
[2019-11-27 14:17] VITALS: BP 131/64
[2019-11-27 20:30] VITALS: BP 129/85
[2019-11-27] MEDS: AZITHROMYCIN 250 MG TAB PO SCH (20:46)
[2019-11-27] MEDS: BENZONATATE 100 MG CAP PO PRN (20:46)
[2019-11-28] MEDS ORDERED: diphenhydrAMINE 25 MG CAP PO ONE (03:15)
[2019-11-28] MEDS: methylPREDNISolone INJ 40 MG/1 ML VIAL (J2920) IV SCH ×3 (05:14→23:10)
[2019-11-28 05:59] VITALS: BP 123/60
[2019-11-28 06:21] LABS: BASO % 0.1 % (0.0-1.0); EOS % 0.1 % (0.0-3.0); HEMATOCRIT 37.8 % (36.0-47.0); HEMOGLOBIN 11.7 g/dl (12.0-15.5); LYMPH # 1.3 10^3/uL (1.5-5.0); LYMPH % 6.8 % (24.0-44.0); MEAN CORPUSCULAR VOLUME 106.5 fl (80.0-96.0); MONO % 5.2 % (0.0-5.0); NEUTROPHILS # 16.8 10^3/uL (1.5-8.5); NEUTROPHILS % 87.2 % (36.0-66.0); PLATELET COUNT, AUTOMATED 186 10^3/uL (150-450); RED BLOOD COUNT 3.55 10^6/uL (4.00-5.40); WHITE BLOOD COUNT 19.3 10^3/uL (4.0-10.0)
[2019-11-28 06:40] LABS: BLOOD UREA NITROGEN 15 MG/DL (7-18); CALCIUM LEVEL 8.2 MG/DL (8.5-10.1); CARBON DIOXIDE LEVEL 21 MEQ/L (21-32); CHLORIDE LEVEL 114 MEQ/L (98-107); CREATININE FOR GFR 0.51 MG/DL (0.55-1.30); GLOMERULAR FILTRATION RATE > 60.0 (>51); GLUCOSE, FASTING 124 MG/DL (70-100); POTASSIUM SERUM 4.4 MEQ/L (3.5-5.1); SODIUM LEVEL 142 MEQ/L (136-145)
[2019-11-28] MEDS: ALBUTEROL SULFATE 2.5 MG/0.5 ML INH NEB SOLN NEB PRN ×2 (07:49→19:35)
[2019-11-28] MEDS: DOCUSATE SODIUM 100 MG CAP PO SCH ×2 (08:40→20:32)
[2019-11-28] MEDS: PANTOPRAZOLE 40MG TAB (PROTONIX) PO SCH ×2 (08:40→20:33)
[2019-11-28] MEDS: LITHIUM CARBONATE 300 MG CAP PO SCH ×2 (08:40→20:32)
[2019-11-28] MEDS: ENOXAPARIN 40 MG/0.4 ML SYRINGE (J1650) SC SCH (08:41)
[2019-11-28] MEDS: HumaLOG INSULIN (NovoLOG) PER UNIT SC SCH ×4 (08:41→20:33)
[2019-11-28] MEDS: traMADol 50 MG TAB PO PRN ×2 (08:46→20:33)
[2019-11-28] MEDS: ACETAMINOPHEN 500 MG TAB PO PRN ×2 (08:46→20:32)
[2019-11-28] MEDS: BUDESONIDE 0.5 MG/2 ML INHALATION SUSPENSION INH SCH ×2 (09:52→19:35)
[2019-11-28] MEDS: FORMOTEROL FUMARATE 20 MCG/2 ML INHALATION SOLUTION (PERFOROMIST) INH SCH ×2 (09:52→19:35)
[2019-11-28] MEDS: TIOTROPIUM INHALER/CAPSULE (SPIRIVA) INH SCH (09:53)
--- NOTE | 2019-11-28 12:22 | IPNPDOC ---
Subjective Date Seen The patient was seen on 11/28/19. Subjective Chief Complaint/HPI Seen sitting upon bed talking to family on phone, no distress noted while talking. Speaking in full sentences. No cough noted.Says no improvement in her breathing. Says she is not getting her breathing treatments on time. She has been upset with the staff and says she has called the patient advocate and the nursing super. When I came for the rounds she she accused me that i came because she has complained. When itried to explain that i i am doing my morning rounds on the floor now and that i have been seeing her last 2 days she does not even recognize me. I explained that if she is better tomorrow she may be able to go home. Says to me i am not going home. I asked where she would like to go. Patient says I will go home only when i feel like it. She compains that no one is giving her her medications or her breathing treatments. Objective Physical Examination General Exam: Positive: Alert, Cooperative, No Acute Distress Eye Exam: Positive: PERRLA, Conjunctiva & lids normal, EOMI; Negative: Sclera icteric ENT Exam: Positive: Atraumatic, Mucous membr. moist/pink, Pharynx Normal Neck Exam: Positive: Supple; Negative: JVD, thyromegaly Chest Exam: Positive: Rhonchi, Wheezing, Diminished Heart Exam: Positive: Rate Normal, Regular Rhythm, Normal S1, Normal S2; Negative: Murmurs, Rubs Abdomen Exam: Positive: Normal bowel sounds, Soft; Negative: Tenderness, Hepatospenomegaly Extremity Exam: Positive: Normal pulses; Negative: Clubbing, Cyanosis, Edema Skin Exam: Positive: Other skin issue (nodules on planter aspect of left foot probably neuromas or related to tendons) Neuro Exam: Positive: Normal Speech, Strength at 5/5 X4 ext, Normal Tone, Sensation Intact Assessment /Plan Assessment 59 year old female smoker with PMH of COPD, not on home oxygen presented with worsening SOB for 2 week along with runny nose, couch and congestion for 2 days. She also complained of chest pain pleuritic in nature so had a CT angio of the chest done in the ED which was negative for any PE. Did show scattered ground glass opacities which were less than seen in previous CT. US of both the legs were negative for DVT. Pateint had been prescribed a course of antibiotics and steroids by PMD last week she took 2 days of those without any improvement. She recieved 3 neb treatments in the ED still remained very tight and sob so was admitted to the hospital for COPD exacerbation. Copd exacerbation nebs and steroids, azithromycin. no hypoxia at present, no hypercarbia in VVG. Chest pain musculoskeletal will give tylenol and taradol. Bipolar continue home med [place] Hyperglycemia with steroids will palce on Lispro Ac and HS Fibromyalgia with neuropathy tylenol and tramadol GERD PPI Tobacco dependence Discussed smoking cessation and offered nicotine patches says will ask for it if she needs it. ?Neuromas on the left foot outpatient referral to surgery. Plan/VTE VTE Prophylaxis Ordered?: Yes VS, I&O, 24H, Fishbone Vital Signs/I&O Vital Signs Date Time Temp Pulse Resp B/P (MAP) Pulse Ox O2 Delivery O2 Flow Rate FiO2 11/28/19 09:40 20 11/28/19 05:59 98.5 74 123/60 (81) 95 Room Air I&O- Last 24 Hours up to 6 AM 11/28/19 05:59 Intake Total 1730 ml Output Total 0 ml Balance 1730 ml Laboratory Data 24H LABS Laboratory Tests 2 11/27/19 16:34: Bedside Glucose (Misc Panel) 137H 11/27/19 20:32: Bedside Glucose (Misc Panel) 146H 11/28/19 05:53: Immature Granulocyte % (Auto) 0.6, Neutrophils (%) (Auto) 87.2H, Lymphocytes (%) (Auto) 6.8L, Monocytes (%) (Auto) 5.2H, Eosinophils (%) (Auto) 0.1, Basophils (%) (Auto) 0.1, Neutrophils # (Auto) 16.8H, Lymphocytes # (Auto) 1.3L, Monocytes # (Auto) 1.0H, Eosinophils # (Auto) 0.0, Basophils # (Auto) 0.0, Nucleated Red Blood Cells % (auto) 0.0, Anion Gap 7L, Glomerular Filtration Rate > 60.0, Calcium Level 8.2L 11/28/19 11:19: Bedside Glucose (Misc Panel) 112H CBC/BMP Laboratory Tests 11/28/19 05:53 Microbiology Microbiology 11/26/19 Respiratory Virus Panel (PCR) ([facility]) - Final, Complete LISA GLASS MD Nov 28, 2019 12:22
[2019-11-28 14:00] VITALS: BP 126/59
[2019-11-28] MEDS: ALBUTEROL SULFATE 2.5 MG/0.5 ML INH NEB SOLN NEB SCH ×2 (19:56→23:10)
[2019-11-28 20:29] VITALS: BP 133/64
[2019-11-28] MEDS: AZITHROMYCIN 250 MG TAB PO SCH (20:31)
[2019-11-29] MEDS: methylPREDNISolone INJ 40 MG/1 ML VIAL (J2920) IV SCH (00:03)
[2019-11-29] MEDS: ALBUTEROL SULFATE 2.5 MG/0.5 ML INH NEB SOLN NEB SCH ×2 (04:25→07:41)
[2019-11-29 06:13] VITALS: BP 130/64
[2019-11-29] MEDS: ACETAMINOPHEN 500 MG TAB PO PRN (06:17)
[2019-11-29] MEDS: traMADol 50 MG TAB PO PRN (06:17)
[2019-11-29] MEDS: BUDESONIDE 0.5 MG/2 ML INHALATION SUSPENSION INH SCH ×2 (07:41→20:22)
[2019-11-29] MEDS: TIOTROPIUM INHALER/CAPSULE (SPIRIVA) INH SCH (07:42)
[2019-11-29 07:51] LABS: BASO % 0.1 % (0.0-1.0); HEMATOCRIT 36.4 % (36.0-47.0); HEMOGLOBIN 11.7 g/dl (12.0-15.5); LYMPH # 1.7 10^3/uL (1.5-5.0); LYMPH % 11.4 % (24.0-44.0); MEAN CORPUSCULAR HEMOGLOBIN 32.9 pg (27.0-33.0); MEAN CORPUSCULAR HGB CONC 32.1 g/dl (32.0-36.5); MEAN CORPUSCULAR VOLUME 102.2 fl (80.0-96.0); MONO % 6.7 % (0.0-5.0); NEUTROPHILS # 12.1 10^3/uL (1.5-8.5); NEUTROPHILS % 80.7 % (36.0-66.0); PLATELET COUNT, AUTOMATED 253 10^3/uL (150-450); RED BLOOD COUNT 3.56 10^6/uL (4.00-5.40)
[2019-11-29 08:01] LABS: BLOOD UREA NITROGEN 13 MG/DL (7-18); CALCIUM LEVEL 8.3 MG/DL (8.5-10.1); CARBON DIOXIDE LEVEL 25 MEQ/L (21-32); CHLORIDE LEVEL 114 MEQ/L (98-107); CREATININE FOR GFR 0.68 MG/DL (0.55-1.30); GLOMERULAR FILTRATION RATE > 60.0 (>51); GLUCOSE, FASTING 118 MG/DL (70-100); POTASSIUM SERUM 3.7 MEQ/L (3.5-5.1); SODIUM LEVEL 143 MEQ/L (136-145)
[2019-11-29] MEDS: DOCUSATE SODIUM 100 MG CAP PO SCH ×2 (08:26→20:30)
[2019-11-29] MEDS: LITHIUM CARBONATE 300 MG CAP PO SCH ×2 (08:27→20:30)
[2019-11-29] MEDS: PANTOPRAZOLE 40MG TAB (PROTONIX) PO SCH ×2 (08:27→20:30)
[2019-11-29] MEDS: ENOXAPARIN 40 MG/0.4 ML SYRINGE (J1650) SC SCH (08:30)
[2019-11-29] MEDS: HumaLOG INSULIN (NovoLOG) PER UNIT SC SCH ×4 (08:30→21:00)
[2019-11-29] MEDS ORDERED: FLUBLOK(EGG FREE)(QUAD)INFLUENZA VACC 0.5ML SYRINGE (90682)18YRS&OLDER IM ONE (09:00)
[2019-11-29] MEDS: FORMOTEROL FUMARATE 20 MCG/2 ML INHALATION SOLUTION (PERFOROMIST) INH SCH ×2 (09:49→23:38)
[2019-11-29] MEDS ORDERED: ALBUTEROL SULFATE 2.5 MG/0.5 ML INH NEB SOLN NEB PRN (10:45)
--- NOTE | 2019-11-29 10:45 | IPNPDOC ---
Subjective Date Seen The patient was seen on 11/29/19. Subjective Chief Complaint/HPI Is still complaining of increasing shortness of breath, no improvement, as per patient General: Denies: ROS Unobtainable, Chills, Night Sweats, Fatigue, Malaise, Normal Appetite, Other Symptoms Constitutional: Denies: Chills, Fever, Malaise, Night Sweats, Weakness, Fatigue, Weight Loss, Lethargy, Other Pulmonary: Reports: Dyspnea Cardiovascular: Denies: Chest Pain, Palpitations, Orthopnea, Paroxysmal Noc. Dyspnea, Edema, Lt Headedness, Other Symptoms Gastrointestinal: Denies: Nausea, Vomiting, Abdominal Pain, Diarrhea, Constipation, Melena, Hematochezia, Other Symptoms Genitourinary: Denies: Dysuria, Frequency, Incontinence, Hematuria, Retention, Other Symptoms Musculoskeletal: Denies: Neck Pain, Back Pain, Shoulder Pain, Arm Pain, Hand Pain, Leg Pain, Foot Pain, Joint Pain, Muscle Pain, Spasms, Other Symptoms Neurological: Denies: Weakness, Numbness, Incoordination, Change in speech, Confusion, Seizures, Other Symptoms Objective Physical Examination Eye Exam: Negative: Sclera icteric ENT Exam: Positive: Atraumatic, Mucous membr. moist/pink, Pharynx Normal Neck Exam: Positive: Supple; Negative: JVD, thyromegaly Chest Exam: Positive: Wheezing (. Bilateral expiratory wheezing audible) Heart Exam: Positive: Rate Normal, Regular Rhythm, Normal S1, Normal S2; Negative: Murmurs, Rubs Abdomen Exam: Positive: Normal bowel sounds, Soft; Negative: Tenderness, Hepatospenomegaly Extremity Exam: Positive: Normal pulses; Negative: Clubbing, Cyanosis, Edema Skin Exam: Positive: Other skin issue (nodules on planter aspect of left foot probably neuromas or related to tendons) Neuro Exam: Positive: Normal Speech, Strength at 5/5 X4 ext, Normal Tone, Sensation Intact Assessment /Plan Problems (1) COPD with acute exacerbation Status: Acute Problem Text: Change albuterol nebulizer 2 to DuoNeb every 4 hours Albuterol neb every 2 hours when necessary Increase Solu-Medrol to 60 mg IV every 8 hours Oxygen support Continue home med Patient not ready for discharge at as she has significant exacerbation of COPD on rest Plan/VTE VTE Prophylaxis Ordered?: Yes VS, I&O, 24H, Fishbone Vital Signs/I&O Vital Signs Date Time Temp Pulse Resp B/P (MAP) Pulse Ox O2 Delivery O2 Flow Rate FiO2 11/29/19 06:47 16 11/29/19 06:13 98.4 82 130/64 (86) 98 Room Air I&O- Last 24 Hours up to 6 AM 11/29/19 06:00 Intake Total 1020 ml Output Total 0 ml Balance 1020 ml Laboratory Data 24H LABS Laboratory Tests 2 11/28/19 11:19: Bedside Glucose (Misc Panel) 112H 11/28/19 16:54: Bedside Glucose (Misc Panel) 121H 11/28/19 20:26: Bedside Glucose (Misc Panel) 99 11/29/19 07:13: Immature Granulocyte % (Auto) 1.1, Neutrophils (%) (Auto) 80.7H, Lymphocytes (%) (Auto) 11.4L, Monocytes (%) (Auto) 6.7H, Eosinophils (%) (Auto) 0.0, Basophils (%) (Auto) 0.1, Neutrophils # (Auto) 12.1H, Lymphocytes # (Auto) 1.7, Monocytes # (Auto) 1.0H, Eosinophils # (Auto) 0.0, Basophils # (Auto) 0.0, Nucleated Red Blood Cells % (auto) 0.0, Anion Gap 4L, Glomerular Filtration Rate > 60.0, Calcium Level 8.3L 11/29/19 07:50: Bedside Glucose (Misc Panel) 105 CBC/BMP Laboratory Tests 11/29/19 07:13 Microbiology Microbiology 11/26/19 Respiratory Virus Panel (PCR) ([facility]) - Final, Complete SANTY MCKEE MD Nov 29, 2019 10:45
[2019-11-29] MEDS: methylPREDNISolone INJ 125 MG/2 ML VIAL (J2930) IV SCH ×2 (11:11→18:21)
[2019-11-29] MEDS: IPRATROPIUM 0.5MG/ALBUTEROL 2.5MG INH SOL UD 3ML (DUONEB)(J7620) NEB SCH ×4 (11:40→23:38)
[2019-11-29] MEDS: ALPRAZolam 0.25 MG TAB PO PRN ×2 (13:55→20:30)
[2019-11-29 14:53] VITALS: BP 131/62
[2019-11-29 19:40] VITALS: BP 133/63
[2019-11-29] MEDS: AZITHROMYCIN 250 MG TAB PO SCH (20:30)
[2019-11-29] MEDS: BENZONATATE 100 MG CAP PO PRN (23:13)
[2019-11-30] MEDS: IPRATROPIUM 0.5MG/ALBUTEROL 2.5MG INH SOL UD 3ML (DUONEB)(J7620) NEB SCH ×3 (03:06→11:03)
[2019-11-30] MEDS: ALPRAZolam 0.25 MG TAB PO PRN ×2 (03:27→09:31)
[2019-11-30] MEDS: methylPREDNISolone INJ 125 MG/2 ML VIAL (J2930) IV SCH (03:27)
[2019-11-30] MEDS ORDERED: BISACODYL 10 MG SUPP PR ONE (03:30)
[2019-11-30] MEDS: SENOKOT S TAB PO SCH ×2 (03:30→08:29)
[2019-11-30 05:44] VITALS: BP 133/63
[2019-11-30] MEDS: FORMOTEROL FUMARATE 20 MCG/2 ML INHALATION SOLUTION (PERFOROMIST) INH SCH (07:31)
[2019-11-30] MEDS: BUDESONIDE 0.5 MG/2 ML INHALATION SUSPENSION INH SCH (07:31)
[2019-11-30] MEDS: TIOTROPIUM INHALER/CAPSULE (SPIRIVA) INH SCH (07:31)
[2019-11-30 07:33] LABS: BASO % 0.1 % (0.0-1.0); HEMATOCRIT 36.2 % (36.0-47.0); HEMOGLOBIN 11.5 g/dl (12.0-15.5); LYMPH # 1.5 10^3/uL (1.5-5.0); LYMPH % 8.4 % (24.0-44.0); MEAN CORPUSCULAR HEMOGLOBIN 32.4 pg (27.0-33.0); MEAN CORPUSCULAR HGB CONC 31.8 g/dl (32.0-36.5); MONO # 1.5 10^3/uL (0.0-0.8); MONO % 8.2 % (0.0-5.0); NEUTROPHILS # 14.9 10^3/uL (1.5-8.5); NEUTROPHILS % 81.8 % (36.0-66.0); RED BLOOD COUNT 3.55 10^6/uL (4.00-5.40); WHITE BLOOD COUNT 18.2 10^3/uL (4.0-10.0)
[2019-11-30] MEDS: DOCUSATE SODIUM 100 MG CAP PO SCH (08:29)
[2019-11-30 08:32] LABS: ALBUMIN 3.4 GM/DL (3.2-5.2); ALT/SGPT 25 U/L (12-78); BILIRUBIN,TOTAL 0.2 MG/DL (0.2-1.0); BLOOD UREA NITROGEN 13 MG/DL (7-18); CALCIUM LEVEL 8.5 MG/DL (8.5-10.1); CARBON DIOXIDE LEVEL 27 MEQ/L (21-32); CHLORIDE LEVEL 112 MEQ/L (98-107); CREATININE FOR GFR 0.66 MG/DL (0.55-1.30); GLOMERULAR FILTRATION RATE > 60.0 (>51); GLUCOSE, FASTING 129 MG/DL (70-100); POTASSIUM SERUM 3.9 MEQ/L (3.5-5.1); SODIUM LEVEL 144 MEQ/L (136-145); TOTAL PROTEIN 5.9 GM/DL (6.4-8.2)
[2019-11-30] MEDS: LITHIUM CARBONATE 300 MG CAP PO SCH (08:36)
[2019-11-30] MEDS: PANTOPRAZOLE 40MG TAB (PROTONIX) PO SCH (08:36)
[2019-11-30] MEDS: ENOXAPARIN 40 MG/0.4 ML SYRINGE (J1650) SC SCH (08:37)
[2019-11-30] MEDS: HumaLOG INSULIN (NovoLOG) PER UNIT SC SCH ×2 (08:37→12:07)
[2019-11-30] MEDS: traMADol 50 MG TAB PO PRN (08:37)
[2019-11-30] MEDS ORDERED: methylPREDNISolone INJ 40 MG/1 ML VIAL (J2920) IV SCH (10:00)
--- NOTE | 2019-11-30 10:06 | IPNPDOC ---
Subjective Date Seen The patient was seen on 11/30/19. Subjective Chief Complaint/HPI Patient is still has residual wheezing General: Denies: ROS Unobtainable, Chills, Night Sweats, Fatigue, Malaise, Normal Appetite, Other Symptoms Constitutional: Denies: Chills, Fever, Malaise, Night Sweats, Weakness, Fatigue, Weight Loss, Lethargy, Other Pulmonary: Reports: Other Symptoms (scattered wheezing) Cardiovascular: Denies: Chest Pain, Palpitations, Orthopnea, Paroxysmal Noc. Dyspnea, Edema, Lt Headedness, Other Symptoms Gastrointestinal: Denies: Nausea, Vomiting, Abdominal Pain, Diarrhea, Constipation, Melena, Hematochezia, Other Symptoms Genitourinary: Denies: Dysuria, Frequency, Incontinence, Hematuria, Retention, Other Symptoms Musculoskeletal: Denies: Neck Pain, Back Pain, Shoulder Pain, Arm Pain, Hand Pain, Leg Pain, Foot Pain, Joint Pain, Muscle Pain, Spasms, Other Symptoms Objective Physical Examination ENT Exam: Positive: Atraumatic, Mucous membr. moist/pink, Pharynx Normal Neck Exam: Positive: Supple Chest Exam: Positive: Wheezing (. Still has some residual scattered wheezing) Heart Exam: Positive: Rate Normal, Regular Rhythm, Normal S1, Normal S2 Abdomen Exam: Positive: Normal bowel sounds, Soft Extremity Exam: Positive: Normal pulses Skin Exam: Positive: Other skin issue (nodules on planter aspect of left foot probably neuromas or related to tendons) Neuro Exam: Positive: Normal Speech, Strength at 5/5 X4 ext, Normal Tone, Sensation Intact Assessment /Plan Problems (1) COPD with acute exacerbation Status: Acute Problem Text: pt is still has some residue wheezing on examination Changed albuterol nebulizer 2 to DuoNeb every 4 hours Albuterol neb every 2 hours when necessary Change Solu-Medrol to 40 mg IV every 6 hours DC Zithromax and is start Levaquin 750 mg IV every 24 hours for possible acute on chronic bronchitis Also, will give a 1 g of magnesium sulfate IV for exacerbation of COPD Oxygen support: Patient also uses oxygen at home Continue home med Patient most likely will be discharged tomorrow, but patient is insisting on leaving today. Patient was advised that I'll observe her and if she is clinically better after the changes in her present medications, then she possibly can be discharged home this evening/night and patient agreed with the plan Plan/VTE VTE Prophylaxis Ordered?: Yes VS, I&O, 24H, Fishbone Vital Signs/I&O Vital Signs Date Time Temp Pulse Resp B/P (MAP) Pulse Ox O2 Delivery O2 Flow Rate FiO2 11/30/19 09:30 21 11/30/19 05:44 98.0 81 133/63 (86) 98 Room Air I&O- Last 24 Hours up to 6 AM 11/30/19 06:00 Intake Total 1800 ml Output Total 0 ml Balance 1800 ml Laboratory Data 24H LABS Laboratory Tests 2 11/29/19 11:45: Bedside Glucose (Misc Panel) 106H 11/29/19 16:50: Bedside Glucose (Misc Panel) 141H 11/29/19 19:43: Bedside Glucose (Misc Panel) 152H 11/30/19 07:13: Immature Granulocyte % (Auto) 1.5, Neutrophils (%) (Auto) 81.8H, Lymphocytes (%) (Auto) 8.4L, Monocytes (%) (Auto) 8.2H, Eosinophils (%) (Auto) 0.0, Basophils (%) (Auto) 0.1, Neutrophils # (Auto) 14.9H, Lymphocytes # (Auto) 1.5, Monocytes # (Auto) 1.5H, Eosinophils # (Auto) 0.0, Basophils # (Auto) 0.0, Nucleated Red Blood Cells % (auto) 0.0 11/30/19 07:49: Anion Gap 5L, Glomerular Filtration Rate > 60.0, Calcium Level 8.5, Total Bilirubin 0.2, Aspartate Amino Transf (AST/SGOT) 9, Alanine Aminotransferase (ALT/SGPT) 25, Alkaline Phosphatase 56, Total Protein 5.9L, Albumin 3.4, Albumin/Globulin Ratio 1.36 CBC/BMP Laboratory Tests 11/30/19 07:13 11/30/19 07:49 Microbiology Microbiology 11/26/19 Respiratory Virus Panel (PCR) ([facility]) - Final, Complete SANTY MCKEE MD Nov 30, 2019 10:06
[2019-11-30] MEDS ORDERED: MAG SULF 1GM/100ML (MAG RUN) 1 GM in IV 1 EA IV ONE (10:15)
[2019-11-30 10:29] LABS: MAGNESIUM LEVEL 2.6 MG/DL (1.8-2.4)
[2019-11-30] MEDS ORDERED: LevoFLOXacin IV 750 MG in IV 1 EA IV SCH (12:00)
[2019-11-30] MEDS ORDERED: COMBAER6 INH (14:33)
[2019-11-30] MEDS ORDERED: LEVA1TAB2 PO (14:33)
[2019-11-30] MEDS ORDERED: NICO21PAT TD (14:33)
[2019-11-30] MEDS ORDERED: PERF20NE2 INH (14:33)
[2019-11-30] MEDS ORDERED: PRED10TA2 PO (14:33)
--- NOTE | 2019-11-30 14:40 | DS.PDOC ---
Discharge Summary General Date of Admission Nov 26, 2019 at 16:52 Date of Discharge 11/30/19 Discharge Summary PROCEDURES PERFORMED DURING STAY: None. ADMITTING DIAGNOSES: 1. Exacerbation of COPD. DISCHARGE DIAGNOSES: 1. Exacerbation of COPD, nicotine addiction. COMPLICATIONS/CHIEF COMPLAINT: Copd Wacute Exacerbation. HISTORY OF PRESENT ILLNESS: 59 year old female smoker with PMH of COPD, not on home oxygen presented with worsening SOB for 2 weeks along with runny nose, cough and congestion for 2 days. She also complained of chest pain off and on inthe central and to the left pleuritic in nature about 7/10 in intensity so had a CT angio of the chest done in the ED which was negative for any PE. Did show scattered ground glass opacities which were less than seen in previous CT. US of both the legs were negative for DVT. she also has 3 tender nodules on the foot. 2 on the planter aspect of the left foot and 1 on the medial side. this is causing her difficulty in walking. These seem to be related to the nerves or tendeon o fthe foot She received 3 neb treatments in the ED still remained very tight and sob so was admitted to the hospital for COPD exacerbation.. HOSPITAL COURSE: 59 years old, female with past medical history of exacerbation of COPD, history of active source smoking presented again with increasing shortness of breath Patient was admitted and started on IV Solu-Medrol, DuoNeb treatment, oxygen supplementation Initially patient was not responding very well about treatment but her dosage was increased to Solu-Medrol 40 mg IV every 6 hours, Zithromax was DC'd and patient was started on Levaquin . She also got additional doses of magnesium sulfate as bronchodilators Patient seems to have responded very well. She has a scattered wheezing now and she was to go home to care for family patient was advised to stay 1 more day to complete her treatment but secondary to placing domestic affairs. She wishes to leave and hence she will be discharged home on by mouth prednisone, /Combivent home oxygen and tapering dose of prednisone and by mouth Levaquin. Patient was advised to return to ED immediately if the symptoms recur or she develops shortness of breath again. extensive smoking cessation counseling was done and nicotine patches also has been prescribed. Continue all home medications . DISCHARGE MEDICATIONS: Please see below. ALLERGIES: Please see below. PHYSICAL EXAMINATION ON DISCHARGE: VITAL SIGNS: Please see below. GENERAL: Within normal limits HEENT: PERRLA. Extraocular muscles intact NECK: Supple CARDIOVASCULAR EXAMINATION: S1, S2, regular RESPIRATORY EXAMINATION: Scattered wheezing bilaterally ABDOMINAL EXAMINATION: Benign EXTREMITIES: No clubbing, cyanosis, edema SKIN: Within normal limits NEUROLOGICAL EXAMINATION: . No focal motor sensory deficit PSYCHIATRIC EXAMINATION: Normal LABORATORY DATA: Please see below. IMAGING: CT of chest:There is no CT evidence of pulmonary embolus. Scattered ground-glass opacities again seen in the perihilar distribution of the upper and lower lobes, less prominent than on the prior CT study of November 03, 2018, question inflammatory or infectious changes. Small sliding-type hiatal hernia. Cholelithiasis. Otherwise negative. PROGNOSIS: good ACTIVITY: As tolerated. DIET: As tolerated DISCHARGE PLAN: Follow with PCP in one week DISPOSITION: . Home DISCHARGE INSTRUCTIONS: 1. As per discharge instruction. ITEMS TO FOLLOWUP ON ON OUTPATIENT: 1. Follow PCP in one week. DISCHARGE CONDITION: Stable. TIME SPENT ON DISCHARGE: 38 minutes. Vital Signs/I&Os Vital Signs Date Time Temp Pulse Resp B/P (MAP) Pulse Ox O2 Delivery O2 Flow Rate FiO2 11/30/19 09:30 21 11/30/19 05:44 98.0 81 133/63 (86) 98 Room Air I&O- Last 24 Hours up to 6 AM 11/30/19 06:00 Intake Total 1800 ml Output Total 0 ml Balance 1800 ml Laboratory Data Labs 24H Laboratory Tests 2 11/29/19 16:50: Bedside Glucose (Misc Panel) 141H 11/29/19 19:43: Bedside Glucose (Misc Panel) 152H 11/30/19 07:13: Immature Granulocyte % (Auto) 1.5, Neutrophils (%) (Auto) 81.8H, Lymphocytes (%) (Auto) 8.4L, Monocytes (%) (Auto) 8.2H, Eosinophils (%) (Auto) 0.0, Basophils (%) (Auto) 0.1, Neutrophils # (Auto) 14.9H, Lymphocytes # (Auto) 1.5, Monocytes # (Auto) 1.5H, Eosinophils # (Auto) 0.0, Basophils # (Auto) 0.0, Nucleated Red Blood Cells % (auto) 0.0 11/30/19 07:49: Anion Gap 5L, Glomerular Filtration Rate > 60.0, Calcium Level 8.5, Magnesium Level 2.6H, Total Bilirubin 0.2, Aspartate Amino Transf (AST/SGOT) 9, Alanine Aminotransferase (ALT/SGPT) 25, Alkaline Phosphatase 56, Total Protein 5.9L, Albumin 3.4, Albumin/Globulin Ratio 1.36 11/30/19 12:02: Bedside Glucose (Misc Panel) 127H CBC/BMP Laboratory Tests 11/30/19 07:13 11/30/19 07:49 FSBS Laboratory Tests Test 11/29/19 16:50 11/29/19 19:43 11/30/19 12:02 Range/Units Bedside Glucose (Misc Panel) 141 152 127 70-105 MG/DL Microbiology Microbiology 11/26/19 Respiratory Virus Panel (PCR) ([facility]) - Final, Complete Discharge Medications Scheduled Alendronate Sodium (Fosamax) 70 Mg Tab, 70 MG PO QWEEK, (Reported) TUESDAY Formoterol Fumarate (Perforomist) 20 Mcg/2 Ml Vial.neb, 20 MCG INH RBID Ipratropium/Albuterol Sulfate (Combivent Respimat 20-100 Mcg) 4 Gm Mist.inhal, 1 PUFF INH QID Levofloxacin (Levaquin) 500 Mg Tablet, 500 MG PO DAILY Collbran Carbonate (Collbran Carbonate) 300 Mg Capsule, 300 MG PO DAILY, (Reported) Collbran Carbonate (Collbran Carbonate) 300 Mg Capsule, 600 MG PO QHS, (Reported) Prednisone (Prednisone) 10 Mg Tablet, 10 MG PO TAPER Take 4 tabs daily x 3 days, then 3 tabs daily x 3 days, then 2 tabs daily x 3 days, then 1 tab daily x 3 days and stop Umeclidinium Secor (Incruse Ellipta) 62.5 Mcg Blst.w.dev, 1 PUFF INH QHS, (Reported) Scheduled PRN Acetaminophen (Acetaminophen) 325 Mg Tab, 650 MG PO Q4H PRN for PAIN, (Reported) Albuterol Sulfate (Proair Hfa) 108 Mcg/Act Aer, 2 PUFF INH Q4H PRN for SHORTNESS OF BREATH, (Reported) Benzonatate (Tessalon Perle) 100 Mg Capsule, 100 MG PO TID PRN for COUGH, (Reported) Calcium Carbonate (Tums) 200 Mg Tab.chew, 500 MG PO Q4H PRN for HEARTBURN, (Reported) Diphenhydramine HCl (Diphenhydramine HCl) 25 Mg Capsule, 25 MG PO Q6H PRN for ITCHING, (Reported) Epinephrine (Epinephrine) 0.3 Mg/0.3 Ml Auto.injct, 1 SYRINGE IM ONCE PRN for ALLERGIC REACTION, (Reported) Esomeprazole Magnesium (Esomeprazole Magnesium Dr) 20 Mg Capsule.dr, 20 MG PO DAILY PRN for HEARTBURN, (Reported) Nicotine (Nicotine Patch) 21 Mg Patch.td24, 1 PATCH TD DAILYPRN PRN for NICOTINE WITHDRAWAL Zolpidem Tartrate (Ambien) 5 Mg Tablet, 5 MG PO QHS PRN for SLEEP, (Reported) Allergies Coded Allergies: ibuprofen (Verified Allergy, Severe, SOB hives DYSPNEA, 02/28/19) Penicillins (Verified Allergy, Intermediate, hives, 02/28/19) SANTY MCKEE MD Nov 30, 2019 14:40
[2019-11-30 15:01] VITALS: BP 132/64
== END 2019-11-30 16:00 | disposition home or self-care (01) | DRG 140 ==
LOC: M ED 11:31 → M ED INP 16:52 → ENRESERV 17:59 → M MS5PR 18:57
PROVIDERS: ADMIT Internal Medicine Nephrology; ATTEND Internal Medicine
DX: J44.1 Chronic obstructive pulmonary disease with (acute) exacerbation (principal); I27.20 Pulmonary hypertension, unspecified; Z99.81 Dependence on supplemental oxygen; G62.9 Polyneuropathy, unspecified; F17.200 Nicotine dependence, unspecified, uncomplicated; Z79.899 Other long term (current) drug therapy; Z88.0 Allergy status to penicillin; Z88.6 Allergy status to analgesic agent; F31.9 Bipolar disorder, unspecified; R73.9 Hyperglycemia, unspecified; M79.7 Fibromyalgia; M81.0 Age-related osteoporosis without current pathological fracture; Z96.652 Presence of left artificial knee joint; K21.9 Gastro-esophageal reflux disease without esophagitis; D36.13 Benign neoplasm of peripheral nerves and autonomic nervous system of lower limb, including hip; R07.89 Other chest pain

== ENCOUNTER → 2020-03-05 | Outpatient (CLI) | payer OTHER, MEDICAID ==
[~2020-03-05] MED LIST changes: +COMBAER6 INH; +ESOM20CA25 PO; +LEVA1TAB2 PO; +NICO21PAT TD; +PERF20NE2 INH; +TUMS500C PO
--- NOTE | 2020-03-07 02:09 | ECWPNPC ---
PATIENT NAME: SARAH CISNEROS : 1960 GENDER: FEMALE VISIT DATE: 03/05/2020 DISCHARGE DATE: 03/05/20 1450 VISIT LOCKED DATE TIME: PHYSICIAN: JUAN C CELAYA RESOURCE: JUAN C CELAYA REASON FOR APPOINTMENT 1. FIBRO/ LEFT TKA,RT KNEE HISTORY OF PRESENT ILLNESS GENERAL: - 59-YEAR-OLD FEMALE IN FOR INITIAL PAIN CONSULT. PATIENT'S SOURCES OF PAIN ARE HER KNEES, LOW BACK, AND FIBROMYALGIA. PATIENT ADMITS TO BEING ON TYLENOL 3 IN THE PAST WELL LYRICA TO HELP ALLEVIATE HER PAIN SYMPTOMS AND FELT THESE WERE OF BENEFIT TO HER. WHEN ASKED ABOUT DURATION OF PAIN SHE ADMITS TO YEARS OF PAIN. FALL RISK SCREENING: SCREENING :TWO OR MORE FALLS WITHOUT INJURY IN THE PAST YEAR PAIN SCREENING: PATIENT HAS A COMPLAINT OF ACUTE OR CHRONIC PAIN :YES PT. HAS LEFT KNEE REPLACEMENT, RIGHT KNEE SWOLLEN SOMETIMES. PT USES WALKER AND CANE LOCATION OF PAIN:LOW BACK, KNEES LOW BACK(TAIL BONE) DOWN TO BOTH LEGS AND KNEE. INTENSITY OF PAIN (SCALE OF 1 TO 10):8 WHAT DOES YOUR PAIN FEEL LIKE:SHARP PAIN IS INCREASED BY:ACTIVITIES, PROLONGED STANDING PAIN IS DECREASED BY: ICE /HEAT, IBUPROFEN PAIN HAS INTERFERED WITH THE FOLLOWING:BATHING/DRESSING, MOOD, WALKING ABILITY, HOUSEWORK, SLEEP, RELATIONSHIP WITH OTHERS, ENJOYMENT OF LIFE PLAN/GOALS/TREATMENT/INTERVENTION/FOLLOW UP:SEE PLAN NURSING NOTE: PT. WANTS TO DISCUSS PAIN MANAGEMENT- -. PAIN CENTER INTAKE QUESTIONS: DO YOU HAVE A HISTORY OF MRSA? :NO DO YOU TAKE A BLOOD THINNERS? :NO DO YOU HAVE ANY BLEEDING DISORDERS? :NO ANY NEW NUMBNESS OR WEAKNESS IN YOUR LEGS OR ARMS? :NO ANY PACEMAKER,DEFIBRILLATOR, OR DORSAL COLUMN STIMULATOR? :NO DO YOU HAVE ANY RASHES OR OPEN SORES? :NO ARE YOU ALLERGIC TO IV DYE? :NO ARE YOU DIABETIC? :NO ANY NEW PROBLEMS WITH YOUR MEDICATIONS? :NO HAVE YOU RECEIVED A VACCINE IN THE PAST 30 DAYS? :NO DO YOU PLAN TO RECEIVE A VACCINE IN THE NEXT 21 DAYS? :NO DO YOU NEED ANY PRESCRIPTION? :NO DO YOU TAKE ANY IMMUNOSUPPRESSIVE MEDICATIONS? :NO CURRENT MEDICATIONS TAKING PREDNISONE 10 MG TABLET 1 TABLET ORALLY 4 TABS DAILY X3 DAYS, 3 TABS DAILY X3 DAYS, 2 TABS DAILY X3 DAYS, 1 TAB DAILY X3 DAYS THEN STOP, NOTES: INTERACTION DUE TO IBP ALLERGY TAKING EPIPEN 2-PREM 0.3 MG/0.3ML SOLUTION AUTO-INJECTOR 1 INJECTION INJECTION ONCE NEEDED FOR ALLERGIC REACTION, NOTES: INSTRUCTIONS ADDED TAKING DIPHENHYDRAMINE HCL 25 MG CAPSULE 1 CAP ORALLY EVERY 6 HRS PRN ITCHING, NOTES: FREQUENCY CHANGE TAKING ACETAMINOPHEN 325 MG TABLET 2 TABLETS NEEDED ORALLY EVERY 4 HRS TAKING COMBIVENT RESPIMAT 20-100 MCG/ACT AEROSOL 1 PUFF INHALATION FOUR TIMES DAILY TAKING NICOTINE STEP 1 21 MG/24HR PATCH 24 HOUR 1 PATCH TO SKIN TRANSDERMAL ONCE A DAY NEEDED FOR NIOTINE WITHDRAWAL TAKING FOSAMAX 70 MG TABLET 1 TABLET ORALLY WEEKLY TAKING LITHIUM CARBONATE 300 MG CAPSULE 1 CAP ORALLY 300 MG DAILY AM, 600 MG DAILY HS, NOTES: CHANGE IN FREQUENCY TAKING WIXELA INHUB 500-50 MCG/DOSE AEROSOL POWDER BREATH ACTIVATED 1 PUFF INHALATION DAILY, NOTES: NOT ON MED LIST-ADDED PER PT TAKING ALBUTEROL SULFATE (2.5 MG/3ML) 0.083% NEBULIZATION SOLUTION 3 ML NEEDED INHALATION 2-3 TIMES PER DAY, NOTES: NOT ON MED LIST-ADDED PER PT TAKING ALBUTEROL SULFATE 108 (90 BASE) MCG/ACT AEROSOL POWDER BREATH ACTIVATED 2 PUFFS NEEDED INHALATION EVERY 4 HOURS NEEDED FOR SOB, NOTES: FREQUENCY CHANGE NOT-TAKING CALCIUM CARBONATE ANTACID 500 MG TABLET CHEWABLE 1 TABLET ORALLY EVERY 4 HOURS NEEDED FOR HEARTBURN NOT-TAKING LEVAQUIN 500 MG TABLET 1 TABLET ORALLY ONCE A DAY X7 DAYS MEDICATION LIST REVIEWED AND RECONCILED WITH THE PATIENT PAST MEDICAL HISTORY CONGESTIVE HEART FAILURE OSTEOPOROSIS EMPHYSEMA COPD ASTHMA DIABETES TYPE II FIBROMYALGIA CARPAL TUNNEL DIABETIC NERVE PAIN OXYGEN DEPENDENT BIPOLAR ALLERGIES PENICILLIN (FOR ALLERGIES USE ONLY): HIVES, SWELLING - ALLERGY IBUPROFEN: HIVES - ALLERGY SURGICAL HISTORY CARPAL TUNNEL 2016 X3 TONSILLECTOMY UNKNOWN LEFT KNEE 02/28/19 FAMILY HISTORY NO FAMILY HISTORY DOCUMENTED. SOCIAL HISTORY GENERAL: TOBACCO USE ARE YOU A:CURRENT SMOKER ARE YOU INTERESTED IN QUITTING?THINKING ABOUT QUITTING PREVIOUS QUIT ATTEMPTS?YES, MORE THAN 6 MONTHS AGO. COUNSELED THE PATIENT ON SMOKING CESSATION, EDUCATION [id number]/2020 ASSIST (PHARMACOTHERAPY AND COUNSELING)DISCUSSED PATIENT CONCERNS RELATED TO QUITTING. PATIENT COUNSELED ON THE DANGERS OF TOBACCO USE AND URGED TO QUIT:03/05/2020 ADDITIONAL FINDINGS: TOBACCO USERLIGHT CIGARETTE SMOKER ((1-9 CIGS/DAY) SMOKING CESSATION INFORMATION GIVEN03/05/2020 VAPORNO E-CIGARETTENO LATEX QUESTIONNAIRE LATEX ALLERGY : HAVE YOU EVER DEVELOPED ANY TYPE OF REACTION AFTER HANDLING LATEX PRODUCTS SUCH RUBBER GLOVES, CONDOMS, DIAPHRAGMS, BALLOONS, SOCKS, OR UNDERWEAR?NO LATEX ALLERGY : HAVE YOU EVER DEVELOPED ANY TYPE OF REACTION DURING OR AFTER DENTAL APPOINTMENT, VAGINAL/RECTAL EXAMINATION, SURGICAL PROCEDURE, OR ANY OTHER EXPOSURE?NO LATEX RISK : HAVE YOU EVER HAD ANY DIFFICULTY BREATHING OR HIVES AFTER EATING OR HANDLING ANY FRUITS, OR VEGETABLES; SUCH KIWI, BANANAS, STONE FRUITS, OR CHESTNUTSNO LATEX RISK : DO YOU HAVE A PREVIOUS PERSONAL HISTORY OF MORE THAN NINE SURGERIES, SPINA BIFIDA, OR REPEATED CATHERIZATIONS? NO LATEX RISK : ARE YOU FREQUENTLY EXPOSED TO LATEX PRODUCTS IN YOUR OCCUPATION?NO DATE ASKED : 03/05/2020 ALCOHOL SCREENING DID YOU HAVE A DRINK CONTAINING ALCOHOL IN THE PAST YEAR?NO POINTS0 INTERPRETATIONNEGATIVE RECREATIONAL DRUG USE DRUG USE?NO CAFFEINE CAFFEINE USE?YES HOW OFTEN AND HOW MUCH? DAILY, 2-3 CUPS OF COFFEE, 5-6 CUPS OF SODA. HIV / HEP-C SCREENING HIV TEST OFFERED TO PATIENT:YES DATE OFFERED:02/08/2019 TEST ACCEPTED:NO HEP-C TEST OFFERED TO PATIENT:YES DATE OFFERED:02/08/2019 REASON:PATIENT DECLINED TEST ACCEPTED:NO REASON:PATIENT DECLINED BROCHURE PROVIDED TO PATIENTNO ORTHODOX [id number] SABIANIST LANGUAGE LANGUAGES SPOKEN:WELSH BULGARIAN EDUCATION LEVEL OF EDUCATION:HIGH SCHOOL LEARNING BARRIERS / SPECIAL NEEDS CHANGE FROM LAST VISIT?NO BARRIERS TO LEARNING?NO HEARING IMPAIRED?NO VISION IMPAIRED?YES COGNITIVELY IMPAIRED?NO :CORRECTIVE LENSES READINESS TO LEARN?YES LEARNING PREFERENCES?NO LEARNING CAPABILITIES PRESENT?YES EMOTIONAL BARRIERS?NO SPECIAL DEVICES?YES :WALKER CIRCULAR SAW OPERATOR NEEDED?NO DOMESTIC VIOLENCE DO YOU FEEL SAFE IN YOUR ENVIRONMENT?YES OCCUPATION: UNEMPLOYED. DIET: REGULAR. EXERCISE: NO REGULAR EXERCISE. MARITAL STATUS: . OTHERS AT HOME: CHILDREN. HOUSING: FAMILY MEMBER HOME. HOSPITALIZATION/MAJOR DIAGNOSTIC PROCEDURE ASTHMA RELATED MULTIPLE FAINTING SPELL 11/09/18 REVIEW OF SYSTEMS CONSTITUTIONAL: ANY RECENT FEVER OR ILLNESS NO . ANY CHANGE IN YOUR MEDICAL CONDITION? NO . CHILLS NO . MUSCULOSKELETAL: ANY NEW PATTERNS OF PAIN OR NUMBNESS? NO . GASTROENTEROLOGY: ANY NEW CHANGE IN BOWEL CONTROL? NO . UNEXPLAINED WEIGHT LOSS NO . GENITOURINARY: ANY NEW CHANGE IN BLADDER CONTROL? NO . CARDIOLOGY: CONGESTIVE HEART FAILURE/FLUID OVERLOAD YES . HIGH BLOOD PRESSURE NO . IRREGULAR HEART BEAT NO . RESPIRATORY: SHORTNESS OF BREATH ON EXERTION YES,COPD . WHEEZING NO . ENDOCRINOLOGY: ADRENAL GLAND DISORDER NO . THYROID DISORDER NO . VITAL SIGNS WT 152.2 LBS, HT 62 IN, BMI 27.83 INDEX, BP 131/60 MM HG, HR 77 /MIN, RR 18 /MIN, TEMP 97.1 F, OXYGEN SAT % 100%, NA INITIALS SC. EXAMINATION GENERAL EXAMINATION: GENERALNO ACUTE DISTRESS, WELL NOURISHED AND HYDRATED. PSYCHAPPROPRIATE MOOD AND AFFECT . LUNGS:CLEAR TO AUSCULTATION BILATERALLY, NO WHEEZES, RHONCHI, RALES. HEART:NO MURMURS, REGULAR RATE AND RHYTHM. ASSESSMENTS FIBROMYALGIA - M79.7 (PRIMARY) TREATMENT FIBROMYALGIA START LYRICA CAPSULE, 75 MG, 1 CAPSULE, ORALLY, TWICE DAILY, 30 DAYS, 60 CLINICAL NOTES: 51-YEAR-OLD FEMALE IN FOR INITIAL PAIN CONSULT. GIVEN PRESENTING SYMPTOMS RECOMMEND LYRICA 75 MG TWICE A DAY WITH FOLLOW-UP IN ONE MONTH TO DETERMINE EFFICACY OF TREATMENT. PATIENT HAS EXPRESSED UNDERSTANDING OF AND WAS IN AGREEMENT WITH TREATMENT PLAN. GIVEN TIME TO ASK QUESTIONS AND EXPRESS CONCERNS. PROCEDURE CODES FA211 ESTABILISHED PATIENT [facility] CHARGE DISPOSITION & COMMUNICATION FOLLOW UP 4 WEEKS (REASON: FIBRO/NEW MED ) ELECTRONICALLY SIGNED BY DANIEL CASTANEDA ON 03/06/2020 AT 08:49 AM EDT DISCLAIMER : THIS IS A VISIT SUMMARY EXTRACTED FROM THE [facility] CHART. IT IS NOT A COPY OF THE [facility] PROGRESS NOTE. CORDELIA
== END ==
LOC: M PAIN 14:15
PROVIDERS: ATTEND Family Medicine
DX: M79.7 Fibromyalgia (principal)

== ENCOUNTER → 2020-04-04 | Outpatient (CLI) | payer OTHER, MEDICAID ==
[~2020-04-04] MED LIST changes: -ALL10TAB29 PO; +CETI-24 PO
--- NOTE | 2020-04-08 04:12 | ECWPNPC ---
PATIENT NAME: SARAH MORALES : 1960 GENDER: FEMALE VISIT DATE: 04/04/2020 DISCHARGE DATE: 04/04/20 1405 VISIT LOCKED DATE TIME: PHYSICIAN: JUAN C CELAYA RESOURCE: JUAN C CELAYA REASON FOR APPOINTMENT 1. [facility]- [phone] HISTORY OF PRESENT ILLNESS GENERAL: PERMISSION REQUESTED AND RECEIVED FROM PATIENT TO PERFORM TELEPHONE VISIT. 51-YEAR-OLD FEMALE IN FOR CHRONIC PAIN FOLLOW-UP. AT LAST CLINIC VISIT PATIENT WAS STARTED ON [facility] HOWEVER SHE ADMITS THAT SHE DID NOT HAVE INSURANCE AT THAT TIME SO SHE DID NOT GET MEDICATION IT WAS TOO EXPENSIVE. SHE HAS REQUESTED THIS FUEL TECHNICIAN SEND ANOTHER PRESCRIPTION SHE HAS INSURANCE NOW. FALL RISK SCREENING: SCREENING :NO FALLS REPORTED IN THE LAST YEAR PAIN SCREENING: PATIENT HAS A COMPLAINT OF ACUTE OR CHRONIC PAIN :YES LOCATION OF PAIN: ALL JOINTS AND KNEES.. FINGERS AND HANDS, SPINE, BOOTOM OF FEET WHAT DOES YOUR PAIN FEEL LIKE:ACHING, SHARP, SORE PINS AND NEEDLES ON BOTTOM OF FEET DURATION:CONTINOUS NURSING NOTE: -. PAIN CENTER INTAKE QUESTIONS: DO YOU HAVE A HISTORY OF MRSA? :NO DO YOU TAKE A BLOOD THINNERS? :NO DO YOU HAVE ANY BLEEDING DISORDERS? :NO ANY NEW NUMBNESS OR WEAKNESS IN YOUR LEGS OR ARMS? :NO ANY PACEMAKER,DEFIBRILLATOR, OR DORSAL COLUMN STIMULATOR? :NO DO YOU HAVE ANY RASHES OR OPEN SORES? :NO ARE YOU ALLERGIC TO IV DYE? :NO ARE YOU DIABETIC? :NO ANY NEW PROBLEMS WITH YOUR MEDICATIONS? :NO COULD NOT AFFORD LYRICA HAVE YOU RECEIVED A VACCINE IN THE PAST 30 DAYS? :NO DO YOU PLAN TO RECEIVE A VACCINE IN THE NEXT 21 DAYS? :NO DO YOU NEED ANY PRESCRIPTION? :YES DO YOU TAKE ANY IMMUNOSUPPRESSIVE MEDICATIONS? :NO IS THERE A CHANCE YOU COULD BE ? :NO ARE YOU BREAST FEEDING? :NO CURRENT MEDICATIONS TAKING PREDNISONE 10 MG TABLET 1 TABLET ORALLY 4 TABS DAILY X3 DAYS, 3 TABS DAILY X3 DAYS, 2 TABS DAILY X3 DAYS, 1 TAB DAILY X3 DAYS THEN STOP, NOTES: INTERACTION DUE TO IBP ALLERGY TAKING EPIPEN 2-PREM 0.3 MG/0.3ML SOLUTION AUTO-INJECTOR 1 INJECTION INJECTION ONCE NEEDED FOR ALLERGIC REACTION, NOTES: INSTRUCTIONS ADDED TAKING DIPHENHYDRAMINE HCL 25 MG CAPSULE 1 CAP ORALLY EVERY 6 HRS PRN ITCHING, NOTES: FREQUENCY CHANGE TAKING ACETAMINOPHEN 325 MG TABLET 2 TABLETS NEEDED ORALLY EVERY 4 HRS TAKING COMBIVENT RESPIMAT 20-100 MCG/ACT AEROSOL 1 PUFF INHALATION FOUR TIMES DAILY TAKING NICOTINE STEP 1 21 MG/24HR PATCH 24 HOUR 1 PATCH TO SKIN TRANSDERMAL ONCE A DAY NEEDED FOR NIOTINE WITHDRAWAL TAKING FOSAMAX 70 MG TABLET 1 TABLET ORALLY WEEKLY TAKING LITHIUM CARBONATE 300 MG CAPSULE 1 CAP ORALLY 300 MG DAILY AM, 600 MG DAILY HS, NOTES: CHANGE IN FREQUENCY TAKING WIXELA INHUB 500-50 MCG/DOSE AEROSOL POWDER BREATH ACTIVATED 1 PUFF INHALATION DAILY, NOTES: NOT ON MED LIST-ADDED PER PT TAKING ALBUTEROL SULFATE (2.5 MG/3ML) 0.083% NEBULIZATION SOLUTION 3 ML NEEDED INHALATION 2-3 TIMES PER DAY, NOTES: NOT ON MED LIST-ADDED PER PT TAKING ALBUTEROL SULFATE 108 (90 BASE) MCG/ACT AEROSOL POWDER BREATH ACTIVATED 2 PUFFS NEEDED INHALATION EVERY 4 HOURS NEEDED FOR SOB, NOTES: FREQUENCY CHANGE NOT-TAKING LYRICA 75 MG CAPSULE 1 CAPSULE ORALLY TWICE DAILY, NOTES: COULD NOT AFFORD NOT-TAKING CALCIUM CARBONATE ANTACID 500 MG TABLET CHEWABLE 1 TABLET ORALLY EVERY 4 HOURS NEEDED FOR HEARTBURN NOT-TAKING LEVAQUIN 500 MG TABLET 1 TABLET ORALLY ONCE A DAY X7 DAYS MEDICATION LIST REVIEWED AND RECONCILED WITH THE PATIENT PAST MEDICAL HISTORY CONGESTIVE HEART FAILURE OSTEOPOROSIS EMPHYSEMA COPD ASTHMA DIABETES TYPE II FIBROMYALGIA CARPAL TUNNEL DIABETIC NERVE PAIN OXYGEN DEPENDENT BIPOLAR ALLERGIES PENICILLIN (FOR ALLERGIES USE ONLY): HIVES, SWELLING - ALLERGY IBUPROFEN: HIVES - ALLERGY SURGICAL HISTORY CARPAL TUNNEL 2016 X3 TONSILLECTOMY UNKNOWN LEFT KNEE 02/28/19 FAMILY HISTORY FATHER: , DIAGNOSED WITH HYPERTENSION MOTHER: , HYPERTENSION, DIABETES SOCIAL HISTORY GENERAL: TOBACCO USE ARE YOU A:CURRENT SMOKER ARE YOU INTERESTED IN QUITTING?THINKING ABOUT QUITTING PREVIOUS QUIT ATTEMPTS?YES, MORE THAN 6 MONTHS AGO. COUNSELED THE PATIENT ON SMOKING CESSATION, EDUCATION [id number] ASSIST (PHARMACOTHERAPY AND COUNSELING)DISCUSSED PATIENT CONCERNS RELATED TO QUITTING. HOW MANY CIGARETTES A DAY DO YOU SMOKE?5 OR LESS PATIENT COUNSELED ON THE DANGERS OF TOBACCO USE AND URGED TO QUIT:04/03/2020 ADDITIONAL FINDINGS: TOBACCO USERLIGHT CIGARETTE SMOKER ((1-9 CIGS/DAY) SMOKING CESSATION INFORMATION GIVEN04/03/2020 VAPORNO E-CIGARETTENO LATEX QUESTIONNAIRE LATEX ALLERGY : HAVE YOU EVER DEVELOPED ANY TYPE OF REACTION AFTER HANDLING LATEX PRODUCTS SUCH RUBBER GLOVES, CONDOMS, DIAPHRAGMS, BALLOONS, SOCKS, OR UNDERWEAR?NO LATEX ALLERGY : HAVE YOU EVER DEVELOPED ANY TYPE OF REACTION DURING OR AFTER DENTAL APPOINTMENT, VAGINAL/RECTAL EXAMINATION, SURGICAL PROCEDURE, OR ANY OTHER EXPOSURE?NO LATEX RISK : HAVE YOU EVER HAD ANY DIFFICULTY BREATHING OR HIVES AFTER EATING OR HANDLING ANY FRUITS, OR VEGETABLES; SUCH KIWI, BANANAS, STONE FRUITS, OR CHESTNUTSNO LATEX RISK : DO YOU HAVE A PREVIOUS PERSONAL HISTORY OF MORE THAN NINE SURGERIES, SPINA BIFIDA, OR REPEATED CATHERIZATIONS? NO LATEX RISK : ARE YOU FREQUENTLY EXPOSED TO LATEX PRODUCTS IN YOUR OCCUPATION?NO DATE ASKED : 04/03/2020 ALCOHOL SCREENING DID YOU HAVE A DRINK CONTAINING ALCOHOL IN THE PAST YEAR?NO POINTS0 INTERPRETATIONNEGATIVE RECREATIONAL DRUG USE DRUG USE?NO CAFFEINE CAFFEINE USE?YES HOW OFTEN AND HOW MUCH? DAILY, 2-3 CUPS OF COFFEE, 5-6 CUPS OF SODA. HIV / HEP-C SCREENING HIV TEST OFFERED TO PATIENT:YES DATE OFFERED:02/08/2019 TEST ACCEPTED:NO HEP-C TEST OFFERED TO PATIENT:YES DATE OFFERED:02/08/2019 REASON:PATIENT DECLINED TEST ACCEPTED:NO REASON:PATIENT DECLINED BROCHURE PROVIDED TO PATIENTNO RELIGIOUS [id number] AMISH LANGUAGE LANGUAGES SPOKEN:[place] EDUCATION LEVEL OF EDUCATION:HIGH SCHOOL LEARNING BARRIERS / SPECIAL NEEDS CHANGE FROM LAST VISIT?NO BARRIERS TO LEARNING?NO HEARING IMPAIRED?NO VISION IMPAIRED?YES :CORRECTIVE LENSES COGNITIVELY IMPAIRED?NO READINESS TO LEARN?YES LEARNING PREFERENCES?NO LEARNING CAPABILITIES PRESENT?YES EMOTIONAL BARRIERS?NO SPECIAL DEVICES?YES :[employer] HEAD NEEDED?NO DOMESTIC VIOLENCE DO YOU FEEL SAFE IN YOUR ENVIRONMENT?YES OCCUPATION: UNEMPLOYED. DIET: REGULAR. EXERCISE: NO REGULAR EXERCISE. MARITAL STATUS: . OTHERS AT HOME: CHILDREN. HOUSING: FAMILY MEMBER HOME. HOSPITALIZATION/MAJOR DIAGNOSTIC PROCEDURE ASTHMA RELATED MULTIPLE FAINTING SPELL 11/09/18 REVIEW OF SYSTEMS CONSTITUTIONAL: ANY RECENT FEVER NO . CHILLS NO . WEIGHT CHANGE OF UNKNOWN REASONS NO . GASTROENTEROLOGY: NEW UNEXPLAINABLE CHANGES IN BOWEL CONTROL NO . CONSTIPATION NO . GENITOURINARY: ANY NEW CHANGE IN BLADDER CONTROL? NO . NEUROLOGY: NEW ONSET DIZZINESS OR NEUROLOGICAL CHANGES NOT MENTIONED NO . NEW NUMBNESS OR PAIN PATTERNS NOT MENTIONED AND PERTINENT TO TODAY'S VISIT NO . CARDIOLOGY: NEW CHEST PRESSURE NO . NEW CHEST PAIN NO . RESPIRATORY: UNEXPLAINABLE COUGH NO . NEW SHORTNESS OF BREATH NO . VITAL SIGNS WT 1 LBS, HT 62 IN, BMI 0.18 INDEXVITALS NOT OBTAINED DUE TO COVID 19. EXAMINATION GENERAL EXAMINATION: PSYCHAPPROPRIATE MOOD AND AFFECT , ORIENTED X 3. ASSESSMENTS FIBROMYALGIA - M79.7 (PRIMARY) TREATMENT FIBROMYALGIA REFILL LYRICA CAPSULE, 75 MG, 1 CAPSULE, ORALLY, TWICE DAILY, 30 DAYS, 60, NOTES: COULD NOT AFFORD CLINICAL NOTES: 51-YEAR-OLD FEMALE IN FOR CHRONIC PAIN FOLLOW-UP. GIVEN PRESENTING SYMPTOMS RECOMMEND RESTARTING LYRICA AND HAVING PATIENT FOLLOW-UP IN ONE MONTH TO DETERMINE EFFICACY OF TREATMENT. PATIENT HAS EXPRESSED UNDERSTANDING OF AND WAS IN AGREEMENT WITH TREATMENT PLAN. GIVEN TIME TO ASK QUESTIONS AND EXPRESS CONCERNS. , ISTOP REGISTRY REVIEWED AND DEMONSTRATES COMPLLIANCE. (REF # [id number] ). DISPOSITION & COMMUNICATION FOLLOW UP 4 WEEKS (REASON: MEDICATION FIBROMYALGIA) ELECTRONICALLY SIGNED BY DANIEL CASTANEDA ON 04/07/2020 AT 08:43 AM EDT DISCLAIMER : THIS IS A VISIT SUMMARY EXTRACTED FROM THE [facility] CHART. IT IS NOT A COPY OF THE [facility] PROGRESS NOTE. MTDD
== END ==
LOC: M PAIN 13:30
PROVIDERS: ATTEND Family Medicine
DX: M79.7 Fibromyalgia (principal)